=== PATIENT | female | born 1945 | race Caucasian/White ===

== ENCOUNTER → 2023-12-06 14:12 | Outpatient (REF) | payer MEDICARE, OTHER, SELFPAY | LOC: WDC 14:12 | PROVIDERS: ATTENDING PHYSICIAN Obstetrics & Gynecology Gynecology; FAMILY PHYSICIAN Internal Medicine | DX: Z12.31 Encounter for screening mammogram for malignant neoplasm of breast (principal) | CPT/HCPCS: 77063; 77067 ==

== ENCOUNTER → 2024-04-16 13:24 | Outpatient (REF) | payer MEDICARE, OTHER, SELFPAY ==
[2024-04-16 15:00] LABS: % Basophils 0.4 % (0-2); % Eosinophils 0.3 % (0-6); % Immature Granulocytes 0.9 % (0-0.5); % Lymphocytes 2.4 % (20.5-51.1); % Monocytes 5.7 % (1.7-9.3); % Neutrophils 90.3 % (42.2-75.2); Absolute Immature Granulocytes 0.1 10^3/uL (0-0.05); Absolute Lymphocytes 0.3 10^3/uL (1.2-3.4); Absolute Monocytes 0.6 10^3/uL (0.1-0.6); Absolute Neutrophils 9.6 10^3/uL (1.4-6.5); Hematocrit 43.3 % (37.0-47.0); Hemoglobin 15.2 g/dL (12.0-16.0); Mean Corp Hgb Conc. 35.1 g/dL (33.0-37.0); Mean Corpuscular Hgb 29.3 pg (27.0-31.0); Mean Corpuscular Volume 83.4 fL (81.0-99.0); Mean Platelet Volume 10.8 fL (7.4-10.4); Nucleated Red Blood Cells % 0 %; Platelet Count 229 10^3/uL (130-400); Red Blood Cell Count 5.19 10^6/uL (4.20-5.40); Red Cell Dist. Width 12.7 % (11.5-14.5); White Blood Cell Count 10.6 10^3/uL (4.8-10.8)
[2024-04-16 15:45] LABS: ALT (SGPT) 405 U/L (0-35); AST (SGOT) 548 U/L (14-36); Albumin 4.8 g/dl (3.5-5.0); Alkaline Phosphatase 261 U/L (38-126); Blood Urea Nitrogen 21 mg/dl (7-17); Calcium 9.9 mg/dl (8.4-10.2); Carbon Dioxide 22 mmol/L (22-30); Chloride 86 mmol/L (98-107); Glucose 137 mg/dl (70-99); Iron 38 ug/dl (37-170); Percent Saturation 14 % (20-50); Potassium 3.2 mmol/L (3.5-5.1); Sodium 128 mmol/L (135-145); Total Bilirubin 2.4 mg/dl (0.2-1.3); Total Iron Binding Capacity 268 ug/dl (265-497); Total Protein 7.8 g/dl (6.3-8.2); eGFR 51.43
[2024-04-16 15:48] LABS: TSH Reflex To Free T4 0.51 uIU/ml (0.47-4.68)
== END ==
LOC: REG 13:24
PROVIDERS: ATTENDING PHYSICIAN Nurse Practitioner Family
DX: R53.83 Other fatigue (principal); R63.4 Abnormal weight loss; I49.9 Cardiac arrhythmia, unspecified; D50.8 Other iron deficiency anemias; K75.81 Nonalcoholic steatohepatitis (NASH); I10 Essential (primary) hypertension
CPT/HCPCS: 36415; 80053; 82728; 83540; 83550; 84443; 85025

== ENCOUNTER 2024-04-19 19:15 | Inpatient (IN) | payer MEDICARE, OTHER, SELFPAY ==
[2024-04-19] VITALS (7 sets, daily range): BP systolic 125–154; BP diastolic 64–96; BMI 18.1; BMI 17.0
--- NOTE | 2024-04-19 15:11 | ED.GENMED ---
History of Present Illness
General
Chief Complaint: Abnormal Lab Value
Time Seen by Provider: 04/19/24 15:11
History of Present Illness
History of Present Illness:
HPI: Patient presents due to weakness. She also states that primary care doctor wanted to come here because of abnormal liver testing. She had these test that were performed due to weakness and feeling cold.
EXAM:
GENERAL: The patient appears generally weak
HEENT: Moist oral mucosa
CARDIOVASCULAR: No murmurs, normal heart rate, regular rhythm, No chest wall tenderness
PULMONARY: No respiratory distress, breath sounds are clear and equal
ABDOMEN: Soft with no peritoneal signs, no tenderness
NEUROLOGIC: Good strength all extremities, no coordination deficits
PSYCHIATRIC: Appropriate mental status, fair insight and judgement, she is knows she is at [facility] and knows that it is March however she seems to have some very mild cough deficits however the patient states this is not new
EXTREMITIES: Nontender, no edema, moves all extremities equally
SKIN: Some decreased perfusion noted distally the patient is not having any other symptoms regarding this though
TIME OF INITIAL ENCOUNTER: 3:30 PM
NUMBER AND COMPLEXITY OF PROBLEMS ADDRESSED AT THE ENCOUNTER
� Chronic conditions affecting care: Fatty liver disease
� Acute Exacerbation and/or Progression of Chronic Illness: This is an acute problem
� Differential Diagnosis includes: Progressive functional decline, thyroid disease unlikely as she had a normal TSH 3 days ago, liver disease, hyponatremia, hypokalemia
AMOUNT AND/OR COMPLEXITY OF DATA TO BE REVIEWED AND ANALYZED
� I performed an independent evaluation of and my interpretation is:
EKG: Sinus 126, normal axis, frequent PACs versus multifocal atrial tachycardia
CT:
X-rays:
Laboratory Studies: Sodium 121, bicarb slightly low at 20, BUN and creatinine are elevated, magnesium 2.4, LFTs overall improved compared to earlier lipase minimally elevated
Other: Ultrasound imaging reviewed
� Review of other/old records: I reviewed recent records. The patient had a CBC 3 days ago that was unremarkable, sodium was 128, potassium 3.2, creatinine was 1.1, AST was 548, ALT 405, alk phos is 261, TSH was normal
� Clinical information was obtained by an independent historian: I spoke to at bedside
� Prescriptions/Medications Considered but not given:
� Further testing considered but not performed:
RISK OF COMPLICATIONS AND/OR MORBIDITY OR MORTALITY OF PATIENT MANAGEMENT
� Social determinants of health affecting care: With
� Discussion with other providers: Hospitalist for admission at 5:59 PM hyponatremia and CHERIE
� Escalation of care including admission/observation vs risk of discharge considered: The patient appears rather weak and debilitated. Her LFTs were abnormal as outpatient and her sodium and potassium are also low as an
outpatient. Labs were rechecked today. She was also given IV fluids for the possible of dehydration. Ultrasound imaging obtained. Patient's sodium is now down to 121, serum osmolality 270. Of note patient's med list includes hydrochlorothiazide.
Past History
Past History
ED Past Medical History: Asthma
ED Past Surgical History: Other (Recent left cataract surgery)
Social History
Tobacco: Former smoker
Alcohol: None
Drug: None
Living: with family
Phy Exam
Physical Exam
Physical Exam:
See HPI
Course
Orders/Labs/Results
Orders:
Orders
04/19/24 Dinner
Regular
At Your Request: Limited Participation
04/19/24 15:04
Electrocardiogram (*1) Urgent
Reason for Study: Abdominal Pain
EKG- Treatment ONCE
04/19/24 15:13
US Abdomen Complete/Upper Urgent
Comment:
Reason For Exam: high AST/ALT/AP
04/19/24 15:15
Complete Blood Count/With Diff Urgent
Comprehensive Metabolic Panel Urgent
Lipase Urgent
Magnesium Urgent
Comment: ADD-ON
04/19/24 15:19
0.9% Sodium Chloride 1000 ml [Nss] 1,000 ml IV BOLUS
04/19/24 15:32
Add On- LAB Urgent
Tests Added?: magnesium
04/19/24 18:00
Add On- LAB Urgent
Tests Added?: osm
Osmolality, Random Urine Urgent
Urine Sodium Urgent
04/19/24 18:02
Osmolality, Random Urine Stat
Urine Sodium Stat
04/19/24 18:05
Osmolality Serum [Serum Osmolality] Stat
04/19/24 18:06
NEPHROLOGY CONSULT Routine
Consulting Provider: Ganga Barber
Was physician already notified: Yes
Reason for consult: CHERIE, hyponatremia
04/19/24 18:08
Metoprolol [Lopressor] 5 mg IV Q6HPRN PRN
04/19/24 18:15
0.9% Sodium Chloride 1000 ml [Nss] 1,000 ml IV 60 mls/hr
04/19/24 18:21
Admit/Transfer Patient As Directed
Co-Sign Provider:
Level of Care: Inpatient admission
Assign to:: Telemetry
Physician / Group: Sierra
Diagnosis: CHERIE, hyponatremia, elevated LFTs
Reason for Telemetry: Arrhythmia
Date to Stop Telemetry: 04/22/24
Time to Stop Telemetry: 11:00
Reason for Hospitalization: CHERIE, hyponatremia, elevated LFTs
Expected length of stay greater than two midnights?: Yes
ELOS- Estimated Length of Stay in days: 4
I certify the patient meets the requirements for IP care: Yes
04/19/24 18:22
Code Status As Directed
Resuscitation Status: Full Code
04/19/24 19:00
Flush (0.9% Sodium Chloride) [Flush (Nss)] See Dose Instructions IV PER PROTOCOL
04/19/24 19:21
Acetaminophen [Tylenol] 650 mg PO Q4HPRN PRN
Bisacodyl [Dulcolax] 10 mg RECTAL [id number] PRN
Docusate W/Senna [Senokot-S] 1 tablet PO BIDPRN PRN
Ondansetron Injectable [Zofran] 4 mg IV Q6HPRN PRN
Polyethylene Glycol Powder [Miralax] 17 grams PO DAILYPRN PRN
04/19/24 19:21
Activity As Directed
Activity Level: With Assistance
Vital Signs As Directed
Frequency: Per unit guidelines
DX Deep Vein Thrombosis Video Routine
04/19/24 20:00
Heparin 5,000 units SC Q12
04/19/24 21:15
BMP [Basic Metabolic Panel] Q6H
Hepatitis A Antibody, Total Routine
Comment: previous specimen hemolyzed added to next set of labs
Hepatitis B Surface Antibody Routine
Hepatitis B Surface Antigen Routine
Hepatitis C Antibody Routine
04/20/24 03:15
BMP [Basic Metabolic Panel] Q6H
04/20/24 06:00
Comprehensive Metabolic Panel IN AM
LFT [Dkwsp-Syqb-Kivoosm] IN AM
04/20/24 09:15
BMP [Basic Metabolic Panel] Q6H
04/20/24 15:15
BMP [Basic Metabolic Panel] Q6H
04/20/24 21:15
BMP [Basic Metabolic Panel] Q6H
04/21/24 06:00
Comprehensive Metabolic Panel IN AM
LFT [Zjqwy-Yvwc-Zsmzlij] IN AM
04/22/24 06:00
Comprehensive Metabolic Panel IN AM
LFT [Rdhfx-Dcic-Yjenmio] IN AM
04/22/24 11:00
DC Protocol for Telemetry ONCE
04/23/24 06:00
Comprehensive Metabolic Panel IN AM
LFT [Zjsog-Vxmh-Bswfnwj] IN AM
04/24/24 06:00
Comprehensive Metabolic Panel IN AM
LFT [Grwqg-Idfu-Jweypqa] IN AM
04/25/24 06:00
Comprehensive Metabolic Panel IN AM
LFT [Ahebf-Jycp-Letrewt] IN AM
04/26/24 06:00
Comprehensive Metabolic Panel IN AM
LFT [Tfiim-Viho-Vkgeyuw] IN AM
Abnormal Lab Results
04/19/24 04/19/24
15:15 18:05
MCV 79.7 L fL
(81.0-99.0)
Abs Immat Gran (auto) 0.2 H 10^3/uL
(0-0.05)
Absolute Neuts (auto) 7.5 H 10^3/uL
(1.4-6.5)
Absolute Lymphs (auto) 0.2 L 10^3/uL
(1.2-3.4)
Immature Gran % 2.1 H %
(0-0.5)
Neutrophils % 91.5 H %
(42.2-75.2)
Lymphocytes % 2.2 L %
(20.5-51.1)
Sodium 121 L mmol/L
(135-145)
Chloride 81 L mmol/L
(98-107)
Carbon Dioxide 20 L mmol/L
(22-30)
BUN 50 H mg/dl
(7-17)
Creatinine 2.8 H mg/dL
(0.6-1.0)
Glucose 113 H mg/dl
(70-99)
Serum Osmolality 270 L mOsm/kg
(275-300)
Magnesium 2.4 H mg/dl
(1.6-2.3)
Total Bilirubin 1.8 H mg/dl
(0.2-1.3)
AST 360 H U/L
(14-36)
ALT 303 H U/L
(0-35)
Alkaline Phosphatase 269 H U/L
(38-126)
Lipase 320 H U/L
(23-300)
04/19/24 15:15
04/19/24 15:15
Vital Signs
Initial and Last Documented VS:
Initial Vital Signs
Temp Pulse Resp BP Pulse Ox
99 F 125 20 142/96 95
04/19/24 15:03 04/19/24 15:03 04/19/24 15:03 04/19/24 15:03 04/19/24 15:03
Last Documented Vital Signs
Temp Pulse Resp BP Pulse Ox
98.9 F 116 20 148/92 92
04/19/24 19:50 04/19/24 19:50 04/19/24 19:50 04/19/24 19:50 04/19/24 19:50
*Critical Care Note
Total Time (30-74mins, 75-104mins- exclusive of procedures): Not Applicable
ED Attending Note
-
Portions of this chart may have been created with voice recognition software.� Occasional wrong word or��sound alike� substitutions may have occurred due to the inherent limitations of voice recognition software.
Discharge Plan
Departure
Patient Disposition: Admit
Date of Disposition: 04/19/24
Time of Disposition: 18:50
Presentation/result/management discussed w/ accepting MD/DO: Hospitalist
Discharge Problem:
Acute hyponatremia
Interventions
Interventions:
*Risk Screen - Suicide Last Done: 04/19/24 14:57
*General Assessment Last Done: 04/19/24 14:57
*Neglect/Abuse Screening Last Done: 04/19/24 14:57
ED- Fall Risk Assessment Last Done: 04/19/24 18:20
*Nursing Disposition Last Done: 04/19/24 19:14
Discharge Date and Time
Discharge Date/Time: 04/19/24 19:14
[2024-04-19 15:25] LABS: % Eosinophils 0.1 % (0-6); % Immature Granulocytes 2.1 % (0-0.5); % Lymphocytes 2.2 % (20.5-51.1); % Monocytes 3.1 % (1.7-9.3); % Neutrophils 91.5 % (42.2-75.2); Absolute Basophils 0.1 10^3/uL (0-0.2); Absolute Immature Granulocytes 0.2 10^3/uL (0-0.05); Absolute Lymphocytes 0.2 10^3/uL (1.2-3.4); Absolute Monocytes 0.3 10^3/uL (0.1-0.6); Absolute Neutrophils 7.5 10^3/uL (1.4-6.5); Hematocrit 39.7 % (37.0-47.0); Hemoglobin 14.6 g/dL (12.0-16.0); Mean Corp Hgb Conc. 36.8 g/dL (33.0-37.0); Mean Corpuscular Hgb 29.3 pg (27.0-31.0); Mean Corpuscular Volume 79.7 fL (81.0-99.0); Mean Platelet Volume 10.2 fL (7.4-10.4); Nucleated Red Blood Cells % 0 %; Platelet Count 236 10^3/uL (130-400); Red Blood Cell Count 4.98 10^6/uL (4.20-5.40); Red Cell Dist. Width 12.9 % (11.5-14.5); White Blood Cell Count 8.2 10^3/uL (4.8-10.8)
[2024-04-19] MEDS: NSS 1000 IV ×2 (15:27→21:09)
[2024-04-19 15:41] LABS: ALT (SGPT) 303 U/L (0-35); AST (SGOT) 360 U/L (14-36); Alkaline Phosphatase 269 U/L (38-126); Blood Urea Nitrogen 50 mg/dl (7-17); Calcium 8.4 mg/dl (8.4-10.2); Carbon Dioxide 20 mmol/L (22-30); Chloride 81 mmol/L (98-107); Estimated Creatinine Clearance 12 ml/min; Glucose 113 mg/dl (70-99); Lipase 320 U/L (23-300); Potassium 3.5 mmol/L (3.5-5.1); Sodium 121 mmol/L (135-145); Total Bilirubin 1.8 mg/dl (0.2-1.3); Total Protein 6.7 g/dl (6.3-8.2); eGFR 16.76
[2024-04-19 15:49] LABS: Magnesium 2.4 mg/dl (1.6-2.3)
--- NOTE | 2024-04-19 18:01 | HPS.HSE ---
Family Physician
-
Family Physician: Simon Good
Chief Complaint
-
Weakness, elevated LFTs
History of Present Illness
78 y/o F with PMHx:
Essential HTN
Fatty liver with baseline elevated LFTs
Who presents with chief complaints of weakness and elevated LFTs. The history is obtained from patient's as the patient is extremely hard of hearing and does not have her hearing aids. Approximately 6 days ago the patient was apparently
taking care of someone's dog in a house that was quite cool. Since that time the patient has had weakness. She saw her primary care physician and had blood work done showing elevated LFTs and was told to come to the ER. This was approximately 3
days ago. In the last 3 days the patient has only had 2 scrambled eggs. No other oral intake. She has had occasional diarrhea without melena or hematochezia reported ( was not entirely sure about this). He also states the patient
complained of some abdominal pain. Patient has been afebrile. There have been no reports of headache, visual services, neck stiffness, chest pain, shortness of breath, cough, nausea, vomiting, focal neurological deficits, rash.
Medical History
Past Medical History
Past Medical History: Reports Other (as per HPI)
Past Surgical History: Reports Other (N/A)
Social History
Tobacco: Non-smoker
Alcohol: None
Drug: None
Family History
Family History: Not pertinent
Allergies / Home Medications
Allergies reflects when Allergies were last updated in [facility].
Home Medications with original date entered in [facility]
Allergy/Medication List:
Allergies
Allergy/AdvReac Type Severity Reaction Status Date / Time
Sulfa (Sulfonamide Allergy Hives Verified 04/19/24 15:02
Antibiotics)
Home Medications
simvastatin 40 mg tablet 40 mg PO QPM 05/11/11
lisinopril 20 mg-hydrochlorothiazide 12.5 mg tablet 1 tab PO DAILY 04/19/24
risedronate 35 mg tablet 35 mg PO WEEKLY 04/19/24
Review of Systems
-
Unable to obtain full review of systems at this time due to: Other (hard of hearing)
History Source: Family
Physical Exam
Vital Signs
Vital Signs
Temp Pulse Resp BP Pulse Ox
99 F 125 20 142/96 95
04/19/24 15:03 04/19/24 15:03 04/19/24 15:03 04/19/24 15:03 04/19/24 15:03
Physical Exam
General: Other (.)
Laboratory Results
-
04/19/24 15:15
04/19/24 15:15
Laboratory Results
Total Bilirubin 1.8 mg/dl (0.2-1.3) H 04/19/24 15:15
AST 360 U/L (14-36) H 04/19/24 15:15
ALT 303 U/L (0-35) H 04/19/24 15:15
Alkaline Phosphatase 269 U/L (38-126) H 04/19/24 15:15
Lipase 320 U/L (23-300) H 04/19/24 15:15
Impression/Plan
-
Gen: NAD, Awake and alert
Eyes: EOMI, PERRLA, no scleral icterus.
ENMT: dry MM
Neck: supple.
CV: tachy, regular rhythm with occasional premature beats, +S1/S2, no m/r/g.
Resp: CTAB, no rales, wheezes, or rhonchi.
Abd: +BS, soft, NT, ND
Skin: No rashes.
Neuro: CN 2-12 intact, non-focal.
Psych: Normal mood and affect.
ECG (read by me): sinus tachy with PAC @ 126, nl axis, QTc 463ms, no acute ST/TW changes
Acute hyponatremia:
-1L NS bolus ordered in ER
-check serum and urine Osm, Fartun
-c/s renal
-BMP Q6H
-hold HCTZ/ACEi
-suspect AG metabolic acidosis due to CHERIE
-NS @ 60cc/hr
CHERIE:
-gentle IVFs with hyponatremia to avoid overcorrection
-hold HCTZ/ACEi
-renal to see
Elevated LFTs:
-improving from 04/16/24
-Abd U/S read pending
Essential HTN:
-hold HCTZ/ACEi
-IV BB PRN
FULL/Heparin/tele
[2024-04-19 18:28] LABS: Osmolality Serum 270 mOsm/kg (275-300)
--- NOTE | 2024-04-19 19:12 | W.CON.NEPH ---
Consultation
-
Date/Time Consultation Requested: April 19, 2024 6 PM
Date/Time Consultation Performed: April 19, 2024 7 PM
Requesting Provider: Dr. Esquivel
Performing Provider: Dr. Barber
Reason for Consultation: Acute kidney injury, hyponatremia
Medical History
-
Chief Complaint: Confusion
History of Present Illness:
This is a 70-year-old female with hypertension on a multidrug regimen which has typically been well-controlled. She also with osteoporosis on bisphosphonate therapy. She has hyperlipidemia controlled with statin therapy. She also has known fatty
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 Last week she had been dog sitting. She comfortable in the house she was dog sitting and. Thereafter she began with significant fatigue as well as significant loss of appetite. According
to her she did not eat or drink very much at all over the next few days. She also then began having orthostasis and lightheadedness. She was very weak. She was sleeping more. He had taken her to see her primary care physician with
ordered blood work and was planning on having an echocardiogram as well. She then began to get more confused and he became concerned and brought her to the emergency room. Here she was found have a sodium level 121 a creatinine of 2.8. From her
baseline of closer to 0.7. Liver function test were also elevated up to 10 times normal. He states that she has had no issues with eating or drinking simply with no appetite. There is no nausea or vomiting. She had no issues taking her
medications. He believes there is also diarrhea but possibly only 2 or 3 episodes in the last few days. He also notes that she has been pursed lip breathing. This is new for her
Past Medical History
Hypertension
Osteoporosis
Hyperlipidemia
Fatty liver
Left cataract surgery
Asthma
Social History
Tobacco: Non-Smoker
Alcohol: None
Family History
Family History: Not Pertinent
Allergies / Home Medications
Allergy/AdvReac Type Severity Reaction Status Date / Time
Sulfa (Sulfonamide Allergy Hives Verified 04/19/24 15:02
Antibiotics)
�Medication �Instructions �Recorded �Confirmed �Type
simvastatin 40 mg tablet 40 mg PO QPM 05/11/11 04/19/24 History
lisinopril 20 1 tab PO DAILY 04/19/24 04/19/24 History
mg-hydrochlorothiazide 12.5 mg
tablet
risedronate 35 mg tablet 35 mg PO WEEKLY 04/19/24 04/19/24 History
Review of Systems
-
As above, hard of hearing
All other systems: Negative unless noted
Physical Exam
Vital Signs
Vital Signs
Temp Pulse Resp BP Pulse Ox
99 F 125 20 144/64 96
04/19/24 15:03 04/19/24 18:00 04/19/24 18:00 04/19/24 18:00 04/19/24 18:00
Lab Results
WBC 8.2 10^3/uL (4.8-10.8) 04/19/24 15:15
RBC 4.98 10^6/uL (4.20-5.40) 04/19/24 15:15
Hgb 14.6 g/dL (12.0-16.0) 04/19/24 15:15
Hct 39.7 % (37.0-47.0) 04/19/24 15:15
Plt Count 236 10^3/uL (130-400) 04/19/24 15:15
Sodium Cancelled 04/19/24 21:15
Potassium Cancelled 04/19/24 21:15
Chloride Cancelled 04/19/24 21:15
Carbon Dioxide Cancelled 04/19/24 21:15
BUN Cancelled 04/19/24 21:15
Creatinine Cancelled 04/19/24 21:15
eGFR Cancelled 04/19/24 21:15
Glucose Cancelled 04/19/24 21:15
Calcium Cancelled 04/19/24 21:15
Albumin 4.0 g/dl (3.5-5.0) 04/19/24 15:15
Physical Exam
Patient is awake alert oriented and in no distress. Mood and affect were pleasant, insight and judgment were good. Pupils are equal round and reactive to light, extraocular movements are intact, sclera were anicteric. Hearing was normal, ears and
nose are intact. Oropharynx was clear. Neck was supple with trachea midline and no thyromegaly. Heart was tachycardic, irregular rate and rhythm without rubs. Lower extremities without edema. Lungs were clear to auscultation bilaterally and with
normal excursion. Abdomen was soft, nontender, with normal active bowel sounds, and no hepatosplenomegaly. Skin was without rash and with normal turgor.
Data Reviewed
-
Radiology: Other (Chest x-ray ordered)
Ultrasound: Other (Ordered)
Medical Tests (Nuc Med, Echo etc): Image Personally Visualized and interpreted (EKG on April 19, 2024 by my read shows sinus tachycardia with PACs)
Labs: Labs Reviewed by me (Sodium 121, potassium 3.5, bicarb 20, BUN 50, creatinine 2.8, magnesium 2.4, AST 360, ALT 303, albumin 4.0)
Old Records: Reviewed (On July 05, 2023 creatinine 0.7, sodium 139; on April 16, 2024 sodium 128, potassium 3.2, creatinine 1.1, AST 548, ALT 405, ferritin 583, iron saturation 14, iron 38, IBC 268)
Assessment/Plan
-
Assessment
Malaise, decreased appetite
Hypertension
Sinus tachycardia with PACs
Acute kidney injury
Hyponatremia
Metabolic acidosis
Elevated LFTs
Fatty liver
Confusion
Plan
Check urine studies, straight catheterization if required
IV fluids with isotonic saline she still appears to be volume depleted
Follow BMP
Check lactate
Check VBG
Check chest x-ray
Check Legionella
Holding BLAKE inhibitor and diuretic
May need to consider hypertonic pending urine studies
Cause of initial insult uncertain
Discussed with
--- NOTE | 2024-04-19 20:00 | PTCARENOTE ---
Pt transferred from ED. Pt ambulated into room with assistance. Pt AAOX2, bed alarm applied, VSS. Pt oriented to unit, call gonsalez within reach. Will continue with current plan.
[2024-04-19] MEDS: HEPARIN 5000 UNITS SC (21:10)
[2024-04-19 21:43] LABS: Venous Blood Gas B.E. -3.6 mmol/L (-4 to +4); Venous Blood Gas HCO3 20.6 mmol/L (22-27); Venous Blood Gas pCO2 34 mmHg (35-48); Venous Blood Gas pH 7.39 (7.32-7.43); Venous Blood Gas pO2 145 mmHg (30-50)
[2024-04-19 21:55] LABS: Lactic Acid 1.2 mmol/L (0.7-2.0)
[2024-04-19 22:09] LABS: Blood Urea Nitrogen 54 mg/dl (7-17); Calcium 7.6 mg/dl (8.4-10.2); Carbon Dioxide 19 mmol/L (22-30); Chloride 85 mmol/L (98-107); Estimated Creatinine Clearance 12 ml/min; Glucose 90 mg/dl (70-99); Potassium 3.4 mmol/L (3.5-5.1); Sodium 120 mmol/L (135-145); eGFR 16.07
[2024-04-20] VITALS (23 sets, daily range): BP systolic 94–159; BP diastolic 54–95; BMI 17.8
[2024-04-20] MEDS: LOPRESSOR 5 MG IV (02:58)
[2024-04-20 07:38] LABS: Urine Albumin 1+ (Neg - Trace); Urine Bilirubin 1+ (Negative); Urine Character Clear (Clear); Urine Color Yellow; Urine Glucose Negative (Negative); Urine Ketone Trace (Negative); Urine Leukocyte Trace (Negative); Urine Nitrite Negative (Negative); Urine Occult Blood 4+ (Negative); Urine Specific Gravity 1.015 (<1.030); Urine Urobilinogen Negative (Neg - 1+)
[2024-04-20 08:14] LABS: Urine Bacteria Moderate (Negative)
[2024-04-20 08:15] LABS: Urine Red Blood Cell 40-50 /HPF (0-2)
--- NOTE | 2024-04-20 08:15 | W.PN.HOSP.TC ---
Today's Communication/Plan
-
Closely monitor BMP and Magnesium given severe electrolyte disturbances including severe hypokalemia and significant hyponatremia
Continue Azithromycin
New AFlutter vs. AFib RVR -- Diltiazem drip and consulted cardiology
Assessment / Plan
Assessment / Plan
Physical Exam
Gen: NAD, Awake and alert
HEENT: Normocephalic
Neck: Supple.
CV: tachy, regular rhythm with occasional premature beats, +S1/S2, no m/r/g.
Resp: CTAB
Abd: +BS, soft, NT, ND
Skin: Cool extremities
Neuro: CN 2-12 intact, non-focal.
Psych: Normal mood and affect.
Assessment/Plan
Suspected Severe RLL Legionella PNA and ?Lung Nodule?
Legionella Positive
Acute Toxic metabolic encephalopathy secondary to pneumonia and electrolytes disturbances, and dehydration
Acute Hypoxic Respiratory Insufficiency
-Started Azithromycin, continue for at least 5 days, monitor QTc
-Consulted pulmonary, recommendations appreciated
-ID was consulted, recommendations appreciated
-Transition to high flow oxygen or Ventimask, head of bed elevated, aspiration precautions, may require noninvasive ventilation, as per [employer]
Acute hyponatremia
Severe Hypokalemia
Metabolic Acidosis
-c/s renal, recommendations appreciated
-BMP Q6H
-hold HCTZ/ACEi
-Received 3% saline
-Now getting Bicarb IV fluids
A-Fib with RVR
-Started on 04/20/24
-Cardizem Drip
-Cardiology consulted, recommendations appreciated
-Monitor and optimize electrolytes
-Careful with Simvastatin dosage while patient is on Cardizem
Pleural Thickening
RLL groundglass changes
-Consulted pulm -- eval for CT Chest?
Cool Extremities
-Hgb 14.6 yesterday, recheck CBC
-BP is okay/high
-Check echocardiogram and BNP
-Lactic Acid was okay
-ABG and VBG noted
-Patient transferred to ICU given potential for decompensations
CHERIE:
-Continue IV fluids
-Appreciate Nephrology
Elevated LFTs:
-Continue to monitor CMP
-Abd U/S read (as per radiology): 'Cannot exclude 'starry sridhar' appearance of the liver such as can be seen with acute hepatitis'
-Will consulted GI
Essential HTN:
-hold HCTZ/ACEi
-IV BB PRN
FULL/Heparin/tele
Anticipated Discharge: > 48 hours
Subjective/Interval History
-
Date of Service: April 20, 2024
Patient was seen and examined. She denied any new symptoms or complaints. Patient's nurse reported that patient has cool extremities and therefore difficult to obtain an accurate oxygen reading.
Objective Data
-
Labs:
Laboratory Results
04/19/24 04/20/24 04/20/24
21:37 03:15 06:54
Sodium 120 L Cancelled Pending
Potassium 3.4 L Cancelled Pending
Chloride 85 L Cancelled Pending
Carbon Dioxide 19 L Cancelled Pending
BUN 54 H Cancelled Pending
Creatinine 2.9 H Cancelled Pending
Glucose 90 Cancelled Pending
Calcium 7.6 L Cancelled Pending
Total Bilirubin Pending
AST Pending
ALT Pending
Alkaline Phosphatase Pending
04/20/24 04/20/24 04/20/24
09:15 15:15 21:15
Sodium Pending Pending Pending
Potassium Pending Pending Pending
Chloride Pending Pending Pending
Carbon Dioxide Pending Pending Pending
BUN Pending Pending Pending
Creatinine Pending Pending Pending
Glucose Pending Pending Pending
Calcium Pending Pending Pending
Total Bilirubin
AST
ALT
Alkaline Phosphatase
Vital Signs:
Vital Signs
Temp Pulse Resp BP Pulse Ox
97.5 F 96 22 132/65 95
04/20/24 08:09 04/20/24 08:09 04/20/24 08:09 04/20/24 08:09 04/20/24 08:09
I&O
04/19/24 04/20/24 04/21/24
06:59 06:59 06:59
Intake Total 480 / 480
Output Total 300 / 300
Balance 180 / 180
[2024-04-20 08:16] LABS: Urine Granular Cast 0-2 /LPF (0)
[2024-04-20 08:40] LABS: Urine Sodium 29 mmol/L (30-90)
[2024-04-20] MEDS: HEPARIN 5000 UNITS SC ×2 (08:59→20:29)
[2024-04-20 09:18] LABS: Osmolality Urine 322 mOsm/kg (300-900)
[2024-04-20] MEDS: ZITHROMAX INFUSION 250 IV (09:52)
[2024-04-20] MEDS: NSS 1000 IV (09:53)
[2024-04-20 10:22] LABS: B.E. -7.6 mmol/L; O2 Saturation % 97.2 % (94-98); PCO2 23 mmHg (32-35); PO2 69 mmHg (83-108); pH 7.42 (7.35-7.45)
[2024-04-20 10:26] LABS: HCO3 14.9 mmol/L (21-28)
[2024-04-20 11:02] LABS: ALT (SGPT) 233 U/L (0-35); AST (SGOT) 267 U/L (14-36); Albumin 3.5 g/dl (3.5-5.0); Alkaline Phosphatase 246 U/L (38-126); Blood Urea Nitrogen 60 mg/dl (7-17); Calcium 7.7 mg/dl (8.4-10.2); Carbon Dioxide 13 mmol/L (22-30); Chloride 89 mmol/L (98-107); Direct Bilirubin 1.5 mg/dl (0.0-0.4); Estimated Creatinine Clearance 11 ml/min; Glucose 91 mg/dl (70-99); Potassium 3.1 mmol/L (3.5-5.1); Sodium 122 mmol/L (135-145); Total Bilirubin 1.8 mg/dl (0.2-1.3); Total Protein 6.3 g/dl (6.3-8.2); eGFR 14.83
--- NOTE | 2024-04-20 11:05 | W.PN.NEPH.PH ---
Today's Communication / Plan
-
Change IV fluids to hypertonic saline
Continue electrolyte checks q. 6
Assessment/Plan
-
Assessment
Malaise, decreased appetite
Hypertension
Sinus tachycardia with PACs
Acute kidney injury
Hyponatremia
Metabolic acidosis
Elevated LFTs
Fatty liver
Confusion
Pneumonia with positive urinary Legionella antigen
Plan
Sodium up to 122
Checked urine studies, straight catheterization if required: Urine sodium 29 urine osmolality 322 urine creatinine 94
Will change IV fluids to 3% given likely underlying SIADH
We will add sodium bicarbonate for evolving metabolic acidosis
Follow BMP
Check CPK to evaluate for rhabdomyolysis in setting of Legionella, noted hematuria
Holding BLAKE inhibitor and diuretic in setting of persistent acute kidney injury
Low threshold for Beltre catheter despite no evidence of hydro on renal ultrasound
recheck lytes in 6hrs
Discussed with
-
-
Date of Service: April 20, 2024
CC / HPI / ROS
-
Chief Complaint:
Hyponatremia acute kidney
History of Present Illness:
Creatinine up to 3.1
Serum sodium with modest improvement to 122 with isotonic saline
Hemodynamically stable
Review of Systems:
Nonoliguric with frequent straight cath
No chest pain
No fevers
On nasal cannula oxygen
Very weak
Labs
-
Labs:
eGFR 14.83 04/20/24 09:33
eGFR Cancelled 04/20/24 09:33
Albumin 3.5 g/dl (3.5-5.0) 04/20/24 09:33
Physical Exam
-
Vital Signs:
Vital Signs
Temp Pulse Resp BP Pulse Ox
97.5 F 96 22 132/65 95
04/20/24 08:04/20/24 08:04/20/24 08:04/20/24 08:04/20/24 08:09
Respiratory:: Right: Rales
Extremity Edema:: None: Bilateral:
Beltre Catheter: No
[2024-04-20 11:48] LABS: % Basophils 0.9 % (0-2); % Immature Granulocytes 1.3 % (0-0.5); % Lymphocytes 1.4 % (20.5-51.1); % Monocytes 2.9 % (1.7-9.3); % Neutrophils 93.5 % (42.2-75.2); Absolute Basophils 0.1 10^3/uL (0-0.2); Absolute Immature Granulocytes 0.1 10^3/uL (0-0.05); Absolute Lymphocytes 0.1 10^3/uL (1.2-3.4); Absolute Monocytes 0.2 10^3/uL (0.1-0.6); Absolute Neutrophils 7.4 10^3/uL (1.4-6.5); Hematocrit 36.3 % (37.0-47.0); Hemoglobin 13.3 g/dL (12.0-16.0); Mean Corp Hgb Conc. 36.6 g/dL (33.0-37.0); Mean Corpuscular Volume 79.1 fL (81.0-99.0); Mean Platelet Volume 9.5 fL (7.4-10.4); Nucleated Red Blood Cells % 0 %; Platelet Count 236 10^3/uL (130-400); Red Blood Cell Count 4.59 10^6/uL (4.20-5.40); Red Cell Dist. Width 13.1 % (11.5-14.5)
--- NOTE | 2024-04-20 11:53 | CM ---
Patient seen asleep bedside, Sharif present in room, initial assessment completed by . Patient and reside in a multiple story home, five steps to enter. denies patient use of DME, reports VN 15 years ago, denies SNF
history. Patient currently on O2, reports patient is not on home O2. Patient PCP Dr. Good, pharmacy [facility] on [address]. denies housing/utility, transportation, and food insecurities at home. Patient transferring to
ICU for higher level of care. 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 CM will continue to follow for all discharge planning needs.
Plan; will depend on hospital stay/medical needs upon time of discharge.
[2024-04-20 11:56] LABS: INR 1.15; PT 14.6 Sec (11.4-14.6)
[2024-04-20 12:16] LABS: D-Dimer 11.25 ug/mlFEU (0.00-0.50)
[2024-04-20 12:24] LABS: Lactic Acid 1.2 mmol/L (0.7-2.0)
[2024-04-20 12:51] LABS: Troponin I 0.275 ng/ml
[2024-04-20 13:10] LABS: NT-proBNP 11700 pg/ml
[2024-04-20] MEDS: SODIUM CHLORIDE 3% 250 IV (13:32)
[2024-04-20] MEDS: SODIUM BICARBONATE 50 MEQ IV (13:42)
--- NOTE | 2024-04-20 14:02 | CON.INTV ---
Consultation
Consultation Request
Date/Time Consultation Requested: 04/20
Date/Time Consultation Performed: 04/20
Reason for Consultation: Critical care
Medical History
-
History of Present Illness:
History obtained from patient and reviewing the records. Patient is a 78-year-old female who presents to [facility] with persistent weakness. Patient apparently was following up with primary physician, found to have abnormal blood work.
ED records suggest patient has been feeling weak and cold. Upon arrival to [facility], temperature 99, pulse 125, breathing at 20, blood pressure 142/96, 95%. Patient found to have a creatinine of 2.8, sodium 121. Of note, sodium was 128 few
days prior. Chest x-ray suggested pneumonia patient was admitted and then subsequently transferred to ICU for worsening hyponatremia. Urine Legionella antigen was positive. We are asked to help from critical care standpoint 04/20/2024
Presently, she is without complaints but appears fatigued. She denies chest pain, nausea, abdominal pain, diarrhea, fevers, chills, sweats, cough, falls
Outpatient records also reviewed. Patient seen by primary 04/16/2024 for persistent weakness, anorexia, weight loss for 3 days. Blood work was obtained. Echocardiogram and stress test were also ordered along with a EKG
Apparently also seeing orthopedic surgery, had recent shoulder steroid injections in the last month
.
PMH: Hypertension, history of fatty liver with elevated liver function
Past Medical History
Past Medical History: None (See above)
Past Surgical History: None (See above)
Social History
Tobacco: Former Smoker (Quit 1984, [id number].)
Alcohol: Occasional
Drug: None
Personal:
Living: With Family
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
Occupational Exposures: Mold in the basement, remediated
Family History
Family History: Reviewed & Not Pertinent (Family history is unremarkable. Father with prostate cancer, mother with cardiac history. Mother from heart failure at age 69. Family history negative for blood clots)
Allergies / Home Medications
Allergies
Allergy/AdvReac Type Severity Reaction Status Date / Time
Sulfa (Sulfonamide Allergy Hives Verified 04/19/24 15:02
Antibiotics)
Home Medications
�Medication �Instructions �Recorded �Confirmed �Last Taken �Type
simvastatin 40 mg tablet 40 mg PO QPM High Cholesterol 05/11/11 04/19/24 08/08/11 History
lisinopril 20 1 tab PO DAILY Blood Pressure 04/19/24 04/19/24 Unknown History
mg-hydrochlorothiazide 12.5 mg
tablet
risedronate 35 mg tablet 35 mg PO WEEKLY Osteoporosis 04/19/24 04/19/24 Unknown History
Review of Systems
-
All other systems: Negative unless noted
Vitals / Labs / Diagnostic Testing
Vital Signs
Temp Pulse Resp BP Pulse Ox
99.8 F 100 22 127/70 93
04/20/24 13:31 04/20/24 11:38 04/20/24 11:38 04/20/24 11:38 04/20/24 11:38
Lab Data
04/20/24 11:40
Laboratory Results
04/20/24 04/20/24
10:15 11:40
PT 14.6
INR 1.15
pH 7.42
pCO2 23 L
pO2 69 L
HCO3 14.9 L*
O2 Delivery Level
Microbiology
04/20/24 07:26 Urine Legionella Urinary Antigen - Final
Positive for L. pneumophila Ag
Diagnostic Testing:
Physical Exam
-
HEENT: Normocephalic, Moist Mucous Membranes and Other (Mild conjunctival erythema, cachexia)
Cardiovascular: S1/S2, Regular Rhythm, Murmur (1/6 systolic murmur), Rub (n) and Peripheral Edema (n)
Respiratory: Wheeze (n), Rales (Few at right base), Rhonchi (Few at right base) and Other (Mild use of accessory muscles)
GI: Soft, Non Distended and Non Tender
Neurology: Other (Lethargic but answers questions, follows commands. Profoundly weak)
Skin: Good Color (Capillary refill greater than 3 seconds, extremities are cool)
General: Comfortable (Appears comfortable with mild rapid shallow breathing with conversation)
Assessment
-
78-year-old female with history of Nichole, hypertension, recent fatigue, poor appetite with negative COVID workup as outpatient. Chest x-ray reveals right lower lobe pneumonia, sodium level is 121, renal insufficiency, urine Legionella antigen
positive. We are asked to help from critical care standpoint 04/20/2024
Legionella pneumonia, right lower lobe
Malaise, anorexia, fatigue x 3 days
Mental status changes, TME
Acute hyponatremia
Acute renal insufficiency
Sinus tachycardia
Metabolic acidemia
Normal lactate
Hypokalemia
Acute transaminitis/Fatty liver hx
Elevated bilirubin
Mildly elevated troponin
Cachexia, weight loss
Conditions present prior to admission
Hypertension/hyperlipidemia
History of osteoporosis
NICHOLE
[id number] history of smoking quit 1984
Plan/recommendations
At this time, patient is critically ill
Metabolic acidemia noted, hyponatremia and renal insufficiency noted
Given positive urine Legionella antigen, suspect Legionella pneumonia may be partly contributing to metabolic abnormality and clinical presentation
Unclear whether there may also be a component of SIADH. Nephrology following closely
Moving forward
She appears to be prerenal per my exam, capillary refill greater than 3 seconds, cool extremities
She is presently hypertensive with systolic pressure in the 150s/90s
Elevated proBNP noted, but this may be due to underlying renal disease
Would continue with IV fluids per nephrology
Follow sodium levels, treatment per nephrology
Presently on azithromycin
Given multisystem organ dysfunction, metabolic abnormalities, would consider ID evaluation
Source of Legionella unclear. Will need to contact
Questionable recent travel, cannot confirm
ABG reviewed. Ventilation adequate, hypoxia noted
Transition to high flow oxygen or Ventimask
Head of bed elevated, aspiration precautions
May require noninvasive ventilation
Remains high risk situation, may develop respiratory failure
BLAKE inhibitor held. EKG with sinus tachycardia, occasional PVCs
Follow electrolytes, replete potassium. Will defer to nephrology
Reviewed with critical care nursing, primary service, nephrology, infectious disease
TCCT 35 min
We will follow
[2024-04-20] MEDS: SODIUM BICARBONATE 1150 MEQ IV (14:31)
[2024-04-20 15:48] LABS: Troponin I 0.245 ng/ml
--- NOTE | 2024-04-20 15:49 | PTCARENOTE ---
Received pt. into rm [id number] from 4W @ 1400. Drowsy/lethargic, awakens to verbal stimuli. Oriented x2; required reorientation to time. SR-ST w PACs/PVCs/bigeminy, confirmed w EKG. Cold hands/feet; dusky nail beds; DP/PT by doppler. Troponin resulted-
0.275, Dr. Andrews aware. ECHO completed @ bedside this afternoon. SpO2 98%, switched to ventimask per Dr. Dikc by RT s/p ABG results. Auscultated dim breath sounds throughout, coarse/crackles @ R base. +BS, abd soft/nt; NPO d/t lethargy.
Bladder scanned for >400. Dr. Wallace made aware and further orders received to place daniel catheter for CHERIE- see flow sheet. Bicarb gtt infusing via #20 L AC. #22 R FA patent, dressing c/d/i. Bed alarm active. Safe environment maintained.
--- NOTE | 2024-04-20 16:06 | CON.ID ---
Consultation
-
Date/Time Consultation Requested: 04/20/2024 1434
Date/Time Consultation Performed: 04/20/2024 1548
Requesting Provider: Dr. Dick
Performing Provider: Dr. Stacy
Reason for Consultation: Legionella pneumonia
Chief Complaint / Past History
History of Present Illness
Gabriella Sanders is a 78-year-old female being evaluated at the request of Dr. Dick in regards to Legionella pneumonia. History is obtained from chart review, along with patient interview.
The patient presented to outside hospital on 04/19 due to weakness. 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 She had been feeling ill and she saw her PCP. Blood work done at that
point showed elevated LFTs and she was advised to come to the ER, although she did not. Over the intervening 3 days she had significant anorexia with little oral intake. She also admitted to some diarrhea. Ultimately she came to the emergency
room and found to have a markedly low serum sodium. Imaging revealed the presence of a right lower lobe pneumonia, and testing revealed the presence of Legionella antigen in the urine. Infectious Diseases is now asked to comment upon further
antimicrobial therapy.
At present, patient gives very little additional history. 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 She notes no standing water exposure.
Past History
Additional Past Medical History:
HTN
Fatty liver
Past Surgical History: None
Additional Past Surgical History:
(L) cataract surgery
Allergy History:
Sulfa (Sulfonamide Antibiotics) Allergy (Verified 04/19/24 15:02)
Hives
Medications Reviewed: Yes
Current Antibiotics:
Azithromycin 500 mg IV every 24 hours
Social History
Tobacco: Non-Smoker
Drug: None
Personal:
Living: With Family
Employment: Not Employed
Family History
Family History: Not Pertinent
Review of Systems
Vital Signs
Temp Pulse Resp BP Pulse Ox
99.9 F 100 22 127/70 97
04/20/24 15:10 04/20/24 11:38 04/20/24 11:38 04/20/24 11:38 04/20/24 15:39
Physical Exam
Physical Exam
Constitutional: No Acute Distress, Comfortable, Acutely Ill, Chronically Ill and Toxic (mild)
Head: Normocephalic
Eyes: Pupils Equal, Pupils Round, No Conjunctival Hemorrhage and Sclera Anicteric
Pharynx: Benign
Oral: No Thrush and No Ulcers
Cardiovascular: Irregular Rate and S1/S2; Negative S3/S4
Pulmonary: Rhonchi (Right base) and Other (Mildly labored. Venturi mask in place at 40%.); Negative Wheezes or Rales
Gastrointestinal: Soft, Non Distended, Normal Bowel Sounds, No Rebound and No Guarding
Extremities: Edema and Pulses; Negative Cyanosis, Erythema or Venous Insufficiency
Musculoskeletal: Negative Joint Swelling or Joint Effusion
Neurological: Awake
Psychological: Calm
.
Lab / Diagnostic Study Results
04/20/24 11:40
Abs Immat Gran (auto) 0.1 10^3/uL (0-0.05) H 04/20/24 11:40
Absolute Neuts (auto) 7.4 10^3/uL (1.4-6.5) H 04/20/24 11:40
Absolute Lymphs (auto) 0.1 10^3/uL (1.2-3.4) L 04/20/24 11:40
Absolute Monos (auto) 0.2 10^3/uL (0.1-0.6) 04/20/24 11:40
Absolute Basos (auto) 0.1 10^3/uL (0-0.2) 04/20/24 11:40
Immature Gran % 1.3 % (0-0.5) H 04/20/24 11:40
Neutrophils % 93.5 % (42.2-75.2) H 04/20/24 11:40
Lymphocytes % 1.4 % (20.5-51.1) L 04/20/24 11:40
Monocytes % 2.9 % (1.7-9.3) 04/20/24 11:40
Eosinophils % 0.0 % (0-6) 04/20/24 11:40
Basophils % 0.9 % (0-2) 04/20/24 11:40
PT 14.6 Sec (11.4-14.6) 04/20/24 11:40
INR 1.15 04/20/24 11:40
Lactic Acid 1.2 mmol/L (0.7-2.0) 04/20/24 11:40
Urine WBC 3-5 /HPF (0-5) 04/20/24 07:26
Ur Squamous Epith Cells 3-5 /LPF (Few) 04/20/24 07:26
Microbiology Results
Micro:
04/20/24 11:40 Blood Culture - Pending
Blood/Venous
04/20/24 11:19 Blood Culture - Pending
Blood/Venous
04/20/24 07:26 Legionella Urinary Antigen - Final
Urine Positive for L. pneumophila Ag
Imaging:
04/19/2024 CXR (2 view): Large amount of asymmetric right lower lobe opacity most suggestive of SEVERE RIGHT LOWER LOBE PNEUMONIA. A right lower lobe lung cancer or asymmetric inflammatory interstitial disease are considered less likely.
Assessment / Plan
Right lower lobe pneumonia secondary to Legionella
Hyponatremia
CHERIE
Transaminitis
Recommendations:
Continue with Azithromycin for the present. Continue with IV route. No benefit of addition of fluoroquinolone.
Trend white count and fever curve.
Trend serum sodium.
Follows CXR.
Given current clinical presentation, outlook appears guarded
Care Review
Plan reviewed with: Physician (Nephrology)
[2024-04-20 16:28] LABS: Blood Urea Nitrogen 62 mg/dl (7-17); Calcium 7.2 mg/dl (8.4-10.2); Carbon Dioxide 13 mmol/L (22-30); Chloride 91 mmol/L (98-107); Creatine Phosphokinase 842 U/L (30-135); Glucose 94 mg/dl (70-99); Potassium 2.6 mmol/L (3.5-5.1); Sodium 124 mmol/L (135-145)
[2024-04-20] MEDS: KCL 270 MEQ IV (16:53)
[2024-04-20] MEDS: CARDIZEM 125 IV (17:41)
[2024-04-20 17:46] LABS: Hepatitis B Surface Antigen Negative (Negative)
[2024-04-20 18:03] LABS: Hepatitis B Surface Antibody Positive; Hepatitis C Antibody Negative (Negative)
[2024-04-20 18:05] LABS: Estimated Creatinine Clearance 11 ml/min; eGFR 14.28
--- NOTE | 2024-04-20 19:17 | PTCARENOTE ---
1500 BMP results relayed to Dr. Wallace. Further orders received for K+ rider- see MAR and to c/w bicarb gtt. Pt. went into uncontrolled afib @ approx 1700, confirmed w EKG. Rates up to 150's. SBP's remain 140-150's. Dr. Andrews made aware
and further orders received for Cardizem gtt-see MAR/flow sheet. Pt.'s @ bedside, updated on plan of care. Pt. repositioned per protocol. Safe environment maintained.
[2024-04-20 20:06] LABS: Hepatitis A Antibody, Total Positive (Negative)
--- NOTE | 2024-04-20 21:06 | PTCARENOTE ---
Pt is drowsy, opens eyes to verbal stimuli, able to answer orientation questions and follows commands, then drifts back off to sleep. Remains on Ventimask, oxygen saturations are hard to obtain due to cold extremities, when pleath is available
oxygen saturations are 90-94%, RR 30-40's. Afib on monitor, Cardizem maxed at 15mg. Bicarb infusing at 100ml/hr and potassium infusion finished. Pt with low grade fever, all 4 extremities are cold to touch with weak pulses. B/L LE doppler pulses. Pt
with poor vascular access, PICC placed.
[2024-04-20 22:43] LABS: Blood Urea Nitrogen 65 mg/dl (7-17); Calcium 6.8 mg/dl (8.4-10.2); Carbon Dioxide 18 mmol/L (22-30); Chloride 88 mmol/L (98-107); Estimated Creatinine Clearance 12 ml/min; Glucose 100 mg/dl (70-99); Magnesium 2.2 mg/dl (1.6-2.3); Potassium 2.8 mmol/L (3.5-5.1); Sodium 123 mmol/L (135-145); eGFR 15.43
[2024-04-20 23:04] LABS: Troponin I 0.208 ng/ml
[2024-04-20] MEDS: CALCIUM GLUCONATE 290 MG IV (23:13)
[2024-04-20] MEDS: KCL 100 IV (23:21)
[2024-04-21] VITALS (27 sets, daily range): BP systolic 82–131; BP diastolic 45–68; BMI 17.8
--- NOTE | 2024-04-21 00:31 | PTCARENOTE ---
Pt remains lethargic, arouses to voice and is NANWALEK. Cardizem per protocol, remains in Afib. Continues on BIcarb gtt. Pt extremities are so cold its hard to obtain an accurate pulse ox on her at times. Pt oxygen increased from Ventimask 6L 50% to
Midflow 15L, RR improved, SPo2% 93-95 when it does order picker. ABG for morning. Pt incontinent of stool, black and tarry, Heme tested positive. Calcium and potassium replaced. Sacrum is red and blanchable, Q2 turns with pillows.
[2024-04-21] MEDS: CARDIZEM 125 IV (01:41)
[2024-04-21] MEDS: SODIUM BICARBONATE 1150 MEQ IV (01:42)
[2024-04-21] MEDS: KCL 100 IV (03:08)
[2024-04-21 04:17] LABS: % Basophils 0.4 % (0-2); % Immature Granulocytes 1.3 % (0-0.5); % Lymphocytes 1.6 % (20.5-51.1); % Monocytes 2.3 % (1.7-9.3); % Neutrophils 94.4 % (42.2-75.2); Absolute Immature Granulocytes 0.1 10^3/uL (0-0.05); Absolute Lymphocytes 0.2 10^3/uL (1.2-3.4); Absolute Monocytes 0.3 10^3/uL (0.1-0.6); Absolute Neutrophils 10.3 10^3/uL (1.4-6.5); Hematocrit 32.3 % (37.0-47.0); Hemoglobin 11.5 g/dL (12.0-16.0); Mean Corp Hgb Conc. 35.6 g/dL (33.0-37.0); Mean Corpuscular Hgb 28.5 pg (27.0-31.0); Mean Corpuscular Volume 80.1 fL (81.0-99.0); Mean Platelet Volume 10.2 fL (7.4-10.4); Nucleated Red Blood Cells % 0 %; Platelet Count 227 10^3/uL (130-400); Red Blood Cell Count 4.03 10^6/uL (4.20-5.40); Red Cell Dist. Width 12.7 % (11.5-14.5); White Blood Cell Count 10.9 10^3/uL (4.8-10.8)
[2024-04-21 04:21] LABS: B.E. 0.2 mmol/L; HCO3 23.3 mmol/L (21-28); O2 Saturation % 99.5 % (94-98); PCO2 32 mmHg (32-35); PO2 82 mmHg (83-108); pH 7.47 (7.35-7.45)
[2024-04-21 04:43] LABS: Blood Urea Nitrogen 67 mg/dl (7-17); Calcium 8.3 mg/dl (8.4-10.2); Carbon Dioxide 24 mmol/L (22-30); Chloride 87 mmol/L (98-107); Estimated Creatinine Clearance 12 ml/min; Glucose 91 mg/dl (70-99); Potassium 4.4 mmol/L (3.5-5.1); Sodium 126 mmol/L (135-145); eGFR 16.07
[2024-04-21 05:15] LABS: ALT (SGPT) 148 U/L (0-35); AST (SGOT) 147 U/L (14-36); Albumin 2.5 g/dl (3.5-5.0); Alkaline Phosphatase 179 U/L (38-126); Blood Urea Nitrogen 67 mg/dl (7-17); Calcium 8.2 mg/dl (8.4-10.2); Carbon Dioxide 25 mmol/L (22-30); Chloride 88 mmol/L (98-107); Creatine Phosphokinase 380 U/L (30-135); Direct Bilirubin 0.7 mg/dl (0.0-0.4); Estimated Creatinine Clearance 12 ml/min; Glucose 91 mg/dl (70-99); Potassium 4.3 mmol/L (3.5-5.1); Sodium 126 mmol/L (135-145); Total Bilirubin 0.9 mg/dl (0.2-1.3); Total Protein 4.5 g/dl (6.3-8.2); Troponin I 0.136 ng/ml; eGFR 16.07
--- NOTE | 2024-04-21 06:12 | PTCARENOTE ---
Cardizem gtt off, HR below provider limits. Soft BP. Oxygen decreased to 10L based off of ABG.
--- NOTE | 2024-04-21 06:37 | VATNOTE ---
LATE [id number] RETRACTED 6CM PER RADIOLOGIST RECOMMENDATION FOR PICC TIP TO BE SVC. BOTH LUMENS FLUSH WELL AND HAVE A GOOD BR. PCN AWARE OF INTERVENTION AND OUTCOME.
--- NOTE | 2024-04-21 07:19 | W.PN.INTV ---
Today's Communication / Plan
Recommendations
Repeat hemoglobin in p.m.
Protonix twice daily
Chest x-ray in a.m.
PT/OT, out of bed to chair
Speech and swallow evaluation May require neurological evaluation if does not improve with regards to weakness
Assessment
-
78-year-old female with history of Nichole, hypertension, recent fatigue, poor appetite with negative COVID workup as outpatient. Chest x-ray reveals right lower lobe pneumonia, sodium level is 121, renal insufficiency, urine Legionella antigen
positive. We are asked to help from critical care standpoint 04/20/2024
Legionella pneumonia, right lower lobe
Malaise, anorexia, fatigue x 3 days
Mental status changes, TME
Acute hyponatremia
Acute renal insufficiency
Sinus tachycardia
Metabolic acidemia
Normal lactate
Hypokalemia
Acute transaminitis/Fatty liver hx
Elevated bilirubin
Mildly elevated troponin
Cachexia, weight loss
Conditions present prior to admission
Hypertension/hyperlipidemia
History of osteoporosis
NICHOLE
[id number] history of smoking quit 1984
Plan/recommendations
At this time, patient is critically ill
Black tarry stool overnight noted
Required increased to 15 L mid flow overnight, 91 to 98%, now weaned down to 10 L hemoglobin decreased to 11.5 from 14.6 On admission
Positive fluid status noted
Moving forward
Continue with antibiotics for Legionella pneumonia
QT adequate, remains on macrolide therapy
Infectious disease following. Follow cultures
Atrial fibrillation developed yesterday p.m. with rapid ventricular response. On Cardizem drip
Still in atrial fibrillation, rate is controlled
Anticoagulation would be difficult in the setting of black tarry stool. Repeat hemoglobin in the p.m.
Start Protonix therapy twice daily
If recurs, consider GI evaluation
Cardiology has been consulted. Mildly elevated troponin noted
Echocardiogram within normal limits
Metabolic acidemia noted, hyponatremia and renal insufficiency noted
Given positive urine Legionella antigen, suspect Legionella pneumonia may be partly contributing to metabolic abnormality and clinical presentation
Unclear whether there may also be a component of SIADH. Nephrology following closely
Sodium slowly improving to 126, creatinine improving to 2.9
Continue with management per nephrology
BLAKE inhibitor held
ABG reviewed. Ventilation adequate, hypoxia noted
7.47/32/82
Wean oxygen as able
Head of bed elevated, aspiration precautions
May require noninvasive ventilation
Remains high risk situation, may develop respiratory failure
Chest x-ray in a.m.
PT/OT
Patient profoundly weak
Elevated CK levels noted 842, improved to 380
May require additional workup from a neurological standpoint
Reviewed with critical care nursing, primary service, nephrology, infectious disease
TCCT 32 min
Subjective Dataa
Subjective Data
Date of Service:
Date of Service: April 21, 2024
Subjective:
Patient remains critically ill, marginal blood pressures noted. Remains on Cardizem drip. Had episode of tarry stool overnight x 2. Remains with intermittent 3% saline boluses, now off bicarbonate drip. Creatinine slowly trending down to 2.9,
urine output noted
Objective Data
Data Reviewed
Vital Signs / I&O / Oxygen:
Vital Signs
Temp Pulse Resp BP Pulse Ox
97.2 F 84 23 91/49 94
04/21/24 07:08 04/21/24 06:07 04/21/24 06:07 04/21/24 06:07 04/20/24 22:39
Intake and Output
04/20/24 04/21/24 04/22/24
06:59 06:59 06:59
Intake Total 480 / 480 1960.0 / 1960.0
Output Total 300 / 300 1200 / 1200
Balance 180 / 180 760 / 760.0
SaO2 94
Nasal Cannula flow liters per 4
minute
Physical Exam
General: Comfortable and Other (Cachectic)
HEENT: Normocephalic and Anicteric
Cardiovascular: S1-S2, Irregular Rhythm, Murmur (n) and Rub (n)
Respiratory: Wheeze (n), Crackles (Few at right base), Rhonchi (n), Non-Labored Respirations (Improved, less rapid shallow breathing) and Stridor (n)
GI: Soft, Non Distended and Non Tender
Neurology: Awake, Alert and No Motor Deficits (Profoundly weak, cannot lift head up off pillow)
Skin: Cyanosis (n), Jaundice (n) and Rash (n)
Labs/Micro/Reports
Lab Data
04/21/24 03:54
04/21/24 03:54
Laboratory Results
04/20/24 04/20/24 04/21/24
10:15 11:40 03:54
PT 14.6
INR 1.15
pH 7.42 7.47 H
pCO2 23 L 32
pO2 69 L 82 L
HCO3 14.9 L* 23.3
O2 Delivery Level
Microbiology
04/20/24 07:26 Urine Legionella Urinary Antigen - Final
Positive for L. pneumophila Ag
[2024-04-21] MEDS: HEPARIN 5000 UNITS SC ×2 (07:49→21:12)
--- NOTE | 2024-04-21 08:38 | CON.CAR ---
Addendum entered and electronically signed by Lexus Ovalles PA-C 04/21/24 11:40:
attempted to call patient's Sharif at phone number listed in chart to update. no answer. LMOM.
Addendum entered and electronically signed by Tristan Carlisle MD 04/21/24 10:12:
I saw and examined the patient.
The Machining Technician's note was reviewed and I agree with the note.
Comment: Briefly, 78-year-old woman presenting with lethargy and confusion found to have Legionella pneumonia and significant metabolic and electrolyte derangements
Subsequently developed atrial fibrillation with rapid ventricular response which was initially treated with IV Lopressor and diltiazem drip
AV diana blockers have been stopped and she is currently rate controlled
Blood pressure is marginal at this time, would hold off on standing beta-chase or calcium channel chase at this time
Monitor heart rate and give IV Lopressor PRN for goal HR < 110 bpm
Eventual anticoagulation, would hold off now with heme positive stools
Consideration of direct-current cardioversion in the future after correction of underlying electrolyte abnormalities and treatment of infection
Original Note:
Consultation
Consultation Request
Date/Time Consultation Performed: 04/21/24
Requesting Provider: Dr. Andrews
Performing Provider: Lexus Ovalles PA-C for Dr. Carlisle
Reason for Consultation: afib
Medical History
-
Chief Complaint: weakness
History of Present Illness:
Patient is a 78-year-old female with past medical history of hypertension, hyperlipidemia, asthma, NICHOLE followed at [facility], TAZLINA, osteoporosis who was seen in PCP office 04/16/2024 due to fatigue and weight loss. Labs ordered and were abnormal with
elevated LFTs. 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 She has had poor appetite, lethargy, confusion resulting in her bringing her to ER. CXR on admission with evidence of severe R PNA, positive for legionella. Also with significant
electrolyte abnormalities and metabolic acidosis. Cardiology consulted due to new afib (of note, she had EKG with PVCs in PCP office 04/16 and was ordered echo and stress test). She denies cardiac history and does not feel palpitations. She is
presently rate controlled. She is having dark, tarry, heme positive stools per nursing.
PMH:
HTN
HLD
asthma
NICHOLE followed at [facility]
osteoporosis
TAZLINA
Past Medical History
Past Medical History: Other (in HPI)
Social History
Tobacco: Non-Smoker
Personal:
Living: With Family
Employment: Retired
Allergies / Home Medications
Allergy/AdvReac Type Severity Reaction Status Date / Time
Sulfa (Sulfonamide Allergy Hives Verified 04/19/24 15:02
Antibiotics)
�Medication �Instructions �Recorded �Confirmed �Type
simvastatin 40 mg tablet 40 mg PO QPM High Cholesterol 05/11/11 04/19/24 History
lisinopril 20 1 tab PO DAILY Blood Pressure 04/19/24 04/19/24 History
mg-hydrochlorothiazide 12.5 mg
tablet
risedronate 35 mg tablet 35 mg PO WEEKLY Osteoporosis 04/19/24 04/19/24 History
Review of Systems
-
History Source: Patient
All other systems: Negative unless noted
Physical Exam
Vital Signs
Temp Pulse Resp BP Pulse Ox
97.2 F 84 23 91/49 94
04/21/24 07:08 04/21/24 06:07 04/21/24 06:07 04/21/24 06:07 04/20/24 22:39
Lab Results
04/21/24 03:54
04/21/24 03:54
Troponin I 0.136 ng/ml H* D 04/21/24 03:54
Poo-N-Cpdrgbwsetv Pept [id number] pg/ml 04/20/24 11:40
Physical Exam
General: No Apparent Distress and Other (on 10 L NC. ill appearing)
HEENT: Normocephalic, Anicteric and Moist Mucous Membranes
Respiratory: Other (decreased BS on R)
Cardiac: S1/S2 and Irregular Rhythm
GI: Soft, Non Tender, Non Distended and Normal Bowel Sounds
Musculoskeletal: No Clubbing, No Cyanosis and No Edema
Skin: Warm and Dry
Neuro: Awake, Oriented (to self) and Other (TAZLINA)
Impression / Plan
-
Primary Reflector Driller And Deburrer: none
Assessment:
Presentation with weakness
R PNA, severe, legionella positive
Acute hypoxic respiratory insufficiency
TME
MSOF
Metabolic acidosis
CHERIE
Hyponatremia
Hypokalemia
Hypocalcemia
Hypoalbuminemia
Elevated troponin, suspected nonischemic myocardial injury
Elevated LFTs, in setting of NICHOLE followed at [facility]
Atrial fibrillation, new diagnosis of uncertain duration
Heme positive stools
HTN
HLD
asthma
osteoporosis
TAZLINA
ECHO 04/20/24: EF 60-65%, mild MR, mild MR, PAP 30-35mmHg
Plan:
-Patient presented with weakness. Found to have evidence of MSOF in setting of severe R legionella PNA by CXR.
-currently on 10L NC, wean as able. continue abx, ID directing
-continue electrolyte correction per primary service/nephrology
-noted to be in afib, new diagnosis of unclear duration. had been on IV cardizem gtt stopped this AM due to hypotension/bradycardia. currently rate controlled. if were to recur with rapid rates, would consider for amiodarone
-BPs remain soft. may require pressor support if continues to drop. holding OP lisinopril/HCTZ
-[id number] score of 4 for age, female, HTN. currently having dark, tarry stools with hgb 11.5. holding on OAC at present, but would consider. awaiting GI work up
-echo with results as above, discussed with patient today
-check TSH
-trop elevated, peak 0.275 on arrival and trending down. suspected nonischemic myocardial injury. no CP. will manage conservatively and consider OP assessment
-OP statin on hold with elevated LFTs. has history of NICHOLE followed by [facility]IR[facility]
-currently a full code
-d/w nursing
Data Reviewed
-
EKG: Tracing Personally Visualized and interpreted
Radiology: Report Reviewed by me
Medical Tests (Nuc Med, Echo etc): Report Reviewed by me
Labs: Labs Reviewed by me
Old Records: Reviewed
--- NOTE | 2024-04-21 08:44 | W.PN.ID1 ---
Date of Service
Date of Service: April 21, 2024
Today's Communication
Continue Azithromycin.
Assessment / Plan
Right lower lobe pneumonia secondary to Legionella
Hyponatremia
CHERIE
Transaminitis
A-fib
Elevated CK; trending down
Hyperbilirubinemia; improved
Recommendations:
Continue with IV Azithromycin for the present. No benefit of addition of fluoroquinolone.
Trend white count and fever curve.
Trend serum sodium / LFT's
Follows CXR.
Overall outlook remains guarded.
����������������������������������������������������������
Chief Complaint
-: Pneumonia (Legionella)
Subjective / Review of Systems
Patient seen and examined. No significant events overnight. Patient currently states she feels 'better'.
Vital Signs / Physical Exam
Vital Signs
Vital Signs
Temp Pulse Resp BP Pulse Ox
97.2 F 84 23 91/49 94
04/21/24 07:08 04/21/24 06:07 04/21/24 06:07 04/21/24 06:07 04/20/24 22:39
Physical Exam
Constitutional: Comfortable, Acutely Ill, Chronically Ill and Non-toxic
Head: Normocephalic
Eyes: Pupils Equal, Pupils Round, No Conjunctival Hemorrhage and Sclera Anicteric
Cardiovascular: Irregular Rate and S1/S2; Negative S3/S4
Pulmonary: Rhonchi and Non Labored
Gastrointestinal: Soft, Non Tender, Non Distended and Normal Bowel Sounds
Skin: Warm and Dry; Negative Rash or Jaundice
Neurological: Awake and Alert
Psychological: Calm
Objective Data
Lab Data
Lab Results
04/21/24 03:54
04/21/24 03:54
PT 14.6 Sec (11.4-14.6) 04/20/24 11:40
INR 1.15 04/20/24 11:40
Estimated Creat Clear 12 ml/min 04/21/24 03:54
Estimated Creat Clear 12 ml/min 04/21/24 03:54
Lactic Acid 1.2 mmol/L (0.7-2.0) 04/20/24 11:40
Total Bilirubin 0.9 mg/dl (0.2-1.3) 04/21/24 03:54
AST 147 U/L (14-36) H 04/21/24 03:54
ALT 148 U/L (0-35) H 04/21/24 03:54
Alkaline Phosphatase 179 U/L (38-126) H 04/21/24 03:54
Most recent labs reviewed.
Chest X-Ray: Image Reviewed and Report Reviewed
Micro Results:
04/20/24 11:40 Blood Culture - Pending
Blood/Venous
04/20/24 11:19 Blood Culture - Pending
Blood/Venous
04/20/24 07:26 Legionella Urinary Antigen - Final
Urine Positive for L. pneumophila Ag
Imaging:
04/20/2024 Echo (TTE): Normal LV size and wall thickness. Mild mitral regurgitation. Mild tricuspid regurgitation. No intracardiac mass or thrombus formation seen.
04/19/2024 CXR (2 view): Large amount of asymmetric right lower lobe opacity most suggestive of SEVERE RIGHT LOWER LOBE PNEUMONIA. A right lower lobe lung cancer or asymmetric inflammatory interstitial disease are considered less likely.
Care Review
Plan reviewed with: Physician (Nephrology)
--- NOTE | 2024-04-21 08:46 | W.PN.NEPH.PH ---
Today's Communication / Plan
-
3%
Assessment/Plan
-
Assessment
Malaise, decreased appetite
Hypertension
Sinus tachycardia with PACs
Acute kidney injury
Hyponatremia
Metabolic acidosis
Elevated LFTs
Fatty liver
Confusion
Pneumonia with positive urinary Legionella antigen
Plan
follow BMP
follow CPK
3% NaCl today
stop bicarb IVF
abx continue for PNA
maintain daniel given high PVR
swallow eval
may use midodrine later if needed
critical care time 31 minutes
-
-
Date of Service: April 21, 2024
CC / HPI / ROS
-
Chief Complaint:
Hyponatremia
CHERIE
History of Present Illness:
CHERIE/Cr stable 2.9
critically ill in ICU on high O2 supplementation
BP low but stable
on abx for legionella PNA
Na slightly better at 126 after 3% 04/20
CPK improving
Review of Systems:
Nonoliguric with daniel
No fevers
On nasal cannula oxygen
Very weak
Labs
-
Labs:
WBC 10.9 10^3/uL (4.8-10.8) H 04/21/24 03:54
RBC 4.03 10^6/uL (4.20-5.40) L 04/21/24 03:54
Hgb 11.5 g/dL (12.0-16.0) L 04/21/24 03:54
Hct 32.3 % (37.0-47.0) L 04/21/24 03:54
Plt Count 227 10^3/uL (130-400) 04/21/24 03:54
Sodium 126 mmol/L (135-145) L 04/21/24 03:54
Sodium 126 mmol/L (135-145) L 04/21/24 03:54
Potassium 4.3 mmol/L (3.5-5.1) D 04/21/24 03:54
Potassium 4.4 mmol/L (3.5-5.1) 04/21/24 03:54
Chloride 87 mmol/L (98-107) L 04/21/24 03:54
Chloride 88 mmol/L (98-107) L 04/21/24 03:54
Carbon Dioxide 24 mmol/L (22-30) 04/21/24 03:54
Carbon Dioxide 25 mmol/L (22-30) 04/21/24 03:54
BUN 67 mg/dl (7-17) H 04/21/24 03:54
BUN 67 mg/dl (7-17) H 04/21/24 03:54
Creatinine 2.9 mg/dL (0.6-1.0) H 04/21/24 03:54
Creatinine 2.9 mg/dL (0.6-1.0) H 04/21/24 03:54
eGFR 16.07 04/21/24 03:54
eGFR 16.07 04/21/24 03:54
Glucose 91 mg/dl (70-99) 04/21/24 03:54
Glucose 91 mg/dl (70-99) 04/21/24 03:54
Calcium 8.2 mg/dl (8.4-10.2) L 04/21/24 03:54
Calcium 8.3 mg/dl (8.4-10.2) L 04/21/24 03:54
Wgp-U-Rdhgdabahvj Pept 43807 pg/ml 04/20/24 11:40
Albumin 2.5 g/dl (3.5-5.0) L 04/21/24 03:54
Physical Exam
-
Vital Signs:
Vital Signs
Temp Pulse Resp BP Pulse Ox
97.2 F 84 23 91/49 94
04/21/24 07:08 04/21/24 06:07 04/21/24 06:07 04/21/24 06:07 04/20/24 22:39
Cardiovascular:: Irregular rate and rhythm
Respiratory:: Bilateral: Coarse
Lung Excursion:: Normal
Abdomen:: Nontender and Soft
Bowel Sounds:: Normal
Extremity Edema:: None: Bilateral:
[2024-04-21] MEDS: SODIUM CHLORIDE 3% 250 IV (09:11)
[2024-04-21] MEDS: ZITHROMAX INFUSION 250 IV (09:33)
[2024-04-21] MEDS: NSS 500 IV (09:53)
--- NOTE | 2024-04-21 10:15 | PTOTSP ---
Speech Language Pathology
Pt seen for clinical bedside swallow evaluation. Pt sleeping upon arrival, but was easily roused. Generalized weakness noted with pt having difficuly feeding self. P.O. trials of puree, regular solids, and thin liquids provided. Slightly
prolonged mastication. No overt signs of aspiration.
Recommend:
(1) Initiate IDDSI Level 6 (Soft/Bite-Sized) and Thin Liquids
(2) Aspiration precautions: sit upright, slow rate, full supervision with assist as needed, feed only when alert
(3) Meds as tolerated
(4) MANAGER CORPORATE RESPONSIBILITY to continue to follow
[2024-04-21] MEDS: NSS (PRESERVATIVE FREE) 10 ML IV (12:03)
[2024-04-21] MEDS: PROTONIX IV 40 MG IV (12:03)
--- NOTE | 2024-04-21 12:21 | PTCARENOTE ---
System reviewed. No changes from morning assessment. 3% infusing as ordered. Otherwise see flowsheets.
[2024-04-21 14:32] LABS: Hemoglobin 11.2 g/dL (12.0-16.0)
[2024-04-21 14:57] LABS: Blood Urea Nitrogen 69 mg/dl (7-17); Calcium 7.7 mg/dl (8.4-10.2); Carbon Dioxide 22 mmol/L (22-30); Chloride 91 mmol/L (98-107); Estimated Creatinine Clearance 13 ml/min; Glucose 133 mg/dl (70-99); Potassium 3.7 mmol/L (3.5-5.1); Sodium 129 mmol/L (135-145); eGFR 16.76
--- NOTE | 2024-04-21 15:26 | PTCARENOTE ---
Dr Barber aware of repeat labs. 3% saline to continue as ordered, repeat labs in am.
--- NOTE | 2024-04-21 16:22 | PTCARENOTE ---
Systems reviewed. No new changes. Able to do some basic exercises, but little effort. Falling asleep while performing exercises. Pt incontinent of black tarry stool, small amount. Pt with external hemorrhoids, tender with care. Tucks pads
ordered.
--- NOTE | 2024-04-21 16:54 | W.PN.HOSP.TC ---
Today's Communication/Plan
-
Monitor heart rate on monitor and give IV Lopressor PRN for goal HR < 110 bpm
Continue antibiotics
3% saline
Dark tarry stools -- monitor Hgb
Assessment / Plan
Assessment / Plan
Physical Exam
Gen: NAD, Awake and alert
HEENT: Normocephalic
Neck: Supple.
CV: tachy, regular rhythm with occasional premature beats, +S1/S2, no m/r/g.
Resp: CTAB
Abd: +BS, soft, NT, ND
Skin: Cool extremities
Neuro: CN 2-12 intact, non-focal.
Psych: Normal mood and affect.
Assessment/Plan
Suspected Severe RLL Legionella PNA and ?Lung Nodule?
Legionella Positive
Acute Toxic metabolic encephalopathy secondary to pneumonia and electrolytes disturbances, and dehydration
Acute Hypoxic Respiratory Insufficiency
-Started Azithromycin, continue for at least 5 days, monitor QTc
-Consulted pulmonary, recommendations appreciated
-ID was consulted, recommendations appreciated
-Continue oxygen as needed head of bed elevated, aspiration precautions, may require noninvasive ventilation, as per Data Base Design Analyst
Black Tarry Stool Noted Overnight 04/20/24 to 04/21/24
-Anticoagulation would be difficult in the setting of black tarry stool. Repeat hemoglobin in the p.m.
-Start Protonix therapy twice daily
-Will consider GI evaluation
Acute hyponatremia
Severe Hypokalemia
Metabolic Acidosis
-c/s renal, recommendations appreciated
-BMP Q6H
-hold HCTZ/ACEi
-Received 3% saline
-Received Bicarb IV fluids
A-Fib with RVR
-Started on 04/20/24
-Cardizem Drip -- this was stopped due to hypotension and bradycardia
-Cardiology consulted, recommendations appreciated
-Monitor and optimize electrolytes
-Careful with Simvastatin dosage while patient is on Cardizem
Pleural Thickening
RLL groundglass changes
-Consulted pulm -- eval for CT Chest?
Cool Extremities
-Echo and BNP noted, appreciate cardiology
-Lactic Acid was okay
-ABG and VBG noted
-Patient was transferred to ICU given potential for decompensation
CHERIE:
-Continue IV fluids
-BLAKE-I held
-Appreciate Nephrology
Elevated CK levels
-Improving with IV fluids
Elevated LFTs:
-Continue to monitor CMP
-Abd U/S read (as per radiology): 'Cannot exclude 'starry sridhar' appearance of the liver such as can be seen with acute hepatitis'
-Will consulted GI
Essential HTN:
-hold HCTZ/ACEi
-IV BB PRN
FULL/Heparin/tele
Patient remains critically and requiring monitoring in the ICU with low blood pressures and A-Fib which is a high risk encounter.
Anticipated Discharge: > 48 hours
Subjective/Interval History
-
Date of Service: April 21, 2024
Patient was seen and examined. She had tarry stools overnight and continues to require ICU level of care.
Objective Data
-
Labs:
Laboratory Results
04/21/24 04/21/24 04/21/24
03:54 03:54 03:54
Hgb
Sodium 126 L 126 L
Potassium 4.3 D 4.4
Chloride 88 L
Carbon Dioxide 25
BUN 67 H
Creatinine 2.9 H
Glucose 91
Calcium 8.2 L
Total Bilirubin
AST
ALT
Alkaline Phosphatase
04/21/24 04/21/24
03:54 14:22
Hgb 11.2 L
Sodium 129 L
Potassium 3.7
Chloride 91 L
Carbon Dioxide 22
BUN 69 H
Creatinine 2.8 H
Glucose 133 H
Calcium 8.3 L 7.7 L
Total Bilirubin 0.9
AST 147 H
ALT 148 H
Alkaline Phosphatase 179 H
Vital Signs:
Vital Signs
Temp Pulse Resp BP Pulse Ox
98.5 F 105 31 106/66 94
04/21/24 15:27 04/21/24 16:00 04/21/24 16:00 04/21/24 16:00 04/20/24 22:39
I&O
04/20/24 04/21/24 04/22/24
06:59 06:59 06:59
Intake Total 480 / 480 1960.0 / 2060.0 1230 / 1230
Output Total 300 / 300 1200 / 1240 204 / 204
Balance 180 / 180 760 / 820.0 1026 / 1026
--- NOTE | 2024-04-21 18:26 | PTCARENOTE ---
pt back in rapid afib 110-130s, resuming cardizem gtt. see worklist
--- NOTE | 2024-04-21 21:00 | PTCARENOTE ---
Resumed care of pt this evening. Received pt on 3% saline and cardizem gtts via rt central PICC. Pt is very lethargic but arousable to verbal and tactile cues. Pt has generalized weakness. Pt is A&Ox2 forgetful to time. Pt is in A-fib on tele
monitor, irregular apical, and trace edema on left hand. On auscultation pt lungs sound diminished TO. Abdomen is round, incontinent of Bowel, and has hypoactive BS. Beltre in place draining yellow cloudy and sediment urine. Skin is C/D/I.
[2024-04-21 21:30] LABS: Blood Urea Nitrogen 71 mg/dl (7-17); Calcium 7.7 mg/dl (8.4-10.2); Carbon Dioxide 25 mmol/L (22-30); Chloride 95 mmol/L (98-107); Estimated Creatinine Clearance 14 ml/min; Glucose 130 mg/dl (70-99); Potassium 3.5 mmol/L (3.5-5.1); Sodium 131 mmol/L (135-145)
--- NOTE | 2024-04-21 23:00 | PTCARENOTE ---
3% saline gtt completed. This RN reached out to nephro, Dr. Barber, who said to hold any additional. 3% saline.
[2024-04-22] VITALS (25 sets, daily range): BP systolic 105–153; BP diastolic 50–75; PULSE 89; O2SAT 98; BMI 18.4
--- NOTE | 2024-04-22 03:30 | PTCARENOTE ---
Pt converted from A-fib to NSR at approx. 0230. VSS.
[2024-04-22 05:28] LABS: % Basophils 0.2 % (0-2); % Eosinophils 0.1 % (0-6); % Immature Granulocytes 1.6 % (0-0.5); % Monocytes 3.2 % (1.7-9.3); % Neutrophils 92.9 % (42.2-75.2); Absolute Immature Granulocytes 0.2 10^3/uL (0-0.05); Absolute Lymphocytes 0.3 10^3/uL (1.2-3.4); Absolute Monocytes 0.4 10^3/uL (0.1-0.6); Hematocrit 29.5 % (37.0-47.0); Hemoglobin 10.5 g/dL (12.0-16.0); Mean Corp Hgb Conc. 35.6 g/dL (33.0-37.0); Mean Corpuscular Hgb 29.1 pg (27.0-31.0); Mean Corpuscular Volume 81.7 fL (81.0-99.0); Mean Platelet Volume 10.4 fL (7.4-10.4); Nucleated Red Blood Cells % 0 %; Platelet Count 234 10^3/uL (130-400); Red Blood Cell Count 3.61 10^6/uL (4.20-5.40); White Blood Cell Count 12.9 10^3/uL (4.8-10.8)
[2024-04-22 05:52] LABS: ALT (SGPT) 115 U/L (0-35); AST (SGOT) 92 U/L (14-36); Albumin 2.4 g/dl (3.5-5.0); Alkaline Phosphatase 161 U/L (38-126); Blood Urea Nitrogen 73 mg/dl (7-17); Calcium 7.9 mg/dl (8.4-10.2); Carbon Dioxide 28 mmol/L (22-30); Chloride 94 mmol/L (98-107); Creatine Phosphokinase 102 U/L (30-135); Direct Bilirubin 0.5 mg/dl (0.0-0.4); Estimated Creatinine Clearance 14 ml/min; Glucose 117 mg/dl (70-99); Potassium 3.4 mmol/L (3.5-5.1); Sodium 131 mmol/L (135-145); Total Bilirubin 0.7 mg/dl (0.2-1.3); Total Protein 4.4 g/dl (6.3-8.2); eGFR 17.51
--- NOTE | 2024-04-22 07:14 | W.PN.INTV ---
Today's Communication / Plan
Recommendations
Check chest ultrasound, tap if enough fluid to drain
Follow-up potassium
Remains on Cardizem drip
Dobbhoff tube, start nutrition
Check head CT. Consider neurological evaluation
Follow hemoglobin
Assessment
-
78-year-old female with history of Nichole, hypertension, recent fatigue, poor appetite with negative COVID workup as outpatient. Chest x-ray reveals right lower lobe pneumonia, sodium level is 121, renal insufficiency, urine Legionella antigen
positive. We are asked to help from critical care standpoint 04/20/2024
Legionella pneumonia, right lower lobe
Malaise, anorexia, fatigue x 3 days
Mental status changes, TME
Profound weakness
Acute hyponatremia
Acute renal insufficiency
Sinus tachycardia
Metabolic acidemia
Normal lactate
Hypokalemia
Acute transaminitis/Fatty liver hx
Elevated bilirubin
Mildly elevated troponin
Cachexia, weight loss
Conditions present prior to admission
Hypertension/hyperlipidemia
History of osteoporosis
NICHOLE
[id number] history of smoking quit 1984
Plan/recommendations
At this time, patient appears to be improved at least from critical care standpoint
Black tarry stool overnight noted. Hemoglobin stable. Platelets normal
Oxygen requirement has improved, has gone down from 15 L to 6 L
Chest x-ray today with improvement in right pleuroparenchymal process. There may be a pleural effusion
Neurological exam still not improved, profoundly weak on exam
Moving forward
Continue with antibiotics for Legionella pneumonia
QT adequate, remains on macrolide therapy
Infectious disease following. Follow cultures
Atrial fibrillation developed yesterday p.m. with rapid ventricular response. On Cardizem drip, improved
Anticoagulation would be difficult in the setting of black tarry stool. Repeat hemoglobin in the p.m.
Continue Protonix therapy daily
If recurs, consider GI evaluation
Cardiology following. Mildly elevated troponin noted
Echocardiogram within normal limits
Metabolic acidemia noted, hyponatremia and renal insufficiency noted
Given positive urine Legionella antigen, suspect Legionella pneumonia may be partly contributing to metabolic abnormality and clinical presentation
Unclear whether there may also be a component of SIADH. Nephrology following closely
Sodium slowly improving to 126, creatinine improving to 2.9
Continue with management per nephrology
BLAKE inhibitor held
Potassium patient noted. Lasix therapy per nephrology noted
Repeat electrolytes in the p.m.
ABG reviewed. Ventilation adequate, hypoxia noted
7.
Wean oxygen as able
Head of bed elevated, aspiration precautions
May require noninvasive ventilation, but no evidence of CO2 retention at this time
Remains high risk situation, may develop respiratory failure
Avoid narcotic therapy, sedation
Check ultrasound, will proceed with right thoracentesis if enough fluid to drain
PT/OT
Patient profoundly weak
Elevated CK levels noted 842, improved to 380
May require additional workup from a neurological standpoint
Consider neurological evaluation. Check head CT
I did review at length with the at bedside yesterday p.m. states that she is always fatigued but has been able to take care of ADLs at the house but was weaker over the last week prior to admission
Reviewed with critical care nursing, primary service, nephrology, infectious disease
TCCT 31 min
Subjective Dataa
Subjective Data
Date of Service:
Date of Service: April 22, 2024
Subjective:
No major issues overnight however patient neurological status suboptimal. Remains profoundly weak. Cannot lift head up. Poor p.o. intake. Occasional rapid shallow breathing noted
Objective Data
Data Reviewed
Vital Signs / I&O / Oxygen:
Vital Signs
Temp Pulse Resp BP Pulse Ox
98.6 F 89 27 121/55 96
04/22/24 05:25 04/22/24 07:00 04/22/24 07:00 04/22/24 07:00 04/21/24 21:00
Intake and Output
04/21/24 04/22/24 04/23/24
06:59 06:59 06:59
Intake Total 1960.0 / 2060.0 1495 / 1495
Output Total 1200 / 1240 554 / 554
Balance 760 / 820.0 941 / 941
SaO2 96
Nasal Cannula flow liters per 4
minute
Physical Exam
General: Comfortable and Other (Cachectic)
HEENT: Normocephalic and Anicteric
Cardiovascular: S1-S2, Irregular Rhythm, Murmur (n) and Rub (n)
Respiratory: Wheeze (n), Crackles (Few at right base), Rhonchi (n), Non-Labored Respirations (Improved, less rapid shallow breathing) and Stridor (n)
GI: Soft, Non Distended and Non Tender
Neurology: Awake, Alert and Other (Profoundly weak, cannot lift legs up, cannot lift head up off the pillow. Cannot raise arms. Sensation appears to be intact)
Skin: Cyanosis (n), Jaundice (n) and Rash (n)
Labs/Micro/Reports
Lab Data
04/22/24 05:14
04/22/24 05:14
Microbiology
04/20/24 11:40 Blood/Venous Blood Culture - Preliminary
No Growth in 24 hours- Final report to follow
04/20/24 11:19 Blood/Venous Blood Culture - Preliminary
No Growth in 24 hours- Final report to follow
04/20/24 07:26 Urine Legionella Urinary Antigen - Final
Positive for L. pneumophila Ag
[2024-04-22] MEDS: NSS (PRESERVATIVE FREE) 10 ML IV (07:47)
[2024-04-22] MEDS: PROTONIX IV 40 MG IV (07:47)
[2024-04-22] MEDS: HEPARIN 5000 UNITS SC ×2 (07:47→21:02)
[2024-04-22] MEDS: FLUSH (NSS) 2 FLUSH IV (07:48)
--- NOTE | 2024-04-22 07:56 | W.PN.ID1 ---
Date of Service
Date of Service: April 22, 2024
Today's Communication
Continue Azithromycin.
Assessment / Plan
Right lower lobe pneumonia secondary to Legionella pneumophila
Hyponatremia
CHERIE
Transaminitis
A-fib
Elevated CK; trending down
Hyperbilirubinemia; improved
Recommendations:
Continue with IV Azithromycin for the present. (No benefit of addition of fluoroquinolone.)
Trend white count and fever curve.
Trend serum sodium / LFT's. LFTs noted to be improving.
Follow CXR.
Overall outlook continues to remain guarded.
����������������������������������������������������������
Chief Complaint
-: Pneumonia (Legionella) and Other (CHERIE)
Subjective / Review of Systems
Patient seen and examined. Reverted back to sinus rhythm overnight. No other significant changes. Urine output remains marginal.
Review of Systems: No Fever
Vital Signs / Physical Exam
Vital Signs
Vital Signs
Temp Pulse Resp BP Pulse Ox
98.1 F 89 27 121/55 97
04/22/24 07:00 04/22/24 07:00 04/22/24 07:00 04/22/24 07:00 04/22/24 07:46
Physical Exam
Constitutional: Comfortable, Acutely Ill, Chronically Ill and Non-toxic
Head: Normocephalic
Eyes: Pupils Equal, Pupils Round, No Conjunctival Hemorrhage and Sclera Anicteric
Cardiovascular: Regular Rate and S1/S2; Negative S3/S4
Pulmonary: Rhonchi (Right base) and Non Labored
Gastrointestinal: Soft, Non Tender, Non Distended and Normal Bowel Sounds
Genito-Urinary: Beltre and Clear Urine
Skin: Warm and Dry; Negative Rash or Jaundice
Neurological: Other (Arousable; responsive)
Psychological: Calm
Objective Data
Lab Data
Lab Results
04/22/24 05:14
04/22/24 05:14
PT 14.6 Sec (11.4-14.6) 04/20/24 11:40
INR 1.15 04/20/24 11:40
Estimated Creat Clear 14 ml/min 04/22/24 05:14
Lactic Acid Cancelled 04/22/24 06:00
Total Bilirubin 0.7 mg/dl (0.2-1.3) 04/22/24 05:14
AST 92 U/L (14-36) H 04/22/24 05:14
ALT 115 U/L (0-35) H 04/22/24 05:14
Alkaline Phosphatase 161 U/L (38-126) H 04/22/24 05:14
Most recent labs reviewed.
Micro Results:
04/20/24 11:40 Blood Culture - Preliminary
Blood/Venous No Growth in 24 hours- Final report to follow
04/20/24 11:19 Blood Culture - Preliminary
Blood/Venous No Growth in 24 hours- Final report to follow
04/20/24 07:26 Legionella Urinary Antigen - Final
Urine Positive for L. pneumophila Ag
Imaging:
04/20/2024 Echo (TTE): Normal LV size and wall thickness. Mild mitral regurgitation. Mild tricuspid regurgitation. No intracardiac mass or thrombus formation seen.
04/19/2024 CXR (2 view): Large amount of asymmetric right lower lobe opacity most suggestive of SEVERE RIGHT LOWER LOBE PNEUMONIA. A right lower lobe lung cancer or asymmetric inflammatory interstitial disease are considered less likely.
[2024-04-22] MEDS: KCL 160 MEQ IV (08:18)
--- NOTE | 2024-04-22 09:02 | W.PN.NEPH.PH ---
Today's Communication / Plan
-
lasix
Assessment/Plan
-
Assessment
Malaise, decreased appetite
Hypertension
Sinus tachycardia with PACs
Acute kidney injury
Hyponatremia
Metabolic acidosis
Elevated LFTs
Fatty liver
Confusion
Pneumonia with positive urinary Legionella antigen
Plan
follow BMP
abx continue for PNA
maintain daniel given high PVR
trial of lasix today
critical care time 31 minutes
-
-
Date of Service: April 22, 2024
CC / HPI / ROS
-
Chief Complaint:
Hyponatremia
CHERIE
History of Present Illness:
CHERIE/Cr stable 2.7
critically ill in ICU on high O2 supplementation
BP stable
cardizem gtt for afib, rate controlled
on abx for legionella PNA
Na slightly better at 131
CPK resolved
LFTs improving
K low 3.4
Review of Systems:
Barely nonoliguric with daniel
No fevers
Labs
-
Labs:
WBC 12.9 10^3/uL (4.8-10.8) H 04/22/24 05:14
RBC 3.61 10^6/uL (4.20-5.40) L 04/22/24 05:14
Hgb 10.5 g/dL (12.0-16.0) L 04/22/24 05:14
Hct 29.5 % (37.0-47.0) L 04/22/24 05:14
Plt Count 234 10^3/uL (130-400) 04/22/24 05:14
Sodium 131 mmol/L (135-145) L 04/22/24 05:14
Potassium 3.4 mmol/L (3.5-5.1) L 04/22/24 05:14
Chloride 94 mmol/L (98-107) L 04/22/24 05:14
Carbon Dioxide 28 mmol/L (22-30) 04/22/24 05:14
BUN 73 mg/dl (7-17) H 04/22/24 05:14
Creatinine 2.7 mg/dL (0.6-1.0) H 04/22/24 05:14
eGFR 17.51 04/22/24 05:14
Glucose 117 mg/dl (70-99) H 04/22/24 05:14
Calcium 7.9 mg/dl (8.4-10.2) L 04/22/24 05:14
Kjj-H-Ewvrrwdcmej Pept 62883 pg/ml 04/20/24 11:40
Albumin 2.4 g/dl (3.5-5.0) L 04/22/24 05:14
Physical Exam
-
Vital Signs:
Vital Signs
Temp Pulse Resp BP Pulse Ox
98.1 F 89 27 121/55 97
04/22/24 07:00 04/22/24 07:00 04/22/24 07:00 04/22/24 07:00 04/22/24 07:46
Cardiovascular:: Irregular rate and rhythm
Respiratory:: Bilateral: Coarse and Right: Rales
Lung Excursion:: Normal
Abdomen:: Nontender and Soft
Bowel Sounds:: Normal
Extremity Edema:: None: Bilateral:
--- NOTE | 2024-04-22 09:03 | PTCARENOTE ---
Received pt this am, lethargic without complaint on 10l midflow and Cardizem at 5mg/hr. Pt has now converted to SR on monitor. Able to obtain pulse ox this am as charted, attempting to wean oxygen as able, but pt with minimal effort for activity.
Pt with poor intake yesterday, just wants to sleep. Am care completed as charted. Otherwise please see flowsheets.
[2024-04-22] MEDS: LASIX 40 MG IV (09:58)
--- NOTE | 2024-04-22 10:15 | PTCARENOTE ---
attempted to call back, no answer, left message
[2024-04-22] MEDS: ZITHROMAX INFUSION 250 IV (10:45)
[2024-04-22 10:50] LABS: Protein/creatinine Ratio 0.5; Urine Protein 39 mg/dl
--- NOTE | 2024-04-22 11:22 | W.PN.HOSP.TC ---
Today's Communication/Plan
-
Patient is very weak -- CT Head and neurology consult, recommendations appreciated
Continue to monitor Hgb
Continue antibiotics
Continue monitoring in the ICU
Assessment / Plan
Assessment / Plan
Physical Exam
Gen: NAD, Awake and alert
HEENT: Normocephalic
Neck: Supple.
CV: tachy, regular rhythm with occasional premature beats, +S1/S2, no m/r/g.
Resp: CTAB
Abd: +BS, soft, NT, ND
Skin: Cool extremities
Neuro: CN 2-12 intact, non-focal.
Psych: Normal mood and affect.
Assessment/Plan
Suspected Severe RLL Legionella PNA and ?Lung Nodule?
Legionella Positive
Acute Toxic metabolic encephalopathy secondary to pneumonia and electrolytes disturbances, and dehydration
Acute Hypoxic Respiratory Insufficiency
-Started Azithromycin, continue for at least 5 days, monitor QTc
-Consulted pulmonary, recommendations appreciated
-ID was consulted, recommendations appreciated
-Continue oxygen as needed head of bed elevated, aspiration precautions, may require noninvasive ventilation, as per Computer Technical Support Specialist
Weakness
-Computer Technical Support Specialist ordered CT Head
-Spoke with coding spec who recommended neurology consulted
-Consulted neurology, recommendations appreciated
Black Tarry Stool Noted Overnight 04/20/24 to 04/21/24
-Hgb stable -- continue to monitor hemoglobin
-Anticoagulation would be difficult in the setting of black tarry stool.
-Continue Protonix therapy twice daily
-Might need to consult GI, holding off on consult now as discussed with coding spec
Acute hyponatremia
Severe Hypokalemia
Metabolic Acidosis
-c/s renal, recommendations appreciated
-BMP Q6H
-hold HCTZ/ACEi
-Received 3% saline
-Received Bicarb IV fluids
-Trial of Lasix
A-Fib with RVR
Hypotension
Bradycardia
-Started on 04/20/24
-Cardizem Drip
-Cardiology consulted, recommendations appreciated
-Monitor and optimize electrolytes
-Careful with Simvastatin dosage while patient is on Cardizem
Pleural Thickening
RLL groundglass changes
-Consulted pulm -- eval for CT Chest?
Cool Extremities
-Echo and BNP noted, appreciate cardiology
-Lactic Acid was okay
-ABG and VBG noted
-Patient was transferred to ICU given potential for decompensation
CHERIE:
-BLAKE-I held
-Appreciate Nephrology
Elevated CK levels
-Improving with IV fluids
Elevated LFTs:
-Continue to monitor CMP
-Abd U/S read (as per radiology): 'Cannot exclude 'starry sridhar' appearance of the liver such as can be seen with acute hepatitis'
-Will consulted GI
Essential HTN:
-hold HCTZ/ACEi
-IV BB PRN
FULL/Heparin/tele
Patient remains critically and requiring monitoring in the ICU with low blood pressures, and A-Fib RVR which is a high risk encounter.
Anticipated Discharge: > 48 hours
Subjective/Interval History
-
Date of Service: April 22, 2024
Patient was seen and examined. Patient was very weak, coding spec ordered CT Head.
Objective Data
-
Labs:
Laboratory Results
04/22/24 04/22/24
05:14 16:00
WBC 12.9 H
Hgb 10.5 L
Hct 29.5 L
Plt Count 234
Sodium 131 L
Potassium 3.4 L Pending
Chloride 94 L
Carbon Dioxide 28
BUN 73 H
Creatinine 2.7 H
Glucose 117 H
Calcium 7.9 L
Total Bilirubin 0.7
AST 92 H
ALT 115 H
Alkaline Phosphatase 161 H
Vital Signs:
Vital Signs
Temp Pulse Resp BP Pulse Ox
97.4 F 92 26 125/56 92
04/22/24 11:00 04/22/24 09:00 04/22/24 09:00 04/22/24 09:00 04/22/24 10:10
I&O
04/21/24 04/22/24 04/23/24
06:59 06:59 06:59
Intake Total 1960.0 / 2060.0 1495 / 1500 180 / 180
Output Total 1200 / 1240 554 / 564 60 / 60
Balance 760 / 820.0 941 / 936 120 / 120
--- NOTE | 2024-04-22 11:50 | PN.CDI ---
CDI
- -
CDI:
Physician Documentation Request
Admit Date: 04/19/24 19:15
Dear Doctor Juliana,
Patient admitted for pneumonia.
04/22 Hospitalist PN: 'Acute Hypoxic Respiratory Insufficiency - Started Azithromycin, continue for at least 5 days, monitor QTc -Consulted pulmonary, recommendations appreciated...Continue oxygen as needed head of bed elevated, aspiration
precautions, may require noninvasive ventilation, as per Appraiser Auditor'
Selected Entries
04/20/24
22:39 04/21/24
21:00 04/22/24
09:03
Flow liters per minute # 15 10 6
Clarify which of the following accurately represents the patient's respiratory status:
Acute hypoxic respiratory failure
Acute hypoxic respiratory insufficiency
Other
Additional information for Respiratory Failure:
Recognized criteria for Respiratory Failure (Source: [facility] Hospitalist Aug 2013)
ABGs: (1 or more) Symptoms Please indicate type if known
1. p)2 <60 or RA SPO2 <91% on RA 1. Tachypnea, SOB, dyspnea Hypoxic
2. pCO2 50 and pH <7.35 2. Use of accessory muscles Hypercapnic
3. pO2 decrease of pCO2 increase by 3. Pallor or cyanosis Hypoxic and Hypercapnic
10 mmHg from baseline if known 4. Anxiety or restlessness Unable to determine
5. Unable to speak in full sentences
Supplemental O2 of > 40% (5LPM) Intubation is not required
Use of terms such as suspected, likely, concern for, or probable (associated with a specific diagnosis that is being evaluated, monitored, or treated as if it exists) are acceptable and can be coded in the inpatient setting, when documented at the
time of discharge.
Thank you,
Mala Nunez RN, BSN
CDI Specialist
Available via [place] text
Please use your independent medical judgment in providing your response.
--- NOTE | 2024-04-22 11:51 | CON.NEURO ---
Neuro Assessment/Plan
Assessment
IMPRESSIONS/RECOMMENDATIONS:
Abrupt change in tone and mental status
Most likely due to toxic metabolic factors producing generalized fatigue. There is the possibility that the patient does have distal weakness in bilateral lower extremities producing symptomatology, although this is unclear based on the patient's
inability to fully cooperate with testing due to lethargy.
Based on the patient's recent atrial fibrillation, the possibility of diffuse small sized acute ischemic strokes cannot be eliminated as a potential limiter to the patient's current function
Plan
Check MRI of brain
Check blood work for additional potential metabolic causes
Continue supportive care
Provide thiamine for completeness sake
Will continue to follow patient.
Consultation
Order
Date of Consultation: 04/22/24
Requesting Provider: Hospitalist
Reason for Consult: Change in mental status and generalized weakness
Subjective/Objective
Subjective Data
Date of Service: April 22, 2024
Unknown handed
Patient presented to this hospital's emergency department due to new onset generalized weakness beginning approximately 3 days prior to presentation on April 19, 2024. After arrival, the patient was found to have hyponatremia and increasing
creatinine LFTs were also elevated. Subsequent testing indicated the patient had legionnaires disease. Patient also was found to have atrial fibrillation associated with hypotension and bradycardia. The patient herself is a limited historian and
information obtained after review of the patient's medical records as well as discussion with professional medical care providers.
Objective Data
Vital Signs
Temp Pulse Resp BP Pulse Ox
36.3 C 92 26 125/56 92
04/22/24 11:00 04/22/24 09:00 04/22/24 09:00 04/22/24 09:00 04/22/24 10:10
Lab Results
04/22/24 05:14
PT 14.6 Sec (11.4-14.6) 04/20/24 11:40
INR 1.15 04/20/24 11:40
Sodium 131 mmol/L (135-145) L 04/22/24 05:14
Potassium 3.4 mmol/L (3.5-5.1) L 04/22/24 05:14
BUN 73 mg/dl (7-17) H 04/22/24 05:14
Glucose 117 mg/dl (70-99) H 04/22/24 05:14
Calcium 7.9 mg/dl (8.4-10.2) L 04/22/24 05:14
Sib-U-Oecrybhnufl Pept 84734 pg/ml 04/20/24 11:40
Patient Allergies
Sulfa (Sulfonamide Antibiotics) Allergy (Verified 04/19/24 15:02)
Hives
Review of Systems
-
Unable to obtain full review of systems at this time due to: Lethargy
History Source: Patient
All other systems: Reviewed and negative
Physical Exam
-
General: No Apparent Distress, Appears Stated Age and Wearing Oxygen
Eyes: Round OU, [place] Conjunctivae and No Ptosis; Negative Able to visualize OU
HEENT: Anicteric and Moist Mucous Membranes
Neck: Full Range of Motion
Respiratory: No Dyspnea
Cardiac: No JVD
GI: Non-distended
Skin: Unremarkable
Extremities: No Clubbing, No Cyanosis and No Edema
Psych: Negative Intact Judgement/Insight
Extended Neurological Exam
Mood & Affect: Depressed
Attention Span & Concentration: Awake, Interactive and Closes Eyes after Stimulation (After approximately 2 seconds); Negative Alert
Memory: Able to Recall (Current month and year with some difficulty); Negative Unable to Recall Personal History
Tremor: Hand Tremor Absent and Head Tremor Absent
Involuntary Movement: None
Speech: Quality Unremarkable and Severely Reduced Output
Cranial Nerve II: Left Eye: Pupillary Reactivity Unremarkable, Pupillary Size Unremarkable and Visual Goldstein Intact
Cranial Nerve II: Right Eye: Pupillary Reactivity Unremarkable, Pupillary Size Unremarkable and Visual Goldstein Intact
Cranial Nerves III, IV, : Extraocular Movement: Extraocular Movement Full in all Directions
Cranial Nerve V: Facial Sensation: Unable to Assess
Cranial Nerve VII: Facial Symmetry: Normal Facial Symmetry
Cranial Nerve VIII: Hearing: Negative Unremarkable Hearing to Normal Conversational Volume
Cranial Nerves IX, X: Palate Movement: Unable to Assess
Cranial Nerve XI: Shoulder Shrug: Unremarkable
Cranial Nerve XII: Tongue Protusion: Unable to Assess
Muscle Strength, Overall: Reduced (Distally in bilateral upper extremities, patient unable to lift legs off of bed for greater than 1 second bilateral equally) and Otherwise Intact
Muscle Bulk & Tone: Bulk Unremarkable and Tone Unremarkable
Pronator Drift: No Drift in Upper Extremities
Deep Tendon Reflexes: Trace Throughout
Cold Sensation: Unable to Assess
Vibration Sensation: Unable to Assess
Touch Sensation: Other (No reduction of pain sensation in bilateral lower extremities distally)
Coordination: Unable to Assess
Babinski Sign: Absent Bilaterally
Gait & Station: Unable to Assess
Data Reviewed
-
CT Head: Report Reviewed
Labs: Report Reviewed
Reviewed with: Physician, Nurse and Nurse Practioner
Old Records: Summarized
Medications
-
Active Medications
Generic Name Dose Route Start Last Admin
Trade Name Freq PRN Reason Stop Dose Admin
Acetaminophen 650 mg 04/19/24 19:21
Acetaminophen 325 Mg Tablet PO 05/17/24 19:20
Q4HPRN PRN
mild pain/MCNALLY/temp> 100.4F
Bisacodyl 10 mg 04/19/24 19:21
Bisacodyl 10 Mg Rectal Suppository RECTAL 05/17/24 19:20
[id number] PRN
constipation
Heparin Sodium 5,000 units 04/19/24 20:00 04/22/24 07:47
Heparin 5,000 Units/Ml 1 Ml Vial SC 05/17/24 19:59 5,000 units
Q12 CHASE Administration
Azithromycin 500 mg in 250 mls @ 250 mls/hr 07/01/24 10:00 04/22/24 10:45
Zithromax Infusion IV 250 mls
Q24H CHASE Administration
Diltiazem HCl 125 mg in 125 mls @ 0 mls/hr 04/20/24 17:15 04/21/24 01:41
Cardizem IV 125 mls
PER PROTOCOL CHASE Administration
Protocol
Per Protocol
Metoprolol Tartrate 5 mg 04/19/24 18:08 04/20/24 02:58
Metoprolol 5 Mg/5 Ml Vial IV 05/17/24 18:07 5 mg
Q6HPRN PRN Administration
HR>110
Ondansetron HCl 4 mg 04/19/24 19:21
Ondansetron 4 Mg/2 Ml Vial IV 05/17/24 19:20
Q6HPRN PRN
nausea and vomiting
Pantoprazole Sodium 40 mg 04/21/24 12:00 04/22/24 07:47
Protonix 40 Mg Iv Push IV 05/19/24 11:59 40 mg
DAILY CHASE Administration
Polyethylene Glycol 17 grams 04/19/24 19:21
Polyethylene Glycol Powder 17 Grams Packet PO 05/17/24 19:20
DAILYPRN PRN
constipation
Senna/Docusate Sodium 1 tablet 04/19/24 19:21
Docusate W/Senna (Gabrielle-Colace) Tablet PO 05/17/24 19:20
BIDPRN PRN
constipation
Sodium Chloride 0 flush 04/19/24 19:00 04/22/24 07:48
Sodium Chloride 0.9% (Flush) Syringe IV 05/17/24 18:59 2 flush
PER PROTOCOL CHASE Administration
Sodium Chloride 10 ml 04/21/24 12:00 04/22/24 07:47
Sodium Chloride 0.9% (Preservative Free) 10 Ml Vial IV 05/19/24 11:59 10 ml
DAILY CHASE Administration
Home Medications
�Medication �Instructions �Recorded
simvastatin 40 mg tablet 40 mg PO QPM High Cholesterol 05/11/11
lisinopril 20 1 tab PO DAILY Blood Pressure 04/19/24
mg-hydrochlorothiazide 12.5 mg
tablet
risedronate 35 mg tablet 35 mg PO WEEKLY Osteoporosis 04/19/24
Past History
Past History
ED Past Medical History: Asthma, HTN, Hypercholesterolemia and Other (back pain with epidural steroid injections)
ED Past Surgical History: Gynecological (myomectomy), Orthopedic (knee surgery) and Other (left cataract surgery)
Social History
Tobacco: Former smoker
Alcohol: None
Drug: None
Living: with family
[2024-04-22] MEDS: CARDIZEM 125 IV (12:04)
--- NOTE | 2024-04-22 12:29 | PTCARENOTE ---
systems reviewed. dht confirmed in good position. tf initiated as ordered. oxygen has been weaned to 4lmidflow with sats low to mid 90s. remains sr. otherwise no changes.
--- NOTE | 2024-04-22 15:03 | CM ---
CM following re: discharge planning.
Discussed in Rounds, reviewed pt's chart, met with pt and pt's at bedside. per Rounds meeting, pt remains on Cardizem drip,
Dobbhoff tube, starts nutrition, continue supportive carte.
PT and OT evaluations noted - SNF level of care recommended. Pt's spouse is aware, expressed his agreement. A list of SNFs provided to pt's . [facility] preferred. A referral to [facility] made with tentative discharge date early next
week.
D/C plan: [facility] SNF when medically stable.
CM will follow with discharge plan updates as hospitalization progresses
--- NOTE | 2024-04-22 15:20 | W.PN.CARDCBS ---
Today's Communication / Plan
-
Spontaneously converted to sinus rhythm
Change Cardizem to p.o. through tube
No anticoagulation with heme positive stools
Change in mental status being evaluated by neurology
Discussed with nursing
Impression / Plan
-
Primary Golf Club Repairer: none
Assessment:
Atrial fibrillation�spontaneously converted to sinus rhythm
Presentation with weakness
R PNA, severe, legionella positive
Acute hypoxic respiratory insufficiency
TME
MSOF
Metabolic acidosis
CHERIE
Hyponatremia
Hypokalemia
Hypocalcemia
Hypoalbuminemia
Elevated troponin, suspected nonischemic myocardial injury
Elevated LFTs, in setting of NICHOLE followed at [facility]
Heme positive stools
HTN
HLD
asthma
osteoporosis
[place]
ECHO 04/20/24: EF 60-65%, mild MR, mild MR, PAP 30-35mmHg
Plan:
Had recurrent A-fib and IV Cardizem was started and converted spontaneously to sinus rhythm
Will change IV Cardizem to Cardizem through tube
[id number] score of 4 for age, female, HTN.
No anticoagulation with heme positive stools.
She has change in mental status at present and is seeing neurology.
Renal function continues to worsen with creatinine of 2.7.
Progress Note - Golf Club Repairer
Subjective
Date of Service: April 22, 2024
Patient awake but not responding to questions
Objective
Labs:
04/22/24 05:14
Labs
Hgb 10.5 g/dL (12.0-16.0) L 04/22/24 05:14
Hct 29.5 % (37.0-47.0) L 04/22/24 05:14
Plt Count 234 10^3/uL (130-400) 04/22/24 05:14
PT 14.6 Sec (11.4-14.6) 04/20/24 11:40
INR 1.15 04/20/24 11:40
Sodium 131 mmol/L (135-145) L 04/22/24 05:14
Potassium 3.4 mmol/L (3.5-5.1) L 04/22/24 05:14
BUN 73 mg/dl (7-17) H 04/22/24 05:14
Creatinine 2.7 mg/dL (0.6-1.0) H 04/22/24 05:14
Glucose 117 mg/dl (70-99) H 04/22/24 05:14
Troponins
04/20/24 04/20/24 04/20/24
11:40 15:12 22:14
Troponin I 0.275 H* 0.245 H* 0.208 H*
04/21/24
03:54
Troponin I 0.136 H* D
Vital Signs and I&O:
Vital Signs
Temp Pulse Resp BP Pulse Ox
97.6 F 96 24 120/75 92
04/22/24 15:00 04/22/24 12:00 04/22/24 12:00 04/22/24 12:00 04/22/24 12:00
Vital Signs
Temp Pulse Resp BP Pulse Ox
97.6 F 96 24 120/75 92
04/22/24 15:00 04/22/24 12:00 04/22/24 12:00 04/22/24 12:00 04/22/24 12:00
Intake & Output
04/20/24 04/21/24 04/22/24 04/23/24
06:59 06:59 06:59 06:59
Intake Total 480 / 480 1960.0 / 2060.0 1495 / 1500 530 / 530
Output Total 300 / 300 1200 / 1240 554 / 564 510 / 510
Balance 180 / 180 760 / 820.0 941 / 936 20 / 20
Physical Exam
Physical Exam
General: She is awake but no response to commands
Neck: Supple, no JVD, HJR, carotids +2 B/L, no bruits bilaterally.
Heart: Non displaced PMI, RRR, no murmurs, No S3, S4, no rubs.
Lungs: scattered rhonchi with poor effort
Extremities: No clubbing, cyanosis or edema bilaterally.
Neuro:Awake but no response to commands
[2024-04-22 16:20] LABS: Erythrocyte Sed Rate 39 mm/hour (0-20)
[2024-04-22 16:55] LABS: Potassium 3.6 mmol/L (3.5-5.1)
[2024-04-22] MEDS: THIAMINE INJECTION 100 MG IV (17:01)
[2024-04-22 17:11] LABS: Folate 14.7 ng/ml (2.76-20); Vitamin B12 > 1000 pg/ml (239-931)
[2024-04-22] MEDS: CARDIZEM 60 MG TUBE ×2 (17:56→21:03)
[2024-04-23] VITALS (10 sets, daily range): BP systolic 122–150; BP diastolic 60–72; BMI 18.3
[2024-04-23 00:24] LABS: Glucose - Point of Care 163 mg/dl (70-99)
[2024-04-23 05:00] LABS: % Basophils 0.2 % (0-2); % Eosinophils 0.4 % (0-6); % Immature Granulocytes 2.8 % (0-0.5); % Lymphocytes 2.8 % (20.5-51.1); % Monocytes 4.6 % (1.7-9.3); % Neutrophils 89.2 % (42.2-75.2); Absolute Immature Granulocytes 0.3 10^3/uL (0-0.05); Absolute Lymphocytes 0.3 10^3/uL (1.2-3.4); Absolute Monocytes 0.5 10^3/uL (0.1-0.6); Absolute Neutrophils 9.4 10^3/uL (1.4-6.5); Mean Corp Hgb Conc. 34.5 g/dL (33.0-37.0); Mean Corpuscular Hgb 28.6 pg (27.0-31.0); Mean Corpuscular Volume 82.9 fL (81.0-99.0); Mean Platelet Volume 10.2 fL (7.4-10.4); Nucleated Red Blood Cells % 0 %; Platelet Count 243 10^3/uL (130-400); Red Cell Dist. Width 13.2 % (11.5-14.5); White Blood Cell Count 10.5 10^3/uL (4.8-10.8)
[2024-04-23 05:34] LABS: ALT (SGPT) 103 U/L (0-35); AST (SGOT) 74 U/L (14-36); Albumin 2.5 g/dl (3.5-5.0); Alkaline Phosphatase 198 U/L (38-126); Blood Urea Nitrogen 75 mg/dl (7-17); Calcium 8.5 mg/dl (8.4-10.2); Carbon Dioxide 31 mmol/L (22-30); Chloride 96 mmol/L (98-107); Direct Bilirubin 0.6 mg/dl (0.0-0.4); Estimated Creatinine Clearance 14 ml/min; Glucose 153 mg/dl (70-99); Potassium 3.2 mmol/L (3.5-5.1); Sodium 135 mmol/L (135-145); Total Bilirubin 0.8 mg/dl (0.2-1.3); Total Protein 4.6 g/dl (6.3-8.2); eGFR 18.32
[2024-04-23] MEDS: KCL 270 MEQ IV (06:00)
--- NOTE | 2024-04-23 07:06 | W.PN.INTV ---
Today's Communication / Plan
Recommendations
Continue antibiotics
Continue nutrition via Dobbhoff tube
PT/OT
Neurology workup negative to date
Rate control continues per cardiology
DVT prophylaxis
Okay for transfer out of ICU. We will sign off. Please call with questions
Assessment
-
78-year-old female with history of Nichole, hypertension, recent fatigue, poor appetite with negative COVID workup as outpatient. Chest x-ray reveals right lower lobe pneumonia, sodium level is 121, renal insufficiency, urine Legionella antigen
positive. We are asked to help from critical care standpoint 04/20/2024
Legionella pneumonia, right lower lobe
Malaise, anorexia, fatigue x 3 days
Mental status changes, TME
Profound weakness
Acute hyponatremia
Acute renal insufficiency
Sinus tachycardia
Metabolic acidemia
Normal lactate
Hypokalemia
Acute transaminitis/Fatty liver hx
Elevated bilirubin
Mildly elevated troponin
Cachexia, weight loss
Conditions present prior to admission
Hypertension/hyperlipidemia
History of osteoporosis
NICHOLE
[id number] history of smoking quit 1984
Plan/recommendations
At this time, patient appears to be improved at least from critical care standpoint
Hemoglobin remained stable
Oxygen requirement has improved, has gone down from 15 L to 4 L
Chest x-ray with improvement in right pleuroparenchymal process. There may be a pleural effusion
Neurological exam still not improved, profoundly weak on exam
Imaging negative neurology correspondence reviewed. Thought to be secondary to underlying infectious process
Moving forward
Continue with antibiotics for Legionella pneumonia
QT adequate, remains on macrolide therapy
Infectious disease following. Follow cultures
Atrial fibrillation developed with intermittent with rapid ventricular response. On Cardizem drip, now transition to oral Cardizem
Anticoagulation would be difficult in the setting of black tarry stool.
Continue Protonix therapy daily
If recurs, consider GI evaluation
Cardiology following. Mildly elevated troponin noted
Echocardiogram within normal limits
Metabolic acidemia noted, hyponatremia and renal insufficiency noted
Given positive urine Legionella antigen, suspect Legionella pneumonia may be partly contributing to metabolic abnormality and clinical presentation
Unclear whether there may also be a component of SIADH. Nephrology following closely
Sodium slowly improving to 126, creatinine improving to 2.9
Continue with management per nephrology
BLAKE inhibitor held
Potassium patient noted. Lasix therapy per nephrology noted
Repeat electrolytes in the p.m.
ABG reviewed. Ventilation adequate, hypoxia noted
Wean oxygen as able
Head of bed elevated, aspiration precautions
May require noninvasive ventilation, but no evidence of CO2 retention at this time
Remains high risk situation, may develop respiratory failure
Avoid narcotic therapy, sedation
Chest ultrasound without enough fluid to drain
, Chest x-ray intermittently
PT/OT
Patient profoundly weak
Elevated CK levels noted 842, improved to 380
Neurology evaluation negative to date
DVT prophylaxis: Subcutaneous heparin, and mechanical prophylaxis
GI prophylaxis: Remains on Protonix
I did review at length with the at bedside 04/21 states that she is always fatigued but has been able to take care of ADLs at the house but was weaker over the last week prior to admission
Reviewed with critical care nursing, primary service
Okay for transfer out of ICU. We will sign off. Please call with questions
Subjective Dataa
Subjective Data
Date of Service:
Date of Service: April 23, 2024
Subjective:
Patient remains weak. She does open eyes, had balance few words but difficult to raise head, arms. Weak cough. 92% on 4 L, urine output adequate, creatinine slowly trending down. Neurology workup negative imaging
Objective Data
Data Reviewed
Vital Signs / I&O / Oxygen:
Vital Signs
Temp Pulse Resp BP Pulse Ox
97.8 F 86 24 143/62 93
04/23/24 03:51 04/23/24 06:00 04/23/24 06:00 04/23/24 06:00 04/23/24 06:00
Intake and Output
04/22/24 04/23/24 04/24/24
06:59 06:59 06:59
Intake Total 1495 / 1500 1362.5 / 1362.5
Output Total 554 / 564 1415 / 1415
Balance 941 / 936 -52.5 / -52.5
SaO2 93
Nasal Cannula flow liters per 4
minute
Physical Exam
General: Comfortable and Other (Cachectic)
HEENT: Normocephalic and Anicteric
Cardiovascular: S1-S2, Irregular Rhythm, Murmur (n) and Rub (n)
Respiratory: Wheeze (n), Crackles (n), Rhonchi (n), Non-Labored Respirations (Improved, less rapid shallow breathing) and Stridor (n)
GI: Soft, Non Distended and Non Tender
Neurology: Awake, Alert and Other (Profoundly weak, cannot lift legs up, cannot lift head up off the pillow. Cannot raise arms. )
Skin: Cyanosis (n), Jaundice (n) and Rash (n)
Labs/Micro/Reports
Lab Data
04/23/24 04:48
Microbiology
04/20/24 11:40 Blood/Venous Blood Culture - Preliminary
No Growth in 48 hours- Final report to follow
04/20/24 11:19 Blood/Venous Blood Culture - Preliminary
No Growth in 48 hours- Final report to follow
04/20/24 07:26 Urine Legionella Urinary Antigen - Final
Positive for L. pneumophila Ag
--- NOTE | 2024-04-23 07:59 | W.PN.NEPH.PH ---
Today's Communication / Plan
-
observe maintain daniel
follow bmp
Assessment/Plan
-
Assessment
Malaise, decreased appetite
Hypertension
Sinus tachycardia with PACs
Acute kidney injury
Hyponatremia
Metabolic acidosis
Elevated LFTs
Fatty liver
Confusion
Pneumonia with positive urinary Legionella antigen
Plan
Creatinine with modest improvement to 2.6 but remains grossly nonoliguric
Hyponatremia normalized
Replete K
Holding as needed Lasix while potassium
follow BMP
abx continue for PNA
maintain daniel given high PVR
-
-
Date of Service: April 23, 2024
CC / HPI / ROS
-
Chief Complaint:
Hyponatremia
CHERIE
History of Present Illness:
CHERIE/Cr stable 2.6
critically ill in ICU on high O2 supplementation
BP stable
cardizem po for afib, rate controlled and now in SR
on abx for legionella PNA
Na better at 135
CPK resolved
LFTs improving
K low 3.2
Review of Systems:
Nonoliguric via daniel
Feeding tube
No fevers
Labs
-
Labs:
WBC 10.5 10^3/uL (4.8-10.8) 04/23/24 04:48
RBC 3.50 10^6/uL (4.20-5.40) L 04/23/24 04:48
Hgb 10.0 g/dL (12.0-16.0) L 04/23/24 04:48
Hct 29.0 % (37.0-47.0) L 04/23/24 04:48
Plt Count 243 10^3/uL (130-400) 04/23/24 04:48
Sodium Cancelled 04/23/24 12:00
Chloride Cancelled 04/23/24 12:00
Carbon Dioxide Cancelled 04/23/24 12:00
BUN Cancelled 04/23/24 12:00
Creatinine Cancelled 04/23/24 12:00
eGFR Cancelled 04/23/24 12:00
Glucose Cancelled 04/23/24 12:00
Calcium Cancelled 04/23/24 12:00
Wnc-V-Mkmhoztbdiq Pept 51847 pg/ml 04/20/24 11:40
Albumin 2.5 g/dl (3.5-5.0) L 04/23/24 04:48
Physical Exam
-
Vital Signs:
Vital Signs
Temp Pulse Resp BP Pulse Ox
97.6 F 86 24 143/62 93
04/23/24 07:23 04/23/24 06:00 04/23/24 06:00 04/23/24 06:00 04/23/24 06:00
Cardiovascular:: Regular rate and rhythm
Respiratory:: Bilateral: Coarse
Lung Excursion:: Normal
Abdomen:: Nontender and Soft
Bowel Sounds:: Decreased
Extremity Edema:: None: Bilateral:
Daniel Catheter: Yes
--- NOTE | 2024-04-23 08:15 | PTCARENOTE ---
Assumed care of patient. Pt rec'd lethargic and drowsy. Arousable to voice. Will follow simple commands. Does refuse to cough and deep breathe. Occasional weak cough. MORA's but weak. S1 S2 reg w/ NSR on monitor. +PP. No edema. Rec'd on 5L
MFNC...sats 94%. Abdomen round...+BS. Right nare dhf w/ Jevity 1.5 @ 30ml/hr w/ 25ml/hr water flush. Daniel draining cloudy yellow urine...daniel care done. Skin pale in color....sacrum red/blanchable. 20P LAC capped. Right DL PICC w/ KCL rider
infusing. VS documented. Safe environment established. Will continue to monitor closely.
[2024-04-23] MEDS: NSS (PRESERVATIVE FREE) 10 ML IV (08:26)
[2024-04-23] MEDS: PROTONIX IV 40 MG IV (08:26)
[2024-04-23] MEDS: THIAMINE INJECTION 100 MG IV (08:29)
[2024-04-23] MEDS: CARDIZEM 60 MG TUBE ×4 (08:41→22:39)
[2024-04-23] MEDS: HEPARIN 5000 UNITS SC ×2 (08:41→20:37)
[2024-04-23] MEDS: ZITHROMAX INFUSION 250 IV (09:09)
--- NOTE | 2024-04-23 09:16 | W.PN.ID1 ---
Date of Service
Date of Service: April 23, 2024
Today's Communication
Continue antibiotics.
Assessment / Plan
Right lower lobe pneumonia secondary to Legionella pneumophila
Hyponatremia
CHERIE
Transaminitis
A-fib
Elevated CK; trending down
Hyperbilirubinemia; improved
Recommendations:
Continue with IV Azithromycin for the present.
Trend white count and fever curve.
Trend serum sodium / LFT's. LFTs noted to be improving.
Follow CXR.
Overall outlook continues to remain guarded.
����������������������������������������������������������
Chief Complaint
-: Pneumonia (Legionella) and Other (CHERIE)
Subjective / Review of Systems
Review of Systems: No Fever and No Chills
Vital Signs / Physical Exam
Vital Signs
Vital Signs
Temp Pulse Resp BP Pulse Ox
97.6 F 103 24 136/67 93
04/23/24 07:23 04/23/24 08:41 04/23/24 06:00 04/23/24 08:41 04/23/24 06:00
Physical Exam
Constitutional: Comfortable, Acutely Ill, Chronically Ill and Non-toxic
Head: Normocephalic
Eyes: Pupils Equal, Pupils Round, No Conjunctival Hemorrhage and Sclera Anicteric
Cardiovascular: Regular Rate and S1/S2; Negative S3/S4
Pulmonary: Rhonchi (Right base) and Non Labored
Gastrointestinal: Soft, Non Tender, Non Distended and Normal Bowel Sounds
Genito-Urinary: Beltre and Clear Urine
Skin: Warm and Dry; Negative Rash or Jaundice
Neurological: Other (Arousable; responsive, although somnolent.)
Psychological: Calm
Objective Data
Lab Data
Lab Results
04/23/24 04:48
ESR 39 mm/hour (0-20) H 04/22/24 05:14
PT 14.6 Sec (11.4-14.6) 04/20/24 11:40
INR 1.15 04/20/24 11:40
Estimated Creat Clear Cancelled 04/23/24 12:00
Lactic Acid Cancelled 04/22/24 06:00
Total Bilirubin 0.8 mg/dl (0.2-1.3) 04/23/24 04:48
AST 74 U/L (14-36) H 04/23/24 04:48
ALT 103 U/L (0-35) H 04/23/24 04:48
Alkaline Phosphatase 198 U/L (38-126) H 04/23/24 04:48
Most recent labs reviewed.
Micro Results:
04/20/24 11:40 Blood Culture - Preliminary
Blood/Venous No Growth in 48 hours- Final report to follow
04/20/24 11:19 Blood Culture - Preliminary
Blood/Venous No Growth in 48 hours- Final report to follow
04/20/24 07:26 Legionella Urinary Antigen - Final
Urine Positive for L. pneumophila Ag
Imaging:
04/20/2024 Echo (TTE): Normal LV size and wall thickness. Mild mitral regurgitation. Mild tricuspid regurgitation. No intracardiac mass or thrombus formation seen.
04/19/2024 CXR (2 view): Large amount of asymmetric right lower lobe opacity most suggestive of SEVERE RIGHT LOWER LOBE PNEUMONIA. A right lower lobe lung cancer or asymmetric inflammatory interstitial disease are considered less likely.
--- NOTE | 2024-04-23 10:45 | PTCARENOTE ---
Pt had a small period of desating while in bed....O2 6L MFNC...sats low of 82%. Pt assisted OOB to chair...O2 increased to 10L MFNC...encouraged coughing and deep breathing....using IS q5min w/ coughing. Assisted to chair after using BSC. Sats
recovered to 88-90%. Reviewed importance of pulmonary toileting. Will continue to monitor closely.
--- NOTE | 2024-04-23 11:32 | W.PN.NEURO.1 ---
Today's Communication / Plan
-
Continue supportive care
Provide thiamine for completeness sake
Neuro Assessment/Plan
Assessment
IMPRESSIONS/RECOMMENDATIONS:
Abrupt change in tone and mental status
Most likely due to toxic metabolic factors producing generalized fatigue.
MRI of brain fails to demonstrate an acute abnormality producing patient's symptomatology. There is also no evidence of encephalitis producing symptoms
Plan
Continue supportive care
Provide thiamine for completeness sake
Will continue to follow peripherally.
Subjective/Objective
Subjective Data
Date of Service: April 23, 2024
Patient is lethargic and reports no significant new issues.
Objective Data
Vital Signs
Temp Pulse Resp BP Pulse Ox
36.6 C 101 22 122/71 93
04/23/24 11:13 04/23/24 11:00 04/23/24 11:00 04/23/24 10:00 04/23/24 11:00
Lab Results
04/23/24 04:48
PT 14.6 Sec (11.4-14.6) 04/20/24 11:40
INR 1.15 04/20/24 11:40
Sodium Cancelled 04/23/24 12:00
Potassium Cancelled 04/23/24 12:00
BUN Cancelled 04/23/24 12:00
Glucose Cancelled 04/23/24 12:00
Calcium Cancelled 04/23/24 12:00
Ynd-G-Hpxuxtpadeh Pept 30487 pg/ml 04/20/24 11:40
Vitamin B12 > 1000 pg/ml (046-263) H 04/22/24 05:14
Patient Allergies
Sulfa (Sulfonamide Antibiotics) Allergy (Verified 04/19/24 15:02)
Hives
Review of Systems
-
Unable to obtain full review of systems at this time due to: Lethargy
History Source: Patient
All other systems: Reviewed and negative
Physical Exam
-
General: No Apparent Distress, Appears Stated Age and Wearing Oxygen
Eyes: Round OU, [place] Conjunctivae and No Ptosis; Negative Able to visualize OU
HEENT: Anicteric and Moist Mucous Membranes
Neck: Full Range of Motion
Respiratory: No Dyspnea
Cardiac: No JVD
GI: Non-distended
Skin: Unremarkable
Extremities: No Clubbing, No Cyanosis and No Edema
Psych: Negative Intact Judgement/Insight
Extended Neurological Exam
Mood & Affect: Depressed
Attention Span & Concentration: Awake, Interactive and Closes Eyes after Stimulation (After approximately 2 seconds); Negative Alert
Memory: Able to Recall (Current location); Negative Unable to Recall Personal History
Tremor: Hand Tremor Absent and Head Tremor Absent
Involuntary Movement: None
Speech: Quality Unremarkable and Severely Reduced Output
Cranial Nerve II: Left Eye: Pupillary Size Unremarkable and Visual Goldstein Grossly Intact
Cranial Nerve II: Right Eye: Pupillary Size Unremarkable and Visual Goldstein Grossly Intact
Cranial Nerves III, IV, : Extraocular Movement: Grossly Intact
Cranial Nerve V: Facial Sensation: Unable to Assess
Cranial Nerve VII: Facial Symmetry: Normal Facial Symmetry
Cranial Nerve VIII: Hearing: Negative Unremarkable Hearing to Normal Conversational Volume
Cranial Nerves IX, X: Palate Movement: Unable to Assess
Cranial Nerve XII: Tongue Protusion: Unable to Assess
Muscle Strength, Overall: Reduced (Distally in bilateral upper extremities, patient unable to lift legs off of bed for greater than 1 second bilateral equally)
Muscle Bulk & Tone: Bulk Unremarkable and Tone Unremarkable
Pronator Drift: Unable to Assess
Cold Sensation: Unable to Assess
Vibration Sensation: Unable to Assess
Touch Sensation: Other (No reduction of pain sensation in bilateral lower extremities distally)
Coordination: Unable to Assess
Babinski Sign: Absent Bilaterally
Gait & Station: Unable to Assess
Data Reviewed
-
Labs: Report Reviewed
Reviewed with: Physician and Nurse
--- NOTE | 2024-04-23 11:40 | PTOTSP ---
Speech Language Pathology
Pt seen for dysphagia tx. Pt currently NPO with DHT. Sleeping upon arrival. Eyes remained closed throughout session with no verbalizations. Oral care completed with use of suction toothbrush. Pt opened mouth in response to this. Trialed sip of
water via straw. Pt biting on straw, not following directions to take a sip. Provided via pipetted straw with swallow initiated. No overt signs of aspiration. Provided straw again, and pt again biting on straw. Further P.O. trials deferred.
This is a change since initial evaluation completed on 04/21. Neuro workup has been completed with negative MRI.
Recommend:
(1) Strict NPO
(2) Oral care 4x/day with suctioning as needed
(3) Meds via DHT
(4) Not appropriate for Aspiration Risk Hydration Protocol (ARHP) given minimal responsiveness
(5) WEB MARKETING MANAGER to continue to follow
--- NOTE | 2024-04-23 12:04 | W.PN.CARDCBS ---
Today's Communication / Plan
-
Remains in sinus rhythm on oral Cardizem
No anticoagulation for now with heme positive stools and severe change in mental status workup
Discussed with nurse
Impression / Plan
-
Primary Systems Librarian: none
Assessment:
Atrial fibrillation�spontaneously converted to sinus rhythm
Presentation with weakness
R PNA, severe, legionella positive
Change in mental status
CHERIE
Hypokalemia
Elevated troponin, suspected nonischemic myocardial injury
Elevated LFTs, in setting of NICHOLE followed at [facility]
Heme positive stools
HTN
HLD
asthma
osteoporosis
PO[place]
ECHO 04/20/24: EF 60-65%, mild MR, mild MR, PAP 30-35mmHg
Plan:
Has remained in sinus rhythm on oral Cardizem
[id number] score of 4 for age, female, HTN but hold off on anticoagulation with heme positive stools.
Also has change in mental status at present and is seeing neurology and palliative care/hospice may need to be considered
Renal function slightly improved with creatinine of 2.6.
Volume status appears reasonable on no diuretics but is a difficult examination
Progress Note - Systems Librarian
Subjective
Date of Service: April 23, 2024
does not respond to commands
Objective
Labs:
04/23/24 04:48
Labs
Hgb 10.0 g/dL (12.0-16.0) L 04/23/24 04:48
Hct 29.0 % (37.0-47.0) L 04/23/24 04:48
Plt Count 243 10^3/uL (130-400) 04/23/24 04:48
PT 14.6 Sec (11.4-14.6) 04/20/24 11:40
INR 1.15 04/20/24 11:40
Sodium Cancelled 04/23/24 12:00
Potassium Cancelled 04/23/24 12:00
BUN Cancelled 04/23/24 12:00
Creatinine Cancelled 04/23/24 12:00
Glucose Cancelled 04/23/24 12:00
Troponins
04/20/24 04/20/24 04/20/24
11:40 15:12 22:14
Troponin I 0.275 H* 0.245 H* 0.208 H*
04/21/24
03:54
Troponin I 0.136 H* D
Vital Signs and I&O:
Vital Signs
Temp Pulse Resp BP Pulse Ox
97.8 F 101 22 122/71 93
04/23/24 11:13 04/23/24 11:00 04/23/24 11:00 04/23/24 10:00 04/23/24 11:00
Vital Signs
Temp Pulse Resp BP Pulse Ox
97.8 F 101 22 122/71 93
04/23/24 11:13 04/23/24 11:00 04/23/24 11:00 04/23/24 10:00 04/23/24 11:00
Intake & Output
04/21/24 04/22/24 04/23/24 04/24/24
06:59 06:59 06:59 06:59
Intake Total 1960.0 / 2060.0 1495 / 1500 1362.5 / 1485.0 777.5 / 777.5
Output Total 1200 / 1240 554 / 564 1415 / 1415 125 / 125
Balance 760 / 820.0 941 / 936 -52.5 / 70.0 652.5 / 652.5
Physical Exam
Physical Exam
General: Well developed, well nourished in NAD.
Neck: Supple, no JVD, HJR, carotids +2 B/L, no bruits bilaterally.
Heart: Non displaced PMI, RRR, no murmurs, No S3, S4, no rubs.
Lungs: scattered rhonchi throughout with poor effort
Extremities: No clubbing, cyanosis or edema bilaterally.
Neuro: Grossly nonfocal, awake, alert and oriented x3.
[2024-04-23 12:07] LABS: Glucose - Point of Care 147 mg/dl (70-99)
--- NOTE | 2024-04-23 13:10 | PTCARENOTE ---
Report called to 3rd floor...pt to transfer to Room 336-2.
[2024-04-23 13:52] LABS: Potassium 4.1 mmol/L (3.5-5.1)
--- NOTE | 2024-04-23 14:21 | PTCARENOTE ---
Received Pt from ICU. Minal carreon in R nare with Jevity 1.5 running 40ml/hr. Placed on tele #[phone] Sinus tach. at bedside.
--- NOTE | 2024-04-23 15:36 | W.PN.HOSP.TC ---
Today's Communication/Plan
-
Continue antibiotics
Continue monitoring labwork through AM labs
Transfer to tele
Assessment / Plan
Assessment / Plan
Physical Exam
Gen: NAD, Awake and alert
HEENT: Normocephalic
Neck: Supple.
CV: tachy, regular rhythm with occasional premature beats, +S1/S2, no m/r/g.
Resp: CTAB
Abd: +BS, soft, NT, ND
Skin: Warm extremities
Neuro: CN 2-12 intact, non-focal.
Psych: Normal mood and affect.
Assessment/Plan
Suspected Severe RLL Legionella PNA and ?Lung Nodule?
Legionella Positive
Malaise, anorexia, fatigue
Acute Toxic metabolic encephalopathy secondary to pneumonia and electrolytes disturbances, and dehydration
Acute Hypoxic Respiratory Failure Secondary to Legionella Pneumonia
-Oxygen requirements have improved, from 15 L to 4 L
-Continue Azithromycin
-Monitor QTc
-Consulted pulmonary, recommendations appreciated
-ID was consulted, recommendations appreciated
-Continue oxygen as needed head of bed elevated, aspiration precautions, may require noninvasive ventilation, as per Milk Driver
-Chest x-ray with improvement in right pleuroparenchymal process - there may be a pleural effusion
-Avoid narcotic therapy and sedation
Weakness
-Milk Driver ordered CT Head
-Spoke with finish specialist who recommended neurology consulted
-MRI Brain negative
-Consulted neurology, recommendations appreciated
-Thiamine has been ordered -- continue Thiamine
Black Tarry Stool
-Hgb stable -- continue to monitor hemoglobin
-Anticoagulation would be difficult in the setting of black tarry stool.
-Continue Protonix therapy twice daily
-Might need to consult GI if black tarry stools recurs, holding off on consult now as discussed with finish specialist
Acute hyponatremia
Severe Hypokalemia
Metabolic Acidosis
-c/s renal, recommendations appreciated
-BMP Q6H
-hold HCTZ/ACEi
-Received 3% saline
-Received Bicarb IV fluids
-Trial of Lasix
A-Fib with RVR
Hypotension
Bradycardia
-Started on 04/20/24
-[id number] score is 4 but hold off on anticoagulation with heme positive stools
-Completed Cardizem Drip , now off
-Continue PO Cardizem
-Cardiology consulted, recommendations appreciated
-Monitor and optimize electrolytes
-Careful with Simvastatin dosage while patient is on Cardizem
Pleural Thickening
RLL groundglass changes
-Consulted pulm -- eval for CT Chest?
Cool Extremities
-Echo and BNP noted, appreciate cardiology
-Lactic Acid was okay
-ABG and VBG noted
-Patient was transferred to ICU given potential for decompensation
Acute Kidney Injury
-IMPROVING
-BLAKE-I held
-Appreciate Nephrology
-Continue Beltre Catheter given high post-void residual
Elevated CK levels
-Improving with IV fluids
Acute transaminitis/Fatty liver history, elevated bilirubin
-Continue to monitor CMP
-Abd U/S read (as per radiology): 'Cannot exclude 'starry sridhar' appearance of the liver such as can be seen with acute hepatitis'
-Will consulted GI
Essential HTN:
-hold HCTZ/ACEi
-IV BB PRN
Cachexia, weight loss
Conditions present prior to admission
Hypertension/hyperlipidemia
History of osteoporosis
NICHOLE
[id number] history of smoking quit 1984
Diet: Continue Tube Feeding
FULL/Heparin/tele
Anticipated Discharge: > 48 hours
Subjective/Interval History
-
Date of Service: April 23, 2024
Patient was seen and examined. She remains weak, does open her eyes and say a few words when asked.
Objective Data
-
Labs:
Laboratory Results
04/23/24 04/23/24 04/23/24
04:48 12:00 13:22
WBC 10.5
Hgb 10.0 L
Hct 29.0 L
Plt Count 243
Sodium 135 Cancelled
Potassium 3.2 L Cancelled 4.1 D
Chloride 96 L Cancelled
Carbon Dioxide 31 H Cancelled
BUN 75 H Cancelled
Creatinine 2.6 H Cancelled
Glucose 153 H Cancelled
Calcium 8.5 Cancelled
Total Bilirubin 0.8
AST 74 H
ALT 103 H
Alkaline Phosphatase 198 H
Vital Signs:
Vital Signs
Temp Pulse Resp BP Pulse Ox
97.9 F 95 16 127/62 94
04/23/24 14:16 04/23/24 14:16 04/23/24 14:16 04/23/24 14:16 04/23/24 14:16
I&O
04/22/24 04/23/24 04/24/24
06:59 06:59 06:59
Intake Total 1495 / 1500 1362.5 / 1485.0 972.5 / 972.5
Output Total 554 / 564 1415 / 1415 395 / 395
Balance 941 / 936 -52.5 / 70.0 577.5 / 577.5
[2024-04-24 03:14] VITALS: BP 137/75
[2024-04-24 05:26] LABS: % Basophils 0.2 % (0-2); % Eosinophils 1.6 % (0-6); % Immature Granulocytes 6.9 % (0-0.5); % Lymphocytes 4.6 % (20.5-51.1); % Monocytes 7.9 % (1.7-9.3); % Neutrophils 78.8 % (42.2-75.2); Absolute Eosinophils 0.1 10^3/uL (0-0.7); Absolute Immature Granulocytes 0.6 10^3/uL (0-0.05); Absolute Lymphocytes 0.4 10^3/uL (1.2-3.4); Absolute Monocytes 0.7 10^3/uL (0.1-0.6); Absolute Neutrophils 6.8 10^3/uL (1.4-6.5); Hematocrit 27.2 % (37.0-47.0); Hemoglobin 9.6 g/dL (12.0-16.0); Mean Corp Hgb Conc. 35.3 g/dL (33.0-37.0); Mean Corpuscular Hgb 29.2 pg (27.0-31.0); Mean Corpuscular Volume 82.7 fL (81.0-99.0); Mean Platelet Volume 9.7 fL (7.4-10.4); Nucleated Red Blood Cells % 0 %; Platelet Count 264 10^3/uL (130-400); Red Blood Cell Count 3.29 10^6/uL (4.20-5.40); Red Cell Dist. Width 13.8 % (11.5-14.5); White Blood Cell Count 8.7 10^3/uL (4.8-10.8)
[2024-04-24 06:14] LABS: ALT (SGPT) 96 U/L (0-35); AST (SGOT) 99 U/L (14-36); Albumin 2.5 g/dl (3.5-5.0); Alkaline Phosphatase 266 U/L (38-126); Blood Urea Nitrogen 76 mg/dl (7-17); Calcium 9.3 mg/dl (8.4-10.2); Carbon Dioxide 31 mmol/L (22-30); Chloride 100 mmol/L (98-107); Direct Bilirubin 0.4 mg/dl (0.0-0.4); Estimated Creatinine Clearance 18 ml/min; Glucose 165 mg/dl (70-99); Potassium 4.3 mmol/L (3.5-5.1); Sodium 138 mmol/L (135-145); Total Bilirubin 0.6 mg/dl (0.2-1.3); Total Protein 4.7 g/dl (6.3-8.2)
[2024-04-24 07:00] VITALS: BP 151/70
[2024-04-24] MEDS: CARDIZEM 60 MG TUBE ×4 (07:19→22:17)
[2024-04-24] MEDS: HEPARIN 5000 UNITS SC ×2 (07:20→22:17)
[2024-04-24] MEDS: NSS (PRESERVATIVE FREE) 10 ML IV (07:20)
[2024-04-24] MEDS: PROTONIX IV 40 MG IV (07:20)
[2024-04-24] MEDS: THIAMINE INJECTION 100 MG IV (07:20)
--- NOTE | 2024-04-24 09:01 | W.PN.NEPH.PH ---
Today's Communication / Plan
-
Observe
Follow BMP
Holding diuretics today
Assessment/Plan
-
Assessment
Malaise, decreased appetite
Hypertension
Sinus tachycardia with PACs
Acute kidney injury
Hyponatremia
Metabolic acidosis
Elevated LFTs
Fatty liver
Confusion
Pneumonia with positive urinary Legionella antigen
Plan
Creatinine with modest improvement to 2 but remains grossly nonoliguric
Hyponatremia normalized
Holding as needed Lasix weights stable
follow BMP
abx continue for PNA
maintain daniel given high PVR
Antihypertensives held for now (BLAKE/HCTZ)
-
-
Date of Service: April 24, 2024
CC / HPI / ROS
-
Chief Complaint:
Hyponatremia
CHERIE
History of Present Illness:
CHERIE/Cr improved to 2
BP stable
cardizem po for afib, rate controlled and now in SR
on abx for legionella PNA
Na normal at 138
Review of Systems:
Nonoliguric via daniel
Feeding tube
No fevers
Labs
-
Labs:
WBC 8.7 10^3/uL (4.8-10.8) 04/24/24 05:04
RBC 3.29 10^6/uL (4.20-5.40) L 04/24/24 05:04
Hgb 9.6 g/dL (12.0-16.0) L 04/24/24 05:04
Hct 27.2 % (37.0-47.0) L 04/24/24 05:04
Plt Count 264 10^3/uL (130-400) 04/24/24 05:04
Sodium 138 mmol/L (135-145) 04/24/24 05:04
Potassium 4.3 mmol/L (3.5-5.1) 04/24/24 05:04
Chloride 100 mmol/L (98-107) 04/24/24 05:04
Carbon Dioxide 31 mmol/L (22-30) H 04/24/24 05:04
BUN 76 mg/dl (7-17) H 04/24/24 05:04
Creatinine 2.0 mg/dL (0.6-1.0) H 04/24/24 05:04
eGFR 25.10 04/24/24 05:04
Glucose 165 mg/dl (70-99) H 04/24/24 05:04
Calcium 9.3 mg/dl (8.4-10.2) 04/24/24 05:04
Qfu-N-Zrppfmamsim Pept 77909 pg/ml 04/20/24 11:40
Albumin 2.5 g/dl (3.5-5.0) L 04/24/24 05:04
Physical Exam
-
Vital Signs:
Vital Signs
Temp Pulse Resp BP Pulse Ox
97.5 F 106 16 151/70 91
04/24/24 07:00 04/24/24 07:00 04/24/24 07:00 04/24/24 07:00 04/24/24 07:00
Cardiovascular:: Regular rate and rhythm
Respiratory:: Bilateral: Coarse
Lung Excursion:: Normal
Abdomen:: Nontender and Soft
Bowel Sounds:: Decreased
Extremity Edema:: None: Bilateral:
Daniel Catheter: Yes
Other Findings::
gen: lethargic
--- NOTE | 2024-04-24 09:37 | W.PN.CARDCBS ---
Today's Communication / Plan
-
Maintaining sinus rhythm per review of telemetry, continue diltiazem
Consider oral anticoagulation, but will hold off for now with concern for occult GIB
Impression / Plan
-
Primary Bobbin Coil Winder: none, initially seen by Maylin
Assessment:
Atrial fibrillation�spontaneously converted to sinus rhythm
Presentation with weakness
R PNA, severe, legionella positive
Change in mental status
CHERIE
Hypokalemia
Elevated troponin, suspected nonischemic myocardial injury
Elevated LFTs, in setting of NICHOLE followed at [facility]
Heme positive stools
HTN
HLD
asthma
osteoporosis
[place]
ECHO 04/20/24: EF 60-65%, mild MR, mild MR, PAP 30-35mmHg
Plan:
Has remained in sinus rhythm on oral Cardizem
[id number] score of 4 for age, female, HTN but hold off on anticoagulation with heme positive stools and down trending H/H
Also has change in mental status at present
Nephrology following for hypoNa and diuretic dosing
Progress Note - Bobbin Coil Winder
Subjective
Date of Service: April 24, 2024
No acute overnight events. Patient is lethargic today, not answering questions. Telemetry reviewed, no recurrence of A-fib.
Objective
Labs:
04/24/24 05:04
04/24/24 05:04
Labs
Hgb 9.6 g/dL (12.0-16.0) L 04/24/24 05:04
Hct 27.2 % (37.0-47.0) L 04/24/24 05:04
Plt Count 264 10^3/uL (130-400) 04/24/24 05:04
PT 14.6 Sec (11.4-14.6) 04/20/24 11:40
INR 1.15 04/20/24 11:40
Sodium 138 mmol/L (135-145) 04/24/24 05:04
Potassium 4.3 mmol/L (3.5-5.1) 04/24/24 05:04
BUN 76 mg/dl (7-17) H 04/24/24 05:04
Creatinine 2.0 mg/dL (0.6-1.0) H 04/24/24 05:04
Glucose 165 mg/dl (70-99) H 04/24/24 05:04
Vital Signs and I&O:
Vital Signs
Temp Pulse Resp BP Pulse Ox
97.5 F 106 16 151/70 91
04/24/24 07:00 04/24/24 07:00 04/24/24 07:00 04/24/24 07:00 04/24/24 07:00
Vital Signs
Temp Pulse Resp BP Pulse Ox
97.5 F 106 16 151/70 91
04/24/24 07:00 04/24/24 07:00 04/24/24 07:00 04/24/24 07:00 04/24/24 07:00
Intake & Output
04/22/24 04/23/24 04/24/24 04/25/24
06:59 06:59 06:59 06:59
Intake Total 1495 / 1500 1362.5 / 1485.0 1762.5 / 1762.5
Output Total 554 / 564 1415 / 1415 1370 / 1370
Balance 941 / 936 -52.5 / 70.0 392.5 / 392.5
Physical Exam
Physical Exam
Gen: NAD, AA, lethargic
HEENT: NC/AT, sclera anicteric, NG in place
Neck: No JVD
CV: RRR, NL s1/s2
Lungs: CTAB
Abd: S/ND
Ext: R hand edema
Skin: Warm, dry
Neuro: Lethargic, does not open eyes to voice
[2024-04-24] MEDS: ZITHROMAX INFUSION 250 IV (10:28)
[2024-04-24 10:55] VITALS: BP 138/77
--- NOTE | 2024-04-24 14:12 | W.PN.ID1 ---
Date of Service
Date of Service: April 24, 2024
Today's Communication
Continue azithromycin.
Assessment / Plan
Right lower lobe pneumonia secondary to Legionella pneumophila
Hyponatremia
CHERIE
- improving
Transaminitis
A-fib
Elevated CK; trending down
Hyperbilirubinemia; improved
Recommendations:
Continue with IV Azithromycin for the present.
Trend white count and fever curve.
Trend serum sodium / LFT's.
Follow CXR.
Overall outlook continues to remain guarded.
����������������������������������������������������������
Chief Complaint
-: Pneumonia (Legionella) and Other (CHERIE)
Subjective / Review of Systems
Review of Systems: No Fever
Vital Signs / Physical Exam
Vital Signs
Vital Signs
Temp Pulse Resp BP Pulse Ox
97.7 F 79 16 138/77 91
04/24/24 10:55 04/24/24 10:55 04/24/24 10:55 04/24/24 10:55 04/24/24 10:55
Physical Exam
Constitutional: Comfortable, Acutely Ill and Chronically Ill
Cardiovascular: Regular Rate and S1/S2; Negative S3/S4
Pulmonary: Coarse and Non Labored; Negative Wheezes
Gastrointestinal: Soft, Non Distended and Normal Bowel Sounds
Skin: Warm and Dry; Negative Rash or Jaundice
Neurological: Negative Meningeal Signs
Objective Data
Lab Data
Lab Results
04/24/24 05:04
04/24/24 05:04
ESR 39 mm/hour (0-20) H 04/22/24 05:14
PT 14.6 Sec (11.4-14.6) 04/20/24 11:40
INR 1.15 04/20/24 11:40
Estimated Creat Clear 18 ml/min 04/24/24 05:04
Lactic Acid Cancelled 04/22/24 06:00
Total Bilirubin 0.6 mg/dl (0.2-1.3) 04/24/24 05:04
AST 99 U/L (14-36) H 04/24/24 05:04
ALT 96 U/L (0-35) H 04/24/24 05:04
Alkaline Phosphatase 266 U/L (38-126) H 04/24/24 05:04
Most recent labs reviewed.
Micro Results:
04/20/24 11:40 Blood Culture - Preliminary
Blood/Venous No Growth in 4 days- Final report to follow
04/20/24 11:19 Blood Culture - Preliminary
Blood/Venous No Growth in 4 days- Final report to follow
04/20/24 07:26 Legionella Urinary Antigen - Final
Urine Positive for L. pneumophila Ag
Imaging:
04/20/2024 Echo (TTE): Normal LV size and wall thickness. Mild mitral regurgitation. Mild tricuspid regurgitation. No intracardiac mass or thrombus formation seen.
04/19/2024 CXR (2 view): Large amount of asymmetric right lower lobe opacity most suggestive of SEVERE RIGHT LOWER LOBE PNEUMONIA. A right lower lobe lung cancer or asymmetric inflammatory interstitial disease are considered less likely.
[2024-04-24 14:32] VITALS: BP 147/79
--- NOTE | 2024-04-24 16:20 | CM ---
Case management following for d/c planning
Chart reviewed
For SNF at d/c - referral sent to [facility]
CM will cont to follow for d/c needs
Plan - anticipate SNF when medically stable
--- NOTE | 2024-04-24 18:09 | W.PN.HOSP.TC ---
Today's Communication/Plan
-
Continue antibiotics, tube feeding, appreciate nephro, GI, cardio
Assessment / Plan
Assessment / Plan
Physical Exam
Gen: NAD, Awake and alert
HEENT: Normocephalic
Neck: Supple.
CV: tachy, regular rhythm with occasional premature beats, +S1/S2, no m/r/g.
Resp: CTAB
Abd: +BS, soft, NT, ND
Skin: Warm extremities
Neuro: CN 2-12 intact, non-focal.
Psych: Normal mood and affect.
Assessment/Plan
Suspected Severe RLL Legionella PNA and ?Lung Nodule?
Legionella Positive
Malaise, anorexia, fatigue
Acute Toxic metabolic encephalopathy secondary to pneumonia and electrolytes disturbances, and dehydration
Acute Hypoxic Respiratory Failure Secondary to Legionella Pneumonia
-Oxygen requirements have improved, from 15 L to 4 L
-Continue Azithromycin
-Monitor QTc
-Consulted pulmonary, recommendations appreciated
-ID was consulted, recommendations appreciated
-Continue oxygen as needed head of bed elevated, aspiration precautions, may require noninvasive ventilation, as per Animal Care Technician
-Chest x-ray with improvement in right pleuroparenchymal process - there may be a pleural effusion
-Avoid narcotic therapy and sedation
Weakness
-Animal Care Technician ordered CT Head
-Spoke with carpet cutter who recommended neurology consulted
-MRI Brain negative
-Consulted neurology, recommendations appreciated
-Thiamine has been ordered -- continue Thiamine
Black Tarry Stool
-Hgb stable -- continue to monitor hemoglobin
-Anticoagulation would be difficult in the setting of black tarry stool.
-Continue Protonix therapy twice daily
-Consulted GI, recommendations appreciated
Acute hyponatremia
Severe Hypokalemia
Metabolic Acidosis
-c/s renal, recommendations appreciated
-BMP Q6H
-hold HCTZ/ACEi
-Received 3% saline
-Received Bicarb IV fluids
-Holding Lasix
A-Fib with RVR
Hypotension
Bradycardia
-Started on 04/20/24
-[id number] score is 4 but hold off on anticoagulation with heme positive stools
-Completed Cardizem Drip , now off
-Continue PO Cardizem
-Cardiology consulted, recommendations appreciated
-Monitor and optimize electrolytes
-Careful with Simvastatin dosage while patient is on Cardizem
Pleural Thickening
RLL groundglass changes
-Consulted pulm -- eval for CT Chest?
Cool Extremities - RESOLVED
-Echo and BNP noted, appreciate cardiology
-Lactic Acid was okay
-ABG and VBG noted
-Patient was transferred to ICU given potential for decompensation
Acute Kidney Injury
-IMPROVING
-BLAKE-I held
-Appreciate Nephrology
-Continue Beltre Catheter given high post-void residual
Elevated CK levels
-Improving with IV fluids
Acute transaminitis/Fatty liver history, elevated bilirubin
-Continue to monitor CMP
-Abd U/S read (as per radiology): 'Cannot exclude 'starry sridhar' appearance of the liver such as can be seen with acute hepatitis'
-Will consulted GI
Essential HTN:
-hold HCTZ/ACEi
-IV BB PRN
Cachexia, weight loss
Conditions present prior to admission
Hypertension/hyperlipidemia
History of osteoporosis
NICHOLE
[id number] history of smoking quit 1984
Diet: Continue Tube Feeding
FULL/Heparin/tele
Anticipated Discharge: > 48 hours
Subjective/Interval History
-
Date of Service: April 24, 2024
Patient was seen and examined. She gave one-word answer to some questions.
Objective Data
-
Labs:
Laboratory Results
04/24/24
05:04
Sodium 138
Potassium 4.3
Chloride 100
Carbon Dioxide 31 H
BUN 76 H
Creatinine 2.0 H
Glucose 165 H
Calcium 9.3
Total Bilirubin 0.6
AST 99 H
ALT 96 H
Alkaline Phosphatase 266 H
Vital Signs:
Vital Signs
Temp Pulse Resp BP Pulse Ox
97.9 F 105 16 147/79 93
04/24/24 14:32 04/24/24 14:32 04/24/24 14:32 04/24/24 14:32 04/24/24 14:32
I&O
04/23/24 04/24/24 04/25/24
06:59 06:59 06:59
Intake Total 1362.5 / 1485.0 1762.5 / 1762.5
Output Total 1415 / 1415 1370 / 1370 750 / 750
Balance -52.5 / 70.0 392.5 / 392.5 -750 / -750
[2024-04-24 19:00] VITALS: BP 154/82
[2024-04-24 23:30] VITALS: BP 154/80
[2024-04-25] VITALS (13 sets, daily range): BP systolic 106–183; BP diastolic 75–94; PULSE 2–107
[2024-04-25] MEDS: LOPRESSOR 5 MG IV ×2 (02:37→17:47)
[2024-04-25 05:42] LABS: % Basophils 0.3 % (0-2); % Immature Granulocytes 4.9 % (0-0.5); % Lymphocytes 2.9 % (20.5-51.1); % Monocytes 7.8 % (1.7-9.3); % Neutrophils 83.1 % (42.2-75.2); Absolute Basophils 0.1 10^3/uL (0-0.2); Absolute Eosinophils 0.2 10^3/uL (0-0.7); Absolute Immature Granulocytes 0.8 10^3/uL (0-0.05); Absolute Lymphocytes 0.5 10^3/uL (1.2-3.4); Absolute Monocytes 1.3 10^3/uL (0.1-0.6); Absolute Neutrophils 14.3 10^3/uL (1.4-6.5); Hematocrit 28.4 % (37.0-47.0); Hemoglobin 9.9 g/dL (12.0-16.0); Mean Corp Hgb Conc. 34.9 g/dL (33.0-37.0); Mean Corpuscular Hgb 29.1 pg (27.0-31.0); Mean Corpuscular Volume 83.5 fL (81.0-99.0); Mean Platelet Volume 9.6 fL (7.4-10.4); Nucleated Red Blood Cells % 0 %; Platelet Count 317 10^3/uL (130-400); Red Cell Dist. Width 13.8 % (11.5-14.5); White Blood Cell Count 17.2 10^3/uL (4.8-10.8)
[2024-04-25 06:06] LABS: ALT (SGPT) 120 U/L (0-35); AST (SGOT) 147 U/L (14-36); Albumin 2.8 g/dl (3.5-5.0); Alkaline Phosphatase 372 U/L (38-126); Blood Urea Nitrogen 82 mg/dl (7-17); Calcium 9.9 mg/dl (8.4-10.2); Carbon Dioxide 30 mmol/L (22-30); Chloride 101 mmol/L (98-107); Direct Bilirubin 0.4 mg/dl (0.0-0.4); Estimated Creatinine Clearance 23 ml/min; Glucose 158 mg/dl (70-99); Potassium 4.6 mmol/L (3.5-5.1); Sodium 139 mmol/L (135-145); Total Bilirubin 0.8 mg/dl (0.2-1.3); Total Protein 5.3 g/dl (6.3-8.2); eGFR 32.81
--- NOTE | 2024-04-25 08:22 | CON.GI ---
Consultation
-
Date/Time Consultation Requested: 04/24/2024
Date/Time Consultation Performed: 04/25/2024
Requesting Provider: Dr. Andrews
Performing Provider: Dr. Fuentes
Reason for Consultation: Black stool
Medical History
Chief Complaint / HPI
Chief Complaint: Black stool
History of Present Illness:
�78-year-old woman history of hypertension, hyperlipidemia, chronically elevated LFTs, [facility]-followed by Dr. Weinstein at [facility] presenting with fatigue, weakness, dizziness as outpatient, in the ER, noted to have acute renal
insufficiency and hyponatremia , metabolic acidosis and chest x-ray showing pneumonia and urine Legionella antigen was positive. Also noted to have elevated LFTs-more than baseline. During hospital stay, noted to have atrial fibrillation,
converted spontaneously to sinus rhythm, was given IV Cardizem. Reviewing hospital documents, black stool since 04/19/2024, currently brown/black. GI consult called in for this black stool.
Currently patient is obtunded and not responding and history could not be obtained from her but by reviewing medical records.
Labs showing hemoglobin 04/16/2024 was 15.2, on 04/20/2024 it was 13.3 and today it is 9.9. Previous history of mild anemia in 2019 with hemoglobin range between 10.6-11.9. Creatinine peaked to 3.2 during the hospital visit, currently 1.6. Sodium
120 on admission and currently in normal range at 139. She has history of elevated LFTs since 2007, AST between 30 and 75, ALT between 30 and 93. Normal alkaline phosphatase and bilirubin. This admission, ALT peaked at 405 and currently at 120,
AST peaked at 548 and currently at 147. Alkaline phosphatase is 372 , bilirubin was 2.4 on admission but now normal. She has chronic elevation in LFTS,follows up with at [place] every year,he has been monitoring her for the past 20 yrs
+.�she rarely drinks alcohol .
Hepatitis A/B/C serologies negative
Abdominal ultrasound did not show any evidence of cholelithiasis or gallbladder thickening. ?Starry sridhar appearance of liver.
�She was last seen in the office 2021, previous history of diarrhea,���her chromogranin is elevated, and she had a CT scan follow-up and octreotide scan which were unremarkable.
�����At some point was started on Viberzi 300 mg twice daily but did not take it.
������
�������09/09/19; CTAP with p.o. and IV contrast; liver, spleen, gallbladder pancreas unremarkable. Mild small bowel ileus is another possibility. Bowel loops show there is a slight prominence of small bowel in the left abdomen. This may be due to
peristalsis.
�������USG; liver normal, mild diffuse increased echogenicity, no focal hepatic lesion liver contour appears smooth without evidence for nodularity to suggest septic cirrhosis. Patent main portal vein and hepatic veins are patent. There is no intra
or extrahepatic biliary dilatation. CBD measures 2.1 mm in diameter. No gallstones, no wall thickening.
�������No prev EGD
�������06/29/19; colonoscopy Dr. Perrin; nonbleeding external and internal hemorrhoids. Normal mucosa in the entire examined colon. Biopsies showing mild cryptitis and focal crypt abscesses. Negative for microscopic colitis.
Past Medical History
Past Medical History: HTN, Hypercholesterolemia and Other (Fatty liver, osteoporosis)
Past Surgical History: Other (Cataract surgery)
Social History
Tobacco: Non-Smoker
Alcohol: None
Family History
Family History: Unable to Obtain
Allergies / Home Medications
Allergy/AdvReac Type Severity Reaction Status Date / Time
Sulfa (Sulfonamide Allergy Hives Verified 04/19/24 15:02
Antibiotics)
�Medication �Instructions �Recorded
simvastatin 40 mg tablet 40 mg PO QPM High Cholesterol 05/11/11
lisinopril 20 1 tab PO DAILY Blood Pressure 04/19/24
mg-hydrochlorothiazide 12.5 mg
tablet
risedronate 35 mg tablet 35 mg PO WEEKLY Osteoporosis 04/19/24
Review of Systems
-
Unable to obtain full review of systems at this time due to: Patient Non Verbal
Vital Signs
Temp Pulse Resp BP Pulse Ox
98.2 F 116 20 166/82 92
04/25/24 07:00 04/25/24 07:00 04/25/24 07:00 04/25/24 07:00 04/25/24 07:00
Physical Exam
Exam
GI: Soft, Non Tender, Non Distended and Other (Has Dobbhoff tube)
Neuro: Other (Obtunded)
Results
WBC 17.2 10^3/uL (4.8-10.8) H 04/25/24 05:29
Hgb 9.9 g/dL (12.0-16.0) L 04/25/24 05:29
Hct 28.4 % (37.0-47.0) L 04/25/24 05:29
MCV 83.5 fL (81.0-99.0) 04/25/24 05:29
Plt Count 317 10^3/uL (130-400) D 04/25/24 05:29
Absolute Neuts (auto) 14.3 10^3/uL (1.4-6.5) H 04/25/24 05:29
PT 14.6 Sec (11.4-14.6) 04/20/24 11:40
INR 1.15 04/20/24 11:40
Sodium 139 mmol/L (135-145) 04/25/24 05:29
Potassium 4.6 mmol/L (3.5-5.1) 04/25/24 05:29
Chloride 101 mmol/L (98-107) 04/25/24 05:29
Carbon Dioxide 30 mmol/L (22-30) 04/25/24 05:29
BUN 82 mg/dl (7-17) H 04/25/24 05:29
Creatinine 1.6 mg/dL (0.6-1.0) H 04/25/24 05:29
Calcium 9.9 mg/dl (8.4-10.2) 04/25/24 05:29
Total Bilirubin 0.8 mg/dl (0.2-1.3) 04/25/24 05:29
AST 147 U/L (14-36) H 04/25/24 05:29
ALT 120 U/L (0-35) H 04/25/24 05:29
Alkaline Phosphatase 372 U/L (38-126) H 04/25/24 05:29
Lipase 320 U/L (23-300) H 04/19/24 15:15
Hepatitis A Ab Total Positive (Negative) 04/19/24 21:37
Hep Bs Antibody Positive 04/19/24 21:37
Hepatitis C Antibody Negative (Negative) 04/19/24 21:37
Diagnostic Image Results:
Prior GI Procedures:
EGD:
Colonoscopy:
Assessment / Plan
-
78-year-old female with history of hypertension, high cholesterol, osteoporosis, chronic elevated LFTs from [facility] presenting with fatigue, weakness, noted to have Legionella pneumonia, metabolic acidosis, acute renal insufficiency, also noted to have
black stool. Currently she is nonverbal and obtunded and history cannot be obtained.
-Anemia with documented black stool, currently hemodynamically stable
Rule out esophagitis, ulcer disease, angiectasia versus other
No evidence of cirrhosis of the liver, cannot attribute change in mental status to hepatic encephalopathy.
Patient nonverbal, has a Dobhoff tube and tolerating tube feeds.
Will not be able to do an upper endoscopy unless her neurological status improves as this is not an overt active bleeding.
Continue Protonix 40 mg IV daily.
Monitor H&H and transfuse as needed.
Once neurological status improves, will consider upper endoscopy at that time.
-Chronic elevation in LFTs, follows up with Dr. Weinstein, hepatology at [facility]
No evidence of cirrhosis of the liver.
Recent elevation in LFTs could be related to underlying Legionella infection/antibiotics
Abdominal ultrasound without any acute etiology for elevated liver enzymes.
Will follow for now
-
-
Thank you for consultation and allowing me to participate in the patient's care. Please call the senior integration architect GI physician during the after hours with any questions or concerns.
[2024-04-25] MEDS: THIAMINE INJECTION 100 MG IV (09:01)
[2024-04-25] MEDS: CARDIZEM 60 MG TUBE ×2 (09:01→13:49)
[2024-04-25] MEDS: HEPARIN 5000 UNITS SC ×2 (09:01→19:50)
[2024-04-25] MEDS: PROTONIX IV 40 MG IV (09:03)
[2024-04-25] MEDS: NSS (PRESERVATIVE FREE) 10 ML IV (09:03)
[2024-04-25] MEDS: ZITHROMAX INFUSION 250 IV (09:14)
--- NOTE | 2024-04-25 10:54 | W.PN.CARDCBS ---
Addendum entered and electronically signed by Feroz Guerrier MD 04/25/24 14:12:
She remains poorly responsive - and daughter at bedside
PMH/PSH/SH/FH: Reviewed
Allergies: Sulfa
Outpatient medications: Lisinopril HCT, risedronate, simvastatin 40 mg a day
Current meds: Subcu heparin, Zithromax, pantoprazole, diltiazem 60 4 times daily
ROS negative except as above
141/91, pulse 113, respiratory 22, afebrile, sats 93%,, Dobbhoff in place, occasionally turns towards voices, does not appear to be in overt pain but obtunded, lungs are relatively clear, tachycardic, abdomen benign, extremities with 1+ edema pulses
palpable,
ECG, sinus tachycardia with PACs, and ST-T changes
White count 17.2, hemoglobin 9 9, blood gas 7.5 0/71, bicarb 33, BUN/creatinine 82 and 1.6, AST 847, ALT 120
Telemetry sinus tach
Plan:
She has had no recurrences of atrial fibrillation, not currently on anticoagulation.
Major issues are obtundation and pneumonia, presumed severe TME.
She is on diltiazem. Will transition to metoprolol 25 every 6 via tube for better heart rate control. Increase to 50 every 6 if needed
Management of mental status changes, CHERIE, antibiotics, etc. per ID, renal, ID, neurology.
If she recovers, and if GI bleeding, anemia resolve would consider for anticoagulation.
Original Note:
Today's Communication / Plan
-
Cont short-acting Cardizem 60 mg via tube QID
Not on OAC due to anemia with heme positive stools, GI to evaluate today
Impression / Plan
-
PCP: Dr. Good
Primary Perinatal Specialist: none, initially seen by Maylin
Impression:
Admitted with weakness 04/19/24
Severe RLL Legionella PNA
Newly diagnosed paroxysmal Afib
Not chronically anticoagulated due to new diagnosis of Afib and new melanotic stools
Heme positive, melanotic stools
Anemia
Change in mental status
CHERIE
Hypokalemia
Elevated troponin, suspected nonischemic myocardial injury
Elevated LFTs, in setting of NICHOLE followed at [facility]
HTN
HLD
asthma
osteoporosis
[place]
ECHO 04/20/24: EF 60-65%, mild MR, mild MR, PAP 30-35mmHg
Plan:
-Patient admitted from home with weakness and found to have RLL Legionella PNA. ID and Pulmonology following.
-Cardiology consulted for newly diagnosed paroxysmal Afib that spontaneously converted to SR. Patient remains in SR by my review of tele on 04/25/24, although occasional PVCs noted. Short-acting Cardizem 60 mg via tube QID ordered and all doses being
give according to MAR. Patient was not taking any rate controlling meds prior to admission.
-Patient has not been started on OAC due to anemia with heme positive, melanotic stools seen this admission. Tube feeds running via Dobbhoff. GI consulted.
-Patient is at acceptable risk for GI evaluation without further cardiac testing. Tele stable and EF preserved by echo.
-Troponin was 0.275 when initially checked on 04/20/24 in the setting of rapid Afib and trended down thereafter. Troponin elevation managed as a nonischemic myocardial injury Troponin elevation in the setting of rapid Afib.
HPI: Patient is a 78-year-old female with past medical history of hypertension, hyperlipidemia, asthma, NICHOLE followed at [facility], [place], osteoporosis who was seen in PCP office 04/16/2024 due to fatigue and weight loss. Labs ordered and were abnormal
with elevated LFTs. 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 She has had poor appetite, lethargy, confusion resulting in her bringing her to ER. CXR on admission with evidence of severe R PNA, positive for legionella. Also with
significant electrolyte abnormalities and metabolic acidosis. Cardiology consulted due to new afib (of note, she had EKG with PVCs in PCP office 04/16 and was ordered echo and stress test). She denies cardiac history and does not feel palpitations.
She is presently rate controlled. She is having dark, tarry, heme positive stools per nursing.
Progress Note - Perinatal Specialist
Subjective
Date of Service: April 25, 2024
Somnolent
Objective
Labs:
04/25/24 05:29
04/25/24 05:29
Labs
Hgb 9.9 g/dL (12.0-16.0) L 04/25/24 05:
Hct 28.4 % (37.0-47.0) L 04/25/24 05:
Plt Count 317 10^3/uL (130-400) D 04/25/24 05:29
PT 14.6 Sec (11.4-14.6) 04/20/24 11:40
INR 1.15 04/20/24 11:40
Sodium 139 mmol/L (135-145) 04/25/24 05:29
Potassium 4.6 mmol/L (3.5-5.1) 04/25/24 05:29
BUN 82 mg/dl (7-17) H 04/25/24 05:29
Creatinine 1.6 mg/dL (0.6-1.0) H 04/25/24 05:29
Glucose 158 mg/dl (70-99) H 04/25/24 05:29
Vital Signs and I&O:
Vital Signs
Temp Pulse Resp BP Pulse Ox
98.2 F 116 20 166/82 92
04/25/24 07:00 04/25/24 07:00 04/25/24 07:00 04/25/24 07:00 04/25/24 07:00
Vital Signs
Temp Pulse Resp BP Pulse Ox
98.2 F 116 20 166/82 92
04/25/24 07:00 04/25/24 07:00 04/25/24 07:00 04/25/24 07:00 04/25/24 07:00
Intake & Output
04/23/24 04/24/24 04/25/24 04/26/24
06:59 06:59 06:59 06:59
Intake Total 1362.5 / 1485.0 1762.5 / 1762.5
Output Total 1415 / 1415 1370 / 1370 750 / 750
Balance -52.5 / 70.0 392.5 / 392.5 -750 / -750
Physical Exam
Physical Exam
Gen: Somnolent, frail appearing
HEENT: Right nares Dobbhoff with tube feeds running, MMM
CV: SR on tele
Lungs: No audible wheeze
Abd: Tube feed running, ND
Ext: No LE edema
Skin: Pale, no rash
Neuro: Lethargic, does not open eyes to voice or touch
--- NOTE | 2024-04-25 11:12 | W.PN.NEPH.PH ---
Today's Communication / Plan
-
Follow-up BMP
Lasix held
Need daily weight
Assessment/Plan
-
Assessment
Malaise, decreased appetite
Hypertension
Sinus tachycardia with PACs
Acute kidney injury
Hyponatremia
Metabolic acidosis
Elevated LFTs
Fatty liver
Confusion
Pneumonia with positive urinary Legionella antigen
Plan
Creatinine with improvement to 1.6 but remains grossly nonoliguric ~750cc
Hyponatremia normalized
Holding as needed Lasix weights stable
follow BMP
abx continue for PNA
maintain daniel given high PVR
Antihypertensives held for now (BLAKE/HCTZ) remains on Cardizem for atrial fibrillation
-
-
Date of Service: April 25, 2024
CC / HPI / ROS
-
Chief Complaint:
Hyponatremia
CHERIE
History of Present Illness:
CHERIE/Cr improved to 1.6
BP stable
cardizem po for afib, rate controlled and now in SR
on abx for legionella PNA
Na normal at 139
Review of Systems:
Nonoliguric via daniel
Feeding tube
No fevers
Labs
-
Labs:
WBC 17.2 10^3/uL (4.8-10.8) H 04/25/24 05:29
RBC 3.40 10^6/uL (4.20-5.40) L 04/25/24 05:
Hgb 9.9 g/dL (12.0-16.0) L 04/25/24 05:
Hct 28.4 % (37.0-47.0) L 04/25/24 05:
Plt Count 317 10^3/uL (130-400) D 04/25/24 05:
Sodium 139 mmol/L (135-145) 07/06/24 05:29
Potassium 4.6 mmol/L (3.5-5.1) 04/25/24 05:29
Chloride 101 mmol/L (98-107) 04/25/24 05:29
Carbon Dioxide 30 mmol/L (22-30) 04/25/24 05:29
BUN 82 mg/dl (7-17) H 04/25/24 05:29
Creatinine 1.6 mg/dL (0.6-1.0) H 04/25/24 05:29
eGFR 32.81 04/25/24 05:29
Glucose 158 mg/dl (70-99) H 04/25/24 05:29
Calcium 9.9 mg/dl (8.4-10.2) 04/25/24 05:29
Tgo-T-Uljzinwebqt Pept 07750 pg/ml 04/20/24 11:40
Albumin 2.8 g/dl (3.5-5.0) L 04/25/24 05:29
Physical Exam
-
Vital Signs:
Vital Signs
Temp Pulse Resp BP Pulse Ox
98.2 F 116 20 166/82 92
04/25/24 07:00 04/25/24 07:00 04/25/24 07:00 04/25/24 07:00 04/25/24 07:00
Cardiovascular:: Regular rate and rhythm
Respiratory:: Bilateral: Coarse
Lung Excursion:: Normal
Abdomen:: Nontender and Soft
Bowel Sounds:: Decreased
Extremity Edema:: None: Bilateral:
Daniel Catheter: Yes
Other Findings::
gen: lethargic
--- NOTE | 2024-04-25 12:28 | W.PN.NEURO.1 ---
Today's Communication / Plan
-
Continue supportive care
Check lumbar puncture
Check blood work for potential metabolic causes producing symptomatology with regards to the patient's long-term gait difficulty
Consider repeated MRI of brain
Neuro Assessment/Plan
Assessment
IMPRESSIONS/RECOMMENDATIONS:
Abrupt change in tone and mental status
Most likely due to toxic metabolic factors producing generalized fatigue.
Long-term difficulty with the patient's gait in the form of inability to climb stairs may be secondary to a neuromuscular junction disorder such as myasthenia gravis
Patient completed thiamine supplementation
MRI of brain fails to demonstrate an acute abnormality producing patient's symptomatology. There is also no evidence of encephalitis producing symptoms
Plan
Continue supportive care
Check lumbar puncture
Check blood work for potential metabolic causes producing symptomatology with regards to the patient's long-term gait difficulty
Consider repeated MRI of brain
Will continue to follow peripherally.
Subjective/Objective
Subjective Data
Date of Service: April 25, 2024
Patient herself is unable to provide her own medical history.
Patient's family at bedside indicates the patient has been over the last year crawling up stairs. And that over the last 2 years, has been reporting greater weakness over time.
Objective Data
Vital Signs
Temp Pulse Resp BP Pulse Ox
36.7 C 113 22 141/91 93
04/25/24 11:00 04/25/24 11:00 04/25/24 11:00 04/25/24 11:00 04/25/24 11:00
Lab Results
04/25/24 05:29
04/25/24 05:29
PT 14.6 Sec (11.4-14.6) 04/20/24 11:40
INR 1.15 04/20/24 11:40
Sodium 139 mmol/L (135-145) 04/25/24 05:29
Potassium 4.6 mmol/L (3.5-5.1) 04/25/24 05:29
BUN 82 mg/dl (7-17) H 04/25/24 05:29
Glucose 158 mg/dl (70-99) H 04/25/24 05:29
Calcium 9.9 mg/dl (8.4-10.2) 04/25/24 05:29
Uzq-B-Gkqmekdidlx Pept 67025 pg/ml 04/20/24 11:40
Vitamin B12 > 1000 pg/ml (239-931) H 04/22/24 05:14
Patient Allergies
Sulfa (Sulfonamide Antibiotics) Allergy (Verified 04/19/24 15:02)
Hives
Review of Systems
-
Unable to obtain full review of systems at this time due to: Lethargy
History Source: Patient
All other systems: Reviewed and negative
Physical Exam
-
General: No Apparent Distress, Appears Stated Age and Wearing Oxygen
Eyes: Round OU, [place] Conjunctivae and No Ptosis; Negative Able to visualize OU
HEENT: Anicteric and Moist Mucous Membranes
Neck: Full Range of Motion
Respiratory: No Dyspnea
Cardiac: No JVD
GI: Non-distended
Skin: Unremarkable
Extremities: No Clubbing, No Cyanosis and No Edema
Psych: Negative Intact Judgement/Insight
Extended Neurological Exam
Mood & Affect: Depressed
Attention Span & Concentration: Negative Awake, Alert or Interactive
Memory: Negative Unable to Recall Personal History
Tremor: Hand Tremor Absent and Head Tremor Absent
Involuntary Movement: None
Speech: Quality Unremarkable and Severely Reduced Output
Cranial Nerve II: Left Eye: Pupillary Reactivity Unremarkable, Pupillary Size Unremarkable and Unable to Assess Visual Goldstein
Cranial Nerve II: Right Eye: Pupillary Reactivity Unremarkable, Pupillary Size Unremarkable and Unable to Assess Visual Goldstein
Cranial Nerves III, IV, : Extraocular Movement: Unable to Assess
Cranial Nerve V: Facial Sensation: Unable to Assess
Cranial Nerve VII: Facial Symmetry: Normal Facial Symmetry
Cranial Nerve VIII: Hearing: Negative Unremarkable Hearing to Normal Conversational Volume
Cranial Nerves IX, X: Palate Movement: Unable to Assess
Cranial Nerve XI: Shoulder Shrug: Unable to Assess
Cranial Nerve XII: Tongue Protusion: Unable to Assess
Muscle Strength, Overall: Unable to Assess
Muscle Bulk & Tone: Bulk Unremarkable and Tone Unremarkable
Pronator Drift: Unable to Assess
Cold Sensation: Unable to Assess
Vibration Sensation: Unable to Assess
Coordination: Unable to Assess
Babinski Sign: Absent Bilaterally
Gait & Station: Unable to Assess
Past History
Past History
ED Past Medical History: Asthma, HTN, Hypercholesterolemia and Other (back pain with epidural steroid injections)
ED Past Surgical History: Gynecological (myomectomy), Orthopedic (knee surgery) and Other (left cataract surgery)
Social History
Tobacco: Former smoker
Alcohol: None
Drug: None
Living: with family
Medications
-
Medications:
Generic Name Dose Route Start Last Admin
Trade Name Freq PRN Reason Stop Dose Admin
Acetaminophen 650 mg 04/19/24 19:21
Acetaminophen 325 Mg Tablet PO 05/17/24 19:20
Q4HPRN PRN
mild pain/MCNALLY/temp> 100.4F
Bisacodyl 10 mg 04/19/24 19:21
Bisacodyl 10 Mg Rectal Suppository RECTAL 05/17/24 19:20
[id number] PRN
constipation
Diltiazem HCl 60 mg 04/22/24 18:00 04/25/24 09:01
Diltiazem 60 Mg Regular Release Tablet TUBE 05/20/24 17:59 60 mg
QID CHASE Administration
Heparin Sodium 5,000 units 04/19/24 20:00 04/25/24 09:01
Heparin 5,000 Units/Ml 1 Ml Vial SC 05/17/24 19:59 5,000 units
Q12 CHASE Administration
Azithromycin 500 mg in 250 mls @ 250 mls/hr 04/20/24 10:00 04/25/24 09:14
Zithromax Infusion IV 250 mls
Q24H CHASE Administration
Metoprolol Tartrate 5 mg 04/19/24 18:08 04/25/24 02:37
Metoprolol 5 Mg/5 Ml Vial IV 05/17/24 18:07 5 mg
Q6HPRN PRN Administration
HR>110
Ondansetron HCl 4 mg 04/19/24 19:21
Ondansetron 4 Mg/2 Ml Vial IV 05/17/24 19:20
Q6HPRN PRN
nausea and vomiting
Pantoprazole Sodium 40 mg 04/21/24 12:00 04/25/24 09:03
Protonix 40 Mg Iv Push IV 05/19/24 11:59 40 mg
DAILY CHASE Administration
Polyethylene Glycol 17 grams 04/19/24 19:21
Polyethylene Glycol Powder 17 Grams Packet PO 05/17/24 19:20
DAILYPRN PRN
constipation
Senna/Docusate Sodium 1 tablet 04/19/24 19:21
Docusate W/Senna (Gabrielle-Colace) Tablet PO 05/17/24 19:20
BIDPRN PRN
constipation
Sodium Chloride 0 flush 04/19/24 19:00 04/22/24 07:48
Sodium Chloride 0.9% (Flush) Syringe IV 05/17/24 18:59 2 flush
PER PROTOCOL CHASE Administration
Sodium Chloride 10 ml 04/21/24 12:00 04/25/24 09:03
Sodium Chloride 0.9% (Preservative Free) 10 Ml Vial IV 05/19/24 11:59 10 ml
DAILY CHASE Administration
[2024-04-25 12:44] LABS: B.E. 9.3 mmol/L; HCO3 33.5 mmol/L (21-28); O2 Saturation % 97.7 % (94-98); PCO2 43 mmHg (32-35); PO2 71 mmHg (83-108)
--- NOTE | 2024-04-25 12:45 | W.PN.PUL3 ---
Today's Communication / Plan
-
ABG without evidence of hypercarbia
Check ammonia level
Check chest x-ray although oxygenation appears to be stable
Primary concern is lack of improvement from neurological standpoint, may be worsening
Reviewed with neurology and primary service
Continue aspiration precautions, Dobbhoff tube feeds
Given poor mental status, will empirically place on BiPAP at night
Assessment
-
78-year-old female with history of Nichole, hypertension, recent fatigue, poor appetite with negative COVID workup as outpatient. Chest x-ray reveals right lower lobe pneumonia, sodium level is 121, renal insufficiency, urine Legionella antigen
positive. We are asked to help from critical care standpoint 04/20/2024
Patient transferred out of ICU 04/23/2024
Was asked to see patient again by hospitalist 04/25/2024 for persistent oxygen requirement of 4 L
Legionella pneumonia, right lower lobe
Malaise, anorexia, fatigue x 3 days
Mental status changes, TME
Profound weakness
Acute hyponatremia
Acute renal insufficiency
Sinus tachycardia
Metabolic acidemia
Normal lactate
Hypokalemia
Acute transaminitis/Fatty liver hx
Elevated bilirubin
Mildly elevated troponin
Cachexia, weight loss
Conditions present prior to admission
Hypertension/hyperlipidemia
History of osteoporosis
NICHOLE
[id number] history of smoking quit 1984
Plan/recommendations
At this time, patient appears to be improved at least from critical care standpoint
Off oxygen, she is 86 to 87% on room air. At 1 point she required 15 L, now down to 4 L
Chest exam is clear
More concerning is her neurological status
When in ICU 48 hours ago, was able to respond to name, loud speaking and ear, give one-word answers
Presently, only responsive to painful stimuli
Sodium level now normalized, from admission of 120 on 04/19 to 139 over 7 days. Of note it was 128 in ED
Creatinine has improved to 1.6
Moving forward
ABG 7.50/43/71 on room air
Await chest x-ray
Continue with antibiotics for Legionella pneumonia
Infectious disease following. Follow cultures
Atrial fibrillation developed with intermittent with rapid ventricular response. On Cardizem drip, now transition to oral Cardizem
Anticoagulation would be difficult in the setting of black tarry stool.
Continue Protonix therapy daily
If recurs, consider GI evaluation
Cardiology following. Mildly elevated troponin noted
Echocardiogram within normal limits
Patient profoundly weak
Elevated CK levels noted 842, improved to 380
Neurology evaluation negative to date
On further questioning, daughter states patient has had chronic weakness which was not relayed by . Patient has to crawl up the steps on all fours. This has been an issue for many years. Patient also also has multiple falls and has had
significant weight loss which the daughter feels is much worse than the
wonder if her Legionella pneumonia may have unmasked Underlying process. Questionable occult malignancy, neuromuscular disease?
I did reach out to neurology and primary service
DVT prophylaxis: Subcutaneous heparin, and mechanical prophylaxis
GI prophylaxis: Remains on Protonix
Reviewed above at length with and daughter at bedside
Reviewed with primary service and neurology
Subjective Data
-
Date of Service:
Date of Service: April 25, 2024
Subjective:
Asked to see patient urgently by hospitalist service regarding respiratory status. Patient remains on 4 L mid flow. Upon arrival, patient is only responsive to stimuli. She does not follow commands, does not open eyes. and daughter at
bedside. Chest exam is clear without wheezes or crackles.
Objective Data
Data Reviewed
Vital Signs / I&O / Oxygen:
Vital Signs
Temp Pulse Resp BP Pulse Ox
98.0 F 113 22 141/91 93
04/25/24 11:00 04/25/24 11:00 04/25/24 11:00 04/25/24 11:00 04/25/24 11:00
Intake and Output
04/24/24 04/25/24 04/26/24
06:59 06:59 06:59
Intake Total 1762.5 / 1762.5
Output Total 1370 / 1370 750 / 750
Balance 392.5 / 392.5 -750 / -750
SaO2 93
Nasal Cannula flow liters per 4
minute
Physical Exam
General: Comfortable and Other (Cachectic)
HEENT: Normocephalic
Cardiovascular: S1-S2, Irregular Rhythm, Murmur (n), Rub (n) and Peripheral Edema (n)
Respiratory: Wheeze (n), Crackles (n), Rhonchi (n), Non-Labored Respirations and Stridor (n)
GI: Soft, Non Distended, Non Tender and Feeding Tube (Dobbhoff tube)
Neurology: Lethargic (Withdraws to painful stimuli but otherwise does not follow commands, does not open eyes)
Skin: Cyanosis (n), Jaundice (n) and Bruising (Few scattered)
Labs/Micro/Reports
Lab Data
04/25/24 05:29
04/25/24 05:29
Microbiology
04/20/24 11:40 Blood/Venous Blood Culture - Final
No Growth - Final Report
04/20/24 11:19 Blood/Venous Blood Culture - Final
No Growth - Final Report
--- NOTE | 2024-04-25 13:07 | W.PN.HOSP.TC ---
Addendum entered and electronically signed by Jovon Andrews MD 04/25/24 16:25:
Today, I spoke over the phone to patient's Sharif, all questions and concerns were answered to satisfaction.
Original Note:
Today's Communication/Plan
-
Transfer to IMU after discussion with Pulmonary and in the setting of needing prn BiPAP
Diltiazem switched to Lopressor 25 mg PO Q6H
LP
Continue Azithromycin
Appreciate ID, Neurology, Cardiology, Nephrology, Pulmonary and Gastroenterology
Assessment / Plan
Assessment / Plan
Physical Exam
Gen: NAD, Awake and alert
HEENT: Normocephalic
Neck: Supple.
CV: tachy, regular rhythm with occasional premature beats, +S1/S2, no m/r/g.
Resp: CTAB
Abd: +BS, soft, NT, ND
Skin: Warm extremities
Neuro: CN 2-12 intact, non-focal.
Psych: Normal mood and affect.
Assessment/Plan
Suspected Severe RLL Legionella PNA and ?Lung Nodule?
Legionella Positive
Malaise, anorexia, fatigue
Acute Toxic metabolic encephalopathy secondary to pneumonia and electrolytes disturbances, and dehydration
Acute Hypoxic Respiratory Failure Secondary to Legionella Pneumonia
-Oxygen requirements have improved, from 15 L to 4 L --> continues to require 4 L mid-flow oxygen
-Continue Azithromycin
-Monitor QTc given patient is on Azithromycin
-Consulted pulmonary, recommendations appreciated
-ID was consulted, recommendations appreciated
-Continue oxygen as needed head of bed elevated, aspiration precautions, may require noninvasive ventilation, as per Satin Finisher
-Chest x-ray with improvement in right pleuroparenchymal process - there may be a pleural effusion
-Patient continues to remain with significant encephalopathy -- appears to have worsened, neurology ordered LP with relevant studies on April 25, 2024
-Pulmonary consulted, recommendations appreciated
-Avoid narcotic therapy and sedation
Inability to Take PO Due to Profound Encephalopathy
-Continue Dobhoff tube feeds
Weakness
-Satin Finisher ordered CT Head
-Spoke with media production support manager who recommended neurology consulted
-MRI Brain negative
-Consulted neurology, recommendations appreciated
-Thiamine has been ordered -- continue Thiamine
Black Tarry Stool
-Hgb stable -- continue to monitor hemoglobin
-Anticoagulation would be difficult in the setting of black tarry stool.
-Continue Protonix IV 40 mg daily
-Consulted GI, recommendations appreciated --> they are not planning for any procedures at this time given patient's encephalopathy, just continue PPI
Acute hyponatremia
Severe Hypokalemia
Metabolic Acidosis
-c/s renal, recommendations appreciated
-BMP Q6H
-hold HCTZ/ACEi
-Received 3% saline
-Received Bicarb IV fluids
-Holding Lasix
A-Fib with RVR
Hypotension
Bradycardia
-Started on 04/20/24
-[id number] score is 4 but hold off on anticoagulation with heme positive stools
-Completed Cardizem Drip , now off
-PO Cardizem switched to Metoprolol 25 mg every 6 via tube for better heart rate control. Increase to 50 mg every 6 hours if needed.
-Cardiology consulted, recommendations appreciated
-Monitor and optimize electrolytes
-Careful with Simvastatin dosage while patient is on Cardizem
Pleural Thickening
RLL groundglass changes
-Consulted pulm -- eval for CT Chest?
Cool Extremities - RESOLVED
-Echo and BNP noted, appreciate cardiology
-Lactic Acid was okay
-ABG and VBG noted
-Patient was previously transferred to ICU given potential for decompensation
Acute Kidney Injury
-IMPROVING
-BLAKE-I held
-Appreciate Nephrology
-Continue Beltre Catheter as per nephrology
Elevated CK levels
-Improving with IV fluids
Acute transaminitis/Fatty liver history, elevated bilirubin
-Continue to monitor CMP
-Abd U/S read (as per radiology): 'Cannot exclude 'starry sridhar' appearance of the liver such as can be seen with acute hepatitis'
-GI consulted, recommendations appreciated: recent elevation in LFTs could be related to underlying Legionella infection/antibiotics and abdominal ultrasound without any acute etiology for elevated liver enzymes.
Essential HTN:
-hold HCTZ/ACEi
Cachexia, weight loss
Conditions present prior to admission
Hypertension/hyperlipidemia
History of osteoporosis
NICHOLE
[id number] history of smoking quit 1984
Diet: Continue Tube Feeding
FULL/Heparin/tele
Anticipated Discharge: > 48 hours
Subjective/Interval History
-
Date of Service: April 25, 2024
Patient was seen and examined. She remains barely responsive.
Objective Data
-
Labs:
Laboratory Results
04/25/24 04/25/24
05:29 12:29
WBC 17.2 H
Hgb 9.9 L
Hct 28.4 L
Plt Count 317 D
HCO3 33.5 H
Sodium 139
Potassium 4.6
Chloride 101
Carbon Dioxide 30
BUN 82 H
Creatinine 1.6 H
Glucose 158 H
Calcium 9.9
Total Bilirubin 0.8
AST 147 H
ALT 120 H
Alkaline Phosphatase 372 H
Vital Signs:
Vital Signs
Temp Pulse Resp BP Pulse Ox
98.0 F 113 22 141/91 93
04/25/24 11:00 04/25/24 11:00 04/25/24 11:00 04/25/24 11:00 04/25/24 11:00
I&O
04/24/24 04/25/24 04/26/24
06:59 06:59 06:59
Intake Total 1762.5 / 1762.5
Output Total 1370 / 1370 750 / 750
Balance 392.5 / 392.5 -750 / -750
--- NOTE | 2024-04-25 13:38 | W.PN.ID1 ---
Date of Service
Date of Service: April 25, 2024
Today's Communication
LP
continue azithromycin for now
Assessment / Plan
Right lower lobe pneumonia secondary to Legionella pneumophila
Hyponatremia - resovled
CHERIE
- improving
Transaminitis
A-fib
Elevated CK; trending down
Hyperbilirubinemia; improved
Recommendations:
Trend white count and fever curve.
Trend LFT's.
Follow CXR.
would proceed with LP: cell count, culture, protein, glucose
If consistent with meningitis, will need to further review where/whether PCR or ag testing could be done on CSF; CSF is not one of the typical specimens [facility] accepts for legionella. Meningitis is very rare in the setting of legionella.
Continue azithromycin at this time; doesnt typically
Overall outlook continues to remain guarded.
����������������������������������������������������������
Chief Complaint
-: Pneumonia (Legionella) and Other (CHERIE)
Subjective / Review of Systems
chart reviewed Na improved from 121 on arrival 04/20 at 9:30 to 129 on 04/21 at 14:22 then to 131 at 2100 - remained at that level
in other words at least 8 mmol the first 24 hours and 10 over the first 48 hours
04/22 brain MRI without contrast: no lesions
afebrile
bp stable
relapse of leukocytosis today, progression of L shift
cr has been slowly improving
note addition of pyridiostigmine, no steroids
CXR my read: persistent RLL pneumonia
Vital Signs / Physical Exam
Vital Signs
Vital Signs
Temp Pulse Resp BP Pulse Ox
98.0 F 113 22 141/91 93
04/25/24 11:00 04/25/24 11:00 04/25/24 11:00 04/25/24 11:00 04/25/24 11:00
Physical Exam
Constitutional: No Acute Distress
Cardiovascular: Regular Rate and S1/S2; Negative Murmur or Rub
Pulmonary: Clear and Symmetric; Negative Wheezes or Rales
Gastrointestinal: Soft, Non Tender, Non Distended and Normal Bowel Sounds
Skin: Warm and Dry; Negative Rash or Jaundice
Objective Data
Lab Data
Lab Results
04/25/24 05:29
04/25/24 05:29
ESR 39 mm/hour (0-20) H 04/22/24 05:14
PT 14.6 Sec (11.4-14.6) 04/20/24 11:40
INR 1.15 04/20/24 11:40
Estimated Creat Clear 23 ml/min 04/25/24 05:29
Lactic Acid Cancelled 04/22/24 06:00
Total Bilirubin 0.8 mg/dl (0.2-1.3) 04/25/24 05:29
AST 147 U/L (14-36) H 04/25/24 05:29
ALT 120 U/L (0-35) H 04/25/24 05:29
Alkaline Phosphatase 372 U/L (38-126) H 04/25/24 05:29
Most recent labs reviewed.
Micro Results:
04/20/24 11:40 Blood Culture - Final
Blood/Venous No Growth - Final Report
04/20/24 11:19 Blood Culture - Final
Blood/Venous No Growth - Final Report
04/20/24 07:26 Legionella Urinary Antigen - Final
Urine Positive for L. pneumophila Ag
Imaging:
04/20/2024 Echo (TTE): Normal LV size and wall thickness. Mild mitral regurgitation. Mild tricuspid regurgitation. No intracardiac mass or thrombus formation seen.
04/19/2024 CXR (2 view): Large amount of asymmetric right lower lobe opacity most suggestive of SEVERE RIGHT LOWER LOBE PNEUMONIA. A right lower lobe lung cancer or asymmetric inflammatory interstitial disease are considered less likely.
Care Review
Plan reviewed with: Physician (Dr Washington - lp)
[2024-04-25] MEDS: MESTINON 60 MG TUBE ×3 (15:10→23:34)
[2024-04-25 15:14] LABS: Urine Albumin Trace (Neg - Trace); Urine Bilirubin Negative (Negative); Urine Character Very Cloudy (Clear); Urine Color Yellow; Urine Glucose Negative (Negative); Urine Ketone Negative (Negative); Urine Leukocyte 2+ (Negative); Urine Nitrite Positive (Negative); Urine Occult Blood 4+ (Negative); Urine Urobilinogen Negative (Neg - 1+)
[2024-04-25 15:27] LABS: Ammonia < 9 umol/L (9-30)
[2024-04-25 15:33] LABS: Urine Bacteria Many (Negative); Urine Red Blood Cell 26-30 /HPF (0-2); Urine White Cell 50-60 /HPF (0-5)
[2024-04-25 15:34] LABS: Total Thyroxine 7.66 ug/dl (5.5-11.0)
[2024-04-25 15:34] LABS: Urine Amorphous Seen
--- NOTE | 2024-04-25 15:38 | PTCARENOTE ---
Pt from 3 west very lethargic non responsive at this time. Picc in vern abraham with Jevity 1.5 45ml 25 ml water flush awaiting rsp for Bipap
[2024-04-25 15:48] LABS: TSH 1.16 uIU/ml (0.47-4.68)
--- NOTE | 2024-04-25 16:32 | PTCARENOTE ---
Pt now on 4l midflow to IR via bed
--- NOTE | 2024-04-25 16:35 | PTCARENOTE ---
TF on hold while in IR
--- NOTE | 2024-04-25 17:24 | W.PN.IRAD.PR ---
Procedure Note
-
Lumbar puncture performed under fluoro guidance. Return of 12 cc clear CSF, sent for analysis. No immediate complications.
--- NOTE | 2024-04-25 17:30 | PTCARENOTE ---
Pt return from IR needs to be flat for 2 hrs. BP 184/87DR Choud
[2024-04-25 18:23] LABS: INR 0.97; PT 12.9 Sec (11.4-14.6)
[2024-04-25 18:24] LABS: APTT 35.4 Sec (23.4-35.0)
[2024-04-25 18:37] LABS: Spinal Fluid Glucose 101 mg/dl (40-70); Spinal Fluid Protein 79 mg/dl (12-60)
[2024-04-25 18:53] LABS: CSF Clarity Clear; CSF Color Colorless; CSF Tube # 3; Red Cell Count/CSF 0 mm^3; White Cell Count/CSF 1 mm^3 (0-5)
[2024-04-25 18:54] LABS: CSF Clarity Clear; CSF Color Colorless; CSF Tube # 4; Red Cell Count/CSF 0 mm^3; White Cell Count/CSF 1 mm^3 (0-5)
[2024-04-25] MEDS: LOPRESSOR 25 MG TUBE ×2 (19:50→23:34)
--- NOTE | 2024-04-25 20:00 | PTCARENOTE ---
Caring for pt overnight. Received pt on 4LMF. at bedside. Pt remained flat until 1930 d/t LP, then was raised to 30degrees, tube feeds resumed. Meds given. High bp noted, scheduled lopressor given. LP site assessed, bandaid CDI. Pt remains
lethargic, does not follow commands, open eyes or respond to verbal. Per report, pt was like this previously. daniel in place. Oral care completed wiht suction and oral kits. daniel cleaned. Turned with wedge foam. legs elevated. NSR/ST. Will monitor.
--- NOTE | 2024-04-25 21:50 | PTCARENOTE ---
Neuro assessment completed d/t pt being so lethargic and minimal responsiveness. does not follow commands, does not open eyes, only responsive to stimuli. Bp's running high. Noted her R pupil is only slightly larger than the left. Both pupils
responsive at this time. R 3mm, L2mm. Pt does move head when assessing pupils. CARDIAC NURSE aware and up to assess pt. Orders to hold off on CT at the moment. Will monitor.
--- NOTE | 2024-04-25 22:15 | PTCARENOTE ---
BP's still running high. Pt received PRN lopressor from day shift, then her scheduled 1800 dose of lopressor with only very slight improvement. GOLF CLUB REPAIRER notified. BP 175/87 at this time. Orders to hold off for now, give scheduled midnight lopressor &
reassess BP after. Assessments all the same.
--- NOTE | 2024-04-25 23:30 | PTCARENOTE ---
Per RN report, there were orders to hold bipap d/t pt getting tube feeds. PT is lethargic, responsive to tactile, does not open eyes, does not follow commands. O2 94% 4L, tachypneic. Diaphoretic (BS 187), temp 99.0.
Spoke to RT & OVERNIGHT HOUSEPERSON, orders to continue Bipap overnight and ok to continue tube feeds.
--- NOTE | 2024-04-25 23:50 | PTCARENOTE ---
Reached out to HOSE OPERATOR to order Q6h accu checks & insulin coverage d/t pt being NPO & on tube feeds. BS check tonight was 187.
[2024-04-25 23:56] LABS: Glucose - Point of Care 187 mg/dl (70-99)
[2024-04-26] VITALS (43 sets, daily range): BP systolic 67–152; BP diastolic 43–86; PULSE 2–98; BMI 18.5
--- NOTE | 2024-04-26 00:18 | PTCARENOTE ---
BP back down, 152/86 HR stable 88 SR. No additional meds given, just scheduled Lopressor.
[2024-04-26] MEDS: NOVOLOG FLEXPEN-LOW RESISTANCE 1 UNITS SC (01:07)
[2024-04-26] MEDS: LOPRESSOR 25 MG TUBE ×3 (05:07→17:02)
[2024-04-26 05:39] LABS: % Basophils 0.2 % (0-2); % Eosinophils 0.5 % (0-6); % Immature Granulocytes 4.4 % (0-0.5); % Lymphocytes 3.3 % (20.5-51.1); % Monocytes 7.4 % (1.7-9.3); % Neutrophils 84.2 % (42.2-75.2); Absolute Eosinophils 0.1 10^3/uL (0-0.7); Absolute Immature Granulocytes 0.6 10^3/uL (0-0.05); Absolute Lymphocytes 0.5 10^3/uL (1.2-3.4); Absolute Monocytes 1.1 10^3/uL (0.1-0.6); Absolute Neutrophils 12.1 10^3/uL (1.4-6.5); Hematocrit 30.4 % (37.0-47.0); Hemoglobin 10.1 g/dL (12.0-16.0); Mean Corp Hgb Conc. 33.2 g/dL (33.0-37.0); Mean Corpuscular Hgb 28.5 pg (27.0-31.0); Mean Corpuscular Volume 85.9 fL (81.0-99.0); Mean Platelet Volume 9.9 fL (7.4-10.4); Nucleated Red Blood Cells % 0 %; Platelet Count 334 10^3/uL (130-400); Red Blood Cell Count 3.54 10^6/uL (4.20-5.40); White Blood Cell Count 14.4 10^3/uL (4.8-10.8)
[2024-04-26 06:20] LABS: ALT (SGPT) 145 U/L (0-35); AST (SGOT) 176 U/L (14-36); Albumin 2.9 g/dl (3.5-5.0); Alkaline Phosphatase 414 U/L (38-126); Blood Urea Nitrogen 76 mg/dl (7-17); Calcium 9.8 mg/dl (8.4-10.2); Carbon Dioxide 33 mmol/L (22-30); Chloride 102 mmol/L (98-107); Direct Bilirubin 0.5 mg/dl (0.0-0.4); Estimated Creatinine Clearance 26 ml/min; Glucose 146 mg/dl (70-99); Potassium 4.5 mmol/L (3.5-5.1); Sodium 141 mmol/L (135-145); Total Bilirubin 0.7 mg/dl (0.2-1.3); Total Protein 5.5 g/dl (6.3-8.2); eGFR 38.51
[2024-04-26 06:25] LABS: Glucose - Point of Care 114 mg/dl (70-99)
[2024-04-26] MEDS: NOVOLOG FLEXPEN-LOW RESISTANCE SC ×3 (06:36→18:32)
--- NOTE | 2024-04-26 08:00 | W.PN.NEPH.PH ---
Today's Communication / Plan
-
observe
Assessment/Plan
-
Assessment
Malaise, decreased appetite
Hypertension
Sinus tachycardia with PACs
Acute kidney injury
Hyponatremia
Metabolic acidosis
Elevated LFTs
Fatty liver
Confusion
Pneumonia with positive urinary Legionella antigen
Plan
Transferred to IMU for decreased responsiveness now on BiPAP
ABG reviewed, notably for metabolic alkalemia
Chest x-ray reviewed from yesterday notable for right lower lobe infiltrate
LP performed yesterday for ongoing change of mental status
Creatinine with improvement to 1.4 but remains grossly nonoliguric ~2liters
Hyponatremia normalized
Holding as needed Lasix weights stable
follow BMP
abx continue for PNA
maintain daniel given high PVR
Antihypertensives held for now (BLAKE/HCTZ) remains on Cardizem for atrial fibrillation
-
-
Date of Service: April 26, 2024
CC / HPI / ROS
-
Chief Complaint:
Hyponatremia
CHERIE
History of Present Illness:
CHERIE/Cr improved to 1.4
BP stable
cardizem po for afib, rate controlled and now in SR
on abx for legionella PNA
Na normal at 141
Review of Systems:
Nonoliguric via daniel
Feeding tube
No fevers
weights stable
Labs
-
Labs:
WBC 14.4 10^3/uL (4.8-10.8) H 04/26/24 05:13
RBC 3.54 10^6/uL (4.20-5.40) L 04/26/24 05:13
Hgb 10.1 g/dL (12.0-16.0) L 04/26/24 05:13
Hct 30.4 % (37.0-47.0) L 04/26/24 05:13
Plt Count 334 10^3/uL (130-400) 04/26/24 05:13
Sodium 141 mmol/L (135-145) 04/26/24 05:13
Potassium 4.5 mmol/L (3.5-5.1) 04/26/24 05:13
Chloride 102 mmol/L (98-107) 04/26/24 05:13
Carbon Dioxide 33 mmol/L (22-30) H 04/26/24 05:13
BUN 76 mg/dl (7-17) H 04/26/24 05:13
Creatinine 1.4 mg/dL (0.6-1.0) H 04/26/24 05:13
eGFR 38.51 04/26/24 05:13
Glucose 146 mg/dl (70-99) H 04/26/24 05:13
Calcium 9.8 mg/dl (8.4-10.2) 04/26/24 05:13
Lcg-V-Htcemoexunu Pept 94629 pg/ml 04/20/24 11:40
Albumin 2.9 g/dl (3.5-5.0) L 04/26/24 05:13
Physical Exam
-
Vital Signs:
Vital Signs
Temp Pulse Resp BP Pulse Ox
99.0 F 87 30 140/79 94
04/25/24 23:50 04/26/24 06:00 04/26/24 06:00 04/26/24 06:00 04/26/24 06:00
Cardiovascular:: Regular rate and rhythm
Respiratory:: Bilateral: Coarse
Lung Excursion:: Normal
Abdomen:: Nontender and Soft
Bowel Sounds:: Decreased
Extremity Edema:: None: Bilateral:
Daniel Catheter: Yes
Other Findings::
gen: lethargic
[2024-04-26] MEDS: HEPARIN 5000 UNITS SC ×2 (08:44→20:32)
[2024-04-26] MEDS: PROTONIX IV 40 MG IV (08:44)
[2024-04-26] MEDS: NSS (PRESERVATIVE FREE) 10 ML IV (08:44)
[2024-04-26] MEDS: MESTINON 60 MG TUBE ×4 (08:44→22:04)
--- NOTE | 2024-04-26 09:02 | W.PN.ID1 ---
Addendum entered and electronically signed by Luisa Page MD 04/26/24 15:15:
chart checked US not yet completed
Original Note:
Date of Service
Date of Service: April 26, 2024
Today's Communication
alk phos and lfts now uptrending consistently and well above her baseline - will assess for acalculous cholecystitis with abd US
Continue azithromycin at this time; doesnt typically cause encephalopathy or DILI, there can be transient transaminitis; first line alternative (levofloxacin) with risk of encephalopathy and possible worsening of MG (if she has this) - risks of
switch outweigh possible benefits at this time
Assessment / Plan
Right lower lobe pneumonia secondary to Legionella pneumophila
Hyponatremia - resovled
CHERIE
- improving
Transaminitis
A-fib
Elevated CK; trending down
Hyperbilirubinemia; improved
Recommendations:
CSF is not consistent with meningitis
Continue to follow daily CBC, CMP
alk phos and lfts now uptrending consistently and well above her baseline - will assess for acalculous cholecystitis with abd US
Continue azithromycin at this time; doesnt typically cause encephalopathy or DILI, there can be transient transaminitis; first line alternative (levofloxacin) with risk of encephalopathy and possible worsening of MG (if she has this) - risks of
switch outweigh possible benefits at this time
Overall outlook continues to remain guarded.
����������������������������������������������������������
Chief Complaint
-: Pneumonia (Legionella) and Other (CHERIE)
Subjective / Review of Systems
afebrile
bp stable
declining leukocytosis today
hgb 10
plt 334
L shift ongoing
cr 1.4 today
ammonia <9
CSF: not consistent with meningitis
alk phos and lfts now uptrending consistently - will assess for acalculous cholecystitis
last abd US was over 1 week ago
by report has lost 50 lbs this year
Vital Signs / Physical Exam
Vital Signs
Vital Signs
Temp Pulse Resp BP Pulse Ox
99.0 F 87 30 140/79 94
04/25/24 23:50 04/26/24 06:00 04/26/24 06:00 04/26/24 06:00 04/26/24 06:00
Physical Exam
Constitutional: Acutely Ill, Chronically Ill and Cachetic
Cardiovascular: Regular Rate and S1/S2; Negative Murmur or Rub
Pulmonary: Clear and Symmetric; Negative Wheezes or Rales
Gastrointestinal: Soft, Tender (? moans with touching abdomen, seems reproducible), Non Distended and Normal Bowel Sounds
Skin: Warm and Dry; Negative Rash or Jaundice
Neurological: Negative Awake or Alert (nonresponsive)
Objective Data
Lab Data
Lab Results
04/26/24 05:13
04/26/24 05:13
ESR 39 mm/hour (0-20) H 04/22/24 05:14
PT 12.9 Sec (11.4-14.6) 04/25/24 17:59
INR 0.97 04/25/24 17:59
APTT 35.4 Sec (23.4-35.0) H 04/25/24 17:59
Estimated Creat Clear 26 ml/min 04/26/24 05:13
Lactic Acid Cancelled 04/22/24 06:00
Total Bilirubin 0.7 mg/dl (0.2-1.3) 04/26/24 05:13
AST 176 U/L (14-36) H 04/26/24 05:13
ALT 145 U/L (0-35) H 04/26/24 05:13
Alkaline Phosphatase 414 U/L (38-126) H 04/26/24 05:13
Most recent labs reviewed.
Micro Results:
04/25/24 16:56 CSF Culture - Pending
Csf Gram Stain - Preliminary
04/25/24 16:56 Fungal Culture - Preliminary
Csf Culture in progress.
Positive cultures are reported as soon as detected.
Final report to follow in four to five weeks.
04/25/24 16:56 Meningitis/Encephalitis Panel (PCR) - Final
Csf
04/25/24 15:04 Urine Culture - Pending
Urine
04/20/24 11:40 Blood Culture - Final
Blood/Venous No Growth - Final Report
04/20/24 11:19 Blood Culture - Final
Blood/Venous No Growth - Final Report
04/20/24 07:26 Legionella Urinary Antigen - Final
Urine Positive for L. pneumophila Ag
Imaging:
04/20/2024 Echo (TTE): Normal LV size and wall thickness. Mild mitral regurgitation. Mild tricuspid regurgitation. No intracardiac mass or thrombus formation seen.
04/19/2024 CXR (2 view): Large amount of asymmetric right lower lobe opacity most suggestive of SEVERE RIGHT LOWER LOBE PNEUMONIA. A right lower lobe lung cancer or asymmetric inflammatory interstitial disease are considered less likely.
--- NOTE | 2024-04-26 09:32 | W.PN.GI.CBS2 ---
Today's Communication / Plan
-
-Anemia with documented black stool, currently hemodynamically stable
Rule out esophagitis, ulcer disease, angiectasia versus other
No evidence of cirrhosis of the liver, cannot attribute change in mental status to hepatic encephalopathy.
Patient nonverbal, has a Dobhoff tube and tolerating tube feeds-jevity at 45cc/hr.
Will not be able to do an upper endoscopy unless her neurological status improves as this is not an overt active bleeding.
Continue Protonix 40 mg IV daily.
Monitor H&H and transfuse as needed.
Once neurological status improves, will consider upper endoscopy at that time.
-Chronic elevation in LFTs, follows up with Dr. Weinstein, hepatology at [facility]
No evidence of cirrhosis of the liver.
Recent elevation in LFTs could be related to underlying Legionella infection/antibiotics
Abdominal ultrasound without any acute etiology for elevated liver enzymes.
Will follow for now
Assessment / Plan
-
78-year-old female with history of hypertension, high cholesterol, osteoporosis, chronic elevated LFTs from [facility] presenting with fatigue, weakness, noted to have Legionella pneumonia, metabolic acidosis, acute renal insufficiency, also noted to have
black stool. Currently she is nonverbal and obtunded and history cannot be obtained.
She is moved to the IMU and on BIPAP. Had a spinal tap 04/25/24
-Anemia with documented black stool, currently hemodynamically stable
Rule out esophagitis, ulcer disease, angiectasia versus other
No evidence of cirrhosis of the liver, cannot attribute change in mental status to hepatic encephalopathy.
Patient nonverbal, has a Dobhoff tube and tolerating tube feeds-jevity at 45cc/hr.
Will not be able to do an upper endoscopy unless her neurological status improves as this is not an overt active bleeding.
Continue Protonix 40 mg IV daily.
Monitor H&H and transfuse as needed.
Once neurological status improves, will consider upper endoscopy at that time.
-Chronic elevation in LFTs, follows up with Dr. Weinstein, hepatology at [facility]
No evidence of cirrhosis of the liver.
Recent elevation in LFTs could be related to underlying Legionella infection/antibiotics
Abdominal ultrasound without any acute etiology for elevated liver enzymes.
Will follow for now
Subjective
Subjective
Date of Service: April 26, 2024
Pt moved to the IMU , currently on the BIPAP. No BM yet today
Objective
Data Reviewed
Laboratory Data:
Laboratory Results
04/26/24 05:13
04/26/24 05:13
Laboratory Results
PT 12.9 Sec (11.4-14.6) 04/25/24 17:59
INR 0.97 04/25/24 17:59
APTT 35.4 Sec (23.4-35.0) H 04/25/24 17:59
Magnesium 2.2 mg/dl (1.6-2.3) 04/20/24 22:14
Total Bilirubin 0.7 mg/dl (0.2-1.3) 04/26/24 05:13
AST 176 U/L (14-36) H 04/26/24 05:13
ALT 145 U/L (0-35) H 04/26/24 05:13
Alkaline Phosphatase 414 U/L (38-126) H 04/26/24 05:13
Lipase 320 U/L (23-300) H 04/19/24 15:15
Vital Signs and I&O:
Vital Signs
Temp Pulse Resp BP Pulse Ox
99.0 F 87 30 140/79 94
04/25/24 23:50 04/26/24 06:00 04/26/24 06:00 04/26/24 06:00 04/26/24 06:00
I&O
04/25/24 04/26/24 04/27/24
06:59 06:59 06:59
Intake Total 625 / 625
Output Total 750 / 750 2049
Balance -750 / -750 -1425 / -1425
Physical Exam
Physical Exam
GI: Soft, Non Distended and Non Tender
[2024-04-26] MEDS: ZITHROMAX INFUSION 250 IV (10:08)
--- NOTE | 2024-04-26 12:10 | W.PN.PUL3 ---
Today's Communication / Plan
-
Continue supportive care
Tolerating tube feeds
Mestinon has been empirically started per neurology
LP is unremarkable
Head of bed elevated, aspiration precautions
Antibiotics per ID
Follow oxygen requirement
Assessment
-
78-year-old female with history of Nichole, hypertension, recent fatigue, poor appetite with negative COVID workup as outpatient. Chest x-ray reveals right lower lobe pneumonia, sodium level is 121, renal insufficiency, urine Legionella antigen
positive. We are asked to help from critical care standpoint 04/20/2024
Patient transferred out of ICU 04/23/2024
Was asked to see patient again by hospitalist 04/25/2024 for persistent oxygen requirement of 4 L
Legionella pneumonia, right lower lobe
Malaise, anorexia, fatigue x 3 days
Mental status changes, TME
Profound weakness
Acute hyponatremia
Acute renal insufficiency
Sinus tachycardia
Metabolic acidemia
Normal lactate
Hypokalemia
Acute transaminitis/Fatty liver hx
Elevated bilirubin
Mildly elevated troponin
Cachexia, weight loss
Conditions present prior to admission
Hypertension/hyperlipidemia
History of osteoporosis
NICHOLE
[id number] history of smoking quit 1984
Plan/recommendations
At this time, patient appears to be improved at least from critical care standpoint
Off oxygen, she is 86 to 87% on room air. At 1 point she required 15 L, now down to 4 L
Chest exam is clear
More concerning is her neurological status
When in ICU 48 hours ago, was able to respond to name, loud speaking and ear, give one-word answers
Presently, only responsive to painful stimuli
Sodium level now normalized, from admission of 120 on 04/19 to 139 over 7 days. Of note it was 128 in ED
Creatinine has improved to 1.4
LP unremarkable
ABG without evidence of CO2 retention
Chest x-ray with ongoing right pleuroparenchymal changes
Moving forward
Continue with antibiotics for Legionella pneumonia
Infectious disease following. Follow cultures
Being evaluated for possible acalculous cholecystitis with ultrasound
BiPAP will continue intermittently
Atrial fibrillation developed with intermittent with rapid ventricular response. On Cardizem drip, now transition to oral Cardizem
Anticoagulation would be difficult in the setting of black tarry stool.
GI following
Continue Protonix therapy daily
If recurs, consider GI evaluation
Cardiology following. Mildly elevated troponin noted
Echocardiogram within normal limits
Patient profoundly weak
Elevated CK levels noted 842, improved to 380
Neurology evaluation negative to date
On further questioning, daughter states patient has had chronic weakness which was not relayed by . Patient has to crawl up the steps on all fours. This has been an issue for many years. Patient also also has multiple falls and has had
significant weight loss which the daughter feels is much worse than the
wonder if her Legionella pneumonia may have unmasked Underlying process. Questionable occult malignancy, neuromuscular disease?
LP unremarkable
Empirically started on Mestinon therapy for possible myasthenia gravis
Neurology following
DVT prophylaxis: Subcutaneous heparin, and mechanical prophylaxis
GI prophylaxis: Remains on Protonix
Reviewed above at length with and daughter at bedside 04/25
Reviewed with primary service and neurology
Pulmonary will continue to follow
Subjective Data
-
Date of Service:
Date of Service: April 26, 2024
Subjective:
Unfortunately no change in clinical status. Remains lethargic, only minimally responsive to painful stimuli. Negative fluid balance noted
Intermittently using BiPAP. Tolerating Dobbhoff tube feeds
Objective Data
Data Reviewed
Vital Signs / I&O / Oxygen:
Vital Signs
Temp Pulse Resp BP Pulse Ox
100 F 97 30 135/73 94
04/26/24 11:25 04/26/24 11:30 04/26/24 10:00 04/26/24 11:30 04/26/24 11:58
Intake and Output
04/25/24 04/26/24 04/27/24
06:59 06:59 06:59
Intake Total 625 / 625
Output Total 750 / 750 2049
Balance -750 / -750 -1425 / -1425
SaO2 94
Nasal Cannula flow liters per 4
minute
Physical Exam
General: Comfortable and Other (Cachectic)
HEENT: Normocephalic
Cardiovascular: S1-S2, Irregular Rhythm, Murmur (n), Rub (n) and Peripheral Edema (n)
Respiratory: Wheeze (n), Crackles (n), Rhonchi (n), Non-Labored Respirations and Stridor (n)
GI: Soft, Non Distended, Non Tender and Feeding Tube (Dobbhoff tube)
Neurology: Lethargic (Withdraws to painful stimuli but otherwise does not follow commands, does not open eyes)
Skin: Cyanosis (n), Jaundice (n) and Bruising (Few scattered)
Labs/Micro/Reports
Lab Data
04/26/24 05:13
04/26/24 05:13
Laboratory Results
04/25/24 04/25/24
12:29 17:59
PT 12.9
INR 0.97
APTT 35.4 H
pH 7.50 H
pCO2 43 H
pO2 71 L
HCO3 33.5 H
O2 Delivery Level
Microbiology
04/25/24 16:56 Csf CSF Culture - Preliminary
No Growth After 18-24 Hours
04/25/24 16:56 Csf Gram Stain - Preliminary
04/25/24 16:56 Csf Fungal Culture - Preliminary
Culture in progress.
Positive cultures are reported as soon as detected.
Final report to follow in four to five weeks.
04/25/24 16:56 Csf Meningitis/Encephalitis Panel (PCR) - Final
04/20/24 11:40 Blood/Venous Blood Culture - Final
No Growth - Final Report
04/20/24 11:19 Blood/Venous Blood Culture - Final
No Growth - Final Report
--- NOTE | 2024-04-26 12:12 | W.PN.HOSP.TC ---
Addendum entered and electronically signed by Jovon Andrews MD 04/26/24 17:47:
Patient's temperature is climbing today with Tmax 100.7 F thus far. Discussed case via [place] [facility] with Infectious Disease physician (ID) and have added Ceftriaxone and Flagyl as per ID; appreciate ID's assistance.
Original Note:
Today's Communication/Plan
-
Continue Azithromycin
CSF doesn't show meningitis
Mestinon and repeat Brain MRI as per neurology
Assessment / Plan
Assessment / Plan
Physical Exam
Gen: Not in acute distress
HEENT: Normocephalic
Neck: Supple.
CV: RRR +S1/S2, no m/r/g.
Resp: CTAB
Abd: +BS, soft, NT, ND
Skin: Cool extremities
Neuro: CN 2-12 intact, non-focal.
Psych: Normal mood and affect.
Assessment/Plan
Suspected Severe RLL Legionella PNA and ?Lung Nodule?
Legionella Positive
Malaise, anorexia, fatigue
Acute Toxic metabolic encephalopathy secondary to pneumonia and electrolytes disturbances, and dehydration
Acute Hypoxic Respiratory Failure Secondary to Legionella Pneumonia
-Oxygen requirements have improved, from 15 L to 4 L --> continues to require 4 L mid-flow oxygen
-Continue Azithromycin
-Monitor QTc given patient is on Azithromycin
-Consulted pulmonary, recommendations appreciated
-ID was consulted, recommendations appreciated
-Continue oxygen as needed head of bed elevated, aspiration precautions, may require noninvasive ventilation, as per Oenologist
-Chest x-ray with improvement in right pleuroparenchymal process - there may be a pleural effusion
-Patient continues to remain with significant encephalopathy -- appears to have worsened, neurology ordered LP with relevant studies on April 25, 2024
-CSF does not suggest meningitis
-Empiric Mestinon started by neurology, also repeat MRI brain and possible galvez scan
-Pulmonary consulted, recommendations appreciated, continue BiPAP (pulmonary is aware patient is on tube feeds)
-Avoid narcotic therapy and sedation
Inability to Take PO Due to Profound Encephalopathy
-Continue Dobhoff tube feeds
Weakness
-Oenologist ordered CT Head
-Spoke with buckle sorter who recommended neurology consulted
-MRI Brain negative
-Consulted neurology, recommendations appreciated
-Thiamine has been ordered -- continue Thiamine
Black Tarry Stool
-Hgb stable -- continue to monitor hemoglobin
-Anticoagulation would be difficult in the setting of black tarry stool.
-Continue Protonix IV 40 mg daily
-No evidence of cirrhosis
-Consulted GI, recommendations appreciated --> they are not planning for any procedures at this time given patient's encephalopathy, just continue PPI
Acute hyponatremia
Severe Hypokalemia
Metabolic Acidosis
-c/s renal, recommendations appreciated
-BMP Q6H
-hold HCTZ/ACEi
-Received 3% saline
-Received Bicarb IV fluids
-Holding Lasix
A-Fib with RVR
Hypotension
Bradycardia
-Started on 04/20/24
-[id number] score is 4 but hold off on anticoagulation with heme positive stools
-Completed Cardizem Drip , now off
-PO Cardizem switched to Metoprolol 25 mg every 6 via tube for better heart rate control. Increase to 50 mg every 6 hours if needed.
-Cardiology consulted, recommendations appreciated
-Monitor and optimize electrolytes
-Careful with Simvastatin dosage while patient is on Cardizem
Pleural Thickening
RLL groundglass changes
-Consulted pulm -- eval for CT Chest?
Cool Extremities
-Echo and BNP noted, appreciate cardiology
-Lactic Acid was okay
-ABG and VBG noted
-Patient was previously transferred to ICU given potential for decompensation
Acute Kidney Injury
-IMPROVING
-BLKAE-I held
-Appreciate Nephrology
-Continue Beltre Catheter as per nephrology
Elevated CK levels
-Improving with IV fluids
Acute transaminitis/Fatty liver history, elevated bilirubin
-Continue to monitor CMP
-Abd U/S read (as per radiology): 'Cannot exclude 'starry sridhar' appearance of the liver such as can be seen with acute hepatitis'
-GI consulted, recommendations appreciated
-GI recommended speaking with general surgery about possible acalculous cholecystitis -- repeat ultrasound has been ordered by ID, appreciated ID evaluation
-Follow-up on repeat abdominal ultrasound
-General surgery consulted
Essential HTN:
-hold HCTZ/ACEi
Cachexia, weight loss
Conditions present prior to admission
Hypertension/hyperlipidemia
History of osteoporosis
NICHOLE
[id number] history of smoking quit 1984
Diet: Continue Tube Feeding
FULL/Heparin/tele
Anticipated Discharge: > 48 hours
Subjective/Interval History
-
Date of Service: April 26, 2024
Patient was seen and examined, she remained barely responsive.
Objective Data
-
Labs:
Laboratory Results
04/26/24
05:13
WBC 14.4 H
Hgb 10.1 L
Hct 30.4 L
Plt Count 334
Sodium 141
Potassium 4.5
Chloride 102
Carbon Dioxide 33 H
BUN 76 H
Creatinine 1.4 H
Glucose 146 H
Calcium 9.8
Total Bilirubin 0.7
AST 176 H
ALT 145 H
Alkaline Phosphatase 414 H
Vital Signs:
Vital Signs
Temp Pulse Resp BP Pulse Ox
100 F 97 30 135/73 94
04/26/24 11:25 04/26/24 11:30 04/26/24 10:00 04/26/24 11:30 04/26/24 11:58
I&O
04/25/24 04/26/24 04/27/24
06:59 06:59 06:59
Intake Total 625 / 625
Output Total 750 / 750 2049
Balance -750 / -750 -1425 / -1425
--- NOTE | 2024-04-26 12:18 | CON.GS ---
Addendum entered and electronically signed by Juan Carlos Toro MD 04/26/24 17:36:
pt seen and examined with FLITCH HANGER earlier today. agree with documented progress note.
pt non communicative. history obtained through review of medical records
consulted for possible acalculous cholecystitis.
pt hospitalized for Legionella pneumonia.
on TF via DHT
Intermittent fevers and elevated LFTs/WBC
examination unreliable
moaning on palpation in any quadrant equally, no involuntary guarding appreciated, no paplable masses in RUQ
prior US abd a few days ago normal and no gallstones/sludge
A/P: 78 y.o female with legionella pna, mild elevation of LFTs and leukocytosis, minimally responsive, noncommunicative
okay to continue TF as seems to be tolerating
US has been already ordered to re-assess GB, no further testing recommended at this time from surgical perspective
await imaging study results
Original Note:
Consultation
-
Date/Time Consultation Requested: 04/26/24 1046
Requesting Provider: Juliana
Reason for Consultation: Flush J-tube daily with 20ml of tap water to maintain patency. Cover with d
Medical History
-
Chief Complaint: weakness
History of Present Illness:
78 yo female with a h/o NICHOLE (follows at [facility]) who presented initially with weakness with noted elevation in LFT's. Since presentation, she has been diagnosed with right lower lobe pneumonia secondary to Legionella. She is minimally responsive and
on tube feedings via dobhoff for nutritional support. She does make a moaning sound when her abdomen is palpated in all 4 quadrants but the abdomen is soft and non-distended.
Past Medical History
Past Medical History: HTN, Hypercholesterolemia and Other (asthma, NICHOLE follows at [facility], [place], osteoporosis)
Past Surgical History: None
Social History
Tobacco: Non-Smoker
Alcohol: None
Family History
Family History: Reviewed & Not Pertinent
Allergies / Home Medications
Allergy/AdvReac Type Severity Reaction Status Date / Time
Sulfa (Sulfonamide Allergy Hives Verified 04/19/24 15:02
Antibiotics)
�Medication �Instructions �Recorded �Confirmed �Type
simvastatin 40 mg tablet 40 mg PO QPM High Cholesterol 05/11/11 04/19/24 History
lisinopril 20 1 tab PO DAILY Blood Pressure 04/19/24 04/19/24 History
mg-hydrochlorothiazide 12.5 mg
tablet
risedronate 35 mg tablet 35 mg PO WEEKLY Osteoporosis 04/19/24 04/19/24 History
Review of Systems
-
Unable to obtain full review of systems at this time due to: Acuity
History Source: Patient
A 10 point review of systems was completed, and was negative except as per HPI.
Physical Exam
Vital Signs
Temp Pulse Resp BP Pulse Ox
100 F 97 30 135/73 94
04/26/24 11:25 04/26/24 11:30 04/26/24 10:00 04/26/24 11:30 04/26/24 11:58
04/25/24 04/26/24 04/27/24
06:59 06:59 06:59
Actual Weight 50.5 kg
Body Mass Index (BMI) 18.5
Lab Results
04/26/24 05:13
04/26/24 05:13
WBC 14.4 10^3/uL (4.8-10.8) H 04/26/24 05:13
Hgb 10.1 g/dL (12.0-16.0) L 04/26/24 05:13
Hct 30.4 % (37.0-47.0) L 04/26/24 05:13
Plt Count 334 10^3/uL (130-400) 04/26/24 05:13
Abs Immat Gran (auto) 0.6 10^3/uL (0-0.05) H 04/26/24 05:13
Neutrophils % 84.2 % (42.2-75.2) H 04/26/24 05:13
Physical Exam
General: No Apparent Distress
HEENT: Normocephalic, Moist Mucous Membranes and Other (dobhoff in place)
Respiratory: Non Labored Respirations (tachypnea)
GI: Soft, Non Distended and Other (some moaning with palpation to all 4 quadrants)
Skin: Warm and Dry
Psych: Calm
Data Reviewed
-
Radiology: Image Personally Visualized and interpreted, Report Reviewed by me and Discussed with Physician
Labs: Labs Reviewed by me, Discussed with Physician and Discussed with Nurse
Old Records: Reviewed
Assessment / Plan
-
78 yo female with a h/o NICHOLE (follows at [facility]) who presented initially with weakness with noted elevation in LFT's. Since presentation, she has been diagnosed with right lower lobe pneumonia secondary to Legionella. She is minimally responsive and
on tube feedings via dobhoff for nutritional support which she has been tolerating. She does make a moaning sound when her abdomen is palpated in all 4 quadrants but the abdomen is soft and non-distended.
ABD US on 04/19/34 without cholecystitis or cholelithiasis, no acute findings. Transaminases and Alk Phos slowly trending up. Leukocytosis trending down. Low grade temp of 100.0 this afternoon. Stool studies negative. CSF cx negative. Urine with
+legionella. GI following
Vitals stable, mild tachypnea
Repeat abd US pending to evaluate for acalculous cholecystitis, further surgical recs pending US findings
--- NOTE | 2024-04-26 12:29 | W.PN.CARDCBS ---
Today's Communication / Plan
-
Cardiac status stable
Heart rate better with transition of diltiazem to metoprolol
Continue to hold anticoagulation
No changes from cardiac standpoint today
Impression / Plan
-
PCP: Dr. Good
Primary Public Address Technician: none, initially seen by Maylin
Impression:
Admitted with weakness 04/19/24
Severe RLL Legionella PNA
Newly diagnosed paroxysmal Afib
Not chronically anticoagulated due to new diagnosis of Afib and new melanotic stools
Heme positive, melanotic stools
Anemia
Change in mental status
CHERIE
Hypokalemia
Elevated troponin, suspected nonischemic myocardial injury
Elevated LFTs, in setting of NICHOLE followed at [facility]
HTN
HLD
asthma
osteoporosis
[place]
ECHO 04/20/24: EF 60-65%, mild MR, mild MR, PAP 30-35mmHg
Plan:
She remains in sinus rhythm. With transition of diltiazem to metoprolol 25 every 6, her heart rate is better controlled and now in the 90s. Consider up titration of metoprolol to 50 every 6 but will hold for now. Blood pressure stable.
Would continue to withhold anticoagulation given GI bleeding, mild anemia
Major issue remains obtundation. Patient now on Mestinon.
HPI: Patient is a 78-year-old female with past medical history of hypertension, hyperlipidemia, asthma, NICHOLE followed at [facility], [place], osteoporosis who was seen in PCP office 04/16/2024 due to fatigue and weight loss. Labs ordered and were abnormal
with elevated LFTs. 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 She has had poor appetite, lethargy, confusion resulting in her bringing her to ER. CXR on admission with evidence of severe R PNA, positive for legionella. Also with
significant electrolyte abnormalities and metabolic acidosis. Cardiology consulted due to new afib (of note, she had EKG with PVCs in PCP office 04/16 and was ordered echo and stress test). She denies cardiac history and does not feel palpitations.
She is presently rate controlled. She is having dark, tarry, heme positive stools per nursing.
Progress Note - Public Address Technician
Subjective
Date of Service: April 26, 2024:\\
She remains poorly responsive
Patient now on Mestinon, has longstanding gait difficulties, crawling up stairs for a year, per neuro no other obvious abnormalities causing toxic metabolic encephalopathy, LP has been ordered
PMH/PSH/FH/SH: Reviewed
Allergies: Sulfa
Outpatient medications: Lisinopril HCT, risedronate, simvastatin 40 mg a day
Current medications: Subcu heparin, azithromycin IV, IV pantoprazole, Mestinon 60 4 times daily, metoprolol tartrate 25 every 6 via tube, insulin as needed, as needed metoprolol
ROS: Negative except as above, difficult to obtain
Pulse 97, 90s, blood pressure 135/73, 37.7,, respiratory rate is 25 weight is 50.5 kg,, up 0.7 kg, weight was 47.7 kg on admission saturations 94% on 4 L, intake and output -1.4 L
Unresponsive, relatively tachypneic, crackles right greater than left, regular rate and rhythm without obvious murmur, JVD okay, abdomen benign extremities with trace edema
White count 14.4, hemoglobin 10.1, platelets normal, sodium is 141, had been 122 on admission, BUN and creatinine are 76 and 1.4, creatinine had been 1.6, lumbar puncture with elevated protein, very few cells
Objective
Labs:
04/26/24 05:13
04/26/24 05:13
Labs
Hgb 10.1 g/dL (12.0-16.0) L 04/26/24 05:13
Hct 30.4 % (37.0-47.0) L 04/26/24 05:13
Plt Count 334 10^3/uL (130-400) 04/26/24 05:13
PT 12.9 Sec (11.4-14.6) 04/25/24 17:59
INR 0.97 04/25/24 17:59
APTT 35.4 Sec (23.4-35.0) H 04/25/24 17:59
Sodium 141 mmol/L (135-145) 04/26/24 05:13
Potassium 4.5 mmol/L (3.5-5.1) 04/26/24 05:13
BUN 76 mg/dl (7-17) H 04/26/24 05:13
Creatinine 1.4 mg/dL (0.6-1.0) H 04/26/24 05:13
Glucose 146 mg/dl (70-99) H 04/26/24 05:13
Vital Signs and I&O:
Vital Signs
Temp Pulse Resp BP Pulse Ox
37.7 C 97 30 135/73 94
04/26/24 11:25 04/26/24 11:30 04/26/24 10:00 04/26/24 11:30 04/26/24 11:58
Vital Signs
Temp Pulse Resp BP Pulse Ox
37.7 C 97 30 135/73 94
04/26/24 11:25 04/26/24 11:30 04/26/24 10:00 04/26/24 11:30 04/26/24 11:58
Intake & Output
04/24/24 04/25/24 04/26/24 04/27/24
07:59 07:59 07:59 07:59
Intake Total 1640.0 / 1640.0 625 / 625
Output Total 1370 / 1370 750 / 750 2049 / 2049
Balance 270.0 / 270.0 -750 / -750 -1425 / -1425
Physical Exam
Physical Exam
See above
[2024-04-26 12:41] LABS: Glucose - Point of Care 137 mg/dl (70-99)
--- NOTE | 2024-04-26 13:00 | PTCARENOTE ---
Pt's temperature 100.2 from 99.9 this morning at 0900. TT to . No new orders at this time.
--- NOTE | 2024-04-26 13:20 | W.PN.NEURO.1 ---
Today's Communication / Plan
-
Consider checking additional blood work for potential metabolic causes producing symptomatology with regards to the patient's long-term gait difficulty
Check repeated MRI of brain with contrast
Consider Graf scan as there is not a clear etiology for the patient's combined symptomatology of muscular weakness and relative immuno suppression
Neuro Assessment/Plan
Assessment
IMPRESSIONS/RECOMMENDATIONS:
Abrupt change in tone and mental status
Most likely due to toxic metabolic factors producing generalized fatigue.
Long-term difficulty with the patient's gait in the form of inability to climb stairs may be secondary to a neuromuscular junction disorder such as myasthenia gravis
Patient completed thiamine supplementation
MRI of brain fails to demonstrate an acute abnormality producing patient's symptomatology. There is also no evidence of encephalitis producing symptoms
Lumbar puncture was unremarkable
Plan
Consider checking additional blood work for potential metabolic causes producing symptomatology with regards to the patient's long-term gait difficulty
Check repeated MRI of brain with contrast
Consider Graf scan as there is not a clear etiology for the patient's combined symptomatology of muscular weakness and relative immuno suppression
Will continue to follow peripherally.
Subjective/Objective
Subjective Data
Date of Service: April 26, 2024
Patient unable to provide her own medical information
Objective Data
Vital Signs
Temp Pulse Resp BP Pulse Ox
37.7 C 97 30 135/73 94
04/26/24 11:25 04/26/24 11:30 04/26/24 10:00 04/26/24 11:30 04/26/24 11:58
Lab Results
04/26/24 05:13
04/26/24 05:13
PT 12.9 Sec (11.4-14.6) 04/25/24 17:59
INR 0.97 04/25/24 17:59
APTT 35.4 Sec (23.4-35.0) H 04/25/24 17:59
Sodium 141 mmol/L (135-145) 04/26/24 05:13
Potassium 4.5 mmol/L (3.5-5.1) 04/26/24 05:13
BUN 76 mg/dl (7-17) H 04/26/24 05:13
Glucose 146 mg/dl (70-99) H 04/26/24 05:13
Calcium 9.8 mg/dl (8.4-10.2) 04/26/24 05:13
Spx-F-Ajpmqlagsyr Pept 61617 pg/ml 04/20/24 11:40
Vitamin B12 > 1000 pg/ml (239-931) H 04/22/24 05:14
Patient Allergies
Sulfa (Sulfonamide Antibiotics) Allergy (Verified 04/19/24 15:02)
Hives
Review of Systems
-
Unable to obtain full review of systems at this time due to: Lethargy
History Source: Patient
All other systems: Reviewed and negative
Physical Exam
-
General: No Apparent Distress, Appears Stated Age and Wearing Oxygen
Eyes: Round OU, [place] Conjunctivae and No Ptosis; Negative Able to visualize OU
HEENT: Anicteric and Moist Mucous Membranes
Neck: Full Range of Motion
Respiratory: No Dyspnea
Cardiac: No JVD
GI: Non-distended
Skin: Unremarkable
Extremities: No Clubbing, No Cyanosis and No Edema
Psych: Negative Intact Judgement/Insight
Extended Neurological Exam
Mood & Affect: Unable to Assess
Attention Span & Concentration: Unresponsive to Verbal Stimuli and Unresponsive to Physical Stimuli; Negative Awake, Alert or Interactive
Memory: Negative Unable to Recall Personal History
Tremor: Hand Tremor Absent and Head Tremor Absent
Involuntary Movement: None
Speech: Mute
Cranial Nerve II: Left Eye: Unable to Assess Visual [place]
Cranial Nerve II: Right Eye: Unable to Assess Visual Goldstein
Cranial Nerves III, IV, : Extraocular Movement: Unable to Assess
Cranial Nerve V: Facial Sensation: Unable to Assess
Cranial Nerve VII: Facial Symmetry: Normal Facial Symmetry
Cranial Nerve VIII: Hearing: Negative Unremarkable Hearing to Normal Conversational Volume
Cranial Nerves IX, X: Palate Movement: Unable to Assess
Cranial Nerve XI: Shoulder Shrug: Unable to Assess
Cranial Nerve XII: Tongue Protusion: Unable to Assess
Muscle Strength, Overall: Unable to Assess
Muscle Bulk & Tone: Bulk Unremarkable and Tone Unremarkable
Pronator Drift: Unable to Assess
Cold Sensation: Unable to Assess
Vibration Sensation: Unable to Assess
Coordination: Unable to Assess
Gait & Station: Unable to Assess
Data Reviewed
-
Labs: Report Reviewed
Reviewed with: Physician
Old Records: Summarized
Past History
Past History
ED Past Medical History: Asthma, HTN, Hypercholesterolemia and Other (back pain with epidural steroid injections)
ED Past Surgical History: Gynecological (myomectomy), Orthopedic (knee surgery) and Other (left cataract surgery)
Social History
Tobacco: Former smoker
Alcohol: None
Drug: None
Living: with family
Family History
Family History: Other (Reviewed and noncontributory)
Medications
-
Medications:
Generic Name Dose Route Start Last Admin
Trade Name Freq PRN Reason Stop Dose Admin
Acetaminophen 650 mg 04/19/24 19:21
Acetaminophen 325 Mg Tablet PO 05/17/24 19:20
Q4HPRN PRN
mild pain/MCNALLY/temp> 100.4F
Bisacodyl 10 mg 04/19/24 19:21
Bisacodyl 10 Mg Rectal Suppository RECTAL 05/17/24 19:20
[id number] PRN
constipation
Dextrose 12.5 grams 04/25/24 23:55
Dextrose 50% (0.5 Grams/Ml) 50 Ml Syringe IV 05/23/24 23:54
[id number] PRN
hypoglycemia
Protocol
Glucagon 1 mg 04/25/24 23:55
Glucagon 1 Mg Vial IM 05/23/24 23:54
PRN PRN
hypoglycemia
Protocol
Heparin Sodium 5,000 units 04/19/24 20:00 04/26/24 08:44
Heparin 5,000 Units/Ml 1 Ml Vial SC 05/17/24 19:59 5,000 units
Q12 CHASE Administration
Azithromycin 500 mg in 250 mls @ 250 mls/hr 04/20/24 10:00 04/26/24 10:08
Zithromax Infusion IV 250 mls
Q24H CHASE Administration
Insulin Aspart 0 units 04/26/24 01:00 04/26/24 12:41
Insulin Aspart Low Resistance 300 Units/3 Ml Pen.Injctr SC 05/24/24 00:59 Not Given
Q6 CHASE
Protocol
Metoprolol Tartrate 5 mg 04/19/24 18:08 04/25/24 17:47
Metoprolol 5 Mg/5 Ml Vial IV 05/17/24 18:07 5 mg
Q6HPRN PRN Administration
HR>110
Metoprolol Tartrate 25 mg 04/25/24 18:00 04/26/24 11:30
Metoprolol 25 Mg Regular Release Tablet TUBE 05/23/24 17:59 25 mg
Q6 CHASE Administration
Pantoprazole Sodium 40 mg 04/21/24 12:00 04/26/24 08:44
Protonix 40 Mg Iv Push IV 05/19/24 11:59 40 mg
DAILY CHASE Administration
Polyethylene Glycol 17 grams 04/19/24 19:21
Polyethylene Glycol Powder 17 Grams Packet PO 05/17/24 19:20
DAILYPRN PRN
constipation
Pyridostigmine Adrian 60 mg 04/25/24 15:00 04/26/24 12:43
Pyridostigmine 60 Mg Tablet TUBE 05/23/24 14:59 60 mg
QID CHASE Administration
Senna/Docusate Sodium 1 tablet 04/19/24 19:21
Docusate W/Senna (Gabrielle-Colace) Tablet PO 05/17/24 19:20
BIDPRN PRN
constipation
Sodium Chloride 0 flush 04/19/24 19:00 04/22/24 07:48
Sodium Chloride 0.9% (Flush) Syringe IV 05/17/24 18:59 2 flush
PER PROTOCOL CHASE Administration
Sodium Chloride 10 ml 04/21/24 12:00 04/26/24 08:44
Sodium Chloride 0.9% (Preservative Free) 10 Ml Vial IV 05/19/24 11:59 10 ml
DAILY CHASE Administration
--- NOTE | 2024-04-26 16:15 | PTCARENOTE ---
Updated that patient's core temperature is now up to 100.7. He advised he let 'ID and pulm know.' RN asking for liquid antipyretic for DHT and advised he would enter more antibiotics and Tylenol within the hour.
--- NOTE | 2024-04-26 17:14 | PTCARENOTE ---
Patient remained unresponsive throughout shift. With pupil examination, patient did move head away slightly. She also did cooperate with mouth care. Daughter was updated over the phone this morning and spouse was updated per RN ability at bedside
today. Assessment, care and VS as charted.
[2024-04-26] MEDS: ROCEPHIN 2000 MG IV (18:24)
[2024-04-26] MEDS: STERILE WATER FOR INJECTION 20 ML IV (18:24)
[2024-04-26] MEDS: TYLENOL ORAL SOLUTION 500 MG PO (18:24)
[2024-04-26] MEDS: FLAGYL 500 MG 100 IV (18:25)
--- NOTE | 2024-04-26 18:40 | PTCARENOTE ---
Patient's SPO2 dropping to 83-84% while on BiPAP with 10L, increased to 15L without improvement. Patient remains minimally responsive. BP also dropping to 90s systolic and patient continued with fever. Order for Tylenol given at 1740, see MAR for
administration. TT to Respiratory and . contacted cross coverage, however, patient continued to decline therefore called a Rapid Response.
[2024-04-26 18:48] LABS: Glucose - Point of Care 135 mg/dl (70-99)
--- NOTE | 2024-04-26 19:00 | RR ---
A Rapid Response was called on this patient, please see Rapid Response form.
[2024-04-26 19:04] LABS: B.E. 6.9 mmol/L; HCO3 32.8 mmol/L (21-28); O2 Saturation % 91.8 % (94-98); PCO2 53 mmHg (32-35)
[2024-04-26 19:11] LABS: PO2 58 mmHg (83-108)
[2024-04-26 19:11] LABS: % Basophils 0.2 % (0-2); % Eosinophils 0.3 % (0-6); % Immature Granulocytes 2.2 % (0-0.5); % Lymphocytes 3.3 % (20.5-51.1); Absolute Eosinophils 0.1 10^3/uL (0-0.7); Absolute Immature Granulocytes 0.4 10^3/uL (0-0.05); Absolute Lymphocytes 0.6 10^3/uL (1.2-3.4); Absolute Monocytes 1.2 10^3/uL (0.1-0.6); Absolute Neutrophils 14.4 10^3/uL (1.4-6.5); Hematocrit 28.5 % (37.0-47.0); Hemoglobin 9.5 g/dL (12.0-16.0); Mean Corp Hgb Conc. 33.3 g/dL (33.0-37.0); Mean Corpuscular Volume 86.9 fL (81.0-99.0); Mean Platelet Volume 9.7 fL (7.4-10.4); Nucleated Red Blood Cells % 0 %; Platelet Count 293 10^3/uL (130-400); Red Blood Cell Count 3.28 10^6/uL (4.20-5.40); Red Cell Dist. Width 14.3 % (11.5-14.5); White Blood Cell Count 16.5 10^3/uL (4.8-10.8)
[2024-04-26 19:14] LABS: INR 1.03; PT 13.5 Sec (11.4-14.6)
[2024-04-26 19:16] LABS: APTT 39.4 Sec (23.4-35.0)
--- NOTE | 2024-04-26 19:16 | W.PN.UPDATE ---
Update Note
Progress Note Update
Called stat to patient's room as cross cover physician due to dropping SaO2 on increasing oxygen supplement and dropping BP
Rapid Response called
Discussed with KAITANA Rangel. Anesthesia called for intubation and pt transported from IMU to ICU.
Spoke to and updated him as to situation
Lungs shallow respirations with poor air movement
CV tachycardic
Abd nondistended
Imp: acute change in status will require ICU management
P: intubate with ventilator support
will defer critical care management to CCM
--- NOTE | 2024-04-26 19:22 | W.PN.ANESINT ---
Anesthesia Intubation Note
- Intubation Note
Intubation Note:
Diagnosis: Respiratory Distress
Blade: Glidescope 4
Tube Size: 8.0 [place]
Depth: 23 cm @lip
Side Taped: right
Drugs Used: succs-40 mg, propofol-50mg
Grade View: 1
EtCO2 Present: yes
Atraumatic: yes
Attempts: 1
Insertion Start and Stop Time: 19:10- 19:15
SaO2 Pre: 88
SaO2 Post: 100
Glidescope Used: yes
Other Airway Adjustments: no
Pre-Oxygenated: yes
Portable Chest X-Ray: yes
RSI: yes
Suctioned: no
Bilateral Breath Sounds Confirmed: yes
Vent Settings:
Settings per ___Attending Physician
[2024-04-26 19:26] LABS: ALT (SGPT) 185 U/L (0-35); AST (SGOT) 239 U/L (14-36); Albumin 2.8 g/dl (3.5-5.0); Alkaline Phosphatase 510 U/L (38-126); Blood Urea Nitrogen 77 mg/dl (7-17); Calcium 9.9 mg/dl (8.4-10.2); Carbon Dioxide 30 mmol/L (22-30); Chloride 105 mmol/L (98-107); Estimated Creatinine Clearance 31 ml/min; Glucose 162 mg/dl (70-99); Potassium 4.4 mmol/L (3.5-5.1); Sodium 141 mmol/L (135-145); Total Bilirubin 0.7 mg/dl (0.2-1.3); Total Protein 5.4 g/dl (6.3-8.2); eGFR 46.33
[2024-04-26 19:38] LABS: Troponin I 0.891 ng/ml
[2024-04-26] MEDS: CATHFLO/ACTIVASE 2 MG IV (19:57)
[2024-04-26] MEDS: SUBLIMAZE 50 MCG IV (20:30)
--- NOTE | 2024-04-26 21:46 | PTCARENOTE ---
pt was a RR at 1900, pt was unresponsive and pulse ox high 80s, pt on BIPAP on arrival, transferred to ICU to be intubated. REAMING PRESS OPERATOR and PUBLIC POLICY ANALYST at bedside, pt was intubated with no issues, BP was low and levo was started. on assessment post intubation pt
withdraws to pain, pupils Left is a 2 and Right is a 3, REAMING PRESS OPERATOR already aware, same from previous shifts, SR on the monitor, R sclera edema noted, B/LUE +3, B/l UE and LE cool to touch, DP with dopper and weak radial pulses. lungs very
diminished/rhonchi, ETT 8.0, 24 at the lip, CXR completed, fen push x1 due to vent compliance, will restart tube feeds per order, R fredy cueva for CHERIE, small BM when transferred to ICU, at bedside and was updated by REAMING PRESS OPERATOR.
[2024-04-26] MEDS: SUBLIMAZE 25 MCG IV (22:03)
[2024-04-27] VITALS (91 sets, daily range): BP systolic 86–152; BP diastolic 46–84; BMI 19.3
--- NOTE | 2024-04-27 | PTCARENOTE ---
pt opens eyes to painful stimuli and setting off vent more, PRN meds given, see MAR
[2024-04-27 00:08] LABS: Glucose - Point of Care 160 mg/dl (70-99)
[2024-04-27] MEDS: NOVOLOG FLEXPEN-LOW RESISTANCE SC ×3 (00:12→11:47)
[2024-04-27] MEDS: SUBLIMAZE 25 MCG IV ×8 (00:48→20:00)
[2024-04-27] MEDS: FLAGYL 500 MG 100 IV ×3 (01:02→17:19)
[2024-04-27] MEDS: LEVOPHED 250 IV ×3 (01:03→14:10)
[2024-04-27 02:33] LABS: % Basophils 0.2 % (0-2); % Eosinophils 0.2 % (0-6); % Immature Granulocytes 2.5 % (0-0.5); % Lymphocytes 2.7 % (20.5-51.1); % Monocytes 7.1 % (1.7-9.3); % Neutrophils 87.3 % (42.2-75.2); Absolute Immature Granulocytes 0.5 10^3/uL (0-0.05); Absolute Lymphocytes 0.5 10^3/uL (1.2-3.4); Absolute Monocytes 1.3 10^3/uL (0.1-0.6); Absolute Neutrophils 15.6 10^3/uL (1.4-6.5); Hematocrit 26.1 % (37.0-47.0); Hemoglobin 8.8 g/dL (12.0-16.0); Mean Corp Hgb Conc. 33.7 g/dL (33.0-37.0); Mean Corpuscular Hgb 28.9 pg (27.0-31.0); Mean Corpuscular Volume 85.9 fL (81.0-99.0); Nucleated Red Blood Cells % 0 %; Platelet Count 324 10^3/uL (130-400); Red Blood Cell Count 3.04 10^6/uL (4.20-5.40); Red Cell Dist. Width 14.2 % (11.5-14.5); White Blood Cell Count 17.9 10^3/uL (4.8-10.8)
[2024-04-27 03:00] LABS: Troponin I 0.518 ng/ml
[2024-04-27 03:07] LABS: ALT (SGPT) 171 U/L (0-35); AST (SGOT) 171 U/L (14-36); Albumin 2.6 g/dl (3.5-5.0); Alkaline Phosphatase 457 U/L (38-126); Blood Urea Nitrogen 75 mg/dl (7-17); Calcium 9.6 mg/dl (8.4-10.2); Carbon Dioxide 31 mmol/L (22-30); Chloride 101 mmol/L (98-107); Estimated Creatinine Clearance 28 ml/min; Glucose 229 mg/dl (70-99); Potassium 4.4 mmol/L (3.5-5.1); Sodium 137 mmol/L (135-145); Total Bilirubin 0.5 mg/dl (0.2-1.3); Total Protein 5.1 g/dl (6.3-8.2); eGFR 42.09
[2024-04-27] MEDS: SUBLIMAZE 100 IV (03:37)
--- NOTE | 2024-04-27 04:00 | PTCARENOTE ---
increased need for fen pushes, fen gtt started per MD order, titrating off levo
[2024-04-27 05:17] LABS: B.E. 9.7 mmol/L; HCO3 33.5 mmol/L (21-28); PCO2 41 mmHg (32-35); PO2 73 mmHg (83-108); pH 7.52 (7.35-7.45)
[2024-04-27 06:23] LABS: Glucose - Point of Care 155 mg/dl (70-99)
--- NOTE | 2024-04-27 07:37 | W.PN.INTV ---
Today's Communication / Plan
Recommendations
Testing to rule out thromboembolic disease
May require CT chest with contrast, PE protocol
Remains on broad-spectrum antibiotics. ID following
Await brain and spine imaging per neurology
Antiseizure medications started for abnormal EEG
Blood work for neuromuscular disease per neurology
Assessment
-
78-year-old female with history of Nichole, hypertension, recent fatigue, poor appetite with negative COVID workup as outpatient. Chest x-ray reveals right lower lobe pneumonia, sodium level is 121, renal insufficiency, urine Legionella antigen
positive. We are asked to help from critical care standpoint 04/20/2024
Legionella pneumonia, right lower lobe
Malaise, anorexia, fatigue x 3 days
Mental status changes, TME
Profound weakness
Acute hypoxic respiratory insufficiency
Intubated 04/26/2024, transferred to ICU
Hypotension, requiring pressors
Acute hyponatremia
Acute renal insufficiency
Sinus tachycardia
Metabolic acidemia
Normal lactate
Hypokalemia
Acute transaminitis/Fatty liver hx
Elevated bilirubin
Mildly elevated troponin
Cachexia, weight loss
Conditions present prior to admission
Hypertension/hyperlipidemia
History of osteoporosis
NICHOLE
65-myyu-okor history of smoking quit 1984
Plan/recommendations
At this time, patient remains critically ill
Was transferred to IMU due to progressive neurological disease over the weekend. Of note ABG did not confirm any evidence of CO2 retention
Patient was on BiPAP intermittently
Events overnight noted. Developed hypotension, hypoxia requiring intubation, transferred to ICU
Oxygen requirement seems to be worse, requiring FiO2 80%, pO2 73
Chest exam is clear. Chest x-ray with adequate aeration, improvement of right pleuroparenchymal process
Echocardiogram 04/20/2024 reveals normal biventricular function, mild MR, PA pressure 35
Neurological exam still not improved, profoundly weak on exam. However during suction, she does move extremities, turning head
Mestinon therapy was started 04/26
Imaging negative neurology correspondence reviewed.
LP essentially negative
Moving forward
Continue with antibiotics for Legionella pneumonia
QT adequate, remains on macrolide therapy
Infectious disease following. Follow cultures
Antibiotics have been broadened 04/26 for possible underlying sepsis. Currently on ceftriaxone/Flagyl/azithromycin
Urine culture positive for E. coli from 04/25
Atrial fibrillation developed with intermittent with rapid ventricular response. On Cardizem drip, now transition to oral Cardizem
Anticoagulation would be difficult in the setting of black tarry stool.
Presently on norepinephrine. Beta-chase being held
Cardiology following. Mildly elevated troponin noted
Echocardiogram within normal limits
Now with heme positive stool
Continue Protonix therapy daily
Follow hemoglobin
GI was consulted
Neurologically, she appears to be slightly improved today following intubation. No evidence of CO2 retention preintubation
Mestinon therapy was empirically started 04/26
Await brain and spine MRI imaging
Ongoing workup for possible underlying neuromuscular disease per neurology
Started on antiseizure medication due to recent EEG findings, Keppra was initiated
Elevated CK levels noted 842, improved to 380
Was on Mestinon started 04/25, now discontinued per neurology based on workup to date
Metabolic acidemia noted, hyponatremia and renal insufficiency noted
Given positive urine Legionella antigen, suspect Legionella pneumonia may be partly contributing to metabolic abnormality and clinical presentation
Unclear whether there may also be a component of SIADH. Nephrology following closely
Sodium s improved to 137, creatinine improving to 1.3
Continue with management per nephrology
BLAKE inhibitor held
Potassium patient noted. Lasix therapy per nephrology noted
Remains on mechanical ventilation
AC 14/300/5/80%
Pplat 11
ABG 7.52/41/73
Increased AA gradient noted
Concerned about underlying thromboembolic disease in the setting of no significant change in chest x-ray findings, exam
Check lower extremity Dopplers. If negative, consider repeat echocardiogram to reassess
May require a CT chest with contrast but this will put her at risk for renal injury
Continue with DVT prophylaxis, mechanical and pharmacological
Head of bed elevated, aspiration precautions
Daily chest x-ray
Hyperglycemia noted
Increase sliding scale coverage, check hemoglobin A1c
DVT prophylaxis: Subcutaneous heparin, and mechanical prophylaxis
GI prophylaxis: Remains on Protonix
Updated at length at bedside during rounds and again after rounds.
initially requested DO NOT RESUSCITATE. He had stated during conversation 04/25 that patient has advanced directives that would not want life prolonging measures such as mechanical ventilation, CPR. He reiterated her wishes this morning on
rounds. He then rescinded DNR and patient is currently full code
Reviewed with critical care nursing, primary service, pharmacy, respiratory care, primary service, neurology
TCCT 76 min
Subjective Dataa
Subjective Data
Date of Service:
Date of Service: April 27, 2024
Subjective:
Patient remains critically ill. Events overnight noted, intubated yesterday p.m. for hypoxia, hypotension. Low-grade fevers noted. Antibiotics broadened per infectious disease 04/26. Presently requiring norepinephrine drip for hypotension
Objective Data
Data Reviewed
Vital Signs / I&O / Oxygen:
Vital Signs
Temp Pulse Resp BP Pulse Ox
99.7 F 87 19 126/69 91
04/27/24 07:09 04/27/24 06:15 04/27/24 06:15 04/27/24 06:15 04/27/24 07:31
Intake and Output
04/26/24 04/27/24 04/28/24
06:59 06:59 06:59
Intake Total 625 / 625 1271.3 / 1271.3
Output Total 2049 910 / 910
Balance -1425 / -1425 361.3 / 361.3
SaO2 [A/C] 94
SaO2 91
Nasal Cannula flow liters per 4
minute
Physical Exam
General: Comfortable and Other (Cachectic)
HEENT: Normocephalic and Anicteric
Cardiovascular: S1-S2, Irregular Rhythm, Murmur (n) and Rub (n)
Respiratory: Wheeze (n), Crackles (n), Rhonchi (n), Non-Labored Respirations (Improved, less rapid shallow breathing), Stridor (n) and ET Tube
GI: Soft, Non Distended and Non Tender
Neurology: Lethargic (Does withdraw to pain. Does lift arms up and turn head during suction. Does not follow commands)
Skin: Cyanosis (n), Jaundice (n) and Rash (n)
Labs/Micro/Reports
Lab Data
04/27/24 02:25
04/27/24 02:25
Laboratory Results
04/26/24 04/26/24 04/27/24
18:45 19:02 05:11
PT 13.5
INR 1.03
APTT 39.4 H
pH 7.40 7.52 H
pCO2 53 H 41 H
pO2 58 L* 73 L
HCO3 32.8 H 33.5 H
O2 Delivery Level
Microbiology
04/25/24 16:56 Csf CSF Culture - Preliminary
No Growth After 18-24 Hours
04/25/24 16:56 Csf Gram Stain - Preliminary
04/25/24 16:56 Csf Fungal Culture - Preliminary
Culture in progress.
Positive cultures are reported as soon as detected.
Final report to follow in four to five weeks.
04/25/24 16:56 Csf Meningitis/Encephalitis Panel (PCR) - Final
04/20/24 11:40 Blood/Venous Blood Culture - Final
No Growth - Final Report
04/20/24 11:19 Blood/Venous Blood Culture - Final
No Growth - Final Report
[2024-04-27] MEDS: HEPARIN 5000 UNITS SC ×2 (08:09→16:55)
[2024-04-27] MEDS: MIRALAX 17 GRAMS TUBE (08:10)
[2024-04-27] MEDS: MESTINON 60 MG TUBE ×2 (08:10→12:47)
[2024-04-27] MEDS: PROTONIX IV 40 MG IV (08:11)
[2024-04-27] MEDS: NSS (PRESERVATIVE FREE) 10 ML IV (08:11)
--- NOTE | 2024-04-27 08:55 | PTCARENOTE ---
Initial contact with patient, AAOx0, patient laying comfortably in bed, safety check and hygiene and oral hygiene performed, Beltre catheter in place with bag in adequate position below bed on the left side. Attempting to wean off of Levophed
depending on patients tolerance. Ventilator tubing in same position (24 at the lip). MRI scheduled for this afternoon per work order.
--- NOTE | 2024-04-27 09:22 | W.PN.NEPH.PH ---
Today's Communication / Plan
-
follow BMP
Assessment/Plan
-
Assessment
Malaise, decreased appetite
Hypertension
Sinus tachycardia with PACs
Acute kidney injury
Hyponatremia
Metabolic acidosis
Elevated LFTs
Fatty liver
Confusion
Pneumonia with positive urinary Legionella antigen
Plan
wean pressors as allowed
TF continues with FWF 25ml/hr
nonoliguric, so no lasix needed today
follow BMP
maintain daniel for now
await ACR Ab
abx continue for PNA
d/w
critical care time 31 minutes
-
-
Date of Service: April 27, 2024
CC / HPI / ROS
-
Chief Complaint:
Hyponatremia
CHERIE
History of Present Illness:
CHERIE/Cr improved to 1.3
transferred to ICU after hypotension, intubation
afib rate controlled
on abx for legionella PNA
Na normal at 137, TF/FWF in progress
critically ill in ICU on vent/pressors
Review of Systems:
Nonoliguric via daniel
Feeding tube
No fevers
Labs
-
Labs:
WBC 17.9 10^3/uL (4.8-10.8) H 04/27/24 02:25
RBC 3.04 10^6/uL (4.20-5.40) L 04/27/24 02:25
Hgb 8.8 g/dL (12.0-16.0) L 04/27/24 02:25
Hct 26.1 % (37.0-47.0) L 04/27/24 02:25
Plt Count 324 10^3/uL (130-400) 04/27/24 02:25
Sodium 137 mmol/L (135-145) 04/27/24 02:25
Potassium 4.4 mmol/L (3.5-5.1) 04/27/24 02:25
Chloride 101 mmol/L (98-107) 04/27/24 02:25
Carbon Dioxide 31 mmol/L (22-30) H 04/27/24 02:25
BUN 75 mg/dl (7-17) H 04/27/24 02:25
Creatinine 1.3 mg/dL (0.6-1.0) H 04/27/24 02:25
eGFR 42.09 04/27/24 02:25
Glucose 229 mg/dl (70-99) H 04/27/24 02:25
Calcium 9.6 mg/dl (8.4-10.2) 04/27/24 02:25
Cos-P-Rygwludqbxj Pept 05864 pg/ml 04/20/24 11:40
Albumin 2.6 g/dl (3.5-5.0) L 04/27/24 02:25
Physical Exam
-
Vital Signs:
Vital Signs
Temp Pulse Resp BP Pulse Ox
99.7 F 87 19 126/69 91
04/27/24 07:09 04/27/24 06:15 04/27/24 06:15 04/27/24 06:15 04/27/24 07:31
Cardiovascular:: Irregular rate and rhythm
Respiratory:: Bilateral: Coarse
Lung Excursion:: Normal
Abdomen:: Nontender and Soft
Bowel Sounds:: Normal
Extremity Edema:: +1: Bilateral:
[2024-04-27 09:40] LABS: Troponin I 0.369 ng/ml
--- NOTE | 2024-04-27 10:38 | W.PN.HOSP.TC ---
Today's Communication/Plan
-
see bold
Assessment / Plan
Assessment / Plan
Gen: NAD, NCAT, appears chronically ill
Eyes: EOMI, PERRLA, no scleral icterus.
Neck: supple.
CV: tachy, irreg/irreg, +S1/S2, no m/r/g.
Resp: CTAB, no rales, wheezes, or rhonchi.
Abd: +BS, soft, NT, ND
Skin: No rashes.
Neuro: CN 2-12 intact, moves UEs spontaneously, not alert.
Psych: Normal mood and affect.
04/25/24 16:56 Csf CSF Culture - Preliminary
No Growth After 48 Hours
04/25/24 16:56 Csf Gram Stain - Preliminary
04/25/24 16:56 Csf Fungal Culture - Preliminary
Culture in progress.
Positive cultures are reported as soon as detected.
Final report to follow in four to five weeks.
04/25/24 16:56 Csf Meningitis/Encephalitis Panel (PCR) - Final
04/20/24 11:40 Blood/Venous Blood Culture - Final
No Growth - Final Report
04/20/24 11:19 Blood/Venous Blood Culture - Final
No Growth - Final Report
04/20/24 07:26 Urine Legionella Urinary Antigen - Final
Positive for L. pneumophila Ag
Abd U/S 04/19/24: No evidence of cholelithiasis, gallbladder wall thickening or biliary tract dilatation. Cannot exclude 'starry sridhar' appearance of the liver such as can be seen with acute hepatitis. Small simple right renal cyst.
Echo 04/20/24: EF 60-65%. No RWMA. Mild MR/TR. PASP 30-35mmHg.
CT brain 04/22/24: No acute intracranial abnormality. Age-appropriate volume loss.
MRI brain 04/22/24: No acute intracranial abnormality noted.
CXR 04/26/24: Improved aeration of the right lower lung field concerning for pneumonia. Small loculated right pleural effusion. Improved. Mild right lower lung atelectasis versus scarring. Stable. Moderate left lower lung atelectasis versus scarring.
Progressed. Lines and tubes as described above.
Abd U/S 04/27/24: Trace free fluid in the upper abdomen and partially visualized right pleural effusion. Otherwise essentially unremarkable abdominal ultrasound, as detailed above. No sonographic evidence for cholelithiasis or acute cholecystitis.
Acute hypoxemic respiratory failure due to suspected severe RLL Legionella PNA:
-with acute metabolic encephalopathy due to pneumonia and electrolyte disturbances
-Legionella Positive, was on Azithromycin
-initially oxygenation and oxygen requirements were improving but then the patient had acute worsening hypoxemia and hypotension on the evening of 04/26/24. The pt was intubated and transferred to ICU.
-case discussed extensively with Dr. Dick. Current concerns are for septic shock (fever, hypotension requiring vasopressors) and thromboembolic disease. Abx broadened to Azithro/rocephin/Flagyl as per ID. With recent CHERIE, and CKD, will check B/L
LE U/S to assess for DVT prior to taking the risk of AMAURI with IV contrast with CTA chest.
Weakness:
-CT brain/MRI brain unremarkable
-neuro saw in c/s
-LP with elevated glucose/prot, WBC 1
-CSF Cx and acute encephalitis panel NEG
-AchR-Ab pending
-cont pyridostigmine
Black Tarry Stool:
-Hb down trending, now 8.8
-Anticoagulation would be difficult in the setting of black tarry stool.
-Continue IV PPI
-No evidence of cirrhosis
-Consulted GI, recommendations appreciated, no plans for any procedures at this time given patient's encephalopathy
A-Fib with RVR:
-Started on 04/20/24
-was on cardizem gtt, now off
-was on BB, now off with hypotension
-[id number] score is 4 but hold off on anticoagulation with heme positive stools
-cardiology following
Acute transaminitis/elevated bilirubin:
-AST/ALT/bili have all improved
-GI saw in c/s
-Abd U/S above
Other problems:
CHERIE on CKD3a, resolved with IVFs
Mild rhabdomyolysis, resolved
Acute hyponatremia: now resolved after holding HCTZ/ACEi and receiving 3% NS
Severe Hypokalemia, resolved with repletion
Acute metabolic Acidosis, resolved with IVFs with HCO3-
Essential HTN: cont BB
Cachexia, weight loss
Hyperlipidemia
History of osteoporosis
NICHOLE
65-ypme-ewne history of smoking quit 1984
F/E/N: DHT feeds
DNR/Heparin
Total critical care time spent = 61 min
Anticipated Discharge: > 48 hours
Subjective/Interval History
-
Date of Service: April 27, 2024
Objective Data
-
Labs:
Laboratory Results
04/27/24 04/27/24
02:25 05:11
WBC 17.9 H
Hgb 8.8 L
Hct 26.1 L
Plt Count 324
HCO3 33.5 H
Sodium 137
Potassium 4.4
Chloride 101
Carbon Dioxide 31 H
BUN 75 H
Creatinine 1.3 H
Glucose 229 H
Calcium 9.6
Total Bilirubin 0.5
AST 171 H
ALT 171 H
Alkaline Phosphatase 457 H
Vital Signs:
Vital Signs
Temp Pulse Resp BP Pulse Ox
99.7 F 87 19 126/69 95
04/27/24 07:09 04/27/24 06:15 04/27/24 06:15 04/27/24 06:15 04/27/24 08:00
I&O
04/26/24 04/27/24 04/28/24
06:59 06:59 06:59
Intake Total 625 / 625 1271.3 / 1271.3 228.8 / 228.8
Output Total 2049 910 / 910
Balance -1425 / -1425 361.3 / 361.3 198.8 / 198.8
--- NOTE | 2024-04-27 10:40 | W.PN.NEURO.1 ---
Documented by User: Ivonne Pacheco NP 04/27/24 13:03
Today's Communication / Plan
-
.
Neuro Assessment/Plan
Assessment
IMPRESSIONS/RECOMMENDATIONS:
Abrupt change in tone and mental status
Most likely due to toxic metabolic factors producing generalized fatigue.
Long-term difficulty with the patient's gait in the form of inability to climb stairs may be secondary to a neuromuscular junction disorder such as myasthenia gravis
Patient completed thiamine supplementation
MRI of brain noncontrast fails to demonstrate an acute abnormality producing patient's symptomatology. There is also no evidence of encephalitis producing symptoms.
Lumbar puncture was unremarkable
-EEG 04/27/24: Moderately to severely abnormal study for age based on bursts of generalized and generalized slowing demonstrated bihemispheric equally. Intermittent posteriorly predominant rhythmic and rhythmic delta activity (1/second) which was
medium amplitude lasting between three and 20 seconds. This study was suggestive of a generalized cortical disruption which was non-epileptiform.
Plan
-Provide Keppra 1000mg IV x1 now for abnormal delta activity observed on EEG. Continue Keppra 500mg IV q12hrs.
-Repeat MRI brain w/ and w/o contrast pending.
-MRI cervical spine w/ and w/o contrast pending.
-Goal normotension.
-Acetylcholine receptor and MUSK antibodies pending. Will discontinue Mestinon, unclear that this is benefiting the patient.
-DVT prophylaxis.
-Will follow pending results.
Subjective/Objective
Subjective Data
Date of Service: April 27, 2024
Patient with worsened hypotension and hypoxia overnight requiring mechanical ventilation. Today she is sedated on IV Fentanyl.
Objective Data
Vital Signs
Temp Pulse Resp BP Pulse Ox
99.7 F 87 19 126/69 95
04/27/24 07:09 04/27/24 06:15 04/27/24 06:15 04/27/24 06:15 04/27/24 08:00
Lab Results
04/27/24 02:25
04/27/24 02:25
PT 13.5 Sec (11.4-14.6) 04/26/24 18:45
INR 1.03 04/26/24 18:45
APTT 39.4 Sec (23.4-35.0) H 04/26/24 18:45
Sodium 137 mmol/L (135-145) 04/27/24 02:25
Potassium 4.4 mmol/L (3.5-5.1) 04/27/24 02:25
BUN 75 mg/dl (7-17) H 04/27/24 02:25
Glucose 229 mg/dl (70-99) H 04/27/24 02:25
Calcium 9.6 mg/dl (8.4-10.2) 04/27/24 02:25
Qig-P-Rqhxdlsnquh Pept 84102 pg/ml 04/20/24 11:40
Vitamin B12 > 1000 pg/ml (239-931) H 04/22/24 05:14
Patient Allergies
Sulfa (Sulfonamide Antibiotics) Allergy (Verified 04/19/24 15:02)
Hives
Review of Systems
-
Unable to obtain full review of systems at this time due to: Acuity
Physical Exam
-
General: Intubated
Eyes: PERRLA
HEENT: Normocephalic and Atraumatic
Neck: Unable to Assess
GI: Non-distended
Extremities: No Clubbing, No Cyanosis and No Edema
Extended Neurological Exam
Mood & Affect: Unable to Assess
Attention Span & Concentration: Other (sedated. opens eyes intermittently to touch/voice)
Memory: Unable to Assess
Tremor: Hand Tremor Absent and Head Tremor Absent
Involuntary Movement: None
Speech: Unable to Assess
Cranial Nerve II: Left Eye: Pupillary Reactivity Unremarkable, Pupillary Size Unremarkable and Unable to Assess Visual Goldstein
Cranial Nerve II: Right Eye: Pupillary Reactivity Unremarkable, Pupillary Size Unremarkable and Unable to Assess Visual Goldstein
Cranial Nerves III, IV, : Extraocular Movement: Unable to Assess (no apparent gaze deviation)
Cranial Nerve V: Facial Sensation: Unable to Assess
Cranial Nerve VII: Facial Symmetry: Unable to Assess
Cranial Nerve VIII: Hearing: Unable to Assess
Cranial Nerves IX, X: Palate Movement: Unable to Assess
Cranial Nerve XI: Shoulder Shrug: Unable to Assess
Cranial Nerve XII: Tongue Protusion: Unable to Assess
Muscle Strength, Overall: Other (flicker withdraws all extremities to pain)
Pronator Drift: Unable to Assess
Touch Sensation: Withdrawal to Pain
Coordination: Unable to Assess
Babinski Sign: Absent Bilaterally
Gait & Station: Unable to Assess
Data Reviewed
-
MRI Head: Report Reviewed and Image Reviewed
Medical Test Reports: Report Reviewed (CSF)
Labs: Report Reviewed
HgbA1C: Report Reviewed
Reviewed with: Physician and Family
Medications
-
Active Medications
Generic Name Dose Route Start Last Admin
Trade Name Freq PRN Reason Stop Dose Admin
Bisacodyl 10 mg 04/19/24 19:21
Bisacodyl 10 Mg Rectal Suppository RECTAL 05/17/24 19:20
[id number] PRN
constipation
Ceftriaxone Sodium 2,000 mg 04/26/24 18:00 04/26/24 18:24
Ceftriaxone 2,000 Mg/20 Ml Vial IV 2,000 mg
Q24H CHASE Administration
Dextrose 12.5 grams 04/25/24 23:55
Dextrose 50% (0.5 Grams/Ml) 50 Ml Syringe IV 05/23/24 23:54
[id number] PRN
hypoglycemia
Protocol
Fentanyl Citrate 25 mcg 04/26/24 20:17 04/27/24 05:26
Fentanyl (50 Mcg/Ml) 100 Mcg/2 Ml Ampul IV 05/10/24 19:14 25 mcg
[id number] PRN Administration
see protocol
Protocol
Glucagon 1 mg 04/25/24 23:55
Glucagon 1 Mg Vial IM 05/23/24 23:54
PRN PRN
hypoglycemia
Protocol
Heparin Sodium 5,000 units 04/19/24 20:00 04/27/24 08:09
Heparin 5,000 Units/Ml 1 Ml Vial SC 05/17/24 19:59 5,000 units
Q12 CHASE Administration
Azithromycin 500 mg in 250 mls @ 250 mls/hr 04/20/24 10:00 04/26/24 10:08
Zithromax Infusion IV 250 mls
Q24H CHASE Administration
Metronidazole 100 mls @ 100 mls/hr 04/26/24 18:00 04/27/24 10:30
Flagyl 500 Mg IV 100 mls
Q8H CHASE Administration
Norepinephrine Bitartrate 4 mg in 250 mls @ 0 mls/hr 04/26/24 19:00 04/27/24 01:03
Levophed IV 250 mls
PER PROTOCOL CHASE Administration
Protocol
Per Protocol
Fentanyl Citrate 1,000 mcg in 100 mls @ 0 mls/hr 04/26/24 19:15 04/27/24 03:37
Sublimaze IV 100 mls
PER PROTOCOL CHASE Administration
Protocol
Per Protocol
Insulin Aspart 0 units 04/26/24 01:00 04/27/24 06:24
Insulin Aspart Low Resistance 300 Units/3 Ml Pen.Injctr SC 05/24/24 00:59 Not Given
Q6 CHASE
Protocol
Metoprolol Tartrate 5 mg 04/19/24 18:08 04/25/24 17:47
Metoprolol 5 Mg/5 Ml Vial IV 05/17/24 18:07 5 mg
Q6HPRN PRN Administration
HR>110
Metoprolol Tartrate 25 mg 04/25/24 18:00 04/26/24 17:02
Metoprolol 25 Mg Regular Release Tablet TUBE 05/23/24 17:59 25 mg
Q6 CHASE Administration
Pantoprazole Sodium 40 mg 04/21/24 12:00 04/27/24 08:11
Protonix 40 Mg Iv Push IV 05/19/24 11:59 40 mg
DAILY CHASE Administration
Polyethylene Glycol 17 grams 04/19/24 19:21
Polyethylene Glycol Powder 17 Grams Packet PO 05/17/24 19:20
DAILYPRN PRN
constipation
Polyethylene Glycol 17 grams 04/27/24 08:00 04/27/24 08:10
Polyethylene Glycol Powder 17 Grams Packet TUBE 05/25/24 07:59 17 grams
DAILY CHASE Administration
Pyridostigmine [place] 60 mg 04/25/24 15:00 04/27/24 08:10
Pyridostigmine 60 Mg Tablet TUBE 05/23/24 14:59 60 mg
QID CHASE Administration
Senna/Docusate Sodium 1 tablet 04/19/24 19:21
Docusate W/Senna (Gabrielle-Colace) Tablet PO 05/17/24 19:20
BIDPRN PRN
constipation
Sodium Chloride 0 flush 04/19/24 19:00 04/22/24 07:48
Sodium Chloride 0.9% (Flush) Syringe IV 05/17/24 18:59 2 flush
PER PROTOCOL CHASE Administration
Sodium Chloride 10 ml 04/21/24 12:00 04/27/24 08:11
Sodium Chloride 0.9% (Preservative Free) 10 Ml Vial IV 05/19/24 11:59 10 ml
DAILY CHASE Administration
Sterile Water 20 ml 04/26/24 18:00 04/26/24 18:24
Sterile Water For Injection 20 Ml Vial IV 05/24/24 17:59 20 ml
Q24H CHASE Administration
Home Medications
�Medication �Instructions �Recorded
simvastatin 40 mg tablet 40 mg PO QPM High Cholesterol 05/11/11
lisinopril 20 1 tab PO DAILY Blood Pressure 04/19/24
mg-hydrochlorothiazide 12.5 mg
tablet
risedronate 35 mg tablet 35 mg PO WEEKLY Osteoporosis 04/19/24

Documented by User: Wali Butcher MD 04/27/24 14:17
Today's Communication / Plan
-
78-year-old lady with history of generalized weakness admitted with sepsis secondary to Legionella with respiratory compromise leading to intubation support. Patient's EEG showed bilateral periodic sharp Discharges
Patient was given Keppra 1000 mg intravenously 500 mg IV every 12
--- NOTE | 2024-04-27 10:57 | W.PN.ID1 ---
Documented by User: Richard Huizar MD, Resident 04/27/24 13:21
Date of Service
Date of Service: April 27, 2024
Today's Communication
.
Assessment / Plan
Assessment/plan
# Right lower lobe pneumonia secondary to Legionella pneumophila
�Ventilator dependent respiratory failure
� Intubated on 04/26/2024
-LP with elevated glucose/prot, WBC 1
-CSF Cx and acute encephalitis panel NEG
-Patient hypotensive at 92/ 57, requiring pressors
Maintain MAP greater than 65.
-Patient placed on Dobbhoff tube, on tube feeds
-Started on ceftriaxone, Flagyl on 04/26/2024 empiric coverage for aspiration pneumonia
-Ultrasound abdomen on 04/27/2024�no evidence of cholelithiasis/acute cholecystitis
#Hyponatremia - resovled
# CHERIE-resolving with IV fluids
#Transaminitis
#A-fib
#Elevated CK; trending down
#Hyperbilirubinemia; improved
Recommendations:
Continue azithromycin ( day 8 )at this time; doesnt typically cause encephalopathy or DILI, there can be transient transaminitis; first line alternative (levofloxacin) with risk of encephalopathy and possible worsening of MG (if she has this) -
risks of switch outweigh possible benefits at this time
Continue ceftriaxone, Flagyl
Overall outlook continues to remain guarded.
����������������������������������������������������������
Chief Complaint
-: Pneumonia (Legionella) and Other (CHERIE)
Vital Signs / Physical Exam
Vital Signs
Vital Signs
Temp Pulse Resp BP Pulse Ox
99.7 F 97 26 124/66 91
04/27/24 07:09 04/27/24 10:45 04/27/24 10:45 04/27/24 10:45 04/27/24 10:45
Physical Exam
Pulmonary: Other (On ventilator)
Objective Data
Lab Data
Lab Results
04/27/24 02:25
04/27/24 02:25
ESR 39 mm/hour (0-20) H 04/22/24 05:14
PT 13.5 Sec (11.4-14.6) 04/26/24 18:45
INR 1.03 04/26/24 18:45
APTT 39.4 Sec (23.4-35.0) H 04/26/24 18:45
Estimated Creat Clear 28 ml/min 04/27/24 02:25
Lactic Acid Cancelled 04/26/24 18:45
Total Bilirubin 0.5 mg/dl (0.2-1.3) 04/27/24 02:25
AST 171 U/L (14-36) H 04/27/24 02:25
ALT 171 U/L (0-35) H 04/27/24 02:25
Alkaline Phosphatase 457 U/L (38-126) H 04/27/24 02:25
Most recent labs reviewed.
Micro Results:
04/25/24 15:04 Urine Culture - Pending
Urine
04/25/24 16:56 CSF Culture - Preliminary
Csf No Growth After 48 Hours
Gram Stain - Preliminary
04/25/24 16:56 Fungal Culture - Preliminary
Csf Culture in progress.
Positive cultures are reported as soon as detected.
Final report to follow in four to five weeks.
04/25/24 16:56 Meningitis/Encephalitis Panel (PCR) - Final
Csf
04/20/24 11:40 Blood Culture - Final
Blood/Venous No Growth - Final Report
04/20/24 11:19 Blood Culture - Final
Blood/Venous No Growth - Final Report
04/20/24 07:26 Legionella Urinary Antigen - Final
Urine Positive for L. pneumophila Ag
Imaging:
04/20/2024 Echo (TTE): Normal LV size and wall thickness. Mild mitral regurgitation. Mild tricuspid regurgitation. No intracardiac mass or thrombus formation seen.
04/19/2024 CXR (2 view): Large amount of asymmetric right lower lobe opacity most suggestive of SEVERE RIGHT LOWER LOBE PNEUMONIA. A right lower lobe lung cancer or asymmetric inflammatory interstitial disease are considered less likely.

Documented by User: Amaury Stacy DO 04/27/24 13:29
Today's Communication
Continue abx.
Assessment / Plan
Assessment/plan
# Right lower lobe pneumonia secondary to Legionella pneumophila
�Ventilator dependent respiratory failure
� Intubated on 04/26/2024
-LP with elevated glucose/prot, WBC 1
-CSF Cx and acute encephalitis panel NEG
-Patient hypotensive at 92/ 57, requiring pressors
Maintain MAP greater than 65.
-Patient placed on Dobbhoff tube, on tube feeds
-Started on ceftriaxone, Flagyl on 04/26/2024 empiric coverage for aspiration pneumonia
-Ultrasound abdomen on 04/27/2024�no evidence of cholelithiasis/acute cholecystitis
#Hyponatremia - resovled
# CHERIE-resolving with IV fluids
#Transaminitis
#A-fib
#Elevated CK; trending down
#Hyperbilirubinemia; improved
Recommendations:
Continue azithromycin ( day 8 )at this time
Continue ceftriaxone, Flagyl
Overall outlook continues to remain guarded. Patient remains critically ill in intensive care unit on pressors.
����������������������������������������������������������
Subjective / Review of Systems
Patient was intubated on 04/26/2024 after a rapid response was called and with decreased blood pressure and increased oxygen requirement. Patient is somnolent, intubated, sedated on fentanyl.
Vital Signs / Physical Exam
Physical Exam
Constitutional: Other (Unresponsive, sedated)
Head: Normocephalic
Cardiovascular: Regular Rate and S1/S2
Pulmonary: Rhonchi
Genito-Urinary: [place]
Extremities: Edema (Bilateral upper extremities)
Neurological: Other (Nonresponsive)
Care Review
Plan reviewed with: Physician (Critical Care)
--- NOTE | 2024-04-27 11:37 | PTCARENOTE ---
Discussed in rounds Fentanyl weaned to off for neuro assessment. Patient became restless moving arms with purpose to oral suctioning. Not following commands. Patient's HR 120-140, Pulsox 88%. Genetics Physician at beside to observe above. Patient medicated
with bolus fentanyl with good results. After sedation HR down to 95-105. PEEP increased from 5 to 10.
[2024-04-27] MEDS: ZITHROMAX INFUSION 250 IV (11:40)
[2024-04-27 11:57] LABS: Glucose - Point of Care 140 mg/dl (70-99)
--- NOTE | 2024-04-27 11:58 | W.PN.GI.CBS2 ---
Addendum entered and electronically signed by Amelia Fuentes MD 04/27/24 17:52:
I saw and examined the patient.
The [employer] or PA's note was reviewed and I agree with the note.
Comment: Patient in the ICU, intubated .
-Elevated LFTs, abdominal ultrasound without any evidence of acute cholecystitis or cholelithiasis.
Chronic elevation in LFTs with some acute elevation but trending down compared to admission. Previous GI workup at [facility] negative underlying liver disease.
No further workup at this time
-Melena noted during admission but now stool is brown without any overt active bleeding. Hemoglobin in the range of 8.8-11.5, did not need any blood transfusions. Noted IV heparin drip started, monitor H&H and transfuse as needed.
Continue Protonix 40 mg IV daily.
Monitor bowel movements for any further bleeding.
-MRI brain today showing severe bilateral temporal lobe volume loss and bilateral volume loss in the frontal and parietal lobe suggesting severe neurodegenerative disease.
GI will follow peripherally.
Original Note:
Today's Communication / Plan
-
PPI daily. Monitor stool output. H/H trend. Monitor LFT's. Avoid hepatotoxins. Further management per ICU team/hospitalist.
Assessment / Plan
-
The pt is a 78-year-old female with PMH significant for hypertension, high cholesterol, osteoporosis, chronic elevated LFTs from [facility], who presented initially to with fatigue, weakness, noted to have Legionella pneumonia, metabolic acidosis,
acute renal insufficiency, also noted to have black stool. Her hgb has drifted but there are no signs of active/brisk bleeding and placed on IV PPI. She was nonverbal and obtunded progressively and required Bipap, and ultimately requiring
intubation overnight due to hypoxic respiratory failure, now requiring pressors. LFT's were elevated as well but chronic elevated with hx of [facility] following with Dr. Weinstein. These have stabilized. US imaging was unrevealing for liver etiology. She
has no active signs of bleeding with hgb 8.8.
04/26: She is moved to the IMU and on BIPAP. Had a spinal tap 04/25/24
Problem list/recommendations:
#1 Anemia:
--Hgb is drifting down but stable with no signs of active bleeding.
--With documented black stool, now with dark brown stool per nursing. Ddx: esophagitis, ulcer disease, angiectasia versus other
--Will not be able to do an upper endoscopy given her neurological state and now with hypoxic respiratory failure requiring intubation and pressors.
--Continue Protonix 40 mg IV daily for now. If recurrent melena can increased to BID v PPI gtt
--Monitor H&H and transfuse as needed to maintain a hgb >7
--If she has signs of brisk bleeding to consider more urgent evaluation.
--Consider eventual EGD pending her clinical course but will hold at this time given her worsening condition
#2 Chronic elevation in LFTs, follows up with Dr. Weinstein, hepatology at [facility]
--No evidence of cirrhosis of the liver.
--Recent elevation in LFTs could be related to underlying Legionella infection/antibiotics v septic shock v other. These are stable
--Abdominal ultrasound without any acute etiology for elevated liver enzymes.
--Hepatitis serologies were negative (immune to Hep A and B)
--Continue to trend LFT's
--Avoid hepatotoxins
Other pertinent problems (management as per ICU team/hospitalist):
-Acute hypoxic respiratory failure
-Legionella pneumonia
-Altered mental status, unlikely liver related given there are no signs of cirrhosis
-Acute renal insufficiency
-A-fib with RVR
-CHERIE on CKD
-Rhabdomyolysis
-Hyponatremia
-Metabolic acidosis
I spoke to her at the bedside and updated him on our plan. He would like our office to update Dr. Weinstein of her condition. Will have our office send a message to his office and can send records if needed.
Subjective
Subjective
Date of Service: April 27, 2024
The pt was seen and examined at the bedside. Events overnight noted. She was intubated due to hypoxic respiratory failure. She is undergoing an EEG. LFT's are stable. She continues with dark stools but brown per nursing. Her hgb has been drifting
but without any active signs of bleeding.
Objective
Data Reviewed
Laboratory Data:
Laboratory Results
04/27/24 02:25
04/27/24 02:25
Laboratory Results
PT 13.5 Sec (11.4-14.6) 04/26/24 18:45
INR 1.03 04/26/24 18:45
APTT 39.4 Sec (23.4-35.0) H 04/26/24 18:45
Magnesium 2.2 mg/dl (1.6-2.3) 04/20/24 22:14
Total Bilirubin 0.5 mg/dl (0.2-1.3) 04/27/24 02:25
AST 171 U/L (14-36) H 04/27/24 02:25
ALT 171 U/L (0-35) H 04/27/24 02:25
Alkaline Phosphatase 457 U/L (38-126) H 04/27/24 02:25
Lipase 320 U/L (23-300) H 04/19/24 15:15
Vital Signs and I&O:
Vital Signs
Temp Pulse Resp BP Pulse Ox
99.5 F 97 26 124/66 91
04/27/24 11:24 04/27/24 10:45 04/27/24 10:45 04/27/24 10:45 04/27/24 10:45
I&O
04/26/24 04/27/24 04/28/24
06:59 06:59 06:59
Intake Total 625 / 625 1271.3 / 1271.3 342.6 / 342.6
Output Total 2049 / 2049 910 / 910 120 / 120
Balance -1425 / -1425 361.3 / 361.3 222.6 / 222.6
Physical Exam
Physical Exam
HEENT: Anicteric
Cardiology: S1, S2 and Irregular Rate/Rhythm
Pulmonary: Other (on ventilator)
GI: Soft, Non Distended, Non Tender, Normal Bowel Sounds and Other (feeding tube in place)
[2024-04-27] MEDS: LOPRESSOR 5 MG IV ×2 (12:03→17:07)
[2024-04-27 12:11] LABS: Glycohemoglobin (HgbA1c) 6.6 % (4.0-5.6)
--- NOTE | 2024-04-27 12:35 | W.PN.CARDCBS ---
Addendum entered and electronically signed by Phill Arriola MD 04/27/24 17:15:
Echo with normal ejection fraction but a new discrete area of apical akinesis. Could consider Takotsubo but ejection fraction is normal. Will check ECG and troponin but not likely clinically relevant given normal ejection fraction. Another
possibility would be a thrombus down the LAD distribution as has not been anticoagulated with heme positive stools but has remained in sinus rhythm. discussed with customer support representative and primary service.
Original Note:
Today's Communication / Plan
-
Remains intubated
Stable cardiology status and remains in sinus rhythm on oral Lopressor through tube
Not anticoagulated due to heme positive stools
Will sign off, call with questions
Impression / Plan
-
PCP: Dr. Good
Primary Anatomic Pathologist: none, initially seen by Maylin
Impression:
Admitted with weakness 04/19/24
Severe RLL Legionella PNA
Newly diagnosed paroxysmal Afib
Not chronically anticoagulated due to new diagnosis of Afib and new melanotic stools
VDRF since 04/26/24
Heme positive, melanotic stools
Anemia
Change in mental status
CHERIE
Hypokalemia
Elevated troponin, suspected nonischemic myocardial injury
Elevated LFTs, in setting of NICHOLE followed at [facility]
HTN
HLD
asthma
osteoporosis
ONEIDA
ECHO 04/20/24: EF 60-65%, mild MR, mild MR, PAP 30-35mmHg
Plan:
She is currently intubated.
Remains in sinus rhythm on Lopressor through tube
Not anticoagulated due to heme positive stools
Being treated as possible Guillain-Lund�
Discussed with at bedside as well as nursing
HPI: Patient is a 78-year-old female with past medical history of hypertension, hyperlipidemia, asthma, NICHOLE followed at [facility], ONEIDA, osteoporosis who was seen in PCP office 04/16/2024 due to fatigue and weight loss. Labs ordered and were abnormal
with elevated LFTs. 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 She has had poor appetite, lethargy, confusion resulting in her bringing her to ER. CXR on admission with evidence of severe R PNA, positive for legionella. Also with
significant electrolyte abnormalities and metabolic acidosis. Cardiology consulted due to new afib (of note, she had EKG with PVCs in PCP office 04/16 and was ordered echo and stress test). She denies cardiac history and does not feel palpitations.
She is presently rate controlled. She is having dark, tarry, heme positive stools per nursing.
Progress Note - Anatomic Pathologist
Subjective
Date of Service: April 27, 2024
Patient unresponsive on ventilator
Objective
Labs:
04/27/24 02:25
04/27/24 02:25
Labs
Hgb 8.8 g/dL (12.0-16.0) L 04/27/24 02:25
Hct 26.1 % (37.0-47.0) L 04/27/24 02:25
Plt Count 324 10^3/uL (130-400) 04/27/24 02:25
PT 13.5 Sec (11.4-14.6) 04/26/24 18:45
INR 1.03 04/26/24 18:45
APTT 39.4 Sec (23.4-35.0) H 04/26/24 18:45
Sodium 137 mmol/L (135-145) 04/27/24 02:25
Potassium 4.4 mmol/L (3.5-5.1) 04/27/24 02:25
BUN 75 mg/dl (7-17) H 04/27/24 02:25
Creatinine 1.3 mg/dL (0.6-1.0) H 04/27/24 02:25
Glucose 229 mg/dl (70-99) H 04/27/24 02:25
Troponins
04/26/24 04/26/24 04/27/24
18:45 20:00 02:25
Troponin I 0.891 H* Cancelled 0.518 H* D
04/27/24
08:37
Troponin I 0.369 H* D
Vital Signs and I&O:
Vital Signs
Temp Pulse Resp BP Pulse Ox
99.5 F 112 26 111/61 91
04/27/24 11:24 04/27/24 12:03 04/27/24 10:45 04/27/24 12:03 04/27/24 10:45
Vital Signs
Temp Pulse Resp BP Pulse Ox
99.5 F 112 26 111/61 91
04/27/24 11:24 04/27/24 12:03 04/27/24 10:45 04/27/24 12:03 04/27/24 10:45
Intake & Output
04/25/24 04/26/24 04/27/24 04/28/24
06:59 06:59 06:59 06:59
Intake Total 625 / 625 1271.3 / 1271.3 342.6 / 342.6
Output Total 750 / 750 0 / 2049 910 / 910 120 / 120
Balance -750 / -750 -1425 / -1425 361.3 / 361.3 222.6 / 222.6
Physical Exam
Physical Exam
General: Unresponsive
Neck: Supple, no JVD, HJR, carotids +2 B/L, no bruits bilaterally.
Heart: Non displaced PMI, RRR, no murmurs, No S3, S4, no rubs.
Lungs: Scattered rhonchi
Extremities: No clubbing, cyanosis or edema bilaterally.
Neuro: Unresponsive
--- NOTE | 2024-04-27 12:43 | EEG.RPT ---
Electroencephalogram Report
Recording
Date of EE04/27/24
Type of EEG: Routine
Length of EEG recordin minutes
Done with Video Recording: Yes
Patient Status: Inpatient
Recording Conditions: Asleep
Hyperventilation Performed: No
Photic Stimulation Performed: Yes
Report
LESS THAN 1 HOUR REPORT
LESS THAN 1 HOUR EEG INTERPRETATION:
Moderately to severely abnormal study for age based on bursts of generalized and generalized slowing demonstrated bihemispherically equally.
CLINICAL CORRELATION:
This study was suggestive of a generalized cortical disruption which was non-epileptiform.
Clinical correlation is advised.
METHODS:
A 21 channel digitized electroencephalogram (EEG) was performed at the bedside. The 10/20 international system of electrode placement was used with ECG and lateral/vertical eye movements recorded. The [employer] quantitative evaluation system was
utilized.
ELECTROENCEPHALOGRAPHER IMPRESSION(S):
Quality of study
Fair, limited by muscle artifact at times
Background
Medium amplitude
Fair anterior-posterior voltage gradient differentiation
Theta maximal background demonstrated, typically delta
Sleep
Drowsiness present
Hyperventilation
Not performed
Photic Stimulation
Failed to activate the record
ECG
Normal rhythm
Abnormal Activity
Intermittent posteriorly predominant rhythmic and rhythmic delta activity (1/second) which was medium amplitude lasting between three and 20 seconds.
[2024-04-27] MEDS: KEPPRA 1000 MG IV (12:49)
--- NOTE | 2024-04-27 13:13 | PTCARENOTE ---
EEG completed, Stat orders noted. Medicated per PRN order for tachycardia, Fentanyl per CPOT. Incontinent of moderate loose brown stools, Heme positive. Dr. Dick updated.
--- NOTE | 2024-04-27 14:06 | CM ---
CM following re: discharge planning.
Discussed in Rounds, reviewed pt's chart. per Rounds meeting, pt remains critically ill, intubated yesterday, remains intubated, continue supportive care.
D/C plan: uncertain at this time and will depend on pt's progress. Original plan was - [facility] and a referral made last week.
CM will follow with discharge plan updates as hospitalization progresses
[2024-04-27 14:36] LABS: B.E. 7.6 mmol/L; PCO2 38 mmHg (32-35); PO2 119 mmHg (83-108); pH 7.52 (7.35-7.45)
--- NOTE | 2024-04-27 14:42 | PTCARENOTE ---
Beltre removed prior to MRI. Tube Feed stopped and will resume after MRI. personnel and payroll technician at bedside. Will remove Dobhoff before procedure.
--- NOTE | 2024-04-27 15:02 | CARDSERVLU ---
Echocardiogram with Lumason completed after protocol screening completed. Allergies verified.
Patent IV site: __Rt upper arm PICC___
IV site flushed with 0.9% NaCl pre and post administration.
Diluted bolus method utilized to enhance visualization of ventricular mondragon.
Total volume given: _4.0_ mL
Patient tolerated all procedures well without complications.
--- NOTE | 2024-04-27 15:18 | PN.CDI ---
CDI
- -
CDI:
Physician Documentation Request
Admit Date: 04/19/24 19:15
Dear Doctor Sierra,
Patient admitted for pneumonia.
04/26 Hospitalist PN: 'Elevated CK levels -Improving with IV fluids'
04/27 Hospitalist PN: 'Mild rhabdomyolysis, resolved'
Based on the above, could you clarify in the progress notes the type of rhabdomyolysis:
Non-traumatic
Traumatic
Other
Use of terms such as suspected, likely, concern for, or probable (associated with a specific diagnosis that is being evaluated, monitored, or treated as if it exists) are acceptable and can be coded in the inpatient setting, when documented at the
time of discharge.
Thank you,
Mala Nunez RN, BSN
CDI Specialist
Available via War text
Please use your independent medical judgment in providing your response.
[2024-04-27] MEDS: ROCEPHIN 2000 MG IV (17:19)
[2024-04-27] MEDS: STERILE WATER FOR INJECTION 20 ML IV (17:19)
--- NOTE | 2024-04-27 17:20 | W.PN.UPDATE ---
Update Note
Progress Note Update
Ultrasound reviewed, no concerns for acute cholecystitis at this time. Liver enzyme function tests appear to be more consistent with intrinsic hepatocellular injury than cholestatic. General surgery will sign off. Please call with questions or
concerns.
--- NOTE | 2024-04-27 17:36 | W.PN.UPDATE ---
Update Note
Progress Note Update
Echocardiogram results reviewed with cardiology. Apical akinesis, suspected Takotsubo with normal EF. RV is normal.
Per cardiology discussion, troponin, EKG will be checked. Heparin therapy was recommended. Patient in atrial fibrillation
Heparin drip started without bolus. Reviewed with pharmacy, primary service, critical care nursing, cardiology
[2024-04-27 17:41] LABS: Glucose - Point of Care 113 mg/dl (70-99)
--- NOTE | 2024-04-27 17:47 | PTCARENOTE ---
Addendum entered by Marcia Foley RN 04/27/24 18:44:
patient converted to NSR, abdominal xray taken for dobhoff placement, awaiting read
Original Note:
Patient transported to MRI with RT. Patient required adjustment for levophed for hypertension. Returned to the room at 1645. Upon return to ICU, patient in rapid Afib HR rate 130-140, PRN dose of Lopressor given, rate post lopressor 100-115, labs,
EKG done. Patient hygiene completed. Dobbhoff placed in right nare, size 8@65 by [employer]. Rectal trumpet inserted for large loose stool. Dr. Jefferson notified by [place] text of rhythm change, orders received.
[2024-04-27 17:59] LABS: Hematocrit 24.5 % (37.0-47.0); Hemoglobin 8.4 g/dL (12.0-16.0); Mean Corp Hgb Conc. 34.3 g/dL (33.0-37.0); Mean Corpuscular Hgb 29.4 pg (27.0-31.0); Mean Corpuscular Volume 85.7 fL (81.0-99.0); Mean Platelet Volume 10.1 fL (7.4-10.4); Platelet Count 334 10^3/uL (130-400); Red Blood Cell Count 2.86 10^6/uL (4.20-5.40); Red Cell Dist. Width 13.8 % (11.5-14.5)
[2024-04-27] MEDS: HEPARIN 25000 UNITS/250 ML IV (18:05)
[2024-04-27 18:11] LABS: APTT 46.2 Sec (23.4-35.0)
[2024-04-27 18:16] LABS: Troponin I 0.216 ng/ml
[2024-04-27] MEDS: NOVOLOG FLEXPEN-MODERATE RESISTANCE SC ×2 (18:27→22:58)
--- NOTE | 2024-04-27 19:00 | PTCARENOTE ---
on assessment pt unresponsive, weak cough/gag, impaired corneals, pupils now equal/sluggish, SR on the monitor, on hep gtt due to Afib during dayshift doppler pulses, +3 UE edema and +2 generalized, 8.0 ETT 23 at the lip, increased oral secretions,
lungs diminished, R nare dobhoff placement checked by KEY PERSON, guide wire removed per protocol, will resume tube feeds, rectal trumpet in place, BS was 175cc, daughter at bedside.
[2024-04-27] MEDS: KEPPRA 500 MG IV (20:01)
[2024-04-27 22:55] LABS: Glucose - Point of Care 128 mg/dl (70-99)
--- NOTE | 2024-04-27 23:28 | PTCARENOTE ---
no changes from prior assessment, daughter and at bedside, two rings removed off pt and given to daughter to take home, weaning down on levo gtt, BM around 2200, pt changes and repositioned, tube feeds restarted.
[2024-04-28] VITALS (96 sets, daily range): BP systolic 82–140; BP diastolic 38–93; BMI 19.8
[2024-04-28] MEDS: SUBLIMAZE 25 MCG IV ×2 (00:11→05:04)
[2024-04-28] MEDS: LEVOPHED 250 IV ×3 (00:56→19:07)
[2024-04-28] MEDS: FLAGYL 500 MG 100 IV ×3 (02:17→17:16)
--- NOTE | 2024-04-28 04:00 | PTCARENOTE ---
no changes from prior assessment, fio2 increased to 85%
[2024-04-28 04:20] LABS: % Basophils 0.1 % (0-2); % Eosinophils 0.3 % (0-6); % Immature Granulocytes 1.1 % (0-0.5); % Lymphocytes 3.2 % (20.5-51.1); % Neutrophils 90.3 % (42.2-75.2); Absolute Eosinophils 0.1 10^3/uL (0-0.7); Absolute Immature Granulocytes 0.2 10^3/uL (0-0.05); Absolute Lymphocytes 0.5 10^3/uL (1.2-3.4); Absolute Monocytes 0.8 10^3/uL (0.1-0.6); Absolute Neutrophils 13.7 10^3/uL (1.4-6.5); Hematocrit 22.9 % (37.0-47.0); Hemoglobin 7.8 g/dL (12.0-16.0); Mean Corp Hgb Conc. 34.1 g/dL (33.0-37.0); Mean Corpuscular Hgb 29.7 pg (27.0-31.0); Mean Corpuscular Volume 87.1 fL (81.0-99.0); Mean Platelet Volume 10.2 fL (7.4-10.4); Nucleated Red Blood Cells % 0 %; Platelet Count 323 10^3/uL (130-400); Red Blood Cell Count 2.63 10^6/uL (4.20-5.40); Red Cell Dist. Width 13.8 % (11.5-14.5); White Blood Cell Count 15.2 10^3/uL (4.8-10.8)
[2024-04-28 04:43] LABS: ALT (SGPT) 106 U/L (0-35); AST (SGOT) 61 U/L (14-36); Albumin 2.7 g/dl (3.5-5.0); Alkaline Phosphatase 294 U/L (38-126); Blood Urea Nitrogen 71 mg/dl (7-17); Calcium 9.5 mg/dl (8.4-10.2); Carbon Dioxide 31 mmol/L (22-30); Chloride 101 mmol/L (98-107); Estimated Creatinine Clearance 30 ml/min; Glucose 169 mg/dl (70-99); Potassium 3.8 mmol/L (3.5-5.1); Sodium 137 mmol/L (135-145); Total Bilirubin 0.6 mg/dl (0.2-1.3); Total Protein 5.6 g/dl (6.3-8.2); eGFR 42.09
[2024-04-28 06:20] LABS: Glucose - Point of Care 143 mg/dl (70-99)
[2024-04-28] MEDS: NOVOLOG FLEXPEN-MODERATE RESISTANCE SC ×2 (06:35→12:15)
--- NOTE | 2024-04-28 06:56 | W.PN.HOSP.TC ---
Today's Communication/Plan
-
see bold
Assessment / Plan
Assessment / Plan
Gen: NAD, NCAT, appears chronically ill
Eyes: PERRLA, no scleral icterus.
Neck: supple.
CV: RRR, +S1/S2, no m/r/g.
Resp: CTAB anteriorly, no rales, wheezes, or rhonchi.
Abd: +BS, soft, NT, ND
Skin: No rashes.
Neuro: CN 2-12 intact, moves UEs spontaneously (with suctioning), not alert.
Psych: Normal mood and affect.
04/25/24 15:04 Urine Urine Culture - Preliminary
Escherichia coli
04/25/24 16:56 Csf CSF Culture - Preliminary
No Growth After 48 Hours
04/25/24 16:56 Csf Gram Stain - Preliminary
04/25/24 16:56 Csf Fungal Culture - Preliminary
Culture in progress.
Positive cultures are reported as soon as detected.
Final report to follow in four to five weeks.
04/25/24 16:56 Csf Meningitis/Encephalitis Panel (PCR) - Final
04/20/24 11:40 Blood/Venous Blood Culture - Final
No Growth - Final Report
04/20/24 11:19 Blood/Venous Blood Culture - Final
No Growth - Final Report
04/20/24 07:26 Urine Legionella Urinary Antigen - Final
Positive for L. pneumophila Ag
Abd U/S 04/19/24: No evidence of cholelithiasis, gallbladder wall thickening or biliary tract dilatation. Cannot exclude 'starry sridhar' appearance of the liver such as can be seen with acute hepatitis. Small simple right renal cyst.
Echo 04/20/24: EF 60-65%. No RWMA. Mild MR/TR. PASP 30-35mmHg.
CT brain 04/22/24: No acute intracranial abnormality. Age-appropriate volume loss.
MRI brain 04/22/24: No acute intracranial abnormality noted.
CXR 04/26/24: Improved aeration of the right lower lung field concerning for pneumonia. Small loculated right pleural effusion. Improved. Mild right lower lung atelectasis versus scarring. Stable. Moderate left lower lung atelectasis versus scarring.
Progressed. Lines and tubes as described above.
Abd U/S 04/27/24: Trace free fluid in the upper abdomen and partially visualized right pleural effusion. Otherwise essentially unremarkable abdominal ultrasound, as detailed above. No sonographic evidence for cholelithiasis or acute cholecystitis.
EEG 04/27/24: This study was suggestive of a generalized cortical disruption which was non-epileptiform.
Echo: Normal left ventricular wall thickness. Normal left ventricular chamber size.
Normal left ventricular systolic function. . Left ventricular ejection fraction
is 60% by Tuttle's method. There is apical akinesis.
Tricuspid valve opens normally. Mild to moderate tricuspid regurgitation.
Estimated pulmonary artery pressure of 25 mmHg, assuming a right atrial
pressure of 3 mmHg.
Since echocardiogram 04/20/2024 which was reviewed, there is apical akinesis.
Acute hypoxemic respiratory failure due to suspected severe RLL Legionella PNA:
-with acute metabolic encephalopathy due to pneumonia and electrolyte disturbances
-Legionella Positive, was on Azithromycin
-initially oxygenation and oxygen requirements were improving but then the patient had acute worsening hypoxemia and hypotension on the evening of 04/26/24. The pt was intubated and transferred to ICU. The patient was febrile and likely had septic
shock. Vasopressors were started. Antibiotics were broadened to Azithro/rocephin/Flagyl as per ID.
-The patient then had an echocardiogram with apical akinesis. There was a concern for LV thrombus and heparin drip was started.
-on 04/27/24 the patient had the above EEG. Dr. Butcher started the pt on Keppra.
Weakness:
-CT brain/MRI brain unremarkable
-neuro following
-LP with elevated glucose/prot, WBC 1
-CSF Cx and acute encephalitis panel NEG
-AchR-Ab pending
-was on pyridostigmine empirically, now off
Melena:
-Hb down trending, now 7.8, melanotic stool this AM (acute blood loss anemia)
-currently on heparin gtt, may need to stop
-start PPI gtt
-H/H Q6H
-No evidence of cirrhosis
-GI to see in follow up today
A-Fib with RVR:
-Started on 04/20/24
-was on cardizem gtt, now off
-was on BB, now off with hypotension
-[id number] score is 4 but hold off on anticoagulation with heme positive stools
-cardiology following
Acute transaminitis/elevated bilirubin:
-AST/ALT/bili have all improved
-GI saw in c/s
-Abd U/S above
Other problems:
CHERIE on CKD3a, resolved with IVFs
Mild rhabdomyolysis, resolved
Acute hyponatremia: now resolved after holding HCTZ/ACEi and receiving 3% NS
Severe Hypokalemia, resolved with repletion
Acute metabolic Acidosis, resolved with IVFs with HCO3-
Essential HTN: cont BB
Cachexia, weight loss
Hyperlipidemia
History of osteoporosis
NICHOLE
50-[id number] history of smoking quit 1984
F/E/N: DHT feeds
and daughter updated at bedside.
Extremely poor prognosis
DNR/Heparin
Total critical care time spent = 35 min
Anticipated Discharge: > 48 hours
Subjective/Interval History
-
Date of Service: April 28, 2024
Intubated/sedated. As per nursing large doris this AM.
Objective Data
-
Labs:
Laboratory Results
04/28/24 04/28/24 04/28/24
00:10 04:04 08:30
WBC 15.2 H
Hgb 7.8 L
Hct 22.9 L
Plt Count 323
APTT 131.0 H Pending
Sodium 137
Potassium 3.8
Chloride 101
Carbon Dioxide 31 H
BUN 71 H
Creatinine 1.3 H
Glucose 169 H
Calcium 9.5
Total Bilirubin 0.6
AST 61 H
ALT 106 H
Alkaline Phosphatase 294 H
Vital Signs:
Vital Signs
Temp Pulse Resp BP Pulse Ox
97.4 F 82 20 124/53 99
04/28/24 03:40 04/28/24 06:30 04/28/24 06:30 04/28/24 06:30 04/28/24 06:30
I&O
04/26/24 04/27/24 04/28/24
06:59 06:59 06:59
Intake Total 625 / 625 1271.3 / 1271.3 1369.1 / 1369.1
Output Total 2049 / 2049 910 / 910 195 / 195
Balance -1425 / -1425 361.3 / 361.3 1174.1 / 1174.1
--- NOTE | 2024-04-28 07:12 | W.PN.INTV ---
Today's Communication / Plan
Recommendations
Remains intubated, will wean vent settings as tolerated, SBT planning
Reduce ALL sedation, add on PRN when needed
Stop heparin, appreciate consultants' input
Updated at bedside, prognosis guarded
Assessment
-
78-year-old female with history of Nichole, hypertension, recent fatigue, poor appetite with negative COVID workup as outpatient. Chest x-ray reveals right lower lobe pneumonia, sodium level is 121, renal insufficiency, urine Legionella antigen
positive. We are asked to help from critical care standpoint 04/20/2024
Legionella pneumonia, right lower lobe
Malaise, anorexia, fatigue x 3 days
Mental status changes, TME
Profound weakness
Acute hypoxic respiratory insufficiency
Intubated 04/26/2024, transferred to ICU
Hypotension, requiring pressors
Acute hyponatremia
Acute renal insufficiency
Sinus tachycardia
Metabolic acidemia
Normal lactate
Hypokalemia
Acute transaminitis/Fatty liver hx
Elevated bilirubin
Mildly elevated troponin
Cachexia, weight loss
Conditions present prior to admission
Hypertension
Hyperlipidemia
History of osteoporosis
NICHOLE
[id number]-[id number] history of smoking quit 1984
Plan/recommendations
At this time, patient remains critically ill
To review, was transferred to IMU due to progressive neurological disease over the weekend/was on BiPAP intermittently
Developed hypotension, hypoxia requiring intubation, transferred to ICU
Oxygen requirement seems to be worse, requiring FiO2 80%, pO2 73
Chest exam is clear. Chest x-ray with adequate aeration, improvement of right pleuroparenchymal process
Neurological exam still not improved, profoundly weak on exam. However during suction, she does move extremities, turning head
Mestinon therapy was started 04/26, IV keppra
Imaging negative neurology correspondence reviewed.
LP essentially negative, possible underlying NMD felt
MRI showing extreme volume loss suggestive of dementia
Will reduce all sedation/maintain off to evaluate MS
Moving forward
Continue with antibiotics for Legionella pneumonia
QT adequate, remains on macrolide therapy
Infectious disease following. Follow cultures
Antibiotics have been broadened 04/26 for possible underlying sepsis. Currently on ceftriaxone/Flagyl/azithromycin
Urine culture positive for E. coli from 04/25
Atrial fibrillation developed with intermittent with rapid ventricular response. On Cardizem drip, now transition to oral Cardizem
Echocardiogram 04/20/2024 reveals normal biventricular function, mild MR, PA pressure 35
Anticoagulation would be difficult in the setting of black tarry stool.
Presently on norepinephrine. Beta-chase being held, add midodrine PO
Cardiology following. Mildly elevated troponin noted
Levo @4, wean as tolerated
Stop heparin gtt
Now with heme positive stool
Continue Protonix therapy daily
Follow hemoglobin
GI was consulted
Metabolic acidemia noted, hyponatremia and renal insufficiency noted
Given positive urine Legionella antigen, suspect Legionella pneumonia may be partly contributing to metabolic abnormality and clinical presentation
Unclear whether there may also be a component of SIADH. Nephrology following closely
Sodium improved to 137, creatinine improving to 1.3
Continue with management per nephrology
BLAKE inhibitor held
Potassium patient noted. Lasix therapy per nephrology noted
proBNP >11,000
Remains on mechanical ventilation: AC 14/300/5/80%, Pplat 11
ABG 7.52/41/73
Hypoxemia improving, wean vent settings/reviewed with RT
Continue with DVT prophylaxis, mechanical and pharmacological
Head of bed elevated, aspiration precautions
Daily chest x-ray if indicated
Hyperglycemia noted
Increase sliding scale coverage
hemoglobin A1c 6.6
DVT prophylaxis: Subcutaneous heparin, and mechanical prophylaxis
GI prophylaxis: Remains on Protonix
Family Discussions
Dionisio 04/28/24- updated today, he clarified that if she could not extubate, he would make her comfort measures. He would like her to remain full code.
Kapil - Updated at length at bedside during rounds and again after rounds. initially requested DO NOT RESUSCITATE. He had stated during conversation 04/25 that patient has advanced directives that would not want life prolonging
measures such as mechanical ventilation, CPR. He reiterated her wishes this morning on rounds. He then rescinded DNR and patient is currently full code.
Diagnostic Data
Cervical MRI 04/27/24- 1. 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
2. Moderate-sized left central disc-osteophyte complex at C6/C7 causing mild spinal cord compression and central canal stenosis.
3. 2 mm anterolisthesis of C4 on C5 secondary to moderate left-sided facet joint arthrosis. Moderate left neural foraminal narrowing at C4/C5.
4. Severe bilateral temporal lobe volume loss.
5. Endotracheal tube in place.
6. Moderate layering fluid in the posterior nasopharynx and oropharynx.
CXR 04/26/24- Improved aeration of the right lower lung field concerning for pneumonia. Small loculated right pleural effusion. Improved. Mild right lower lung atelectasis versus scarring. Stable.
Moderate left lower lung atelectasis versus scarring. Progressed.
04/25/24- Mid to lower right lung pneumonia. Small right pleural effusion.
ECHO 04/27/24- Normal left ventricular wall thickness. Normal left ventricular chamber size. Normal left ventricular systolic function. . Left ventricular ejection fraction is 60% by Tuttle's method. There is apical akinesis. Tricuspid valve opens
normally. Mild to moderate tricuspid regurgitation. Estimated pulmonary artery pressure of 25 mmHg, assuming a right atrial pressure of 3 mmHg. Since echocardiogram 04/20/2024 which was reviewed, there is apical akinesis.
-----
Critical Care time 40 mins -- The patient is admitted for acute critical illness for the treatment of vital organ failure and/or prevention of further life-threatening conditions. Total care includes time spent in review of history, physical exam,
medications, hemodynamic/ventilator parameters, laboratory data, imaging and discussion with house staff, pharmacy, respiratory therapy, striper machine, and nursing.
Subjective Dataa
Subjective Data
Date of Service:
Date of Service: April 28, 2024
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
Subjective:
no new events ON, remains intubated
MS remains poor, off sedation 24 hours
at bedside
Objective Data
Data Reviewed
Vital Signs / I&O / Oxygen:
Vital Signs
Temp Pulse Resp BP Pulse Ox
97.4 F 82 20 124/53 99
04/28/24 03:40 04/28/24 06:30 04/28/24 06:30 04/28/24 06:30 04/28/24 06:30
Intake and Output
04/27/24 04/28/24 04/29/24
06:59 06:59 06:59
Intake Total 1271.3 / 1271.3 1369.1 / 1369.1
Output Total 910 / 910 195 / 195
Balance 361.3 / 361.3 1174.1 / 1174.1
SaO2 [A/C] 94
SaO2 99
Nasal Cannula flow liters per 4
minute
Physical Exam
General: Comfortable, Poor Appetite and Other (Cachectic)
HEENT: Normocephalic, Anicteric and Moist Mucous Membranes
Cardiovascular: S1-S2, Irregular Rhythm, Murmur (n) and Rub (n)
Respiratory: Wheeze (n), Crackles (n), Rhonchi (n), Non-Labored Respirations (Improved, less rapid shallow breathing), Stridor (n) and ET Tube
GI: Soft, Non Distended and Non Tender
Neurology: Lethargic (Does withdraw to pain. Does lift arms up and turn head during suction. Does not follow commands)
Skin: Cyanosis (n), Jaundice (n) and Rash (n)
Labs/Micro/Reports
Lab Data
04/28/24 04:04
04/28/24 04:04
Laboratory Results
04/27/24 04/27/24 04/28/24
14:16 17:53 00:10
APTT 46.2 H 131.0 H
pH 7.52 H
pCO2 38 H
pO2 119 H
HCO3 31.0 H
O2 Delivery Level
Microbiology
04/25/24 15:04 Urine Urine Culture - Preliminary
Escherichia coli
04/25/24 16:56 Csf CSF Culture - Preliminary
No Growth After 48 Hours
04/25/24 16:56 Csf Gram Stain - Preliminary
04/25/24 16:56 Csf Fungal Culture - Preliminary
Culture in progress.
Positive cultures are reported as soon as detected.
Final report to follow in four to five weeks.
04/25/24 16:56 Csf Meningitis/Encephalitis Panel (PCR) - Final
04/20/24 11:40 Blood/Venous Blood Culture - Final
No Growth - Final Report
04/20/24 11:19 Blood/Venous Blood Culture - Final
No Growth - Final Report
[2024-04-28] MEDS: KEPPRA 500 MG IV ×2 (07:34→19:09)
[2024-04-28] MEDS: NSS (PRESERVATIVE FREE) 10 ML IV (07:34)
[2024-04-28] MEDS: MIRALAX TUBE (07:35)
[2024-04-28] MEDS: PROTONIX IV 40 MG IV (07:35)
--- NOTE | 2024-04-28 08:20 | PTCARENOTE ---
on assessment, weak cough/gag, pupils pinpoint and not reactive, non-purposeful mvmt, not following any commands. SR with PACs on the monitor, on hep gtt due to Afib during dayshift. doppler pulses, +3 UE edema and +2 generalized, 8.0 ETT 23 at the
lip, increased oral secretions, lungs diminished, R nare dobhoff with jevity advanced to goal rate. placement verified by air/residual check. Moderate burgundy liquid stool present in depends. Depends removed and pt cleaned. Barrier cream applied.
Foam present on sacrum and heels. BS was 116cc. and daughter at bedside.
--- NOTE | 2024-04-28 08:37 | W.PN.ID1 ---
Date of Service
Date of Service: April 28, 2024
Today's Communication
Continue antibiotics.
Assessment / Plan
Assessment/plan
# Right lower lobe pneumonia secondary to Legionella pneumophila
# Ventilator dependent respiratory failure (Intubated on 04/26/2024)
-LP with elevated glucose/prot, WBC 1
-CSF Cx and acute encephalitis panel NEG
-Patient hypotensive at 92/ 57, requiring pressors
Maintain MAP greater than 65.
-Patient placed on Dobbhoff tube, on tube feeds
-Started on ceftriaxone, Flagyl on 04/26/2024 empiric coverage for aspiration pneumonia
-Ultrasound abdomen on 04/27/2024�no evidence of cholelithiasis/acute cholecystitis
#Hyponatremia - resolved
# CHERIE-resolving with IV fluids
#Transaminitis
#A-fib
#Elevated CK; trending down
#Hyperbilirubinemia; improved
Recommendations:
Continue azithromycin (d#9)
Continue empiric PNA coverage with ceftriaxone, Flagyl (d#3)
Overall outlook continues to remain guarded. Patient remains critically ill in intensive care unit; on pressors.
����������������������������������������������������������
Chief Complaint
-: Pneumonia (Legionella) and Other (CHERIE)
Subjective / Review of Systems
Patient seen and examined. Remains vent dependent at this time.
Review of Systems: No Fever
Vital Signs / Physical Exam
Vital Signs
Vital Signs
Temp Pulse Resp BP Pulse Ox
98.8 F 82 20 124/53 98
04/28/24 07:53 04/28/24 06:30 04/28/24 06:30 04/28/24 06:30 04/28/24 08:24
Physical Exam
Constitutional: Comfortable, Chronically Ill, Non-toxic and Other (Unresponsive, sedated)
Head: Normocephalic
Eyes: Sclera Anicteric
Oropharyngeal: Other (ET tube in place.)
Cardiovascular: Regular Rate and S1/S2; Negative S3/S4
Pulmonary: Rhonchi and Other (On ventilator)
Gastrointestinal: Soft, Non Distended, Normal Bowel Sounds, No Rebound and No Guarding
Genito-Urinary: Beltre
Extremities: Edema (Bilateral upper extremities)
Skin: Negative Rash or Jaundice
Neurological: Other (Minimally responsive); Negative Meningeal Signs
Objective Data
Lab Data
Lab Results
04/28/24 04:04
ESR 39 mm/hour (0-20) H 04/22/24 05:14
PT 13.5 Sec (11.4-14.6) 04/26/24 18:45
INR 1.03 04/26/24 18:45
APTT 131.0 Sec (23.4-35.0) H 04/28/24 00:10
Estimated Creat Clear 30 ml/min 04/28/24 04:04
Lactic Acid Cancelled 04/26/24 18:45
Total Bilirubin 0.6 mg/dl (0.2-1.3) 04/28/24 04:04
AST 61 U/L (14-36) H 04/28/24 04:04
ALT 106 U/L (0-35) H 04/28/24 04:04
Alkaline Phosphatase 294 U/L (38-126) H 04/28/24 04:04
Most recent labs reviewed.
Micro Results:
04/25/24 15:04 Urine Culture - Final
Urine Escherichia coli
04/25/24 16:56 CSF Culture - Preliminary
Csf No Growth After 48 Hours
Gram Stain - Preliminary
04/25/24 16:56 Fungal Culture - Preliminary
Csf Culture in progress.
Positive cultures are reported as soon as detected.
Final report to follow in four to five weeks.
04/25/24 16:56 Meningitis/Encephalitis Panel (PCR) - Final
Csf
04/20/24 11:40 Blood Culture - Final
Blood/Venous No Growth - Final Report
04/20/24 11:19 Blood Culture - Final
Blood/Venous No Growth - Final Report
04/20/24 07:26 Legionella Urinary Antigen - Final
Urine Positive for L. pneumophila Ag
Imaging:
04/20/2024 Echo (TTE): Normal LV size and wall thickness. Mild mitral regurgitation. Mild tricuspid regurgitation. No intracardiac mass or thrombus formation seen.
04/19/2024 CXR (2 view): Large amount of asymmetric right lower lobe opacity most suggestive of SEVERE RIGHT LOWER LOBE PNEUMONIA. A right lower lobe lung cancer or asymmetric inflammatory interstitial disease are considered less likely.
[2024-04-28] MEDS: PROTONIX 100 IV ×2 (08:45→17:09)
--- NOTE | 2024-04-28 09:10 | W.PN.GI.CBS2 ---
Today's Communication / Plan
-
-- agree with stopping heparin gtt
-- continue ppi gtt
-- supportive care, do not recommend EGD at this time but addressing goals of care given her chronic decompensating neurologic disease
Assessment / Plan
-
The pt is a 78-year-old female with PMH significant for hypertension, high cholesterol, osteoporosis, chronic elevated LFTs from [facility], who presented initially to with fatigue, weakness, noted to have Legionella pneumonia, metabolic acidosis,
acute renal insufficiency, also noted to have black stool. Her hgb has drifted but there are no signs of active/brisk bleeding and placed on IV PPI. She was nonverbal and obtunded progressively and required Bipap, and ultimately requiring
intubation overnight due to hypoxic respiratory failure, now requiring pressors. LFT's were elevated as well but chronic elevated with hx of [facility] following with Dr. Weinstein. These have stabilized. US imaging was unrevealing for liver etiology. She
has no active signs of bleeding with hgb 8.8.
04/26: She is moved to the IMU and on BIPAP. Had a spinal tap 04/25/24
Problem list/recommendations:
#1 Anemia/GIB:
-- Secondary to melena/burgundy stool, pressors have been decreased. On a heparin drip for atrial fibrillation
--Most recent stool was brown -had a long discussion with neurology. Patient has had progressive weakness and is currently obtunded not on sedation with no etiology other than some progressive neurologic incident like ALS
--In the setting of her poor prognosis, doubt putting her on heparin drip to reduce stroke risk makes any sense and would highly recommend stopping heparin drip
--Discussed with the ICU rounding team, neurology and they are all in agreement and heparin drip will be stopped. Apparently cardiology already spoke to them about this and agrees
--Supportive care, goals of care need to be addressed
#2 Chronic elevation in LFTs, follows up with Dr. Weinstein, hepatology at [facility]
--No evidence of cirrhosis of the liver.
--Recent elevation in LFTs could be related to underlying Legionella infection/antibiotics v septic shock v other. These are stable
--Abdominal ultrasound without any acute etiology for elevated liver enzymes.
--Hepatitis serologies were negative (immune to Hep A and B)
--Continue to trend LFT's
--Avoid hepatotoxins
Other pertinent problems (management as per ICU team/hospitalist):
-Acute hypoxic respiratory failure
-Legionella pneumonia
-Altered mental status, unlikely liver related given there are no signs of cirrhosis
-Acute renal insufficiency
-A-fib with RVR
-CHERIE on CKD
-Rhabdomyolysis
-Hyponatremia
-Metabolic acidosis
Please call us if we can help.
Total Time Spent with Patient (in minutes): 30
Subjective
Subjective
Date of Service: April 28, 2024
Patient is obtunded. Not sedated. Episode of burgundy stool around 730. Just had a more brown stool just now. Currently on heparin drip for A-fib
Objective
Data Reviewed
Laboratory Data:
Laboratory Results
04/28/24 04:04
Laboratory Results
PT 13.5 Sec (11.4-14.6) 04/26/24 18:45
INR 1.03 04/26/24 18:45
APTT 131.0 Sec (23.4-35.0) H 04/28/24 00:10
Magnesium 2.2 mg/dl (1.6-2.3) 04/20/24 22:14
Total Bilirubin 0.6 mg/dl (0.2-1.3) 04/28/24 04:04
AST 61 U/L (14-36) H 04/28/24 04:04
ALT 106 U/L (0-35) H 04/28/24 04:04
Alkaline Phosphatase 294 U/L (38-126) H 04/28/24 04:04
Lipase 320 U/L (23-300) H 04/19/24 15:15
Vital Signs and I&O:
Vital Signs
Temp Pulse Resp BP Pulse Ox
98.8 F 82 20 124/53 98
04/28/24 07:53 04/28/24 06:30 04/28/24 06:30 04/28/24 06:30 04/28/24 08:24
I&O
04/27/24 04/28/24 04/29/24
06:59 06:59 06:59
Intake Total 1271.3 / 1271.3 1369.1 / 1430.6 148.0 / 148.0
Output Total 910 / 910 195 / 195
Balance 361.3 / 361.3 1174.1 / 1235.6 148.0 / 148.0
Physical Exam
Physical Exam
Rectal: Brown
Neuro: Other (Obtunded)
--- NOTE | 2024-04-28 09:19 | W.PN.CARDCBS ---
Today's Communication / Plan
-
Stop IV heparin and follow hemoglobin. Hemoglobin down to 7.8
Continue norepinephrine for supportive care. Hopefully blood pressure improves and can restart low-dose beta-chase
Wean oxygen as tolerated on vent
Continue broad-spectrum antibiotic for legionnaires pneumonia
Now off Mestinon and awaiting evaluation with acetylcholine antibody
Remains in sinus rhythm.
Impression / Plan
-
PCP: Dr. Good
Primary Deputy Director Of Nursing: none, initially seen by Maylin
Impression:
Admitted with weakness 04/19/24
Severe RLL Legionella PNA
Newly diagnosed paroxysmal Afib
apical wall motion abnormality
Not chronically anticoagulated due to new diagnosis of Afib and new melanotic stools
VDRF since 04/26/24
Heme positive, melanotic stools
Anemia
Change in mental status
CHERIE
Hypokalemia
Elevated troponin, suspected nonischemic myocardial injury
Elevated LFTs, in setting of NICHOLE followed at [facility]
HTN
HLD
asthma
osteoporosis
MINTO
ECHO 04/20/24: EF 60-65%, mild MR, mild MR, PAP 30-35mmHg
echo 04/27/24: EF 60%, apical akinesis, PA 25
Plan:
Echo yesterday with apical wall motion abnormality but preserved EF. The etiology of this remains unclear. Cardiac troponins continue to trend down.
Possibilities include Takotsubo's, versus embolic event from A-fib and coronary artery, versus coronary artery disease.
At this point with hemoglobin dropping down to 7.8 I would stop IV heparin and follow hemoglobin. She also continues to have black tarry stool.
EKG with deep T wave inversions. Would recommend continued supportive care.
Continue norepinephrine for pressor support and continue to wean oxygen as tolerated. Remains off beta-chase therapy for now.
Continue broad-spectrum antibiotics. Once hemoglobin stabilizes would consider adding low-dose aspirin.
Creatinine overall stable at 1.3.
CC time 33 min
HPI: Patient is a 78-year-old female with past medical history of hypertension, hyperlipidemia, asthma, NICHOLE followed at [facility] MINTO, osteoporosis who was seen in PCP office 04/16/2024 due to fatigue and weight loss. Labs ordered and were abnormal
with elevated LFTs. 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 She has had poor appetite, lethargy, confusion resulting in her bringing her to ER. CXR on admission with evidence of severe R PNA, positive for legionella. Also with
significant electrolyte abnormalities and metabolic acidosis. Cardiology consulted due to new afib (of note, she had EKG with PVCs in PCP office 04/16 and was ordered echo and stress test). She denies cardiac history and does not feel palpitations.
She is presently rate controlled. She is having dark, tarry, heme positive stools per nursing.
Progress Note - Deputy Director Of Nursing
Subjective
Date of Service: April 28, 2024
Remains intubated but FiO2 down to 70%. Having black tarry stool.
Objective
Labs:
04/28/24 04:04
Labs
Hgb 7.8 g/dL (12.0-16.0) L 04/28/24 04:04
Hct 22.9 % (37.0-47.0) L 04/28/24 04:04
Plt Count 323 10^3/uL (130-400) 04/28/24 04:04
PT 13.5 Sec (11.4-14.6) 04/26/24 18:45
INR 1.03 04/26/24 18:45
APTT 131.0 Sec (23.4-35.0) H 04/28/24 00:10
Sodium 137 mmol/L (135-145) 04/28/24 04:04
Potassium 3.8 mmol/L (3.5-5.1) 04/28/24 04:04
BUN 71 mg/dl (7-17) H 04/28/24 04:04
Creatinine 1.3 mg/dL (0.6-1.0) H 04/28/24 04:04
Glucose 169 mg/dl (70-99) H 04/28/24 04:04
Troponins
04/26/24 04/26/24 04/27/24
18:45 20:00 02:25
Troponin I 0.891 H* Cancelled 0.518 H* D
04/27/24 04/27/24
08:37 17:38
Troponin I 0.369 H* D 0.216 H*
Vital Signs and I&O:
Vital Signs
Temp Pulse Resp BP Pulse Ox
98.8 F 82 20 124/53 98
04/28/24 07:53 04/28/24 06:30 04/28/24 06:30 04/28/24 06:30 04/28/24 08:24
Vital Signs
Temp Pulse Resp BP Pulse Ox
98.8 F 82 20 124/53 98
04/28/24 07:53 04/28/24 06:30 04/28/24 06:30 04/28/24 06:30 04/28/24 08:24
Intake & Output
04/26/24 04/27/24 04/28/24 04/29/24
06:59 06:59 06:59 06:59
Intake Total 625 / 625 1271.3 / 1271.3 1369.1 / 1430.6 148.0 / 148.0
Output Total 2049 / 2049 910 / 910 195 / 195
Balance -1425 / -1425 361.3 / 361.3 1174.1 / 1235.6 148.0 / 148.0
Physical Exam
Physical Exam
GEN: intubated/sedated
HEENT: supple, anicteric, mmm
LUNGS: scatt rhonchi
CV: Reg, S1/S2, 1/6 syst LSB, no gallop
ABD: soft, BS+, NT/ND
EXT: No edema
NEURO: sedated
SKIN: No rash
[2024-04-28 09:26] LABS: APTT 93.1 Sec (23.4-35.0)
--- NOTE | 2024-04-28 09:30 | W.PN.NEPH.PH ---
Today's Communication / Plan
-
lasix
Assessment/Plan
-
Assessment
Malaise, decreased appetite
Hypertension
Sinus tachycardia with PACs
Acute kidney injury
Hyponatremia
Metabolic acidosis
Elevated LFTs
Fatty liver
Confusion
Pneumonia with positive urinary Legionella antigen
Plan
wean pressors as allowed
TF continues with FWF 25ml/hr
lasix 40mg IV daily for some diuresis
follow BMP
maintain daniel for now
await ACR Ab
abx continue for PNA
d/w
critical care time 31 minutes
-
-
Date of Service: April 28, 2024
CC / HPI / ROS
-
Chief Complaint:
Hyponatremia
CHERIE
History of Present Illness:
CHERIE/Cr improved to 1.3 stable
Hgb low 7.8
critically ill in ICU on pressors still and vent
high O2 requirements still 70%
afib rate controlled
on abx for legionella PNA
Na normal at 137, TF/FWF in progress
Review of Systems:
Nonoliguric via daniel
Feeding tube
No fevers
weight up
Labs
-
Labs:
WBC 15.2 10^3/uL (4.8-10.8) H 04/28/24 04:04
RBC 2.63 10^6/uL (4.20-5.40) L 04/28/24 04:04
Hct 22.9 % (37.0-47.0) L 04/28/24 04:04
Plt Count 323 10^3/uL (130-400) 04/28/24 04:04
Sodium 137 mmol/L (135-145) 04/28/24 04:04
Potassium 3.8 mmol/L (3.5-5.1) 04/28/24 04:04
Chloride 101 mmol/L (98-107) 04/28/24 04:04
Carbon Dioxide 31 mmol/L (22-30) H 04/28/24 04:04
BUN 71 mg/dl (7-17) H 04/28/24 04:04
Creatinine 1.3 mg/dL (0.6-1.0) H 04/28/24 04:04
eGFR 42.09 04/28/24 04:04
Glucose 169 mg/dl (70-99) H 04/28/24 04:04
Calcium 9.5 mg/dl (8.4-10.2) 04/28/24 04:04
Sdo-F-Dbxdyenhsjz Pept 86903 pg/ml 04/20/24 11:40
Albumin 2.7 g/dl (3.5-5.0) L 04/28/24 04:04
Physical Exam
-
Vital Signs:
Vital Signs
Temp Pulse Resp BP Pulse Ox
98.8 F 95 26 107/48 98
04/28/24 07:53 04/28/24 09:15 04/28/24 09:15 04/28/24 09:15 04/28/24 08:24
Cardiovascular:: Regular rate and rhythm
Respiratory:: Bilateral: Coarse and Bilateral: Rales
Lung Excursion:: Normal
Abdomen:: Nontender and Soft
Bowel Sounds:: Normal
Extremity Edema:: +1: Bilateral:
--- NOTE | 2024-04-28 09:44 | PTCARENOTE ---
Heparin gtt stopped as instructed by Laser Engraver and Sprinkler Fitter.
[2024-04-28 10:17] LABS: Hemoglobin 8.1 g/dL (12.0-16.0)
--- NOTE | 2024-04-28 10:39 | W.PN.NEURO.1 ---
Today's Communication / Plan
-
.
Neuro Assessment/Plan
Assessment
IMPRESSIONS/RECOMMENDATIONS:
Abrupt change in tone and mental status.
Most likely due to toxic metabolic factors producing generalized fatigue.
Long-term difficulty with the patient's gait in the form of inability to climb stairs may be secondary to a neuromuscular junction disorder such as myasthenia gravis or severe cognitive impairment.
Patient completed thiamine supplementation.
MRI of brain fails to demonstrate an acute abnormality producing patient's symptomatology. There is also no evidence of encephalitis producing symptoms. Severe diffuse atrophy suggestive of a severe neurodegenerative disease, possibly Alzheimer's.
Lumbar puncture was unremarkable.
EEG moderately abnormal due to bursts of rhythmic delta activity, suggestive of generalized cortical disruption, non-epileptiform.
-EEG 04/27/24: Moderately to severely abnormal study for age based on bursts of generalized and generalized slowing demonstrated bihemispheric equally. Intermittent posteriorly predominant rhythmic and rhythmic delta activity (1/second) which was
medium amplitude lasting between three and 20 seconds. This study was suggestive of a generalized cortical disruption which was non-epileptiform.
-MRI brain 04/27/24: No MRI evidence for osmotic demyelination syndrome. Severe bilateral temporal lobe volume loss and moderate volume loss in the frontal and parietal lobes suggesting a SEVERE NEURODEGENERATIVE DISEASE (probably Alzheimer's
dementia). Mild periventricular white matter leukoaraiosis in the frontal lobes. Endotracheal tube in place. Moderate layering fluid in the posterior nasopharynx and oropharynx.
-MRI cervical spine 04/27/24: Severe discogenic degenerative disease at C3/C4, C5/C6, and C6/C7. Moderate-sized left central disc-osteophyte complex at C6/C7 causing mild spinal cord compression and central canal stenosis. 2 mm anterolisthesis of C4
on C5 secondary to moderate left-sided facet joint arthrosis. Moderate left neural foraminal narrowing at C4/C5. Severe bilateral temporal lobe volume loss.
Plan
-Continue Keppra 500mg IV q12hrs for abnormal delta activity observed on EEG on 04/27/24, routine EEG pending for today.
-Goal normotension.
-Minimize sedation when possible.
-Acetylcholine receptor and MUSK antibodies pending. Will discontinue Mestinon, unclear that this is benefiting the patient.
-DVT prophylaxis with SCDs due to concern of bleeding.
Subjective/Objective
Subjective Data
Date of Service: April 28, 2024
Patient remains intubated in the ICU, minimally responsive. Currently off of sedation, still requiring norepinephrine. Heparin gtt discontinued due to black stools and hemoglobin 7.8.
Objective Data
Vital Signs
Temp Pulse Resp BP Pulse Ox
98.8 F 93 25 95/49 99
04/28/24 07:53 04/28/24 10:00 04/28/24 10:00 04/28/24 10:00 04/28/24 10:37
Lab Results
04/28/24 04:04
PT 13.5 Sec (11.4-14.6) 04/26/24 18:45
INR 1.03 04/26/24 18:45
APTT 93.1 Sec (23.4-35.0) H 04/28/24 08:33
Sodium 137 mmol/L (135-145) 04/28/24 04:04
Potassium 3.8 mmol/L (3.5-5.1) 04/28/24 04:04
BUN 71 mg/dl (7-17) H 04/28/24 04:04
Glucose 169 mg/dl (70-99) H 04/28/24 04:04
Calcium 9.5 mg/dl (8.4-10.2) 04/28/24 04:04
Fra-K-Akpwdixnmsl Pept 71999 pg/ml 04/20/24 11:40
Vitamin B12 > 1000 pg/ml (239-931) H 04/22/24 05:14
Patient Allergies
Sulfa (Sulfonamide Antibiotics) Allergy (Verified 04/19/24 15:02)
Hives
Review of Systems
-
Unable to obtain full review of systems at this time due to: Acuity
Physical Exam
-
General: Intubated
Eyes: PERRLA
HEENT: Normocephalic and Atraumatic
Neck: Unable to Assess
Respiratory: Other (mechanical ventilation)
GI: Non-distended
Extremities: No Clubbing, No Cyanosis and No Edema
Psych: Unable to Assess
Extended Neurological Exam
Mood & Affect: Unable to Assess
Attention Span & Concentration: Other (opens eyes to pain, occasionally opens eyes spontaneously)
Memory: Unable to Assess
Tremor: Hand Tremor Absent and Head Tremor Absent
Involuntary Movement: None
Speech: Unable to Assess
Cranial Nerve II: Left Eye: Pupillary Reactivity Unremarkable and Unable to Assess Visual Goldstein; Negative Pupillary Size Unremarkable (2mm)
Cranial Nerve II: Right Eye: Pupillary Reactivity Unremarkable and Unable to Assess Visual Goldstein; Negative Pupillary Size Unremarkable (2mm)
Cranial Nerves III, IV, : Extraocular Movement: Unable to Assess (no apparent gaze deviation)
Cranial Nerve V: Facial Sensation: Unable to Assess
Cranial Nerve VII: Facial Symmetry: Unable to Assess
Cranial Nerve VIII: Hearing: Unable to Assess
Cranial Nerves IX, X: Palate Movement: Unable to Assess
Cranial Nerve XI: Shoulder Shrug: Unable to Assess
Cranial Nerve XII: Tongue Protusion: Unable to Assess
Muscle Strength, Overall: Other (withdraws all extremities to pain, occasional spontaneous limb movement in all 4 extremities.)
Muscle Bulk & Tone: Bulk Unremarkable and Reduced Tone
Pronator Drift: Unable to Assess
Deep Tendon Reflexes: Unremarkable Throughout
Cold Sensation: Unable to Assess
Vibration Sensation: Unable to Assess
Touch Sensation: Unable to Assess
Coordination: Unable to Assess
Babinski Sign: Absent Bilaterally
Gait & Station: Unable to Assess
Data Reviewed
-
MRI Head: Report Reviewed and Image Reviewed
MRI Cervical Spine: Report Reviewed and Image Reviewed
EEG: Pending and Report Reviewed
Labs: Report Reviewed
Reviewed with: Physician and Nurse
Medications
-
Active Medications
Generic Name Dose Route Start Last Admin
Trade Name Freq PRN Reason Stop Dose Admin
Acetaminophen 650 mg 04/28/24 12:00
Acetaminophen (Oral Solution) 650 Mg/20.3 Ml Cup PO 05/26/24 11:59
Q6 CHASE
Bisacodyl 10 mg 04/19/24 19:21
Bisacodyl 10 Mg Rectal Suppository RECTAL 05/17/24 19:20
[id number] PRN
constipation
Ceftriaxone Sodium 2,000 mg 04/26/24 18:00 04/27/24 17:19
Ceftriaxone 2,000 Mg/20 Ml Vial IV 2,000 mg
Q24H CHASE Administration
Dextrose 12.5 grams 04/27/24 13:00
Dextrose 50% (0.5 Grams/Ml) 50 Ml Syringe IV 05/25/24 12:59
[id number] PRN
hypoglycemia
Protocol
Furosemide 40 mg 04/28/24 10:00 04/28/24 10:47
Furosemide 40 Mg (10 Mg/Ml) 4 Ml Vial IV 05/26/24 09:59 40 mg
DAILY CHASE Administration
Glucagon 1 mg 04/27/24 13:00
Glucagon 1 Mg Vial IM 05/25/24 12:59
PRN PRN
hypoglycemia - no IV access
Protocol
Azithromycin 500 mg in 250 mls @ 250 mls/hr 04/20/24 10:00 04/28/24 10:55
Zithromax Infusion IV 250 mls
Q24H CHASE Administration
Metronidazole 100 mls @ 100 mls/hr 04/26/24 18:00 04/28/24 09:47
Flagyl 500 Mg IV 100 mls
Q8H CHASE Administration
Norepinephrine Bitartrate 4 mg in 250 mls @ 0 mls/hr 04/26/24 19:00 04/28/24 00:56
Levophed IV 250 mls
PER PROTOCOL CHASE Administration
Protocol
Per Protocol
Pantoprazole Sodium 80 mg in 100 mls @ 10 mls/hr 04/28/24 08:00 04/28/24 08:45
Protonix IV 100 mls
Q10H CHASE Administration
8 MG/HR
Insulin Aspart 0 units 04/27/24 18:00 04/28/24 06:35
Insulin Aspart Moderate Resistance 300 Units/3 Ml Pen.Injctr SC 05/25/24 17:59 Not Given
Q6 CHASE
Protocol
Levetiracetam 500 mg 04/27/24 20:00 04/28/24 07:34
Levetiracetam (100 Mg/Ml) 500 Mg/5 Ml Vial IV 05/25/24 19:59 500 mg
Q12 CHASE Administration
Metoprolol Tartrate 5 mg 04/19/24 18:08 04/27/24 17:07
Metoprolol 5 Mg/5 Ml Vial IV 05/17/24 18:07 5 mg
Q6HPRN PRN Administration
HR>110
Metoprolol Tartrate 25 mg 04/25/24 18:00 04/26/24 17:02
Metoprolol 25 Mg Regular Release Tablet TUBE 05/23/24 17:59 25 mg
Q6 CHASE Administration
Midodrine 5 mg 04/28/24 16:00
Midodrine 5 Mg Tablet PO 05/26/24 15:59
Q8 HCASE
Polyethylene Glycol 17 grams 04/19/24 19:21
Polyethylene Glycol Powder 17 Grams Packet PO 05/17/24 19:20
DAILYPRN PRN
constipation
Polyethylene Glycol 17 grams 04/27/24 08:00 04/28/24 07:35
Polyethylene Glycol Powder 17 Grams Packet TUBE 05/25/24 07:59 Not Given
DAILY CHASE
Senna/Docusate Sodium 1 tablet 04/19/24 19:21
Docusate W/Senna (Gabrielle-Colace) Tablet PO 05/17/24 19:20
BIDPRN PRN
constipation
Sodium Chloride 0 flush 04/19/24 19:00 04/22/24 07:48
Sodium Chloride 0.9% (Flush) Syringe IV 05/17/24 18:59 2 flush
PER PROTOCOL CHASE Administration
Sterile Water 20 ml 04/26/24 18:00 04/27/24 17:19
Sterile Water For Injection 20 Ml Vial IV 05/24/24 17:59 20 ml
Q24H CHASE Administration
Home Medications
�Medication �Instructions �Recorded
simvastatin 40 mg tablet 40 mg PO QPM High Cholesterol 05/11/11
lisinopril 20 1 tab PO DAILY Blood Pressure 04/19/24
mg-hydrochlorothiazide 12.5 mg
tablet
risedronate 35 mg tablet 35 mg PO WEEKLY Osteoporosis 04/19/24
[2024-04-28] MEDS: LASIX 40 MG IV (10:47)
[2024-04-28] MEDS: ZITHROMAX INFUSION 250 IV (10:55)
--- NOTE | 2024-04-28 11:07 | CHAP ---
Emotional and spiritual support provided for Gabriella and at bedside. Prayer blanket given. Stories and tears shared. Will follow.
[2024-04-28] MEDS: TYLENOL ORAL SOLUTION 650 MG TUBE ×3 (11:41→23:02)
[2024-04-28 11:55] LABS: Glucose - Point of Care 167 mg/dl (70-99)
--- NOTE | 2024-04-28 12:24 | PTCARENOTE ---
EEG performed. Lasix given with large void noted. Liquid BMs continue but less obvious burgundy. Pt noted to be in afib 110s at this time.
--- NOTE | 2024-04-28 12:59 | EEG.RPT ---
Electroencephalogram Report
Recording
Date of EE04/28/24
Type of EEG: Routine
Length of EEG recordin mins
Done with Video Recording: Yes
Patient Status: Inpatient
Recording Conditions: Other (intubated, eyes closed)
Hyperventilation Performed: No
Photic Stimulation Performed: Yes
Report
METHODS
A 21 channel digitized electroencephalogram was performed at [facility]. The 10/20 international system of electrode placement was used. In addition to EEG, the patient was monitored for EKG. The duration of the recording was 27 minutes.
BACKGROUND
With the eyes closed, the background was diffusely slow to ~6-8Hz with intermittent superimposed frontally predominate triphasic waves, 2-3Hz.
HYPERVENTILATION
Hyperventilation was not performed.
PHOTIC STIMULATION
Photic stimulation using a step-chin increase in photic frequency varying from 1-31 Hertz resulted in no driving responses but no appearance of abnormal activity.
CLINICAL EVENTS
None
INTERPRETATION AND CLINICAL CORRELATION
This EEG is abnormal due to the presence of diffuse slowing to ~6-8Hz with intermittent superimposed frontally predominate triphasic waves, 2-3Hz. The study is consistent with moderate diffuse cerebral dysfunction; triphasics can be seen with
metabolic encephalopathies. No clear seizures were noted.
--- NOTE | 2024-04-28 13:49 | PTCARENOTE ---
SBT stopped due to afib rate increasing to 140 and requiring increasing Levophed titration.
[2024-04-28] MEDS: LOPRESSOR 5 MG IV (14:45)
--- NOTE | 2024-04-28 15:16 | PTCARENOTE ---
Lopressor given for HR up to 145. Afib continues after IVP at 80s.
[2024-04-28] MEDS: HEPARIN 5000 UNITS SC ×2 (15:50→23:03)
[2024-04-28] MEDS: ProAmatine 5 MG TUBE ×2 (15:50→23:03)
[2024-04-28 15:56] LABS: Hemoglobin 7.4 g/dL (12.0-16.0)
[2024-04-28] MEDS: NOVOLOG FLEXPEN-MODERATE RESISTANCE 1 UNITS SC ×2 (17:01→23:40)
[2024-04-28 17:07] LABS: Glucose - Point of Care 164 mg/dl (70-99)
[2024-04-28] MEDS: STERILE WATER FOR INJECTION 20 ML IV (17:16)
[2024-04-28] MEDS: ROCEPHIN 2000 MG IV (17:16)
--- NOTE | 2024-04-28 20:00 | PTCARENOTE ---
Rec'd pt w/ wrists restrained bilat for safety, eyes open spont, [id number], sluggish, no response to commands, moving arms spontaneously, weak gag, to avoid sedation per Dr Crenshaw if possible, Afib, bp stable, to keep MAP > 65 w/ levophed- presently at
9 jackson, see flow sheet for titrations, + anasarca, distal pulses via doppler, #8 oral ett- 23 cm- moved to R lip, ac 14, tv 300, 5 peep, 40%, sat 95, lungs w/ rhonchi, decr in bases, suct for white secretions, hypo bowel sounds, abd round, soft,
rectal trumpet inserted for loose brown stool, R nares dobhoff- jevity 1.5 at 35ml/hr & 25ml/hr h20 flush, no vomiting, inc of urine
[2024-04-28 21:25] LABS: Hemoglobin 7.6 g/dL (12.0-16.0)
[2024-04-28 23:36] LABS: Glucose - Point of Care 171 mg/dl (70-99)
--- NOTE | 2024-04-28 23:51 | PTCARENOTE ---
sys reviewed, changes noted, NSR, bladder scanned for 222 ml, purewick placed, CHG bath done, linens changed
[2024-04-29] VITALS (76 sets, daily range): BP systolic 94–138; BP diastolic 45–83; BMI 19.2
[2024-04-29] MEDS: FLAGYL 500 MG 100 IV ×3 (01:38→17:37)
[2024-04-29] MEDS: PROTONIX 100 IV (02:16)
[2024-04-29] MEDS: LEVOPHED 250 IV (03:53)
[2024-04-29 04:07] LABS: Mean Corp Hgb Conc. 33.7 g/dL (33.0-37.0); Mean Corpuscular Hgb 28.5 pg (27.0-31.0); Mean Corpuscular Volume 84.7 fL (81.0-99.0); Mean Platelet Volume 10.1 fL (7.4-10.4); Platelet Count 313 10^3/uL (130-400); Red Blood Cell Count 2.42 10^6/uL (4.20-5.40); White Blood Cell Count 8.5 10^3/uL (4.8-10.8)
[2024-04-29 04:11] LABS: Hematocrit 20.5 % (37.0-47.0); Hemoglobin 6.9 g/dL (12.0-16.0)
--- NOTE | 2024-04-29 04:15 | PTCARENOTE ---
sys reviewed, ett repos on Left side at 23cm, bladder scanned for 390ml, voided 200mlR arm ecchymotic
--- NOTE | 2024-04-29 04:20 | PTCARENOTE ---
Nolberto Cantrell NP aware of hgb
[2024-04-29 04:33] LABS: ALT (SGPT) 68 U/L (0-35); AST (SGOT) 36 U/L (14-36); Albumin 2.2 g/dl (3.5-5.0); Alkaline Phosphatase 252 U/L (38-126); Blood Urea Nitrogen 74 mg/dl (7-17); Calcium 8.6 mg/dl (8.4-10.2); Carbon Dioxide 27 mmol/L (22-30); Chloride 103 mmol/L (98-107); Estimated Creatinine Clearance 33 ml/min; Glucose 139 mg/dl (70-99); Potassium 3.1 mmol/L (3.5-5.1); Sodium 138 mmol/L (135-145); Total Bilirubin 0.3 mg/dl (0.2-1.3); Total Protein 4.5 g/dl (6.3-8.2); eGFR 46.33
[2024-04-29] MEDS: KCL 100 IV (05:03)
[2024-04-29] MEDS: TYLENOL ORAL SOLUTION 650 MG TUBE ×3 (05:03→17:38)
--- NOTE | 2024-04-29 05:04 | PTCARENOTE ---
K+-3.1 40 kcl/ 100 hung over 4hr per order
[2024-04-29 05:39] LABS: Glucose - Point of Care 137 mg/dl (70-99)
[2024-04-29] MEDS: NOVOLOG FLEXPEN-MODERATE RESISTANCE SC ×3 (05:40→17:48)
--- NOTE | 2024-04-29 06:31 | PTCARENOTE ---
consent obtained from for prbc by Nolberto Cantrell Np; order obtained to transfuse prbc
[2024-04-29] MEDS: ProAmatine 5 MG TUBE ×2 (07:12→12:04)
[2024-04-29] MEDS: LASIX 40 MG IV (07:12)
[2024-04-29] MEDS: KEPPRA 500 MG IV ×2 (07:12→20:17)
[2024-04-29] MEDS: HEPARIN 5000 UNITS SC ×2 (07:12→16:07)
[2024-04-29] MEDS: MIRALAX TUBE (07:13)
--- NOTE | 2024-04-29 07:15 | W.PN.INTV ---
Today's Communication / Plan
Recommendations
PS wean, extubation pending family decision on code status
Continue to hold on any/all sedation, MS improving
Abx continued per ID
Rate control management per cards
Assessment
-
78-year-old female with history of Nichole, hypertension, recent fatigue, poor appetite with negative COVID workup as outpatient. Chest x-ray reveals right lower lobe pneumonia, sodium level is 121, renal insufficiency, urine Legionella antigen
positive. We are asked to help from critical care standpoint 04/20/2024
Legionella pneumonia, right lower lobe
Malaise, anorexia, fatigue x 3 days
Mental status changes, TME
Profound weakness
Acute hypoxic respiratory insufficiency
Intubated 04/26/2024, transferred to ICU
Hypotension, requiring pressors
Acute hyponatremia
Acute renal insufficiency
Sinus tachycardia
Metabolic acidemia
Normal lactate
Hypokalemia
Acute transaminitis/Fatty liver hx
Elevated bilirubin
Mildly elevated troponin
Cachexia, weight loss
Conditions present prior to admission
Hypertension
Hyperlipidemia
History of osteoporosis
NICHOLE
85-gynt-llem history of smoking quit 1984
Plan/recommendations
At this time, patient remains critically ill
To review, was transferred to IMU due to progressive neurological disease over the weekend/was on BiPAP intermittently
Developed hypotension, hypoxia requiring intubation, transferred to ICU
Oxygen requirement seems to be worse, requiring FiO2 80%, pO2 73
Chest exam is clear. Chest x-ray with adequate aeration, improvement of right pleuroparenchymal process
Neurological exam still not improved, profoundly weak on exam. However during suction, she does move extremities, turning head
Mestinon therapy was started 04/26, IV keppra
Imaging negative neurology correspondence reviewed.
LP essentially negative, possible underlying NMD felt
MRI showing extreme volume loss suggestive of dementia
Reduce all sedation/maintain off to evaluate MS -- > MS improving today
Moving forward
Continue with antibiotics for Legionella pneumonia
QT adequate, remains on macrolide therapy
Infectious disease following. Follow cultures
Antibiotics have been broadened 04/26 for possible underlying sepsis. Currently on ceftriaxone/Flagyl/azithromycin
Urine culture positive for E. coli from 04/25
Atrial fibrillation developed with intermittent with rapid ventricular response. On Cardizem drip, now transition to oral Cardizem
Echocardiogram 04/20/2024 reveals normal biventricular function, mild MR, PA pressure 35
Anticoagulation would be difficult in the setting of black tarry stool.
Presently on norepinephrine. Beta-chase being held, add midodrine PO
Cardiology following. Mildly elevated troponin noted
Levo @4, wean as tolerated
Stop heparin gtt
Now with heme positive stool
Continue Protonix therapy daily
Follow hemoglobin
GI was consulted
Metabolic acidemia noted, hyponatremia and renal insufficiency noted
Given positive urine Legionella antigen, suspect Legionella pneumonia may be partly contributing to metabolic abnormality and clinical presentation
Unclear whether there may also be a component of SIADH. Nephrology following closely
Sodium improved to 137, creatinine improving to 1.3
Continue with management per nephrology
BLAKE inhibitor held
Potassium patient noted. Lasix therapy per nephrology noted
proBNP >11,000
Remains on mechanical ventilation: AC 14/300/5/80%, Pplat 11
ABG 7.52/41/73
Hypoxemia improving, wean vent settings/reviewed with RT
Continue with DVT prophylaxis, mechanical and pharmacological
Head of bed elevated, aspiration precautions
Daily chest x-ray if indicated
PS wean with plan to extubate pending family decision
Hyperglycemia noted
Increase sliding scale coverage
hemoglobin A1c 6.6
DVT prophylaxis: Subcutaneous heparin, and mechanical prophylaxis
GI prophylaxis: Remains on Protonix
Family Discussions
Dionisio 04/29/24- updated , we discussed re-intubation following PS wean if she were to clinically deteriorate on her post extubation trial. He at first stated that he wanted full code to continue but we discussed the likelihood that she would
need a trach if she could not go a prolonged period without the vent. He would like to discuss this with his daughter before making that decision as he knows she would not want tracheostomy. Will await decision making prior to extubation.
04/28/24- updated today, he clarified that if she could not extubate, he would make her comfort measures. He would like her to remain full code.
Kapil - Updated at length at bedside during rounds and again after rounds. initially requested DO NOT RESUSCITATE. He had stated during conversation 04/25 that patient has advanced directives that would not want life prolonging
measures such as mechanical ventilation, CPR. He reiterated her wishes this morning on rounds. He then rescinded DNR and patient is currently full code.
Diagnostic Data
Cervical MRI 04/27/24- 1. 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
2. Moderate-sized left central disc-osteophyte complex at C6/C7 causing mild spinal cord compression and central canal stenosis.
3. 2 mm anterolisthesis of C4 on C5 secondary to moderate left-sided facet joint arthrosis. Moderate left neural foraminal narrowing at C4/C5.
4. Severe bilateral temporal lobe volume loss.
5. Endotracheal tube in place.
6. Moderate layering fluid in the posterior nasopharynx and oropharynx.
CXR 04/26/24- Improved aeration of the right lower lung field concerning for pneumonia. Small loculated right pleural effusion. Improved. Mild right lower lung atelectasis versus scarring. Stable.
Moderate left lower lung atelectasis versus scarring. Progressed.
04/25/24- Mid to lower right lung pneumonia. Small right pleural effusion.
ECHO 04/27/24- Normal left ventricular wall thickness. Normal left ventricular chamber size. Normal left ventricular systolic function. . Left ventricular ejection fraction is 60% by Tuttle's method. There is apical akinesis. Tricuspid valve opens
normally. Mild to moderate tricuspid regurgitation. Estimated pulmonary artery pressure of 25 mmHg, assuming a right atrial pressure of 3 mmHg. Since echocardiogram 04/20/2024 which was reviewed, there is apical akinesis.
-----
Critical Care time 45 mins -- The patient is admitted for acute critical illness for the treatment of vital organ failure and/or prevention of further life-threatening conditions. Total care includes time spent in review of history, physical exam,
medications, hemodynamic/ventilator parameters, laboratory data, imaging and discussion with house staff, pharmacy, respiratory therapy, campaign associate, and nursing.
Subjective Dataa
Subjective Data
Date of Service:
Date of Service: April 29, 2024
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
Subjective:
doing well this AM, remains intubated
more awake today, interactive
PS wean ongoing
Objective Data
Data Reviewed
Vital Signs / I&O / Oxygen:
Vital Signs
Temp Pulse Resp BP Pulse Ox
98.0 F 70 15 102/51 98
04/29/24 03:11 04/29/24 07:00 04/29/24 07:00 04/29/24 06:45 04/29/24 07:00
Intake and Output
04/28/24 04/29/24 04/30/24
06:59 06:59 06:59
Intake Total 1369.1 / 1430.6 2843.46 / 2843.46
Output Total 195 / 195 275 / 275
Balance 1174.1 / 1235.6 2568.46 / 2568.46
SaO2 [A/C] 97
SaO2 98
Nasal Cannula flow liters per 4
minute
Physical Exam
General: Comfortable, Poor Appetite and Other (Cachectic)
HEENT: Normocephalic, Anicteric and Moist Mucous Membranes
Cardiovascular: S1-S2, Irregular Rhythm, Murmur (n) and Rub (n)
Respiratory: Wheeze (n), Crackles (n), Rhonchi (n), Non-Labored Respirations (Improved, less rapid shallow breathing), Stridor (n) and ET Tube
GI: Soft, Non Distended and Non Tender
Neurology: Awake, Alert and Other (following commands)
Skin: Cyanosis (n), Jaundice (n) and Rash (n)
Labs/Micro/Reports
Lab Data
04/29/24 04:00
04/29/24 03:52
Laboratory Results
04/28/24
08:33
APTT 93.1 H
Microbiology
04/28/24 10:52 Sputum Gram Stain - Preliminary
04/25/24 16:56 Csf CSF Culture - Preliminary
No Growth After 72 Hours
04/25/24 16:56 Csf Gram Stain - Preliminary
04/25/24 15:04 Urine Urine Culture - Final
Escherichia coli
04/25/24 16:56 Csf Fungal Culture - Preliminary
Culture in progress.
Positive cultures are reported as soon as detected.
Final report to follow in four to five weeks.
--- NOTE | 2024-04-29 08:15 | PTCARENOTE ---
on assessment, weak cough/gag, pupils 2 and sluggish, non-purposeful mvmt, not following any commands. SR with PACs on the monitor, on Levophed and protonix gtt. Weak but palpable DP pulses, +2 UE edema and +1generalized, 8.0 ETT 23 at the lip,
lungs rhonchi, R nare dobhoff with jevity at goal rate. placement verified by air/residual check. Rectal trumpet in place draining liquid brown stool with small amount of burgundy color. Barrier cream applied. Foam present on sacrum and heels. Foam
boots Bilat feet. 1unit PRBC infusing. at bedside.
--- NOTE | 2024-04-29 08:28 | W.PN.NEPH.PH ---
Today's Communication / Plan
-
Maintain IV lasix
Follow BMP
Replete potassium
Maintain MAP of 65 or greater with pressors
Undergoing blood transfusion for worsening anemia
Assessment/Plan
-
Assessment
Malaise, decreased appetite
Hypertension
Sinus tachycardia with PACs
Acute kidney injury
Hyponatremia
Metabolic acidosis
Elevated LFTs
Fatty liver
Confusion
Pneumonia with positive urinary Legionella antigen
Plan
Creatinine down to 1.2
Urine output unimpressive, but weights down
wean pressors as allowed but still requiring
TF continues with FWF 25ml/hr
maintain lasix 40mg IV daily for some diuresis
follow BMP
maintain daniel for now
await ACR Ab
abx continue for PNA
d/w
critical care time 31 minutes
Total Time Spent with Patient (in minutes): 32 minutes critical care time spent with patient
-
-
Date of Service: April 29, 2024
CC / HPI / ROS
-
Chief Complaint:
Hyponatremia
CHERIE
History of Present Illness:
CHERIE/Cr improved to 1.2 stable
hypokalemia
Hgb low 6.9
critically ill in ICU on pressors still and vent
high O2 requirements still 70%
afib rate controlled
on abx for legionella PNA
Na normal at 138, TF/FWF in progress
Review of Systems:
Nonoliguric via daniel
Feeding tube
No fevers
weight down
more awake and alert today
Labs
-
Labs:
WBC 8.5 10^3/uL (4.8-10.8) 04/29/24 03:52
RBC 2.42 10^6/uL (4.20-5.40) L 04/29/24 03:52
Hgb Cancelled 04/29/24 04:00
Hct 20.5 % (37.0-47.0) L* 04/29/24 03:52
Plt Count 313 10^3/uL (130-400) 04/29/24 03:52
Sodium 138 mmol/L (135-145) 04/29/24 03:52
Potassium 3.1 mmol/L (3.5-5.1) L 04/29/24 03:52
Chloride 103 mmol/L (98-107) 04/29/24 03:52
Carbon Dioxide 27 mmol/L (22-30) 04/29/24 03:52
BUN 74 mg/dl (7-17) H 04/29/24 03:52
Creatinine 1.2 mg/dL (0.6-1.0) H 04/29/24 03:52
eGFR 46.33 04/29/24 03:52
Glucose 139 mg/dl (70-99) H 04/29/24 03:52
Calcium 8.6 mg/dl (8.4-10.2) 04/29/24 03:52
Deo-L-Ehxvugzwgna Pept 94630 pg/ml 04/20/24 11:40
Albumin 2.2 g/dl (3.5-5.0) L 04/29/24 03:52
Physical Exam
-
Vital Signs:
Vital Signs
Temp Pulse Resp BP Pulse Ox
96.3 F L 79 20 119/59 98
04/29/24 07:53 04/29/24 07:53 04/29/24 07:53 04/29/24 07:53 04/29/24 08:00
Cardiovascular:: Regular rate and rhythm
Respiratory:: Bilateral: Coarse
Lung Excursion:: Normal
Abdomen:: Nontender and Soft
Bowel Sounds:: Decreased
Extremity Edema:: None: Bilateral:
Daniel Catheter: Yes
Other Findings::
gEn: Intubated but awake and interactive
--- NOTE | 2024-04-29 08:51 | W.PN.GI.CBS2 ---
Today's Communication / Plan
-
-- Agree with unit of blood. Continue PPI. At least twice daily IV
Assessment / Plan
-
The pt is a 78-year-old female with PMH significant for hypertension, high cholesterol, osteoporosis, chronic elevated LFTs from [facility], who presented initially to with fatigue, weakness, noted to have Legionella pneumonia, metabolic acidosis,
acute renal insufficiency, also noted to have black stool. Her hgb has drifted but there are no signs of active/brisk bleeding and placed on IV PPI. She was nonverbal and obtunded progressively and required Bipap, and ultimately requiring
intubation overnight due to hypoxic respiratory failure, now requiring pressors. LFT's were elevated as well but chronic elevated with hx of [facility] following with Dr. Weinstein. These have stabilized. US imaging was unrevealing for liver etiology. She
has no active signs of bleeding with hgb 8.8.
04/26: She is moved to the IMU and on BIPAP. Had a spinal tap 04/25/24
Problem list/recommendations:
#1 Anemia/GIB:
--Hemoglobin 6.9 getting 1 unit of blood
-- Secondary to melena/burgundy stool, pressors have been decreased stools are now brown -- . Off a heparin drip for atrial fibrillation
--Most recent stool was brown -had a long discussion with neurology. Patient has had progressive weakness and is currently obtunded not on sedation with no etiology other than some progressive neurologic incident like ALS
--Discussed with the ICU rounding team, neurology and they are all in agreement and heparin drip will be stopped. Apparently cardiology already spoke to them about this and agrees
--Supportive care, goals of care need to be addressed
#2 Chronic elevation in LFTs, follows up with Dr. Weinstein, hepatology at [facility]
--No evidence of cirrhosis of the liver.
--Recent elevation in LFTs could be related to underlying Legionella infection/antibiotics v septic shock v other. These are stable
--Abdominal ultrasound without any acute etiology for elevated liver enzymes.
--Hepatitis serologies were negative (immune to Hep A and B)
--Continue to trend LFT's
--Avoid hepatotoxins
Other pertinent problems (management as per ICU team/hospitalist):
-Acute hypoxic respiratory failure
-Legionella pneumonia
-Altered mental status, unlikely liver related given there are no signs of cirrhosis
-Acute renal insufficiency
-A-fib with RVR
-CHERIE on CKD
-Rhabdomyolysis
-Hyponatremia
-Metabolic acidosis
Please call us if we can help.
Subjective
Subjective
Date of Service: April 29, 2024
Patient is awake, responsive to voice and following commands to squeeze her hand. Stools are brown in the rectal trumpet and she is getting 1 unit of blood this morning
Objective
Data Reviewed
Laboratory Data:
Laboratory Results
04/29/24 04:00
04/29/24 03:52
Laboratory Results
PT 13.5 Sec (11.4-14.6) 04/26/24 18:45
INR 1.03 04/26/24 18:45
APTT 93.1 Sec (23.4-35.0) H 04/28/24 08:33
Magnesium 2.2 mg/dl (1.6-2.3) 04/20/24 22:14
Total Bilirubin 0.3 mg/dl (0.2-1.3) 04/29/24 03:52
AST 36 U/L (14-36) 04/29/24 03:52
ALT 68 U/L (0-35) H 04/29/24 03:52
Alkaline Phosphatase 252 U/L (38-126) H 04/29/24 03:52
Lipase 320 U/L (23-300) H 04/19/24 15:15
Vital Signs and I&O:
Vital Signs
Temp Pulse Resp BP Pulse Ox
96.3 F L 73 23 126/61 97
04/29/24 07:53 04/29/24 08:39 04/29/24 08:39 04/29/24 08:30 04/29/24 08:39
I&O
04/28/24 04/29/24 04/30/24
06:59 06:59 06:59
Intake Total 1369.1 / 1430.6 2843.46 / 2949.76 262.6 / 262.6
Output Total 195 / 195 275 / 275
Balance 1174.1 / 1235.6 2568.46 / 2674.76 262.6 / 262.6
Physical Exam
Physical Exam
HEENT: Anicteric
GI: Soft, Non Distended and Non Tender
Rectal: Brown
Neuro: Other (Awake, following commands to squeeze hand)
--- NOTE | 2024-04-29 08:51 | PTCARENOTE ---
With oral care, pt opened her eyes, tracked RN around room. Squeezed hands to commands and nodded appropriately. Sergeant Of Officers notified. SBT began.
--- NOTE | 2024-04-29 09:32 | W.PN.ID1 ---
Date of Service
Date of Service: April 29, 2024
Today's Communication
Continue antibiotics. See below�
Assessment / Plan
Assessment/plan
# Right lower lobe pneumonia secondary to Legionella pneumophila
# Ventilator dependent respiratory failure (Intubated on 04/26/2024)
-LP with elevated glucose/prot, WBC 1
-CSF Cx and acute encephalitis panel NEG
# Hypotension
- improved
-Patient placed on Dobbhoff tube, on tube feeds
-Started on ceftriaxone, Flagyl on 04/26/2024 empiric coverage for aspiration pneumonia
-Ultrasound abdomen on 04/27/2024�no evidence of cholelithiasis/acute cholecystitis
#Hyponatremia - resolved
# CHERIE-resolving with IV fluids
#Transaminitis
- Improving
#A-fib
#Elevated CK; trending down
#Hyperbilirubinemia; improved
Recommendations:
Complete 10-day course of azithromycin today.
Continue empiric PNA coverage with ceftriaxone, Flagyl (d#4)
Overall outlook continues to remain guarded. Patient remains critically ill in intensive care unit.
����������������������������������������������������������
Chief Complaint
-: Pneumonia (Legionella) and Other (CHERIE)
Subjective / Review of Systems
Patient seen and examined. Remains vent dependent at the present time, although family has noted marked increase in mental activity.
Review of Systems: No Fever
Vital Signs / Physical Exam
Vital Signs
Vital Signs
Temp Pulse Resp BP Pulse Ox
96.1 F L 78 25 119/61 97
04/29/24 08:54 04/29/24 09:10 04/29/24 09:10 04/29/24 09:00 04/29/24 09:10
Physical Exam
Constitutional: No Acute Distress, Comfortable, Chronically Ill and Cachetic (Mild)
Head: Other (ET tube in place.)
Cardiovascular: Regular Rate and S1/S2; Negative S3/S4
Pulmonary: Coarse and Non Labored
Gastrointestinal: Soft, Non Tender, Non Distended and Other (Rectal tube in place.)
Extremities: Edema; Negative Erythema
Neurological: Awake and Other (Responsive to voice and touch. Following simple commands.)
Psychological: Calm
Objective Data
Lab Data
Lab Results
04/29/24 04:00
04/29/24 03:52
ESR 39 mm/hour (0-20) H 04/22/24 05:14
PT 13.5 Sec (11.4-14.6) 04/26/24 18:45
INR 1.03 04/26/24 18:45
APTT 93.1 Sec (23.4-35.0) H 04/28/24 08:33
Estimated Creat Clear 33 ml/min 04/29/24 03:52
Lactic Acid Cancelled 04/26/24 18:45
Total Bilirubin 0.3 mg/dl (0.2-1.3) 04/29/24 03:52
AST 36 U/L (14-36) 04/29/24 03:52
ALT 68 U/L (0-35) H 04/29/24 03:52
Alkaline Phosphatase 252 U/L (38-126) H 04/29/24 03:52
Most recent labs reviewed.
Micro Results:
04/28/24 10:52 Respiratory Culture - Pending
Sputum Gram Stain - Preliminary
04/25/24 16:56 CSF Culture - Preliminary
Csf No Growth After 72 Hours
Gram Stain - Preliminary
04/25/24 15:04 Urine Culture - Final
Urine Escherichia coli
04/25/24 16:56 Fungal Culture - Preliminary
Csf Culture in progress.
Positive cultures are reported as soon as detected.
Final report to follow in four to five weeks.
04/25/24 16:56 Meningitis/Encephalitis Panel (PCR) - Final
Csf
04/20/24 11:40 Blood Culture - Final
Blood/Venous No Growth - Final Report
04/20/24 11:19 Blood Culture - Final
Blood/Venous No Growth - Final Report
04/20/24 07:26 Legionella Urinary Antigen - Final
Urine Positive for L. pneumophila Ag
Imaging:
04/20/2024 Echo (TTE): Normal LV size and wall thickness. Mild mitral regurgitation. Mild tricuspid regurgitation. No intracardiac mass or thrombus formation seen.
04/19/2024 CXR (2 view): Large amount of asymmetric right lower lobe opacity most suggestive of SEVERE RIGHT LOWER LOBE PNEUMONIA. A right lower lobe lung cancer or asymmetric inflammatory interstitial disease are considered less likely.
[2024-04-29] MEDS: ZITHROMAX INFUSION 250 IV (10:00)
--- NOTE | 2024-04-29 10:31 | W.PN.HOSP.TC ---
Today's Communication/Plan
-
see bold
Assessment / Plan
Assessment / Plan
Gen: NAD, awake and alert, NCAT, appears chronically ill
Eyes: PERRLA, no scleral icterus.
Neck: supple.
CV: remains RRR, +S1/S2, no m/r/g.
Resp: CTAB anteriorly, no rales, wheezes, or rhonchi.
Abd: +BS, soft, NT, ND
Skin: No rashes.
Neuro: CN 2-12 intact, non-focal
Psych: Normal mood and affect.
04/28/24 10:52 Sputum Gram Stain - Preliminary
04/25/24 16:56 Csf CSF Culture - Preliminary
No Growth After 72 Hours
04/25/24 16:56 Csf Gram Stain - Preliminary
04/25/24 15:04 Urine Urine Culture - Final
Escherichia coli
04/25/24 16:56 Csf Fungal Culture - Preliminary
Culture in progress.
Positive cultures are reported as soon as detected.
Final report to follow in four to five weeks.
04/25/24 16:56 Csf Meningitis/Encephalitis Panel (PCR) - Final
04/20/24 11:40 Blood/Venous Blood Culture - Final
No Growth - Final Report
04/20/24 11:19 Blood/Venous Blood Culture - Final
No Growth - Final Report
04/20/24 07:26 Urine Legionella Urinary Antigen - Final
Positive for L. pneumophila Ag
Abd U/S 04/19/24: No evidence of cholelithiasis, gallbladder wall thickening or biliary tract dilatation. Cannot exclude 'starry sridhar' appearance of the liver such as can be seen with acute hepatitis. Small simple right renal cyst.
Echo 04/20/24: EF 60-65%. No RWMA. Mild MR/TR. PASP 30-35mmHg.
CT brain 04/22/24: No acute intracranial abnormality. Age-appropriate volume loss.
MRI brain 04/22/24: No acute intracranial abnormality noted.
CXR 04/26/24: Improved aeration of the right lower lung field concerning for pneumonia. Small loculated right pleural effusion. Improved. Mild right lower lung atelectasis versus scarring. Stable. Moderate left lower lung atelectasis versus scarring.
Progressed. Lines and tubes as described above.
Abd U/S 04/27/24: Trace free fluid in the upper abdomen and partially visualized right pleural effusion. Otherwise essentially unremarkable abdominal ultrasound, as detailed above. No sonographic evidence for cholelithiasis or acute cholecystitis.
EEG 04/27/24: This study was suggestive of a generalized cortical disruption which was non-epileptiform.
MRI brain 04/27/24:
1. No MRI evidence for osmotic demyelination syndrome.
2. Severe bilateral temporal lobe volume loss and moderate volume loss in the frontal and parietal lobes suggesting a SEVERE NEURODEGENERATIVE DISEASE (probably Alzheimer's dementia).
3. Mild periventricular white matter leukoaraiosis in the frontal lobes.
4. Endotracheal tube in place.
5. Moderate layering fluid in the posterior nasopharynx and oropharynx.
Abd Xray 04/27/24: Feeding tube placement in the stomach.
Echo: Normal left ventricular wall thickness. Normal left ventricular chamber size.
Normal left ventricular systolic function. . Left ventricular ejection fraction
is 60% by Tuttle's method. There is apical akinesis.
Tricuspid valve opens normally. Mild to moderate tricuspid regurgitation.
Estimated pulmonary artery pressure of 25 mmHg, assuming a right atrial
pressure of 3 mmHg.
Since echocardiogram 04/20/2024 which was reviewed, there is apical akinesis.
Acute hypoxemic respiratory failure due to suspected severe RLL Legionella PNA (with septic shock as below):
-with acute metabolic encephalopathy due to pneumonia and electrolyte disturbances
-Legionella Positive, was on Azithromycin
-initially oxygenation and oxygen requirements were improving but then the patient had acute worsening hypoxemia and hypotension on the evening of 04/26/24. The pt was intubated and transferred to ICU. The patient was febrile and likely had septic
shock. Vasopressors were started. Antibiotics were broadened to Azithro/rocephin/Flagyl as per ID.
-The patient then had an echocardiogram with apical akinesis. There was a concern for LV thrombus and heparin drip was started. Due to acute blood loss anemia heparin gtt was stopped 04/28/24.
-on 04/27/24 the patient had the above EEG. Dr. Butcher started the pt on Keppra.
Melena/acute blood loss anemia:
-due to likely UGIB
-pt was on heparin gtt for concern for thromboembolic disease to the left anterior descending artery. This was stopped on 04/28/24. Heparin drip contributed to acute blood loss anemia.
-GI following, too unstable for any procedures
-cont IV PPI
-s/p 1U pRBCs
-No evidence of cirrhosis
Weakness:
-CT brain/MRI brain unremarkable
-neuro following
-LP with elevated glucose/prot, WBC 1
-CSF Cx and acute encephalitis panel NEG
-AchR-Ab NEG
-was on pyridostigmine empirically, now off
A-Fib with RVR:
-Started on 04/20/24
-was on cardizem gtt, now off
-was on BB, now off with hypotension
-[id number] score is 4 but hold off on anticoagulation with heme positive stools
-cardiology following
Acute transaminitis/elevated bilirubin:
-AST/ALT/bili have all improved
-GI following
-Abd U/S above
Other problems:
Hypokalemia: 40meq IV K
Nontraumatic rhabdomyolysis
CHERIE on CKD3a, resolved with IVFs. Now on Lasix as per renal.
Mild rhabdomyolysis, resolved
Acute hyponatremia: now resolved after holding HCTZ/ACEi and receiving 3% NS
Severe Hypokalemia, resolved with repletion
Acute metabolic Acidosis, resolved with IVFs with HCO3-
Essential HTN: cont BB
Cachexia, weight loss
Hyperlipidemia
History of osteoporosis
NICHOLE
[id number] history of smoking quit 1984
F/E/N: DHT feeds
updated at bedside. RN updated.
Extremely poor prognosis
DNR/Heparin
Total critical care time spent = 32 min
Anticipated Discharge: > 48 hours
Subjective/Interval History
-
Date of Service: April 29, 2024
Intubated but awake and alert, following commands.
Objective Data
-
Labs:
Laboratory Results
04/29/24 04/29/24
03:52 04:00
WBC 8.5
Hgb 6.9 L* Cancelled
Hct 20.5 L*
Plt Count 313
Sodium 138
Potassium 3.1 L
Chloride 103
Carbon Dioxide 27
BUN 74 H
Creatinine 1.2 H
Glucose 139 H
Calcium 8.6
Total Bilirubin 0.3
AST 36
ALT 68 H
Alkaline Phosphatase 252 H
Vital Signs:
Vital Signs
Temp Pulse Resp BP Pulse Ox
96.1 F L 77 23 128/72 96
04/29/24 09:57 04/29/24 10:00 04/29/24 10:00 04/29/24 10:00 04/29/24 10:00
I&O
04/28/24 04/29/24 04/30/24
06:59 06:59 06:59
Intake Total 1369.1 / 1430.6 2843.46 / 2949.76 680.2 / 680.2
Output Total 195 / 195 275 / 275 700 / 700
Balance 1174.1 / 1235.6 2568.46 / 2674.76 -19.8 / -19.8
[2024-04-29] MEDS: KCL 270 MEQ IV (12:02)
[2024-04-29 12:19] LABS: Glucose - Point of Care 108 mg/dl (70-99)
--- NOTE | 2024-04-29 12:45 | PTCARENOTE ---
Pt continues on SBT trial without issue. Awaiting to decide if reintubation is authorized if necessary. Pt continues to follow commands and nod. Small amount of leakage noted around rectal trumpet. Levophed weaned off.
--- NOTE | 2024-04-29 12:51 | W.PN.CARDCBS ---
Today's Communication / Plan
-
Wean off ventilator. Norepinephrine is now off.
Remains in sinus rhythm but has continued to have paroxysms of A-fib. Hopefully restart beta-chase over next 12 to 24 hours.
Continue to stay off anticoagulation with hemoglobin down to 6.9. Agree with transfusion. Follow daily weights and diuresis as needed.
Continue antibiotics and supportive care.
Impression / Plan
-
PCP: Dr. Good
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
Impression:
Admitted with weakness 04/19/24
Severe RLL Legionella PNA
Newly diagnosed paroxysmal Afib
apical wall motion abnormality
Not chronically anticoagulated due to new diagnosis of Afib and new melanotic stools
VDRF since 04/26/24
Heme positive, melanotic stools
Anemia
Change in mental status
CHERIE
Hypokalemia
Elevated troponin, suspected nonischemic myocardial injury
Elevated LFTs, in setting of NICHOLE followed at [facility]
HTN
HLD
asthma
osteoporosis
[employer]
ECHO 04/20/24: EF 60-65%, mild MR, mild MR, PAP 30-35mmHg
echo 04/27/24: EF 60%, apical akinesis, PA 25
Plan:
Echo with apical wall motion abnormality but preserved EF. The etiology of this remains unclear. Cardiac troponins improved
Possibilities include Takotsubo's, versus embolic event from A-fib and coronary artery, versus coronary artery disease.
Hemoglobin down to 6.9. Agree with transfusion.
She remains in sinus rhythm but has been having some paroxysmal A-fib over the last 24 hours.
Norepinephrine has been weaned off. Hopefully if blood pressure remains stable would restart beta-chase therapy over next 12 to 24 hours.
Continue broad-spectrum antibiotics. Once hemoglobin stabilizes would consider adding low-dose aspirin.
Creatinine overall stable at 1.2. Continue to follow daily weights.
FiO2 has been decreased. She is on a weaning trial may be able to be extubated soon.
Will consider further cardiac evaluation after pneumonia improves and bleeding is stable.
Discussed with .
CC time 331min
HPI: Patient is a 78-year-old female with past medical history of hypertension, hyperlipidemia, asthma, NICHOLE followed at [facility], [employer]ATED, osteoporosis who was seen in PCP office 04/16/2024 due to fatigue and weight loss. Labs ordered and were abnormal
with elevated LFTs. 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 She has had poor appetite, lethargy, confusion resulting in her bringing her to ER. CXR on admission with evidence of severe R PNA, positive for legionella. Also with
significant electrolyte abnormalities and metabolic acidosis. Cardiology consulted due to new afib (of note, she had EKG with PVCs in PCP office 04/16 and was ordered echo and stress test). She denies cardiac history and does not feel palpitations.
She is presently rate controlled. She is having dark, tarry, heme positive stools per nursing.
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
Subjective
Date of Service: April 29, 2024
She is clinically improving. Her FiO2 was down to 40% she is awake on ventilator. She denies any overt pains. Off Pressors.
Objective
Labs:
04/29/24 04:00
04/29/24 03:52
Labs
Hgb Cancelled 04/29/24 04:00
Hct 20.5 % (37.0-47.0) L* 04/29/24 03:52
Plt Count 313 10^3/uL (130-400) 04/29/24 03:52
PT 13.5 Sec (11.4-14.6) 04/26/24 18:45
INR 1.03 04/26/24 18:45
APTT 93.1 Sec (23.4-35.0) H 04/28/24 08:33
Sodium 138 mmol/L (135-145) 04/29/24 03:52
Potassium 3.1 mmol/L (3.5-5.1) L 04/29/24 03:52
BUN 74 mg/dl (7-17) H 04/29/24 03:52
Creatinine 1.2 mg/dL (0.6-1.0) H 04/29/24 03:52
Glucose 139 mg/dl (70-99) H 04/29/24 03:52
Troponins
04/26/24 04/26/24 04/27/24
18:45 20:00 02:25
Troponin I 0.891 H* Cancelled 0.518 H* D
04/27/24 04/27/24
08:37 17:38
Troponin I 0.369 H* D 0.216 H*
Vital Signs and I&O:
Vital Signs
Temp Pulse Resp BP Pulse Ox
97.7 F 82 19 112/61 96
04/29/24 11:07 04/29/24 12:30 04/29/24 12:30 04/29/24 12:30 04/29/24 12:30
Vital Signs
Temp Pulse Resp BP Pulse Ox
97.7 F 82 19 112/61 96
04/29/24 11:07 04/29/24 12:30 04/29/24 12:30 04/29/24 12:30 04/29/24 12:30
Intake & Output
04/27/24 04/28/24 04/29/24 04/30/24
06:59 06:59 06:59 06:59
Intake Total 1271.3 / 1271.3 1369.1 / 1430.6 2843.46 / 2949.76 1185.7 / 1185.7
Output Total 910 / 910 195 / 195 275 / 275 700 / 700
Balance 361.3 / 361.3 1174.1 / 1235.6 2568.46 / 2674.76 485.7 / 485.7
Physical Exam
Physical Exam
GEN: No distress, awake,
HEENT: supple, anicteric, mmm, ET tube
LUNGS: bilat rhonchi
CV: Reg, S1/S2, 1/6 syst LSB, no gallop
ABD: soft, BS+, NT/ND
EXT: No edema
NEURO: Gross non-focal
SKIN: No rash
--- NOTE | 2024-04-29 14:45 | CM ---
CM following re: discharge planning.
Discussed in Rounds, reviewed pt's chart. Per Rounds meeting, pt remains critically ill, remains intubated, wean with plan to extubate pending family decision, continue supportive care.
D/C plan: uncertain at this time and will depend on pt's progress.
CM will follow with discharge plan updates as hospitalization progresses
--- NOTE | 2024-04-29 15:03 | W.PN.UPDATE ---
Update Note
Progress Note Update
Update:
I had a very long discussion with and daughter who would like to extubate patient understanding that if she were to clinically deteriorate without the vent that they would not re-intubate her. They understand that if she continued to
require vent that that would indicate need for tracheostomy and would not want that.
They agree that she would be DNR post extubation and that they would pursue comfort measures/palliation in the event she does not improve.
They disagree on whether the patient should be included on this decision making and are deciding that among themselves. They still agree on the plan moving forward.
I have offered manufacturers service representative help as well.
Discussed plan of action with care team.
---
Additional CCT 30 mins.
--- NOTE | 2024-04-29 15:11 | RESPNOTE ---
15:05 extubated patient and placed on 6L n.c. 98%
--- NOTE | 2024-04-29 15:19 | PTCARENOTE ---
Pt extubated to 4L NC. DNR order received and bracelet applied. Daughter and at bedside.
[2024-04-29] MEDS: ProAmatine 10 MG TUBE (16:07)
[2024-04-29] MEDS: STERILE WATER FOR INJECTION 20 ML IV (17:38)
[2024-04-29] MEDS: ROCEPHIN 2000 MG IV (17:38)
[2024-04-29 17:59] LABS: Glucose - Point of Care 96 mg/dl (70-99)
--- NOTE | 2024-04-29 20:15 | PTCARENOTE ---
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 SR HR 80s. Sat 97% on 2LNC. pt denies pain. RDL PICC WNL- Protonix gtt infusing- d/c'd at this time after verifying with pharmacy as pt is scheduled for IVP dose starting now. R dht with TF infusing per work
list. RT and purewick in place. mouth care/repositioned. POC discussed, call gonsalez with pt.
[2024-04-29] MEDS: NSS (PRESERVATIVE FREE) 10 ML IV (20:17)
[2024-04-29] MEDS: PROTONIX IV 40 MG IV (20:17)
[2024-04-30] VITALS (29 sets, daily range): BP systolic 134–175; BP diastolic 65–94; PULSE 83–85; O2SAT 96; BMI 18.9
[2024-04-30] MEDS: HEPARIN 5000 UNITS SC ×4 (00:28→23:43)
[2024-04-30] MEDS: ProAmatine 10 MG TUBE (00:28)
[2024-04-30] MEDS: NOVOLOG FLEXPEN-MODERATE RESISTANCE SC ×5 (00:28→23:43)
[2024-04-30] MEDS: TYLENOL ORAL SOLUTION 650 MG TUBE ×2 (00:29→05:59)
[2024-04-30 00:38] LABS: Glucose - Point of Care 106 mg/dl (70-99)
[2024-04-30] MEDS: FLAGYL 500 MG 100 IV ×2 (03:00→10:28)
--- NOTE | 2024-04-30 04:00 | PTCARENOTE ---
no changes in pt assessment.
[2024-04-30 04:09] LABS: Hematocrit 24.9 % (37.0-47.0); Mean Corp Hgb Conc. 34.1 g/dL (33.0-37.0); Mean Corpuscular Hgb 29.2 pg (27.0-31.0); Mean Corpuscular Volume 85.6 fL (81.0-99.0); Mean Platelet Volume 10.2 fL (7.4-10.4); Platelet Count 351 10^3/uL (130-400); Red Blood Cell Count 2.91 10^6/uL (4.20-5.40); Red Cell Dist. Width 14.2 % (11.5-14.5); White Blood Cell Count 7.2 10^3/uL (4.8-10.8)
[2024-04-30 04:12] LABS: Hemoglobin 8.5 g/dL (12.0-16.0)
[2024-04-30 04:38] LABS: ALT (SGPT) 55 U/L (0-35); AST (SGOT) 28 U/L (14-36); Albumin 2.2 g/dl (3.5-5.0); Alkaline Phosphatase 203 U/L (38-126); Blood Urea Nitrogen 67 mg/dl (7-17); Calcium 8.6 mg/dl (8.4-10.2); Carbon Dioxide 31 mmol/L (22-30); Chloride 106 mmol/L (98-107); Estimated Creatinine Clearance 32 ml/min; Glucose 100 mg/dl (70-99); Potassium 4.3 mmol/L (3.5-5.1); Sodium 141 mmol/L (135-145); Total Bilirubin 0.4 mg/dl (0.2-1.3); Total Protein 4.5 g/dl (6.3-8.2); eGFR 46.33
--- NOTE | 2024-04-30 07:15 | W.PN.INTV ---
Today's Communication / Plan
Recommendations
Doing well post extubation, she is DNR
BIPAP PRN
PT/OT evals, neuro following for ongoing weakness
DHT now, speech to see
Can transfer to floor per team, updated family
We will sign off upon transfer
Assessment
-
78-year-old female with history of Nichole, hypertension, recent fatigue, poor appetite with negative COVID workup as outpatient. Chest x-ray reveals right lower lobe pneumonia, sodium level is 121, renal insufficiency, urine Legionella antigen
positive. We are asked to help from critical care standpoint 04/20/2024
Legionella pneumonia, right lower lobe
Malaise, anorexia, fatigue x 3 days
Mental status changes, TME
Profound weakness
Acute hypoxic respiratory insufficiency
Intubated 04/26/2024, transferred to ICU
Hypotension, requiring pressors
Acute hyponatremia
Acute renal insufficiency
Sinus tachycardia
Metabolic acidemia
Normal lactate
Hypokalemia
Acute transaminitis/Fatty liver hx
Elevated bilirubin
Mildly elevated troponin
Cachexia, weight loss
Conditions present prior to admission
Hypertension
Hyperlipidemia
History of osteoporosis
NICHOLE
[id number] history of smoking quit 1984
Plan/recommendations
At this time, patient remains critically ill
To review, was transferred to IMU due to progressive neurological disease over the weekend/was on BiPAP intermittently
Developed hypotension, hypoxia requiring intubation, transferred to ICU
Oxygen requirement seems to be worse, requiring FiO2 80%, pO2 73
Chest exam is clear. Chest x-ray with adequate aeration, improvement of right pleuroparenchymal process
Extubated 04/29/24
Neurological exam -- profoundly weak on exam
Mestinon therapy was started 04/26, IV keppra continued
Imaging negative neurology correspondence reviewed.
LP essentially negative, possible underlying NMD felt
MRI showing extreme volume loss suggestive of dementia
Reduce all sedation/maintain off to evaluate MS -- > MS improving
PT/OT evals
Moving forward
Continue with antibiotics for Legionella pneumonia
QT adequate, remains on macrolide therapy
Infectious disease following. Follow cultures
Antibiotics have been broadened 04/26 for possible underlying sepsis. Currently on ceftriaxone/Flagyl/azithromycin
Urine culture positive for E. coli from 04/25
Atrial fibrillation on oral Cardizem
Echocardiogram 04/20/2024 reveals normal biventricular function, mild MR, PA pressure 35
Anticoagulation would be difficult in the setting of black tarry stool.
Off pressors/stable
Cardiology following
Now with heme positive stool
Continue Protonix therapy daily
Follow hemoglobin
GI was consulted, monitor for now
Metabolic acidemia noted, hyponatremia and renal insufficiency noted
Given positive urine Legionella antigen, suspect Legionella pneumonia may be partly contributing to metabolic abnormality and clinical presentation
Unclear whether there may also be a component of SIADH. Nephrology following closely
Sodium improved to 137, creatinine improving to 1.3
Continue with management per nephrology
BLAKE inhibitor held
Potassium patient noted. Lasix therapy per nephrology noted
proBNP >11,000
Continue with DVT prophylaxis, mechanical and pharmacological
Head of bed elevated, aspiration precautions
Hyperglycemia noted
Increase sliding scale coverage
hemoglobin A1c 6.6
DVT prophylaxis: Subcutaneous heparin, and mechanical prophylaxis
GI prophylaxis: Remains on Protonix
Family Discussions
Dionisio 04/29/24- updated , we discussed re-intubation following PS wean if she were to clinically deteriorate on her post extubation trial. He at first stated that he wanted full code to continue but we discussed the likelihood that she would
need a trach if she could not go a prolonged period without the vent. He would like to discuss this with his daughter before making that decision as he knows she would not want tracheostomy. Will await decision making prior to extubation.
04/28/24- updated today, he clarified that if she could not extubate, he would make her comfort measures. He would like her to remain full code.
Kapil - Updated at length at bedside during rounds and again after rounds. initially requested DO NOT RESUSCITATE. He had stated during conversation 04/25 that patient has advanced directives that would not want life prolonging
measures such as mechanical ventilation, CPR. He reiterated her wishes this morning on rounds. He then rescinded DNR and patient is currently full code.
Diagnostic Data
Cervical MRI 04/27/24- 1. 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
2. Moderate-sized left central disc-osteophyte complex at C6/C7 causing mild spinal cord compression and central canal stenosis.
3. 2 mm anterolisthesis of C4 on C5 secondary to moderate left-sided facet joint arthrosis. Moderate left neural foraminal narrowing at C4/C5.
4. Severe bilateral temporal lobe volume loss.
5. Endotracheal tube in place.
6. Moderate layering fluid in the posterior nasopharynx and oropharynx.
CXR 04/26/24- Improved aeration of the right lower lung field concerning for pneumonia. Small loculated right pleural effusion. Improved. Mild right lower lung atelectasis versus scarring. Stable.
Moderate left lower lung atelectasis versus scarring. Progressed.
04/25/24- Mid to lower right lung pneumonia. Small right pleural effusion.
ECHO 04/27/24- Normal left ventricular wall thickness. Normal left ventricular chamber size. Normal left ventricular systolic function. . Left ventricular ejection fraction is 60% by Tuttle's method. There is apical akinesis. Tricuspid valve opens
normally. Mild to moderate tricuspid regurgitation. Estimated pulmonary artery pressure of 25 mmHg, assuming a right atrial pressure of 3 mmHg. Since echocardiogram 04/20/2024 which was reviewed, there is apical akinesis.
-----
Critical Care time 31 mins -- The patient is admitted for acute critical illness for the treatment of vital organ failure and/or prevention of further life-threatening conditions. Total care includes time spent in review of history, physical exam,
medications, hemodynamic/ventilator parameters, laboratory data, imaging and discussion with house staff, pharmacy, respiratory therapy, director insurance, and nursing.
Subjective Dataa
Subjective Data
Date of Service:
Date of Service: April 30, 2024
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
Subjective:
no acute events on, tolerated extubation
speaking but at times minimally confused
family at bedside
Objective Data
Data Reviewed
Vital Signs / I&O / Oxygen:
Vital Signs
Temp Pulse Resp BP Pulse Ox
97.5 F 94 27 158/76 96
04/30/24 03:48 04/30/24 06:00 04/30/24 06:00 04/30/24 06:00 04/30/24 06:00
Intake and Output
04/29/24 04/30/24 05/01/24
06:59 06:59 06:59
Intake Total 2843.46 / 2949.76 2349.7 / 2349.7
Output Total 275 / 275 2335 / 2335
Balance 2568.46 / 2674.76 14.7 / 14.7
SaO2 [CPAP] 98
SaO2 [A/C] 98
SaO2 96
Nasal Cannula flow liters per 2
minute
Physical Exam
General: Comfortable, Poor Appetite and Other (Cachectic)
HEENT: Normocephalic, Anicteric and Moist Mucous Membranes
Cardiovascular: S1-S2, Irregular Rhythm, Murmur (n) and Rub (n)
Respiratory: Wheeze (n), Crackles (n), Rhonchi (n), Non-Labored Respirations (Improved, less rapid shallow breathing) and Stridor (n)
GI: Soft, Non Distended, Non Tender and NG Tube
Neurology: Awake, Alert, Oriented and Other (following commands)
Skin: Cyanosis (n), Jaundice (n) and Rash (n)
Labs/Micro/Reports
Lab Data
04/30/24 03:52
04/30/24 03:52
Microbiology
04/25/24 16:56 Csf CSF Culture - Preliminary
No Growth After 4 Days
04/25/24 16:56 Csf Gram Stain - Preliminary
04/28/24 10:52 Sputum Respiratory Culture - Preliminary
NO GROWTH
04/28/24 10:52 Sputum Gram Stain - Preliminary
04/25/24 15:04 Urine Urine Culture - Final
Escherichia coli
--- NOTE | 2024-04-30 08:12 | W.PN.NEPH.PH ---
Today's Communication / Plan
-
Discontinue IV lasix
Follow BMP
Assessment/Plan
-
Assessment
Malaise, decreased appetite
Hypertension
Sinus tachycardia with PACs
Acute kidney injury
Hyponatremia
Metabolic acidosis
Elevated LFTs
Fatty liver
Confusion
Pneumonia with positive urinary Legionella antigen
Plan
Creatinine down to 1.2
now extubated, appears lethargic
Urine output unimpressive, but weights down
wean pressors as allowed but still requiring
TF continues with FWF 25ml/hr, via feeding tube
Discontinue Lasix hyponatremia above
follow BMP
maintain daniel for now
await ACR Ab
abx continue for PNA
d/w
critical care time 31 minutes
-
-
Date of Service: April 30, 2024
CC / HPI / ROS
-
Chief Complaint:
Hyponatremia
CHERIE
History of Present Illness:
CHERIE/Cr improved to 1.2 stable
hypokalemia
Hgb at 8.5 after transfusion
now extubated
tachycardic
on abx for legionella PNA
Na normal at 141, TF/FWF in progress
Review of Systems:
Nonoliguric via daniel
Feeding tube
No fevers
weight down
extubated and lethargic
Labs
-
Labs:
WBC 7.2 10^3/uL (4.8-10.8) 04/30/24 03:52
RBC 2.91 10^6/uL (4.20-5.40) L 04/30/24 03:52
Hgb 8.5 g/dL (12.0-16.0) L D 04/30/24 03:52
Hct 24.9 % (37.0-47.0) L 04/30/24 03:52
Plt Count 351 10^3/uL (130-400) 04/30/24 03:52
Sodium 141 mmol/L (135-145) 04/30/24 03:52
Potassium 4.3 mmol/L (3.5-5.1) D 04/30/24 03:52
Chloride 106 mmol/L (98-107) 04/30/24 03:52
Carbon Dioxide 31 mmol/L (22-30) H 04/30/24 03:52
BUN 67 mg/dl (7-17) H 04/30/24 03:52
Creatinine 1.2 mg/dL (0.6-1.0) H 04/30/24 03:52
eGFR 46.33 04/30/24 03:52
Glucose 100 mg/dl (70-99) H 04/30/24 03:52
Calcium 8.6 mg/dl (8.4-10.2) 04/30/24 03:52
Awb-G-Ctyrmmlyvqb Pept 52845 pg/ml 04/20/24 11:40
Albumin 2.2 g/dl (3.5-5.0) L 04/30/24 03:52
Physical Exam
-
Vital Signs:
Vital Signs
Temp Pulse Resp BP Pulse Ox
97.5 F 94 27 158/76 96
04/30/24 03:48 04/30/24 06:00 04/30/24 06:00 04/30/24 06:00 04/30/24 06:00
Cardiovascular:: Regular rate and rhythm (tachy)
Respiratory:: Bilateral: Coarse
Lung Excursion:: Normal
Abdomen:: Nontender and Soft
Bowel Sounds:: Decreased
Extremity Edema:: None: Bilateral:
Daniel Catheter: Yes
Other Findings::
gEn: Intubated but awake and interactive
[2024-04-30] MEDS: MIRALAX TUBE (08:45)
--- NOTE | 2024-04-30 08:45 | W.PN.HOSP.TC ---
Today's Communication/Plan
-
see bold
Assessment / Plan
Assessment / Plan
Gen: remains NAD, awake and alert, NCAT, appears chronically ill
Eyes: PERRLA, no scleral icterus.
Neck: supple.
CV: continues to remain RRR, +S1/S2, no m/r/g.
Resp: CTAB anteriorly, no rales, wheezes, or rhonchi.
Abd: +BS, soft, NT, ND
Skin: No rashes.
Neuro: remains CN 2-12 intact, non-focal
Psych: Normal mood and affect.
04/25/24 16:56 Csf CSF Culture - Preliminary
No Growth After 4 Days
04/25/24 16:56 Csf Gram Stain - Preliminary
04/28/24 10:52 Sputum Respiratory Culture - Preliminary
NO GROWTH
04/28/24 10:52 Sputum Gram Stain - Preliminary
04/25/24 15:04 Urine Urine Culture - Final
Escherichia coli
04/25/24 16:56 Csf Fungal Culture - Preliminary
Culture in progress.
Positive cultures are reported as soon as detected.
Final report to follow in four to five weeks.
04/25/24 16:56 Csf Meningitis/Encephalitis Panel (PCR) - Final
04/20/24 11:40 Blood/Venous Blood Culture - Final
No Growth - Final Report
04/20/24 11:19 Blood/Venous Blood Culture - Final
No Growth - Final Report
04/20/24 07:26 Urine Legionella Urinary Antigen - Final
Positive for L. pneumophila Ag
Abd U/S 04/19/24: No evidence of cholelithiasis, gallbladder wall thickening or biliary tract dilatation. Cannot exclude 'starry sridhar' appearance of the liver such as can be seen with acute hepatitis. Small simple right renal cyst.
Echo 04/20/24: EF 60-65%. No RWMA. Mild MR/TR. PASP 30-35mmHg.
CT brain 04/22/24: No acute intracranial abnormality. Age-appropriate volume loss.
MRI brain 04/22/24: No acute intracranial abnormality noted.
CXR 04/26/24: Improved aeration of the right lower lung field concerning for pneumonia. Small loculated right pleural effusion. Improved. Mild right lower lung atelectasis versus scarring. Stable. Moderate left lower lung atelectasis versus scarring.
Progressed. Lines and tubes as described above.
Abd U/S 04/27/24: Trace free fluid in the upper abdomen and partially visualized right pleural effusion. Otherwise essentially unremarkable abdominal ultrasound, as detailed above. No sonographic evidence for cholelithiasis or acute cholecystitis.
EEG 04/27/24: This study was suggestive of a generalized cortical disruption which was non-epileptiform.
MRI brain 04/27/24:
1. No MRI evidence for osmotic demyelination syndrome.
2. Severe bilateral temporal lobe volume loss and moderate volume loss in the frontal and parietal lobes suggesting a SEVERE NEURODEGENERATIVE DISEASE (probably Alzheimer's dementia).
3. Mild periventricular white matter leukoaraiosis in the frontal lobes.
4. Endotracheal tube in place.
5. Moderate layering fluid in the posterior nasopharynx and oropharynx.
Abd Xray 04/27/24: Feeding tube placement in the stomach.
Echo: Normal left ventricular wall thickness. Normal left ventricular chamber size.
Normal left ventricular systolic function. . Left ventricular ejection fraction
is 60% by Tuttle's method. There is apical akinesis.
Tricuspid valve opens normally. Mild to moderate tricuspid regurgitation.
Estimated pulmonary artery pressure of 25 mmHg, assuming a right atrial
pressure of 3 mmHg.
Since echocardiogram 04/20/2024 which was reviewed, there is apical akinesis.
Acute hypoxemic respiratory failure due to suspected severe RLL Legionella PNA (with septic shock as below):
-with acute metabolic encephalopathy due to pneumonia and electrolyte disturbances
-Legionella Positive, was on Azithromycin
-initially oxygenation and oxygen requirements were improving but then the patient had acute worsening hypoxemia and hypotension on the evening of 04/26/24. The pt was intubated and transferred to ICU. The patient was febrile and likely had septic
shock. Vasopressors were started. Antibiotics were broadened to Azithro/rocephin/Flagyl as per ID.
-The patient then had an echocardiogram with apical akinesis. There was a concern for LV thrombus and heparin drip was started. Due to acute blood loss anemia heparin gtt was stopped 04/28/24.
-on 04/27/24 the patient had the above EEG. Dr. Butcher started the pt on Keppra.
-pt extubated 04/29/24 and currently on 2L NC O2
-Pt now on Rocephin/Flagyl (azithro stopped)
Melena/acute blood loss anemia:
-due to likely UGIB
-pt was on heparin gtt for concern for thromboembolic disease to the left anterior descending artery. This was stopped on 04/28/24. Heparin drip contributed to acute blood loss anemia.
-GI following, too unstable for any procedures
-cont IV PPI
-s/p 1U pRBCs
-No evidence of cirrhosis
Weakness:
-CT brain/MRI brain unremarkable
-neuro following
-LP with elevated glucose/prot, WBC 1
-CSF Cx and acute encephalitis panel NEG
-AchR-Ab NEG
-was on pyridostigmine empirically, now off
A-Fib with RVR:
-Started on 04/20/24
-was on cardizem gtt, now off
-was on BB, now off with hypotension
-[id number] score is 4 but hold off on anticoagulation with heme positive stools
-cardiology following
Acute transaminitis/elevated bilirubin:
-AST/ALT/bili have all improved
-GI following
-Abd U/S above
Other problems:
Hypokalemia, resolved
Nontraumatic rhabdomyolysis
HCERIE on CKD3a, resolved with IVFs. Now on Lasix as per renal.
Mild rhabdomyolysis, resolved
Acute hyponatremia: now resolved after holding HCTZ/ACEi and receiving 3% NS
Severe Hypokalemia, resolved with repletion
Acute metabolic Acidosis, resolved with IVFs with HCO3-
Essential HTN: cont BB
Cachexia, weight loss
Hyperlipidemia
History of osteoporosis
NICHOLE
[id number] history of smoking quit 1984
F/E/N: DHT feeds
/daughter updated at bedside. RN updated.
FULL/Heparin
Total time spent on today's encounter was 50 minutes which included time spent in counseling the patient/family regarding diagnosis and treatment plan as listed above, goals of care, and symptom management. Case was discussed with nursing staff,
specialists, and care coordinators/case management. All labs and imaging personally reviewed by me. Remainder the time spent in detailed review of previous records, lab data, imaging, and other medical provider documentation.
Anticipated Discharge: > 48 hours
Subjective/Interval History
-
Date of Service: April 30, 2024
Pt awake and alert, no new complaints.
Objective Data
-
Labs:
Laboratory Results
04/30/24
03:52
WBC 7.2
Hgb 8.5 L D
Hct 24.9 L
Plt Count 351
Sodium 141
Potassium 4.3 D
Chloride 106
Carbon Dioxide 31 H
BUN 67 H
Creatinine 1.2 H
Glucose 100 H
Calcium 8.6
Total Bilirubin 0.4
AST 28
ALT 55 H
Alkaline Phosphatase 203 H
Vital Signs:
Vital Signs
Temp Pulse Resp BP Pulse Ox
97.6 F 94 27 158/76 96
04/30/24 08:14 04/30/24 06:00 04/30/24 06:00 04/30/24 06:00 04/30/24 06:00
I&O
07/10/24 07/11/24 07/12/24
06:59 06:59 06:59
Intake Total 2843.46 / 2949.76 2349.7 / 2349.7
Output Total 275 / 275 2335 / 2335
Balance 2568.46 / 2674.76 14.7 / 14.7
--- NOTE | 2024-04-30 08:51 | W.PN.CARDCBS ---
Today's Communication / Plan
-
Off pressors. Stop Midodrine
Start metoprolol 25mg q12 via tube
Cont to hold anticoagulation
Follow Hg
Cont antibiotics
Increase activity
Impression / Plan
-
PCP: Dr. Good
Primary Professor Of Physics: none, initially seen by Maylin
Impression:
Admitted with weakness 04/19/24
Severe RLL Legionella PNA
Newly diagnosed paroxysmal Afib
apical wall motion abnormality
Not chronically anticoagulated due to new diagnosis of Afib and new melanotic stools
VDRF since 04/26/24
Heme positive, melanotic stools
Anemia
Change in mental status
CHERIE
Hypokalemia
Elevated troponin, suspected nonischemic myocardial injury
Elevated LFTs, in setting of NICHOLE followed at [facility]
HTN
HLD
asthma
osteoporosis
RAMPART
ECHO 04/20/24: EF 60-65%, mild MR, mild MR, PAP 30-35mmHg
echo 04/27/24: EF 60%, apical akinesis, PA 25
Plan:
Echo with apical wall motion abnormality but preserved EF. The etiology of this remains unclear. Cardiac troponins improved
Possibilities include Takotsubo's, versus embolic event from A-fib and coronary artery, versus coronary artery disease.
Hemoglobin above 8 s/p transfusion. cont to follow
She remains in sinus rhythm with no A-fib over the last 24 hours.
Norepinephrine has been weaned off. D/C Midodrine. Will Metoprolol today 25mg q12 via tube.
Continue broad-spectrum antibiotics. Once hemoglobin stabilizes would consider adding low-dose aspirin.
Creatinine overall stable at 1.2. Continue to follow daily weights.
Now extubated on 2L NC
LFTs improving
Will consider further cardiac evaluation after pneumonia improves and bleeding is stable.
Discussed with .
HPI: Patient is a 78-year-old female with past medical history of hypertension, hyperlipidemia, asthma, NICHOLE followed at [facility], RAMPART, osteoporosis who was seen in PCP office 04/16/2024 due to fatigue and weight loss. Labs ordered and were abnormal
with elevated LFTs. 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 She has had poor appetite, lethargy, confusion resulting in her bringing her to ER. CXR on admission with evidence of severe R PNA, positive for legionella. Also with
significant electrolyte abnormalities and metabolic acidosis. Cardiology consulted due to new afib (of note, she had EKG with PVCs in PCP office 04/16 and was ordered echo and stress test). She denies cardiac history and does not feel palpitations.
She is presently rate controlled. She is having dark, tarry, heme positive stools per nursing.
Progress Note - Professor Of Physics
Subjective
Date of Service: April 30, 2024
extubated and feeling better. No further bleeding
Objective
Labs:
04/30/24 03:52
04/30/24 03:52
Labs
Hgb 8.5 g/dL (12.0-16.0) L D 04/30/24 03:52
Hct 24.9 % (37.0-47.0) L 04/30/24 03:52
Plt Count 351 10^3/uL (130-400) 04/30/24 03:52
PT 13.5 Sec (11.4-14.6) 04/26/24 18:45
INR 1.03 04/26/24 18:45
APTT 93.1 Sec (23.4-35.0) H 04/28/24 08:33
Sodium 141 mmol/L (135-145) 04/30/24 03:52
Potassium 4.3 mmol/L (3.5-5.1) D 04/30/24 03:52
BUN 67 mg/dl (7-17) H 04/30/24 03:52
Creatinine 1.2 mg/dL (0.6-1.0) H 04/30/24 03:52
Glucose 100 mg/dl (70-99) H 04/30/24 03:52
Troponins
04/27/24 04/27/24
08:37 17:38
Troponin I 0.369 H* D 0.216 H*
Vital Signs and I&O:
Vital Signs
Temp Pulse Resp BP Pulse Ox
97.6 F 94 27 158/76 96
04/30/24 08:14 04/30/24 06:00 04/30/24 06:00 04/30/24 06:00 04/30/24 06:00
Vital Signs
Temp Pulse Resp BP Pulse Ox
97.6 F 94 27 158/76 96
04/30/24 08:14 04/30/24 06:00 04/30/24 06:00 04/30/24 06:00 04/30/24 06:00
Intake & Output
04/28/24 04/29/24 04/30/24 05/01/24
06:59 06:59 06:59 06:59
Intake Total 1369.1 / 1430.6 2843.46 / 2949.76 2349.7 / 2349.7
Output Total 195 / 195 275 / 275 2335 / 2335
Balance 1174.1 / 1235.6 2568.46 / 2674.76 14.7 / 14.7
Physical Exam
Physical Exam
GEN: No distress, awake,
HEENT: supple, anicteric, mmm
LUNGS: scatt rhonchi
CV: Reg, S1/S2, 1/6 syst LSB, no gallop
ABD: soft, BS+, NT/ND
EXT: trace edema
NEURO: Gross non-focal
SKIN: No rash
[2024-04-30] MEDS: NSS (PRESERVATIVE FREE) 10 ML IV ×2 (08:53→20:50)
[2024-04-30] MEDS: KEPPRA 500 MG IV ×2 (08:53→20:49)
[2024-04-30] MEDS: PROTONIX IV 40 MG IV ×2 (08:53→20:50)
--- NOTE | 2024-04-30 09:00 | PTCARENOTE ---
Rec'd pt at 0800 sleeping. Does awaken easily to verbal stimuli although in general is somewhat drowsy. Speech is clear. Denies pain. Pt is CHILKAT and hearing aids in. MORA but very weakly. Denies numbness. Fiberfill boots are in place. Skin is pale wm
and dry. Foam dressings are intact on heels. Bandaid removed from lower back. Site wnl. Bilat arms are edematous with some reddish/purple bruising. Respirs are shallow but non-labored on 2L nc with sats of 95%. BS are decreased at the bases. Monitor
SR. + pulses. DP pulses with the doppler. +1-+2 generalized anasarca. Denies chest pain. Abd is soft with + BS. Tolerating Jevity 1.5 tube feeds at 35 ml/hr with 25 ml/hr flush. Prosource given. Pt with rectal trumpet in place for loose brown stool.
Has purewick in place but pt incont around purewick for a large amt of yellow urine. New purewick place. R arm PICC site wnl. Pt turned and repositioned. Skin and mouth care given. Family at the bedside and plan of care reviewed. Call gonsalez in
reach.
[2024-04-30] MEDS: FLUSH (NSS) 2 FLUSH IV (09:07)
--- NOTE | 2024-04-30 09:42 | W.PN.ID1 ---
Date of Service
Date of Service: April 30, 2024
Today's Communication
Discontinue ceftriaxone, Flagyl.
Assessment / Plan
Assessment/plan
# Right lower lobe pneumonia secondary to Legionella pneumophila
# Ventilator dependent respiratory failure (Intubated on 04/26/2024). Patient was extubated on 04/29/2024. Now on 2 L nasal cannula oxygen.
Finished azithromycin course, last dose 04/29/2024
-LP with elevated glucose/prot, WBC 1
-CSF Cx and acute encephalitis panel NEG
# Hypotension
- improved
-Patient placed on Dobbhoff tube, on tube feeds
-Started on ceftriaxone, Flagyl on 04/26/2024 empiric coverage for aspiration pneumonia
-Ultrasound abdomen on 04/27/2024�no evidence of cholelithiasis/acute cholecystitis
#Hyponatremia - resolved
# CHERIE-resolving with IV fluids
#Transaminitis
- Improving
#A-fib
#Elevated CK; trending down
#Hyperbilirubinemia; improved
Recommendations:
Completed 10-day course of azithromycin. Last dose on 04/29/2024.
Today is day 5 ceftriaxone/Flagyl. Leukocytosis improved, WBC 7.2. Patient is afebrile. Discontinue Ceftriaxone, Flagyl.
Patient is improving, transferred to IMU.
����������������������������������������������������������
Chief Complaint
-: Pneumonia (Legionella) and Other (CHERIE)
Subjective / Review of Systems
Review of Systems: No Fever and No Chills
Vital Signs / Physical Exam
Vital Signs
Vital Signs
Temp Pulse Resp BP Pulse Ox
97.6 F 94 27 158/76 96
04/30/24 08:14 04/30/24 06:00 04/30/24 06:00 04/30/24 06:00 04/30/24 06:00
Physical Exam
Constitutional: No Acute Distress and Comfortable
Head: Normocephalic
Cardiovascular: Regular Rate and S1/S2
Pulmonary: Wheezes
Gastrointestinal: Soft, Non Tender, Non Distended, Normal Bowel Sounds and Other (Has a stool bag, incontinence)
Extremities: Edema (Bilateral upper and lower extremities)
Skin: Warm and Dry
Neurological: Awake, Alert, Oriented and AO x 3
Objective Data
Lab Data
Lab Results
04/30/24 03:52
04/30/24 03:52
ESR 39 mm/hour (0-20) H 04/22/24 05:14
PT 13.5 Sec (11.4-14.6) 04/26/24 18:45
INR 1.03 04/26/24 18:45
APTT 93.1 Sec (23.4-35.0) H 04/28/24 08:33
Estimated Creat Clear 32 ml/min 04/30/24 03:52
Lactic Acid Cancelled 04/26/24 18:45
Total Bilirubin 0.4 mg/dl (0.2-1.3) 04/30/24 03:52
AST 28 U/L (14-36) 04/30/24 03:52
ALT 55 U/L (0-35) H 04/30/24 03:52
Alkaline Phosphatase 203 U/L (38-126) H 04/30/24 03:52
Most recent labs reviewed.
Micro Results:
04/25/24 16:56 CSF Culture - Final
Csf No Growth After 5 Days - Final Report
Gram Stain - Final
04/28/24 10:52 Respiratory Culture - Final
Sputum Gram Stain - Final
04/25/24 15:04 Urine Culture - Final
Urine Escherichia coli
04/25/24 16:56 Fungal Culture - Preliminary
Csf Culture in progress.
Positive cultures are reported as soon as detected.
Final report to follow in four to five weeks.
04/25/24 16:56 Meningitis/Encephalitis Panel (PCR) - Final
Csf
04/20/24 11:40 Blood Culture - Final
Blood/Venous No Growth - Final Report
04/20/24 11:19 Blood Culture - Final
Blood/Venous No Growth - Final Report
04/20/24 07:26 Legionella Urinary Antigen - Final
Urine Positive for L. pneumophila Ag
Imaging:
04/20/2024 Echo (TTE): Normal LV size and wall thickness. Mild mitral regurgitation. Mild tricuspid regurgitation. No intracardiac mass or thrombus formation seen.
04/19/2024 CXR (2 view): Large amount of asymmetric right lower lobe opacity most suggestive of SEVERE RIGHT LOWER LOBE PNEUMONIA. A right lower lobe lung cancer or asymmetric inflammatory interstitial disease are considered less likely.
[2024-04-30] MEDS: LOPRESSOR 25 MG TUBE ×2 (10:28→20:50)
[2024-04-30] MEDS: LASIX IV (10:29)
[2024-04-30] MEDS: ProAmatine TUBE (10:29)
--- NOTE | 2024-04-30 11:20 | PTCARENOTE ---
PT in to work with pt and pt assisted oob to the chair. Assessment is otherwise unchanged. Denies discomfort
--- NOTE | 2024-04-30 12:07 | PTOTSP ---
Dysphagia Therapy
Suspect patient has pharyngeal dysphagia (see patient care note) due to disuse atrophy from prolonged NPO status and lack of oral intake while encephalopathic and then subsequently orally intubated (04/26-04/29). Will introduce opportunities to
swallow via Aspiration Risk Hydration Protocol (ARHP) while supplemental nutrition/hydration is in place.
Recommend:
1. NPO - continue non-oral means
2. Medications - via non-oral means
3. ARHP - sparing ice chips after oral care with nursing supervision/assistance
4. Dysphagia therapy at the acute care level. DISTRIBUTION OPERATION SUPERVISOR to f/u and determine if/when objective assessment via video swallow study warranted and/or when to initiate oral diet.
[2024-04-30 12:09] LABS: Glucose - Point of Care 125 mg/dl (70-99)
--- NOTE | 2024-04-30 14:00 | PTCARENOTE ---
Pt admitting to feeling tired. Lifted/pivoted back to bed but was essentially a full lift. Stood with assistance but then could not move legs and they tended to buckle underneath her. Remains very very weak and any movement is an effort. Of note RA
sats do dip to 86% but on 2l remains 95-96%. Respirs are shallow but non-labored. VS as documented. Rectal trumpet with loose brown stool. Voiding via purewick and also incont of yellow urine. Mouth care given. Resting back in bed. Call gonsalez in
reach. Family at the bedside
--- NOTE | 2024-04-30 15:29 | W.PN.GI.CBS2 ---
Addendum entered and electronically signed by Thi Pruitt DO 04/30/24 16:38:
Patient seen and examined independently of FANCY SEWER. I agree with her note with my additions below
Gabriella is a 78-year-old female with chronically elevated LFTs from [place] followed by [facility]. We have been following her for anemia and GI bleeding.
Patient was placed on heparin drip for atrial fibrillation which has since been stopped due to melena. After the heparin drip was stopped the melena stopped. Her hemoglobin was 6.9 this morning and she received 1 unit of blood however her lab was
likely slightly off because her repeat overcompensated and she is now 8.5. Her stools are brown. She is fine for low-dose subcu heparin. She is on a twice daily PPI for now. She is now awake alert and answering questions with nods appropriately.
She is much improved over these past couple of days.
There does not appear to be significant overt GI bleeding. We will sign off. Please call us back if we can be of any service. I would continue the twice daily PPI until her hemoglobin completely stabilizes then go to once daily
Original Note:
Today's Communication / Plan
-
see below
hbg stable no signs of bleeding
LFT's improving
cont DHT and speech follow for diet advance
family support give
Assessment / Plan
-
The pt is a 78-year-old female with PMH significant for hypertension, high cholesterol, osteoporosis, chronic elevated LFTs from [facility], who presented initially to with fatigue, weakness, noted to have Legionella pneumonia, metabolic acidosis,
acute renal insufficiency, also noted to have black stool with worsening bleeding and drop in hbg with heparin gtt. She was noted with change in mental status during admission with neurology following requiring intubation but now extubated with
improved mental status.
Problem list/recommendations:
#1 Anemia/GIB:
--Hemoglobin as low as 6.9 now up to 8.5 only 1 unit given during admission
stools brown
heparin gtt off -- low dos heparin SQ TID
trend hbg
cont PPI IV BID
#2 Chronic elevation in LFTs, follows up with Dr. Weinstein, hepatology at [facility]
--No evidence of cirrhosis of the liver.
--Recent elevation in LFTs could be related to underlying Legionella infection/antibiotics v septic shock v other. These are stable and continue to improve
--Abdominal ultrasound without any acute etiology for elevated liver enzymes.
--Hepatitis serologies were negative (immune to Hep A and B)
--Continue to trend LFT's-
--Avoid hepatotoxins
#3 dysphagia
speech following cont NPO for today with sparing ice chips
cont DHT feeds for now
speech following for oral diet vs need for VSE
Other pertinent problems (management as per ICU team/hospitalist):
-Acute hypoxic respiratory failure
-Legionella pneumonia
-Altered mental status, unlikely liver related given there are no signs of cirrhosis
-Acute renal insufficiency
-A-fib with RVR
-CHERIE on CKD
-Rhabdomyolysis
-Hyponatremia
-Metabolic acidosis
Subjective
Subjective
Date of Service: April 30, 2024
04/30 brown stool, currently on Jevity tube feeds
Objective
Data Reviewed
Laboratory Data:
Laboratory Results
04/30/24 03:52
04/30/24 03:52
Laboratory Results
PT 13.5 Sec (11.4-14.6) 04/26/24 18:45
INR 1.03 04/26/24 18:45
APTT 93.1 Sec (23.4-35.0) H 04/28/24 08:33
Magnesium 2.2 mg/dl (1.6-2.3) 04/20/24 22:14
Total Bilirubin 0.4 mg/dl (0.2-1.3) 04/30/24 03:52
AST 28 U/L (14-36) 04/30/24 03:52
ALT 55 U/L (0-35) H 04/30/24 03:52
Alkaline Phosphatase 203 U/L (38-126) H 04/30/24 03:52
Lipase 320 U/L (23-300) H 04/19/24 15:15
Vital Signs and I&O:
Vital Signs
Temp Pulse Resp BP Pulse Ox
97.9 F 95 33 171/89 95
04/30/24 15:17 04/30/24 15:18 04/30/24 15:02 04/30/24 15:18 04/30/24 15:18
I&O
04/29/24 04/30/24 05/01/24
06:59 06:59 06:59
Intake Total 2843.46 / 2949.76 2349.7 / 2409.7 605 / 605
Output Total 275 / 275 2335 / 2335
Balance 2568.46 / 2674.76 14.7 / 74.7 605 / 605
Physical Exam
Physical Exam
HEENT: Anicteric and Moist mucous membranes
Cardiology: Normal Sinus Rhythm
Pulmonary: Clear
GI: Soft, Non Distended and Non Tender
Extremities: No Edema
Neuro: Other (awake and alert with slow speech )
--- NOTE | 2024-04-30 15:30 | PTCARENOTE ---
Pt visiting with family BP 170/90's. Dr. Esquivel updated. Will monitor for now.
--- NOTE | 2024-04-30 17:00 | PTCARENOTE ---
Resting unless disturbed. No changes in assessment. Tolerating tube feeds. Remains very weak in general
[2024-04-30 17:43] LABS: Glucose - Point of Care 141 mg/dl (70-99)
--- NOTE | 2024-04-30 18:15 | PTCARENOTE ---
Repositioned. Taking occasional ice chip - 1 chip at at time. Hydration protocol maintained
[2024-04-30 21:55] LABS: Glucose - Point of Care 129 mg/dl (70-99)
[2024-05-01] VITALS (19 sets, daily range): BP systolic 145–188; BP diastolic 76–115; PULSE 97; O2SAT 94; BMI 18.4
[2024-05-01 05:28] LABS: Hematocrit 27.6 % (37.0-47.0); Hemoglobin 9.4 g/dL (12.0-16.0); Mean Corp Hgb Conc. 34.1 g/dL (33.0-37.0); Mean Corpuscular Volume 88.2 fL (81.0-99.0); Mean Platelet Volume 10.2 fL (7.4-10.4); Platelet Count 347 10^3/uL (130-400); Red Blood Cell Count 3.13 10^6/uL (4.20-5.40); Red Cell Dist. Width 14.2 % (11.5-14.5); White Blood Cell Count 6.1 10^3/uL (4.8-10.8)
[2024-05-01 05:55] LABS: ALT (SGPT) 51 U/L (0-35); AST (SGOT) 45 U/L (14-36); Albumin 2.4 g/dl (3.5-5.0); Alkaline Phosphatase 225 U/L (38-126); Blood Urea Nitrogen 55 mg/dl (7-17); Calcium 8.7 mg/dl (8.4-10.2); Carbon Dioxide 30 mmol/L (22-30); Chloride 106 mmol/L (98-107); Estimated Creatinine Clearance 42 ml/min; Glucose 125 mg/dl (70-99); Sodium 140 mmol/L (135-145); Total Bilirubin 0.5 mg/dl (0.2-1.3); Total Protein 4.9 g/dl (6.3-8.2); eGFR > 60.00
[2024-05-01 05:58] LABS: Glucose - Point of Care 120 mg/dl (70-99)
[2024-05-01] MEDS: NOVOLOG FLEXPEN-MODERATE RESISTANCE SC ×3 (06:06→17:40)
[2024-05-01] MEDS: KEPPRA 500 MG IV ×2 (07:52→20:11)
[2024-05-01] MEDS: MIRALAX TUBE (07:53)
[2024-05-01] MEDS: LOPRESSOR 25 MG TUBE ×2 (07:53→20:11)
[2024-05-01] MEDS: PROTONIX IV 40 MG IV ×2 (07:53→20:11)
[2024-05-01] MEDS: NSS (PRESERVATIVE FREE) 10 ML IV ×2 (07:53→20:11)
[2024-05-01] MEDS: HEPARIN 5000 UNITS SC ×2 (07:53→15:54)
--- NOTE | 2024-05-01 08:40 | W.PN.CARDCBS ---
Today's Communication / Plan
-
increase Metoprolol to 25mg q8.
remains in sinus
If Hg stable in AM, add ASA 81mg daily
Impression / Plan
-
PCP: Dr. Good
Primary Supervisor Dry Cleaning: none, initially seen by Maylin
Impression:
Admitted with weakness 04/19/24
Severe RLL Legionella PNA
Newly diagnosed paroxysmal Afib
apical wall motion abnormality
Not chronically anticoagulated due to new diagnosis of Afib and new melanotic stools
VDRF since 04/26/24
Heme positive, melanotic stools
Anemia
Change in mental status
CHERIE
Hypokalemia
Elevated troponin, suspected nonischemic myocardial injury
Elevated LFTs, in setting of NICHOLE followed at [facility]
HTN
HLD
asthma
osteoporosis
[place]
ECHO 04/20/24: EF 60-65%, mild MR, mild MR, PAP 30-35mmHg
echo 04/27/24: EF 60%, apical akinesis, PA 25
Plan:
Echo with apical wall motion abnormality but preserved EF. The etiology of this remains unclear. Cardiac troponins improved
Possibilities include Takotsubo's, versus embolic event from A-fib and coronary artery, versus coronary artery disease.
Hemoglobin stable at 9.4
She remains in sinus rhythm with no A-fib over the last 48 hours.
Norepinephrine has been weaned off. Increase Metoprolol today 25mg q8 via tube.
Once hemoglobin stabilizes would add low-dose aspirin. Possibly in AM
Creatinine now normal at 0.9 Continue to follow daily weights.
Now extubated on 2L NC. cont supportive care
LFTs about the same.
Will consider further cardiac evaluation if patient makes meaning full recovery after pneumonia improves and bleeding is stable.
HPI: Patient is a 78-year-old female with past medical history of hypertension, hyperlipidemia, asthma, NICHOLE followed at [facility], osteoporosis who was seen in PCP office 04/16/2024 due to fatigue and weight loss. Labs ordered and were abnormal
with elevated LFTs. 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 She has had poor appetite, lethargy, confusion resulting in her bringing her to ER. CXR on admission with evidence of severe R PNA, positive for legionella. Also with
significant electrolyte abnormalities and metabolic acidosis. Cardiology consulted due to new afib (of note, she had EKG with PVCs in PCP office 04/16 and was ordered echo and stress test). She denies cardiac history and does not feel palpitations.
She is presently rate controlled. She is having dark, tarry, heme positive stools per nursing.
Progress Note - Supervisor Dry Cleaning
Subjective
Date of Service: May 01, 2024
Remains in sinus rhythm. Remains on feeding tubes. With no overt bleeding.
Objective
Labs:
05/01/24 05:04
05/01/24 05:04
Labs
Hgb 9.4 g/dL (12.0-16.0) L 05/01/24 05:04
Hct 27.6 % (37.0-47.0) L 05/01/24 05:04
Plt Count 347 10^3/uL (130-400) 05/01/24 05:04
PT 13.5 Sec (11.4-14.6) 04/26/24 18:45
INR 1.03 04/26/24 18:45
APTT 93.1 Sec (23.4-35.0) H 04/28/24 08:33
Sodium 140 mmol/L (135-145) 05/01/24 05:04
Potassium 4.0 mmol/L (3.5-5.1) 05/01/24 05:04
BUN 55 mg/dl (7-17) H 05/01/24 05:04
Creatinine 0.9 mg/dL (0.6-1.0) 05/01/24 05:04
Glucose 125 mg/dl (70-99) H 05/01/24 05:04
Vital Signs and I&O:
Vital Signs
Temp Pulse Resp BP Pulse Ox
97.6 F 97 23 152/81 94
05/01/24 07:29 05/01/24 07:53 05/01/24 06:00 05/01/24 07:53 05/01/24 06:00
Vital Signs
Temp Pulse Resp BP Pulse Ox
97.6 F 97 23 152/81 94
05/01/24 07:29 05/01/24 07:53 05/01/24 06:00 05/01/24 07:53 05/01/24 06:00
Intake & Output
04/29/24 04/30/24 05/01/24 05/02/24
06:59 06:59 06:59 06:59
Intake Total 2843.46 / 2949.76 2349.7 / 2409.7 845 / 845
Output Total 275 / 275 2335 / 2335 1100 / 1100
Balance 2568.46 / 2674.76 14.7 / 74.7 -255 / -255
Physical Exam
Physical Exam
GEN: No distress, fatigued
HEENT: supple, anicteric, mmm
LUNGS: dec Bs at bases
CV: Reg, S1/S2, 1/6 syst LSB, no gallop
ABD: soft, BS+, NT/ND
EXT: No edema
NEURO: sleeping in bed
SKIN: No rash
--- NOTE | 2024-05-01 08:44 | PTCARENOTE ---
Received pt from flag signaler RN. Answers orientation questions appropriately but takes much effort. Difficulty to get pt to follow motor commands, she has trace movement of her hands and no movement of her feet when asked. She states she can feel me
touching her but when asking further questions, she does not answer. During assessment pt maintains un-breaking eye contact, unsure how much she comprehends. Neuro made aware. NSR on tele, + 2 anasarca. 97% on 1 L NC, shallow breaths, diminished
breath sounds with rhonchi. R nare DHT in place with Jevity infusing at goal. Rectal trumpet in place draining liquid brown stool. Purewick in place. IV sites intact. Q2 turns.
--- NOTE | 2024-05-01 08:48 | W.PN.NEPH.PH ---
Today's Communication / Plan
-
follow BMP
Assessment/Plan
-
Assessment
Malaise, decreased appetite
Hypertension
Sinus tachycardia with PACs
Acute kidney injury
Hyponatremia
Metabolic acidosis
Elevated LFTs
Fatty liver
Confusion
Pneumonia with positive urinary Legionella antigen
Plan
follow BMP
no lasix today
TF continues with FWF 25ml/hr, via DHT
maintain daniel for now
abx continue for PNA
-
-
Date of Service: May 01, 2024
CC / HPI / ROS
-
Chief Complaint:
Hyponatremia
CHERIE
History of Present Illness:
CHERIE/Cr improved to 0.9
hypokalemia improved
Hgb up after transfusion
now extubated
on abx for legionella PNA
Na normal at 14, TF/FWF in progress
Review of Systems:
Nonoliguric via daniel
DHT
No fevers
lethargic
Labs
-
Labs:
WBC 6.1 10^3/uL (4.8-10.8) 05/01/24 05:04
RBC 3.13 10^6/uL (4.20-5.40) L 05/01/24 05:04
Hgb 9.4 g/dL (12.0-16.0) L 05/01/24 05:04
Hct 27.6 % (37.0-47.0) L 05/01/24 05:04
Plt Count 347 10^3/uL (130-400) 05/01/24 05:04
Sodium 140 mmol/L (135-145) 05/01/24 05:04
Potassium 4.0 mmol/L (3.5-5.1) 05/01/24 05:04
Chloride 106 mmol/L (98-107) 05/01/24 05:04
Carbon Dioxide 30 mmol/L (22-30) 05/01/24 05:04
BUN 55 mg/dl (7-17) H 05/01/24 05:04
Creatinine 0.9 mg/dL (0.6-1.0) 05/01/24 05:04
eGFR > 60.00 05/01/24 05:04
Glucose 125 mg/dl (70-99) H 05/01/24 05:04
Calcium 8.7 mg/dl (8.4-10.2) 05/01/24 05:04
Daa-Z-Lzxireogztr Pept 84760 pg/ml 04/20/24 11:40
Albumin 2.4 g/dl (3.5-5.0) L 05/01/24 05:04
Physical Exam
-
Vital Signs:
Vital Signs
Temp Pulse Resp BP Pulse Ox
97.6 F 97 23 152/81 97
05/01/24 07:29 05/01/24 07:53 05/01/24 06:00 05/01/24 07:53 05/01/24 08:35
Cardiovascular:: Regular rate and rhythm
Respiratory:: Bilateral: Coarse
Lung Excursion:: Normal
Abdomen:: Nontender and Soft
Bowel Sounds:: Normal
Extremity Edema:: None: Bilateral:
--- NOTE | 2024-05-01 09:16 | W.PN.HOSP.TC ---
Today's Communication/Plan
-
see bold
Assessment / Plan
Assessment / Plan
Gen: NAD, NCAT, appears chronically ill
Neck: supple.
CV: RRR, +S1/S2, no m/r/g.
Resp: remains CTAB anteriorly, no rales, wheezes, or rhonchi.
Abd: +BS, soft, NT, ND
Skin: No rashes.
Psych: calm
04/25/24 16:56 Csf CSF Culture - Final
No Growth After 5 Days - Final Report
04/25/24 16:56 Csf Gram Stain - Final
04/28/24 10:52 Sputum Respiratory Culture - Final
04/28/24 10:52 Sputum Gram Stain - Final
04/25/24 15:04 Urine Urine Culture - Final
Escherichia coli
04/25/24 16:56 Csf Fungal Culture - Preliminary
Culture in progress.
Positive cultures are reported as soon as detected.
Final report to follow in four to five weeks.
04/25/24 16:56 Csf Meningitis/Encephalitis Panel (PCR) - Final
04/20/24 11:40 Blood/Venous Blood Culture - Final
No Growth - Final Report
04/20/24 11:19 Blood/Venous Blood Culture - Final
No Growth - Final Report
04/20/24 07:26 Urine Legionella Urinary Antigen - Final
Positive for L. pneumophila Ag
Abd U/S 04/19/24: No evidence of cholelithiasis, gallbladder wall thickening or biliary tract dilatation. Cannot exclude 'starry sridhar' appearance of the liver such as can be seen with acute hepatitis. Small simple right renal cyst.
Echo 04/20/24: EF 60-65%. No RWMA. Mild MR/TR. PASP 30-35mmHg.
CT brain 04/22/24: No acute intracranial abnormality. Age-appropriate volume loss.
MRI brain 04/22/24: No acute intracranial abnormality noted.
CXR 04/26/24: Improved aeration of the right lower lung field concerning for pneumonia. Small loculated right pleural effusion. Improved. Mild right lower lung atelectasis versus scarring. Stable. Moderate left lower lung atelectasis versus scarring.
Progressed. Lines and tubes as described above.
Abd U/S 04/27/24: Trace free fluid in the upper abdomen and partially visualized right pleural effusion. Otherwise essentially unremarkable abdominal ultrasound, as detailed above. No sonographic evidence for cholelithiasis or acute cholecystitis.
EEG 04/27/24: This study was suggestive of a generalized cortical disruption which was non-epileptiform.
MRI brain 04/27/24:
1. No MRI evidence for osmotic demyelination syndrome.
2. Severe bilateral temporal lobe volume loss and moderate volume loss in the frontal and parietal lobes suggesting a SEVERE NEURODEGENERATIVE DISEASE (probably Alzheimer's dementia).
3. Mild periventricular white matter leukoaraiosis in the frontal lobes.
4. Endotracheal tube in place.
5. Moderate layering fluid in the posterior nasopharynx and oropharynx.
Abd Xray 04/27/24: Feeding tube placement in the stomach.
Echo: Normal left ventricular wall thickness. Normal left ventricular chamber size.
Normal left ventricular systolic function. . Left ventricular ejection fraction
is 60% by Tuttle's method. There is apical akinesis.
Tricuspid valve opens normally. Mild to moderate tricuspid regurgitation.
Estimated pulmonary artery pressure of 25 mmHg, assuming a right atrial
pressure of 3 mmHg.
Since echocardiogram 04/20/2024 which was reviewed, there is apical akinesis.
Acute hypoxemic respiratory failure due to suspected severe RLL Legionella PNA (with septic shock as below):
-with acute metabolic encephalopathy due to pneumonia and electrolyte disturbances
-Legionella Positive, was on Azithromycin
-initially oxygenation and oxygen requirements were improving but then the patient had acute worsening hypoxemia and hypotension on the evening of 04/26/24. The pt was intubated and transferred to ICU. The patient was febrile and likely had septic
shock. Vasopressors were started. Antibiotics were broadened to Azithro/rocephin/Flagyl as per ID.
-The patient then had an echocardiogram with apical akinesis. There was a concern for LV thrombus and heparin drip was started. Due to acute blood loss anemia heparin gtt was stopped 04/28/24.
-on 04/27/24 the patient had the above EEG. Dr. Butcher started the pt on Keppra.
-pt extubated 04/29/24 and currently on 2L NC O2
-was on Rocephin/Flagyl/Azithro prior, completed antibiotic therapy on 04/29/24
Melena/acute blood loss anemia:
-due to likely UGIB
-pt was on heparin gtt for concern for thromboembolic disease to the left anterior descending artery. This was stopped on 04/28/24. Heparin drip contributed to acute blood loss anemia.
-GI following, too unstable for any procedures
-cont IV PPI
-s/p 1U pRBCs
-No evidence of cirrhosis
Weakness:
-CT brain/MRI brain unremarkable
-neuro following
-LP with elevated glucose/prot, WBC 1
-CSF Cx and acute encephalitis panel NEG
-AchR-Ab NEG
-was on pyridostigmine empirically, now off
A-Fib with RVR:
-Started on 04/20/24
-was on cardizem gtt, now off
-was on BB, now off with hypotension
-[id number] score is 4 but hold off on anticoagulation with heme positive stools
-cardiology following
Acute transaminitis/elevated bilirubin:
-AST/ALT/bili have all improved
-GI saw in c/s and have signed off
-Abd U/S above
Other problems:
Hypokalemia, resolved
Nontraumatic rhabdomyolysis
CHERIE on CKD3a, resolved with IVFs. Then was on Lasix as per renal. Now off lasix.
Mild rhabdomyolysis, resolved
Acute hyponatremia: now resolved after holding HCTZ/ACEi and receiving 3% NS
Severe Hypokalemia, resolved with repletion
Acute metabolic Acidosis, resolved with IVFs with HCO3-
Essential HTN: cont BB
Cachexia, weight loss
Hyperlipidemia
History of osteoporosis
NICHOLE
[id number] history of smoking quit 1984
F/E/N: DHT feeds
FULL/Heparin
Start discharge planning.
Total time spent on today's encounter was 51 minutes which included time spent in counseling the patient/family regarding diagnosis and treatment plan as listed above, goals of care, and symptom management. Case was discussed with nursing staff,
specialists, and care coordinators/case management. All labs and imaging personally reviewed by me. Remainder the time spent in detailed review of previous records, lab data, imaging, and other medical provider documentation.
Anticipated Discharge: 24 - 48 hours
Subjective/Interval History
-
Date of Service: May 01, 2024
Pt sleeping.
Objective Data
-
Labs:
Laboratory Results
05/01/24
05:04
WBC 6.1
Hgb 9.4 L
Hct 27.6 L
Plt Count 347
Sodium 140
Potassium 4.0
Chloride 106
Carbon Dioxide 30
BUN 55 H
Creatinine 0.9
Glucose 125 H
Calcium 8.7
Total Bilirubin 0.5
AST 45 H
ALT 51 H
Alkaline Phosphatase 225 H
Vital Signs:
Vital Signs
Temp Pulse Resp BP Pulse Ox
97.6 F 97 23 152/81 97
05/01/24 07:29 05/01/24 07:53 05/01/24 06:00 05/01/24 07:53 05/01/24 08:35
I&O
04/30/24 05/01/24 05/02/24
06:59 06:59 06:59
Intake Total 2349.7 / 2409.7 845 / 845
Output Total 2335 / 2335 1100 / 1100
Balance 14.7 / 74.7 -255 / -255
--- NOTE | 2024-05-01 10:51 | PTCARENOTE ---
Neuro status reassessed. Pt is more responsive now and is more consistently talking and following commands. +3 strength upper extremities, +1 lower. Currently asking for water, able to give ice chips per aspiration/hydration protocol.
[2024-05-01 11:53] LABS: Glucose - Point of Care 139 mg/dl (70-99)
--- NOTE | 2024-05-01 12:32 | W.PN.ID1 ---
Date of Service
Date of Service: May 01, 2024
Today's Communication
Discontinued antibiotics
Observe.
Assessment / Plan
Assessment/plan
# Right lower lobe pneumonia secondary to Legionella pneumophila
# Ventilator dependent respiratory failure (Intubated on 04/26/2024). Patient was extubated on 04/29/2024. Now on 2 L nasal cannula oxygen.
Finished azithromycin course, last dose 04/29/2024
-LP with elevated glucose/prot, WBC 1
-CSF Cx and acute encephalitis panel NEG
# Hypotension
- improved
-Patient placed on Dobbhoff tube, on tube feeds
-Started on ceftriaxone, Flagyl on 04/26/2024 empiric coverage for aspiration pneumonia
-Ultrasound abdomen on 04/27/2024�no evidence of cholelithiasis/acute cholecystitis
#Hyponatremia - resolved
# CHERIE-resolving with IV fluids
#Transaminitis
- Improving
#A-fib
#Elevated CK; trending down
#Hyperbilirubinemia; improved
Recommendations:
Completed 10-day course of azithromycin for Legionella pneumonia. Last dose on 04/29/2024.
Completed 5-day course of ceftriaxone/Flagyl yesterday�empiric course for aspiration pneumonia.. White count normalized. Patient is afebrile.
Patient is clinically improving, planning for discharge.
����������������������������������������������������������
Chief Complaint
-: Pneumonia (Legionella) and Other (CHERIE)
Subjective / Review of Systems
Review of Systems: No Fever, No Chills and No Chest Pain
Vital Signs / Physical Exam
Vital Signs
Vital Signs
Temp Pulse Resp BP Pulse Ox
97.5 F 92 26 153/79 97
05/01/24 11:12 05/01/24 10:00 05/01/24 10:00 05/01/24 10:00 05/01/24 11:01
Physical Exam
Constitutional: No Acute Distress
Cardiovascular: S1/S2
Pulmonary: Clear (anteriorly)
Gastrointestinal: Soft, Non Tender, Non Distended and Normal Bowel Sounds
Extremities: Edema (upper extremeties.)
Skin: Warm and Dry
Objective Data
Lab Data
Lab Results
05/01/24 05:04
05/01/24 05:04
ESR 39 mm/hour (0-20) H 04/22/24 05:14
PT 13.5 Sec (11.4-14.6) 04/26/24 18:45
INR 1.03 04/26/24 18:45
APTT 93.1 Sec (23.4-35.0) H 04/28/24 08:33
Estimated Creat Clear 42 ml/min 05/01/24 05:04
Lactic Acid Cancelled 04/26/24 18:45
Total Bilirubin 0.5 mg/dl (0.2-1.3) 05/01/24 05:04
AST 45 U/L (14-36) H 05/01/24 05:04
ALT 51 U/L (0-35) H 05/01/24 05:04
Alkaline Phosphatase 225 U/L (38-126) H 05/01/24 05:04
Most recent labs reviewed.
Micro Results:
04/25/24 16:56 CSF Culture - Final
Csf No Growth After 5 Days - Final Report
Gram Stain - Final
04/28/24 10:52 Respiratory Culture - Final
Sputum Gram Stain - Final
04/25/24 15:04 Urine Culture - Final
Urine Escherichia coli
04/25/24 16:56 Fungal Culture - Preliminary
Csf Culture in progress.
Positive cultures are reported as soon as detected.
Final report to follow in four to five weeks.
04/25/24 16:56 Meningitis/Encephalitis Panel (PCR) - Final
Csf
04/20/24 11:40 Blood Culture - Final
Blood/Venous No Growth - Final Report
04/20/24 11:19 Blood Culture - Final
Blood/Venous No Growth - Final Report
04/20/24 07:26 Legionella Urinary Antigen - Final
Urine Positive for L. pneumophila Ag
Imaging:
04/20/2024 Echo (TTE): Normal LV size and wall thickness. Mild mitral regurgitation. Mild tricuspid regurgitation. No intracardiac mass or thrombus formation seen.
04/19/2024 CXR (2 view): Large amount of asymmetric right lower lobe opacity most suggestive of SEVERE RIGHT LOWER LOBE PNEUMONIA. A right lower lobe lung cancer or asymmetric inflammatory interstitial disease are considered less likely.
--- NOTE | 2024-05-01 13:28 | CM ---
CM following re: discharge planning.
Discussed in Rounds, reviewed pt's chart, met with pt and pt's at bedside. Per Rounds meeting, pt extubated on 04/29/24, is more responsive now and is more consistently talking and following commands, DHT in place with Jevity infusing,
continue supportive care.
D/C plan: Preferred SNF. Pt's requested [facility] SNF in the past and today, pt's stated he is looking for other SNF in [facility] and he will let CM know when he confirmed with his family.
CM will follow with discharge plan updates as hospitalization progresses
[2024-05-01 17:32] LABS: Glucose - Point of Care 122 mg/dl (70-99)
--- NOTE | 2024-05-01 17:34 | W.PN.UPDATE ---
Update Note
Progress Note Update
message sent to office to arrange OP follow up with anemia and bleeding during admission.
[2024-05-02] MEDS: HEPARIN 5000 UNITS SC ×2 (00:30→08:38)
[2024-05-02] MEDS: NOVOLOG FLEXPEN-MODERATE RESISTANCE SC (00:35)
[2024-05-02 00:37] LABS: Glucose - Point of Care 144 mg/dl (70-99)
[2024-05-02 03:41] VITALS: BP 180/102
--- NOTE | 2024-05-02 05:19 | VATNOTE ---
This VAT RN noticed RA swelling more so than LA while drawing routine labs from right PICC. Primary RN notified, recommend US of RA to r/o DVT. Will continue to monitor.
[2024-05-02 05:30] VITALS: BP 173/101
[2024-05-02] MEDS: LOPRESSOR 5 MG IV (05:30)
[2024-05-02 05:36] LABS: Glucose - Point of Care 178 mg/dl (70-99)
[2024-05-02 05:53] VITALS: BP 163/94
[2024-05-02 06:00] VITALS: BMI 21.5
[2024-05-02 06:00] LABS: ALT (SGPT) 111 U/L (0-35); AST (SGOT) 165 U/L (14-36); Alkaline Phosphatase 404 U/L (38-126); Blood Urea Nitrogen 47 mg/dl (7-17); Calcium 9.5 mg/dl (8.4-10.2); Carbon Dioxide 27 mmol/L (22-30); Chloride 104 mmol/L (98-107); Estimated Creatinine Clearance 52 ml/min; Glucose 147 mg/dl (70-99); Potassium 4.2 mmol/L (3.5-5.1); Sodium 140 mmol/L (135-145); Total Bilirubin 0.6 mg/dl (0.2-1.3); Total Protein 5.8 g/dl (6.3-8.2); eGFR > 60.00
[2024-05-02] MEDS: NOVOLOG FLEXPEN-MODERATE RESISTANCE 1 UNITS SC (06:06)
--- NOTE | 2024-05-02 06:18 | W.PN.UPDATE ---
Update Note
Progress Note Update
-Reported by the nursing that the patient is not responding to verbal stimuli, grimacing for pain which is a change from earlier. BP 163/94, hr 103, RR 22, temp 99.4, SPO2 95%, bs 178.
-Last MRI done 04/27 with Severe bilateral temporal lobe volume loss and moderate volume loss in the frontal and parietal lobes suggesting a SEVERE NEURODEGENERATIVE DISEASE (probably Alzheimer's dementia).
Will add abg, lactic acid and CBC to morning lab.
-RT am noted with swelling and some redness, normal pulse and capillary refill on exam. RUE U/S ordered
[2024-05-02 06:19] LABS: % Basophils 0.5 % (0-2); % Eosinophils 0.6 % (0-6); % Immature Granulocytes 1.4 % (0-0.5); % Lymphocytes 11.6 % (20.5-51.1); % Monocytes 8.2 % (1.7-9.3); % Neutrophils 77.7 % (42.2-75.2); Absolute Immature Granulocytes 0.1 10^3/uL (0-0.05); Absolute Lymphocytes 0.7 10^3/uL (1.2-3.4); Absolute Monocytes 0.5 10^3/uL (0.1-0.6); Absolute Neutrophils 4.8 10^3/uL (1.4-6.5); Hematocrit 31.7 % (37.0-47.0); Hemoglobin 10.8 g/dL (12.0-16.0); Mean Corp Hgb Conc. 34.1 g/dL (33.0-37.0); Mean Corpuscular Hgb 29.2 pg (27.0-31.0); Mean Corpuscular Volume 85.7 fL (81.0-99.0); Mean Platelet Volume 10.4 fL (7.4-10.4); Nucleated Red Blood Cells % 0 %; Platelet Count 427 10^3/uL (130-400); Red Cell Dist. Width 14.2 % (11.5-14.5); White Blood Cell Count 6.2 10^3/uL (4.8-10.8)
[2024-05-02 06:45] LABS: B.E. 5.8 mmol/L; HCO3 29.8 mmol/L (21-28); O2 Saturation % 96.5 % (94-98); PCO2 40 mmHg (32-35); PO2 71 mmHg (83-108); pH 7.48 (7.35-7.45)
[2024-05-02 07:09] VITALS: BP 175/75
[2024-05-02 08:04] LABS: Magnesium 1.6 mg/dl (1.6-2.3)
[2024-05-02] MEDS: MIRALAX 17 GRAMS TUBE (08:38)
[2024-05-02] MEDS: PROTONIX IV 40 MG IV (08:39)
[2024-05-02] MEDS: NSS (PRESERVATIVE FREE) 10 ML IV (08:39)
[2024-05-02] MEDS: KEPPRA 500 MG IV (08:39)
[2024-05-02] MEDS: LOPRESSOR 25 MG TUBE (08:46)
[2024-05-02 09:03] LABS: Glucose - Point of Care 141 mg/dl (70-99)
--- NOTE | 2024-05-02 09:17 | W.PN.CARDCBS ---
Today's Communication / Plan
-
Pt going to hospice.
Please recall if needed
Impression / Plan
-
PCP: Dr. Good
Primary Reference Assistant: none, initially seen by Maylin
Impression:
Admitted with weakness 04/19/24
Severe RLL Legionella PNA
Newly diagnosed paroxysmal Afib
apical wall motion abnormality
Not chronically anticoagulated due to new diagnosis of Afib and new melanotic stools
VDRF since 04/26/24
Heme positive, melanotic stools
Anemia
Change in mental status
CHERIE
Hypokalemia
Elevated troponin, suspected nonischemic myocardial injury
Elevated LFTs, in setting of NICHOLE followed at [facility]
HTN
HLD
asthma
osteoporosis
[place]
ECHO 04/20/24: EF 60-65%, mild MR, mild MR, PAP 30-35mmHg
echo 04/27/24: EF 60%, apical akinesis, PA 25
Plan:
Echo with apical wall motion abnormality but preserved EF. The etiology of this remains unclear. Cardiac troponins improved
Possibilities include Takotsubo's, versus embolic event from A-fib and coronary artery, versus coronary artery disease.
She remains in sinus tachycardia.
Norepinephrine has been weaned off. Was getting Metoprolol via tube.
Pt now going to hospice.
Please recall if needed
Discussed with and primary service.
HPI: Patient is a 78-year-old female with past medical history of hypertension, hyperlipidemia, asthma, NICHOLE followed at [facility], [place], osteoporosis who was seen in PCP office 04/16/2024 due to fatigue and weight loss. Labs ordered and were abnormal
with elevated LFTs. 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 She has had poor appetite, lethargy, confusion resulting in her bringing her to ER. CXR on admission with evidence of severe R PNA, positive for legionella. Also with
significant electrolyte abnormalities and metabolic acidosis. Cardiology consulted due to new afib (of note, she had EKG with PVCs in PCP office 04/16 and was ordered echo and stress test). She denies cardiac history and does not feel palpitations.
She is presently rate controlled. She is having dark, tarry, heme positive stools per nursing.
Progress Note - Reference Assistant
Subjective
Date of Service: May 02, 2024
Pt seen and examined. not responsive
Objective
Labs:
05/02/24 06:02
05/02/24 05:17
Labs
Hgb Cancelled 05/02/24 06:02
Hct Cancelled 05/02/24 06:02
Plt Count Cancelled 05/02/24 06:02
PT 13.5 Sec (11.4-14.6) 04/26/24 18:45
INR 1.03 04/26/24 18:45
APTT 93.1 Sec (23.4-35.0) H 04/28/24 08:33
Sodium 140 mmol/L (135-145) 05/02/24 05:17
Potassium 4.2 mmol/L (3.5-5.1) 05/02/24 05:17
BUN 47 mg/dl (7-17) H 05/02/24 05:17
Creatinine 0.7 mg/dL (0.6-1.0) 05/02/24 05:17
Glucose 147 mg/dl (70-99) H 05/02/24 05:17
Vital Signs and I&O:
Vital Signs
Temp Pulse Resp BP Pulse Ox
97.5 F 107 30 175/97 95
05/02/24 07:09 05/02/24 08:46 05/02/24 07:09 05/02/24 08:46 05/02/24 07:09
Vital Signs
Temp Pulse Resp BP Pulse Ox
97.5 F 107 30 175/97 95
05/02/24 07:09 05/02/24 08:46 05/02/24 07:09 05/02/24 08:46 05/02/24 07:09
Intake & Output
04/30/24 05/01/24 05/02/24 05/03/24
06:59 06:59 06:59 06:59
Intake Total 2349.7 / 2409.7 845 / 845 600 / 600
Output Total 2335 / 2335 1100 / 1100 1200 / 1200 700 / 700
Balance 14.7 / 74.7 -255 / -255 -600 / -600 -700 / -700
Physical Exam
Physical Exam
General: not responsive
Neck: Negative JVD
Heart: tachycardic, Negative S3 positive S1/S2, Negative S4, No murmur
Neuro: nonfocal
--- NOTE | 2024-05-02 09:32 | W.PN.HOSP.TC ---
Today's Communication/Plan
-
see bold, transition to comfort care
Assessment / Plan
Assessment / Plan
Gen: NAD, NCAT, appears chronically ill
Neck: supple.
CV: tachy, reg rhythm, +S1/S2, no m/r/g.
Resp: continues to remain CTAB anteriorly, no rales, wheezes, or rhonchi, abdominal breathing.
Abd: +BS, soft, NT, ND
Skin: No rashes.
Neuro: unresponsive to sternal rub, obtunded
Psych: calm
04/25/24 16:56 Csf CSF Culture - Final
No Growth After 5 Days - Final Report
04/25/24 16:56 Csf Gram Stain - Final
04/28/24 10:52 Sputum Respiratory Culture - Final
04/28/24 10:52 Sputum Gram Stain - Final
04/25/24 15:04 Urine Urine Culture - Final
Escherichia coli
04/25/24 16:56 Csf Fungal Culture - Preliminary
Culture in progress.
Positive cultures are reported as soon as detected.
Final report to follow in four to five weeks.
04/25/24 16:56 Csf Meningitis/Encephalitis Panel (PCR) - Final
04/20/24 11:40 Blood/Venous Blood Culture - Final
No Growth - Final Report
04/20/24 11:19 Blood/Venous Blood Culture - Final
No Growth - Final Report
04/20/24 07:26 Urine Legionella Urinary Antigen - Final
Positive for L. pneumophila Ag
Abd U/S 04/19/24: No evidence of cholelithiasis, gallbladder wall thickening or biliary tract dilatation. Cannot exclude 'starry sridhar' appearance of the liver such as can be seen with acute hepatitis. Small simple right renal cyst.
Echo 04/20/24: EF 60-65%. No RWMA. Mild MR/TR. PASP 30-35mmHg.
CT brain 04/22/24: No acute intracranial abnormality. Age-appropriate volume loss.
MRI brain 04/22/24: No acute intracranial abnormality noted.
CXR 04/26/24: Improved aeration of the right lower lung field concerning for pneumonia. Small loculated right pleural effusion. Improved. Mild right lower lung atelectasis versus scarring. Stable. Moderate left lower lung atelectasis versus scarring.
Progressed. Lines and tubes as described above.
Abd U/S 04/27/24: Trace free fluid in the upper abdomen and partially visualized right pleural effusion. Otherwise essentially unremarkable abdominal ultrasound, as detailed above. No sonographic evidence for cholelithiasis or acute cholecystitis.
EEG 04/27/24: This study was suggestive of a generalized cortical disruption which was non-epileptiform.
MRI brain 04/27/24:
1. No MRI evidence for osmotic demyelination syndrome.
2. Severe bilateral temporal lobe volume loss and moderate volume loss in the frontal and parietal lobes suggesting a SEVERE NEURODEGENERATIVE DISEASE (probably Alzheimer's dementia).
3. Mild periventricular white matter leukoaraiosis in the frontal lobes.
4. Endotracheal tube in place.
5. Moderate layering fluid in the posterior nasopharynx and oropharynx.
Abd Xray 04/27/24: Feeding tube placement in the stomach.
Echo: Normal left ventricular wall thickness. Normal left ventricular chamber size.
Normal left ventricular systolic function. . Left ventricular ejection fraction
is 60% by Tuttle's method. There is apical akinesis.
Tricuspid valve opens normally. Mild to moderate tricuspid regurgitation.
Estimated pulmonary artery pressure of 25 mmHg, assuming a right atrial
pressure of 3 mmHg.
Since echocardiogram 04/20/2024 which was reviewed, there is apical akinesis.
Patient obtunded this morning. ABG earlier 7.48/40/71/96.5%. I had a lengthy conversation with the patient's and explained that due to her severe deconditioning as well as overwhelming burden of pathology in addition to likely Alzheimer's
disease with severe cerebral volume loss that I do not believe the patient can recover. I explained that she simply does not have the physiologic reserve at this point. I reconfirmed the patient's DNR status. I specifically mentioned that
considering the patient is obtunded that if he were to want to continue with aggressive care that she would likely need to be intubated. He made it clear that he does not want her intubated. I discussed transitioning the patient to comfort care,
including the use of morphine for symptom management and he agreed to this. Will place hospice c/s and transition to comfort care. The patient's reports that his daughter, in [place], plans to come into the hospital.
From 05/01/24
Acute hypoxemic respiratory failure due to suspected severe RLL Legionella PNA (with septic shock as below):
-with acute metabolic encephalopathy due to pneumonia and electrolyte disturbances
-Legionella Positive, was on Azithromycin
-initially oxygenation and oxygen requirements were improving but then the patient had acute worsening hypoxemia and hypotension on the evening of 04/26/24. The pt was intubated and transferred to ICU. The patient was febrile and likely had septic
shock. Vasopressors were started. Antibiotics were broadened to Azithro/rocephin/Flagyl as per ID.
-The patient then had an echocardiogram with apical akinesis. There was a concern for LV thrombus and heparin drip was started. Due to acute blood loss anemia heparin gtt was stopped 04/28/24.
-on 04/27/24 the patient had the above EEG. Dr. Butcher started the pt on Keppra.
-pt extubated 04/29/24 and currently on 2L NC O2
-was on Rocephin/Flagyl/Azithro prior, completed antibiotic therapy on 04/29/24
Melena/acute blood loss anemia:
-due to likely UGIB
-pt was on heparin gtt for concern for thromboembolic disease to the left anterior descending artery. This was stopped on 04/28/24. Heparin drip contributed to acute blood loss anemia.
-GI following, too unstable for any procedures
-cont IV PPI
-s/p 1U pRBCs
-No evidence of cirrhosis
Weakness:
-CT brain/MRI brain unremarkable
-neuro following
-LP with elevated glucose/prot, WBC 1
-CSF Cx and acute encephalitis panel NEG
-AchR-Ab NEG
-was on pyridostigmine empirically, now off
A-Fib with RVR:
-Started on 04/20/24
-was on cardizem gtt, now off
-was on BB, now off with hypotension
-[id number] score is 4 but hold off on anticoagulation with heme positive stools
-cardiology following
Acute transaminitis/elevated bilirubin:
-AST/ALT/bili have all improved
-GI saw in c/s and have signed off
-Abd U/S above
Other problems:
Hypokalemia, resolved
Nontraumatic rhabdomyolysis
CHERIE on CKD3a, resolved with IVFs. Then was on Lasix as per renal. Now off lasix.
Mild rhabdomyolysis, resolved
Acute hyponatremia: now resolved after holding HCTZ/ACEi and receiving 3% NS
Severe Hypokalemia, resolved with repletion
Acute metabolic Acidosis, resolved with IVFs with HCO3-
Essential HTN: cont BB
Cachexia, weight loss
Hyperlipidemia
History of osteoporosis
NICHOLE
[id number] history of smoking quit 1984
F/E/N: DHT feeds
FULL/Heparin
Start discharge planning.
Total time spent on today's encounter was 50 minutes which included time spent in counseling the patient/family regarding diagnosis and treatment plan as listed above, goals of care, and symptom management. Case was discussed with nursing staff,
specialists, and care coordinators/case management. All labs and imaging personally reviewed by me. Remainder the time spent in detailed review of previous records, lab data, imaging, and other medical provider documentation.
Anticipated Discharge: Within 24 hours
Subjective/Interval History
-
Date of Service: May 02, 2024
Called to bedside as patient unresponsive/obtunded.
Objective Data
-
Labs:
Laboratory Results
05/02/24 05/02/24 05/02/24
05:17 06:02 06:35
WBC 6.2 Cancelled
Hgb 10.8 L Cancelled
Hct 31.7 L Cancelled
Plt Count 427 H D Cancelled
HCO3 29.8 H
Sodium 140
Potassium 4.2
Chloride 104
Carbon Dioxide 27
BUN 47 H
Creatinine 0.7
Glucose 147 H
Calcium 9.5
Total Bilirubin 0.6
AST 165 H
ALT 111 H
Alkaline Phosphatase 404 H
05/02/24
09:09
WBC
Hgb
Hct
Plt Count
HCO3 Pending
Sodium
Potassium
Chloride
Carbon Dioxide
BUN
Creatinine
Glucose
Calcium
Total Bilirubin
AST
ALT
Alkaline Phosphatase
Vital Signs:
Vital Signs
Temp Pulse Resp BP Pulse Ox
97.5 F 107 30 175/97 95
05/02/24 07:09 05/02/24 08:46 05/02/24 07:09 05/02/24 08:46 05/02/24 07:09
I&O
05/01/24 05/02/24 05/03/24
06:59 06:59 06:59
Intake Total 845 / 845 600 / 600
Output Total 1100 / 1100 1200 / 1200 700 / 700
Balance -255 / -255 -600 / -600 -700 / -700
--- NOTE | 2024-05-02 09:58 | W.PN.NEPH.PH ---
Today's Communication / Plan
-
hospice
Assessment/Plan
-
Assessment
Malaise, decreased appetite
Hypertension
Sinus tachycardia with PACs
Acute kidney injury
Hyponatremia
Metabolic acidosis
Elevated LFTs
Fatty liver
Confusion
Pneumonia with positive urinary Legionella antigen
Plan
for hospice/comfort care
-
-
Date of Service: May 02, 2024
CC / HPI / ROS
-
Chief Complaint:
Hyponatremia
CHERIE
History of Present Illness:
CHERIE/Cr normal
hypokalemia improved
BP high
now extubated
on abx for legionella PNA
on TF
LFTs rising again
Review of Systems:
Nonoliguric via daniel
DHT
No fevers
unarousable
Labs
-
Labs:
WBC Cancelled 05/02/24 06:02
RBC Cancelled 05/02/24 06:02
Hgb Cancelled 05/02/24 06:02
Hct Cancelled 05/02/24 06:02
Plt Count Cancelled 05/02/24 06:02
Sodium 140 mmol/L (135-145) 05/02/24 05:17
Potassium 4.2 mmol/L (3.5-5.1) 05/02/24 05:17
Chloride 104 mmol/L (98-107) 05/02/24 05:17
Carbon Dioxide 27 mmol/L (22-30) 05/02/24 05:17
BUN 47 mg/dl (7-17) H 05/02/24 05:17
Creatinine 0.7 mg/dL (0.6-1.0) 05/02/24 05:17
eGFR > 60.00 05/02/24 05:17
Glucose 147 mg/dl (70-99) H 05/02/24 05:17
Calcium 9.5 mg/dl (8.4-10.2) 05/02/24 05:17
Tep-O-Omwuldsuhzq Pept 08051 pg/ml 04/20/24 11:40
Albumin 3.0 g/dl (3.5-5.0) L 05/02/24 05:17
Physical Exam
-
Vital Signs:
Vital Signs
Temp Pulse Resp BP Pulse Ox
97.5 F 107 30 175/97 95
05/02/24 07:09 05/02/24 08:46 05/02/24 07:09 05/02/24 08:46 05/02/24 07:09
Cardiovascular:: Regular rate and rhythm
Respiratory:: Bilateral: Coarse
Lung Excursion:: Normal
Abdomen:: Nontender and Soft
Bowel Sounds:: Normal
Extremity Edema:: None: Bilateral:
[2024-05-02 10:01] LABS: Lactic Acid 1.5 mmol/L (0.7-2.0)
[2024-05-02] MEDS: MORPHINE SULFATE 1 MG IV ×2 (14:09→15:12)
--- NOTE | 2024-05-02 14:35 | CM ---
Addendum entered by Sonya Ortiz 05/02/24 16:12:
Per hospice, qualifies for GIP
Plan for GIP admission tomorrow morning
Addendum entered by Sonya Ortiz 05/02/24 14:54:
Referral sent to [facility] via [facility] per family request
Original Note:
CM consulted for hospice, pt placed on comfort care and plan to transfer to
Bedside meeting with pt (did not participate), spouse/Nikko, and dtr/Debi
Hospice philosophy discussed as well as GIP vs home vs SNF
Associated costs with private duty and SNF room and board discussed
Family requesting GIP assessment
Referral to Hospice
Does not appear to meet criteria for GIP at this time
Hospice will follow up with family to discuss and determine plan
Discharge Disposition- hospice
--- NOTE | 2024-05-02 16:22 | HOSPNOTE ---
Spoke with the patients Nikko and daughter Debi via phone this afternoon.Patient will be placed on comfort measures. Family agreed to GIP Hospice care on Saturday morning. They were given the Hospice numbers and encouraged to call with any
further questions.
--- NOTE | 2024-05-02 16:37 | W.PN.DEATH ---
Pronouncement of
-
Called to see patient to pronounce.
No spontaneous heart tones or respirations noted.
Patient not responsive to verbal stimuli.
Patient is pronounced .
Time of : 16:30
Date of : 05/02/24
Cause of : Septic shock, legionalla pneumonia, alzhemier's disease
Family Notified: Yes
== END 2024-05-02 17:48 | disposition expired | DRG 208 ==
LOC: 4 EAST ACU 19:15
PROVIDERS: Hospitalist; Internal Medicine Cardiovascular Disease; Nurse Practitioner Family; Nurse Practitioner Primary Care; Radiology Vascular & Interventional Radiology; Student in an Organized Health Care Education/Training Program; ADMITTING PHYSICIAN Internal Medicine; EMERGENCY PHYSICIAN Emergency Medicine; FAMILY PHYSICIAN Internal Medicine; OTHER PHYSICIAN Internal Medicine Cardiovascular Disease; OTHER PHYSICIAN Internal Medicine Critical Care Medicine; OTHER PHYSICIAN Internal Medicine Gastroenterology; OTHER PHYSICIAN Internal Medicine Infectious Disease; OTHER PHYSICIAN Psychiatry & Neurology Neurology; OTHER PHYSICIAN Specialist; OTHER PHYSICIAN Surgery
PROC: 02HV33Z Insertion of Infusion Device into Superior Vena Cava, Percutaneous Approach (ICD-10-PCS; 2024-04-20)
PROC: 009U3ZX Drainage of Spinal Canal, Percutaneous Approach, Diagnostic (ICD-10-PCS; 2024-04-25)
PROC: 5A09357 Assistance with Respiratory Ventilation, Less than 24 Consecutive Hours, Continuous Positive Airway Pressure (ICD-10-PCS; 2024-04-25)
PROC: 5A1945Z Respiratory Ventilation, 24-96 Consecutive Hours (ICD-10-PCS; 2024-04-26)
PROC: 0BH17EZ Insertion of Endotracheal Airway into Trachea, Via Natural or Artificial Opening (ICD-10-PCS; 2024-04-26)
PROC: 30233N1 Transfusion of Nonautologous Red Blood Cells into Peripheral Vein, Percutaneous Approach (ICD-10-PCS; 2024-04-29)
DX: A48.1 Legionnaires' disease (principal); G92.8 Other toxic encephalopathy; A41.9 Sepsis, unspecified organism; R65.21 Severe sepsis with septic shock; J96.01 Acute respiratory failure with hypoxia; E87.1 Hypo-osmolality and hyponatremia; N17.9 Acute kidney failure, unspecified; E87.20 Acidosis, unspecified; R64 Cachexia; K92.1 Melena; D62 Acute posthemorrhagic anemia; M62.82 Rhabdomyolysis; I5A Non-ischemic myocardial injury (non-traumatic); Z66 Do not resuscitate; Z51.5 Encounter for palliative care; H91.93 Unspecified hearing loss, bilateral; M81.0 Age-related osteoporosis without current pathological fracture; E78.5 Hyperlipidemia, unspecified; J45.909 Unspecified asthma, uncomplicated; K75.81 Nonalcoholic steatohepatitis (NASH); E87.6 Hypokalemia; I12.9 Hypertensive chronic kidney disease with stage 1 through stage 4 chronic kidney disease, or unspecified chronic kidney disease; E83.51 Hypocalcemia; E88.09 Other disorders of plasma-protein metabolism, not elsewhere classified; I48.0 Paroxysmal atrial fibrillation; G30.9 Alzheimer's disease, unspecified; N18.31 Chronic kidney disease, stage 3a; F02.80 Dementia in other diseases classified elsewhere, unspecified severity, without behavioral disturbance, psychotic disturbance, mood disturbance, and anxiety; Z68.21 Body mass index [BMI] 21.0-21.9, adult; Z79.899 Other long term (current) drug therapy; Z87.891 Personal history of nicotine dependence
CPT/HCPCS: 93308; 36415; 36600; 62328; 70450; 70551; 70553; 71045; 71046; 72156; 74018; 76604; 76700; 80048; 80053; 81003; 81015; 82140; 82248; 82550; 82570; 82607; 82728; 82746; 82805; 82945; 82962; 83036; 83540; 83550; 83605; 83690; 83735; 83880; 83930; 83935; 84132; 84156; 84157; 84300; 84436; 84443; 84484; 85018; 85025; 85027; 85379; 85610; 85652; 85730; 86041; 86706; 86708; 86803; 86850; 86900; 86901; 86920; 87015; 87040; 87070; 87086; 87088; 87102; 87186; 87205; 87340; 87449; 87483; 88108; 89051; 92526; 92610; 93005; 93306; 93321; 93325; 93970; 94002; 94003; 94660; 95816; 96360; 97163; 97167; 97530; 99285; A9575; J2997; P9016; Q9950